=== PATIENT | male | born 1990 | race Caucasian/White ===

== ENCOUNTER 2017-01-06 12:46 | Emergency (ER) | payer OTHER ==
[~2017-01-06] VITALS: Ht 165.1 cm; Wt 58.0 kg
[~2017-01-06 12:46] MED LIST: ASPI81TA28 PO; CLC/300 PO; CMD5 PO; PAIN MED PO; WARF10TA4 PO
[2017-01-06 12:54] VITALS: TEMP 37.1; Ht 165.1 cm; Wt 58.0 kg
--- NOTE | 2017-01-06 14:17 | EMERGENCY ROOM VISIT NOTE ---
History Report prepared by Juventinoibchrist: Dominique Bejarano Under the Supervision of: Dr. Chivo Hawk M.D. First contact with patient: 14:01 Chief Complaint: PAIN (GENERALIZED) Stated Complaint: PAIN AROUND CHEST SCAR FROM HEART SURGERY History of Present Illness The patient is a 26 year old male who presents to the Emergency Room with complaints of persistent chest pain that started yesterday. He rates his discomfort as an 8/10 in severity. Lifting his arms worsens his pain. He has not taken any medication for the pain yet. The patient has a history of aortic valve replacement in September 2014 at [facility] and states "the pain feels like its located in the bones of my chest where my heart surgery was ". He denies any changes in the sounds his valve makes. He denies any breathing difficulty or recent episodes of syncope. The patient takes daily Coumadin but reports he "ran out" a few days ago and has not taken it in 2 days. He admits he smokes cigarettes "once in a [place]". Source of History: patient Onset: yesterday Position: chest Symptom Intensity: 8/10 Timing: other (persistent) Modifying Factors (Worsening): movement (lifting arms) Associated Symptoms: No LOC, No SOB Review of Systems See HPI for pertinent positives & negatives. A total of 10 systems reviewed and were otherwise negative. Past Medical & Surgical Medical Problems: (1) AORTIC VALVE DISORDER (2) ASTHMA, UNSPECIFIED (3) Heart Valve Replac Nec (4) MIGRAINE UNSPECIFIED W/O INTRACT MGRN W/O STATUS MIGRAINOSUS Surgical Problems: (1) H/O heart surgery (2) Heart Valve Replac Nec (3) Heart Valve Replac Nec (4) History of aortic valve replacement (5) [place] Teeth Removal Family History Diabetes mellitus Heart disease Kidney disease Social History Smoking Status: Current Some Day Smoker Alcohol Use: none Drug Use: none Marital Status: in relationship Housing Status: lives with family Occupation Status: employed Current/Historical Medications Scheduled Aspirin (Aspirin Ec), 81 MG PO DAILY Enoxaparin (Lovenox), 60 MG SQ Q12H Warfarin Sod (Coumadin), 5 MG PO 3XWK Warfarin Sod (Jantoven), 10 MG PO 4XWK Warfarin Sodium (Coumadin), 1 TAB PO DAILY Allergies Coded Allergies: Cephalexin (Verified Allergy, Intermediate, RASH-ITCHY, 09/01/16) Fish-derived Products (Verified Allergy, Intermediate, RASH-ITCHY, ) Indomethacin (Verified Adverse Reaction, Intermediate, GI SYMPTOMS, ) Tramadol (Verified Adverse Reaction, Unknown, UPSET STOMACH, 09/01/16) Physical Exam Vital Signs Date Time Temp Pulse Resp B/P Pulse Ox O2 Delivery O2 Flow Rate FiO2 01/06/17 16:45 76 18 128/83 100 Room Air NIBP 01/06/17 15:12 69 01/06/17 14:55 78 20 120/88 100 Room Air 01/06/17 12:54 37.1 78 18 131/87 98 Room Air Physical Exam GENERAL: Patient is well appearing and in minimal distress. HEENT: No acute trauma, normocephalic atraumatic, mucous membranes moist, no nasal congestion, no scleral icterus. NECK: No stridor, no adenopathy, no meningismus, trachea is midline. LUNGS: No dyspnea. Clear to auscultation and equal bilaterally. No wheeze, no rhonchi. HEART: Systolic click, palpable sternal wires with mild tenderness over lower sternum. ABDOMEN: Soft, nontender, bowel sounds positive, no masses appreciated, no peritonitis. BACK: No midline tenderness, no CVA tenderness EXTREMITIES: Normal motion all extremities, no cyanosis, no edema. NEUROLOGIC: Alert and oriented, no acute motor or sensory deficits, no focal weakness, cranial nerves grossly intact. SKIN: No rash, no jaundice, no diaphoresis. Medical Decision & Procedures ER Provider Diagnostic Interpretation: This X-Ray was reviewed and interpreted by myself and the radiologist. CHEST ONE VIEW PORTABLE IMPRESSION: No acute cardiopulmonary findings. Electronically signed by: Valdemar Hartman M.D. 01/06/2017 2:49 PM Laboratory Results 01/06/17 14:55 Red Blood Count 4.87, Mean Corpuscular Volume 79.9, Mean Corpuscular Hemoglobin 28.5, Mean Corpuscular Hemoglobin Concent 35.7, Mean Platelet Volume 9.3, Neutrophils (%) (Auto) 67.6, Lymphocytes (%) (Auto) 26.7, Monocytes (%) (Auto) 4.0, Eosinophils (%) (Auto) 1.3, Basophils (%) (Auto) 0.3, Neutrophils # (Auto) 4.54, Lymphocytes # (Auto) 1.80, Monocytes # (Auto) 0.27, Eosinophils # (Auto) 0.09, Basophils # (Auto) 0.02 01/06/17 14:55 Test 01/06/17 14:55 White Blood Count 6.73 K/uL (4.8-10.8) Red Blood Count 4.87 M/uL (4.7-6.1) Hemoglobin 13.9 g/dL (14.0-18.0) Hematocrit 38.9 % (42-52) Mean Corpuscular Volume 79.9 fL (80-100) Mean Corpuscular Hemoglobin 28.5 pg (25-34) Mean Corpuscular Hemoglobin Concent 35.7 g/dl (32-36) Platelet Count 222 K/uL (130-400) Mean Platelet Volume 9.3 fL (7.4-10.4) Neutrophils (%) (Auto) 67.6 % Lymphocytes (%) (Auto) 26.7 % Monocytes (%) (Auto) 4.0 % Eosinophils (%) (Auto) 1.3 % Basophils (%) (Auto) 0.3 % Neutrophils # (Auto) 4.54 K/uL (1.4-6.5) Lymphocytes # (Auto) 1.80 K/uL (1.2-3.4) Monocytes # (Auto) 0.27 K/uL (0.11-0.59) Eosinophils # (Auto) 0.09 K/uL (0-0.5) Basophils # (Auto) 0.02 K/uL (0-0.2) RDW Standard Deviation 39.1 fL (36.4-46.3) RDW Coefficient of Variation 13.4 % (11.5-14.5) Immature Granulocyte % (Auto) 0.1 % Immature Granulocyte # (Auto) 0.01 K/uL (0.00-0.02) Prothrombin Time 12.0 SECONDS (9.0-12.0) Prothromb Time International Ratio 1.1 (0.9-1.1) Activated Partial Thromboplast Time 27.6 SECONDS (21.0-31.0) Partial Thromboplastin Ratio 1.1 Anion Gap 7.0 mmol/L (3-11) Est Creatinine Clear Calc Drug Dose 109.3 ml/min Estimated GFR () 140.1 Estimated GFR (Non- 120.8 BUN/Creatinine Ratio 11.3 (10-20) Calcium Level 8.6 mg/dl (8.5-10.1) Total Creatine Kinase 73 U/L (39-308) Creatine Kinase MB 0.6 ng/ml (0.5-3.6) Creatine Kinase MB Ratio 0.8 (0-3.0) Troponin I < 0.015 ng/ml (0-0.045) Laboratory results as reviewed by me. Medications Administered Medications (Trade) Dose Ordered Sig/Ruthy Route Start Time Stop Time Status Last Admin Dose Admin Oxycodone HCl (Roxicodone Immediate Rel Tab) 10 mg NOW STAT PO 01/06/17 14:36 01/06/17 14:37 DC 01/06/17 14:54 10 MG Warfarin Sodium (Coumadin Tab) 10 mg NOW ONCE PO 01/06/17 16:15 01/06/17 16:16 DC 01/06/17 17:38 10 MG Enoxaparin Sodium (Lovenox Inj) 60 mg NOW ONCE SQ 01/06/17 16:15 01/06/17 16:16 DC 01/06/17 17:39 60 MG ECG Indication: chest pain Rate (beats per minute): 66 Rhythm: normal sinus (normal sinus rhythm) Findings: no acute ischemic change, no ectopy Change: no significant change (Similar appearance to previous EKG) ED Course 1408: The patient was evaluated in room C7. A complete history and physical exam was performed. 1436: Oxycodone HCl 10 mg PO. 1600: I reevaluated the patient. I discussed the importance of taking his Coumadin as prescribed and he verbalized complete understanding and agreement. 1615: I reevaluated the patient. He is feeling well. I discussed his results and discharge instructions and he verbalized complete understanding and agreement. 1615: Lovenox 60 mg SQ, Coumadin 10 mg PO. Medical Decision Differential: Cardiac Ischemia (STEMI, NSTEMI, Unstable Angina, etc), Aortic Dissection, Arrhythmia, Pulmonary Embolism, Pneumonia, Pneumothorax, MSK, Infectious, Pericarditis/Myocarditis, Esophageal Rupture, Gastrointestinal, amongst other pathologies entertained. 26 yr old male arrives with sternal chest pain, clearly reproducible and worse with movement thus I feel very likely MSK/costochondritis. EKG and Trop are both normal. Initially claiming taking his coumadin as prescribed then stating he ran out a few days ago. INR is not therapeutic. I stressed how dangerous it is for him to allow his INR to normalize on multiple times. Will do BID lovenox for next 5 days, restart coumadin with increased dose to 10mg tomorrow as well. Stable and without acute findings. Given pain med here but made it clear to him he must discuss further pain meds with pcp. Discussed symptoms requiring emergent return. Impression Primary Impression: Costochondral pain Additional Impression: Subtherapeutic international normalized ratio (INR) Scribe Attestation The scribe's documentation has been prepared under my direction and personally reviewed by me in its entirety. I confirm that the note above accurately reflects all work, treatment, procedures, and medical decision making performed by me. Departure Information Dispostion Home / Self-Care Prescriptions Warfarin Sodium (COUMADIN) 5 Mg Tab 1 TAB PO DAILY, #45 TAB 1 Refill Take as directed by your High Raw Sugar Boiler. Prov: Chivo Hawk M.D. 01/06/17 Enoxaparin (Lovenox) 60 Mg/0.6 Ml Inj 60 MG SQ Q12H for 5 Days, #10 SYR Prov: Chivo Hawk M.D. 01/06/17 Referrals Marla Dillard MD (PCP) Patient Instructions ED Chest Pain Costochondritis, My [facility] Additional Instructions You must follow up with your primary provider and intelligence engineer in the next 1-2 days. Your INR was too low. Allowing this to continue will lead to valve failure, strokes, heart failure, and possibly . This is important. Problem Qualifiers
[2017-01-06] MEDS ORDERED: OXYCODONE HCL IR 5 MG TAB (IMMEDIATE RELEASE) PO STA (14:36)
--- NOTE | 2017-01-06 14:50 | DIAGNOSTIC IMAGING REPORT ---
CHEST ONE VIEW PORTABLE CLINICAL HISTORY: Chest pain. COMPARISON STUDY: Chest radiograph July 06, 2016. FINDINGS: Lung volumes are normal. Lungs are clear. There are median sternotomy wires and a prosthetic aortic valve. Cardiac size is normal. Mediastinal contours are normal. There is no evidence of pulmonary edema. IMPRESSION: No acute cardiopulmonary findings. Electronically signed by: Valdemar Hartman M.D. 01/06/2017 2:49 PM Dictated Date/Time: 01/06/2017 2:48 PM
[2017-01-06 15:07] LABS: BASO % 0.3 %; BASO ABS # 0.02 K/uL (0-0.2); COMPLETE YES; EOS % 1.3 %; HEMATOCRIT 38.9 % (42-52); IG% 0.1 %; LYMPH % 26.7 %; MEAN CELL VOLUME 79.9 fL (80-100); MEAN CORPUSCULAR HEMOGLOBIN 28.5 pg (25-34); MEAN CORPUSCULAR HGB CONC 35.7 g/dl (32-36); MEAN PLATELET VOLUME 9.3 fL (7.4-10.4); NEUT % 67.6 %; PLATELET COUNT 222 K/uL (130-400); RED BLOOD COUNT 4.87 M/uL (4.7-6.1); WHITE BLOOD COUNT 6.73 K/uL (4.8-10.8)
[2017-01-06 15:17] LABS: INR 1.1 (0.9-1.1); PARTIAL THROMBOPLASTIN RATIO 1.1
[2017-01-06 15:24] LABS: BLOOD UREA NITROGEN 9 mg/dl (7-18); BUN/CREATININE RATIO 11.3 (10-20); CALCIUM 8.6 mg/dl (8.5-10.1); CARBON DIOXIDE 29 mmol/L (21-32); CHLORIDE 105 mmol/L (98-107); CREATININE 0.84 mg/dl (0.60-1.40); GLUCOSE 88 mg/dl (70-99); POTASSIUM 3.8 mmol/L (3.5-5.1); SODIUM 141 mmol/L (136-145)
[2017-01-06 15:29] LABS: CKMB/CK RATIO 0.8 (0-3.0)
[2017-01-06] MEDS ORDERED: WARF5TAB90 PO (16:08)
[2017-01-06] MEDS ORDERED: ENOX60IN SQ (16:08)
[2017-01-06] MEDS ORDERED: WARFARIN SOD 5 MG TAB PO ONE (16:15)
[2017-01-06] MEDS ORDERED: ENOXAPARIN 60 MG/0.6 ML SYR SQ ONE (16:15)
[2017-01-06 16:45] VITALS: BP 128/83; PULSE 76; O2SAT 100
== END 2017-01-06 17:38 | disposition home or self-care (01) ==
LOC: C.EDB 12:48 → C.EDC 17:38
DX: M94.0 Chondrocostal junction syndrome [Tietze] (principal); I35.8 Other nonrheumatic aortic valve disorders; J45.909 Unspecified asthma, uncomplicated; F17.200 Nicotine dependence, unspecified, uncomplicated; Z95.2 Presence of prosthetic heart valve; Z79.01 Long term (current) use of anticoagulants; Z79.82 Long term (current) use of aspirin; Z79.899 Other long term (current) drug therapy; Z88.8 Allergy status to other drugs, medicaments and biological substances; Z91.018 Allergy to other foods; Z83.3 Family history of diabetes mellitus; Z82.49 Family history of ischemic heart disease and other diseases of the circulatory system; Z84.1 Family history of disorders of kidney and ureter

== ENCOUNTER 2017-01-13 10:21 | Emergency (ER) | payer OTHER ==
[~2017-01-13] VITALS: Ht 165.1 cm; Wt 58.4 kg
[~2017-01-13 10:21] MED LIST changes: -CLC/300 PO; -PAIN MED PO; +WARF5TAB90 PO
[2017-01-13 10:29] VITALS: TEMP 36.6; Ht 165.1 cm; Wt 58.4 kg
[2017-01-13] MEDS ORDERED: MoRPHine SULFATE 4 MG/ML 1 ML CARP\\VIAL IV STA (11:06)
--- NOTE | 2017-01-13 11:10 | EMERGENCY ROOM VISIT NOTE ---
ED Visit Note First contact with patient: 10:35 Resident Physician Supervision Note: I interviewed and examined the patient. Discussed with Dr. Mclaughlin and agree with findings and plan as documented in the note. Any exceptions or clarifications are listed here: [None] The patient was reexamined at 1410. Headache is slightly better. INR is 1. The patient will have his Coumadin increased to 10 mg daily. He is to follow- up with the Coumadin clinic this week. The patient will be given a prescription for Fioricet. Documented By: Walt Seymour
[2017-01-13 11:20] LABS: BASO % 0.4 %; BASO ABS # 0.02 K/uL (0-0.2); COMPLETE YES; EOS % 1.9 %; IG% 0.2 %; LYMPH % 39.2 %; LYMPH ABS # 2.11 K/uL (1.2-3.4); MEAN CELL VOLUME 82.3 fL (80-100); MEAN CORPUSCULAR HEMOGLOBIN 28.9 pg (25-34); MEAN CORPUSCULAR HGB CONC 35.1 g/dl (32-36); MEAN PLATELET VOLUME 9.4 fL (7.4-10.4); MONO % 6.9 %; NEUT % 51.4 %; PLATELET COUNT 209 K/uL (130-400); RED BLOOD COUNT 4.98 M/uL (4.7-6.1); WHITE BLOOD COUNT 5.38 K/uL (4.8-10.8)
--- NOTE | 2017-01-13 11:25 | DIAGNOSTIC IMAGING REPORT ---
HEAD CT NONCONTRAST CT DOSE: 537.48 mGy.cm HISTORY: Headache FRONTAL HEADACHE, STARTED COUMADIN NOW TECHNIQUE: Multiaxial CT images of the head were performed without the use of intravenous contrast. Comparison: None. Findings: The paranasal sinuses and mastoid air cells are clear. The calvarium and skull base are intact. The ventricles and sulci are within normal limits. There is no mass, hematoma, midline shift, or acute infarct. Impression: No acute intracranial abnormality. Electronically signed by: Shar Brasher M.D. 01/13/2017 11:24 AM Dictated Date/Time: 01/13/2017 11:23 AM
[2017-01-13 11:37] LABS: BUN/CREATININE RATIO 11.7 (10-20); CALCIUM 8.8 mg/dl (8.5-10.1); CREATININE 0.9 mg/dl (0.60-1.40)
--- NOTE | 2017-01-13 11:50 | EMERGENCY ROOM VISIT NOTE ---
History First contact with patient: 10:35 Chief Complaint: HEADACHE Stated Complaint: WINSTON X 13 DAYS, V, DIZZY, SHAKING, CP-RESIDUAL History of Present Illness The patient is a 26 year old male with mechanical aortic valve, on lifelong coumadin, who presents to the Emergency Room with complaints of headache for the last 4 days. He also reports associated dizziness. He was recently in the ED on 01/07/17 and was diagnosed with costochondritis. At that visit he was found to have an INR of 1.0. He reports this was due to not having his Coumadin and not being on it for the prior 3 days due to running out of it. 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 Horner and he sees him every 6 months. He was discharged with a prescription for Lovenox BID for 5 days and was meant to be on his by mouth Coumadin at 10 mg and 5 mg on alternating days. He reports he has been compliant with this. He reports his headache started 4 days ago, is similar to his previous migraines , but as he has not had migraines over the last 2 years. The headache is frontal, throbbing, associated with nausea and dizziness, 7 out of 10 in severity. He reports nothing makes it better or worse. Initially he reported that he had taken some oxycodone, but then later denied taking this as well. He then said he took 4 tablets of Tylenol yesterday, but this did not help. He reports he cannot take NSAIDs due to due to being on Coumadin so has not tried any. He reports in the past and has had migraines he had taken hydrocodone, which was helpful. About 3 years ago when he had more frequent migraines she was also taking 20 tablets of Tylenol every day, then 1 day decided he wanted to stop this. He is not on any preventative medications for migraine. He has never actually seen a neurologist. His PCP is Dr. Dillard. Review of Systems See HPI for pertinent positives & negatives. A total of 10 systems reviewed and were otherwise negative. Past Medical/Surgical History Medical Problems: (1) AORTIC VALVE DISORDER (2) ASTHMA, UNSPECIFIED (3) Heart Valve Replac Nec (4) MIGRAINE UNSPECIFIED W/O INTRACT MGRN W/O STATUS MIGRAINOSUS Surgical Problems: (1) H/O heart surgery (2) Heart Valve Replac Nec (3) Heart Valve Replac Nec (4) History of aortic valve replacement (5) [place] Teeth Removal Family History Diabetes mellitus Heart disease Kidney disease Social History Smoking Status: Current Some Day Smoker Alcohol Use: none Drug Use: none Marital Status: in relationship Housing Status: lives with family Occupation Status: employed ([employer]) Current/Historical Medications Scheduled Aspirin (Aspirin Ec), 81 MG PO DAILY Warfarin Sod (Coumadin), 5 MG PO 3XWK Warfarin Sod (Jantoven), 10 MG PO 4XWK Scheduled PRN Acetamin/Butalbital/Caffeine (Fioricet), 1-2 TAB PO Q6 PRN for headache Allergies Coded Allergies: Cephalexin (Verified Allergy, Intermediate, RASH-ITCHY, 01/13/17) Fish-derived Products (Verified Allergy, Intermediate, RASH-ITCHY, 01/13/17) Indomethacin (Verified Adverse Reaction, Intermediate, GI SYMPTOMS, 01/13/17 ) Tramadol (Verified Adverse Reaction, Unknown, UPSET STOMACH, 01/13/17) Physical Exam Vital Signs Date Time Temp Pulse Resp B/P Pulse Ox O2 Delivery O2 Flow Rate FiO2 01/13/17 15:48 73 20 123/72 100 01/13/17 15:00 88 20 132/78 99 Room Air 01/13/17 14:00 70 18 112/76 99 Room Air 01/13/17 13:00 88 20 118/72 99 Room Air 01/13/17 11:50 84 20 124/75 97 Room Air 01/13/17 10:29 36.6 91 20 130/71 100 Room Air Physical Exam GENERAL: Awake, alert, well appearing, no distress HENT: Normocephalic, atraumatic. TM's normal. Oropharynx unremarkable. EYES: PERRL. Normal conjunctiva. Sclera non-icteric. Fundi normal. EOMI NECK: Supple. No nuchal rigidity. FROM. RESPIRATORY: CTA CARDIAC: RRR. Extremities warm and well perfused. ABDOMEN: Soft, non distended. No tenderness to palpation. No rebound or guarding. No masses. MUSCULOSKELETAL: Unremarkable. EXTREMITIES: No edema. No discoloration. Gross motor strength 5/5 bilaterally. NEURO: Normal sensorium. No sensory or motor deficits noted. Gait normal. Speech normal. Cranial nerves two through 12 intact. No pronator drift. Negative Romberg. Normal rapid alternating movements. SKIN: No rash or jaundice noted. LYMPH: No adenopathy. Medical Decision & Procedures Laboratory Results 01/13/17 11:10 Red Blood Count 4.98, Mean Corpuscular Volume 82.3, Mean Corpuscular Hemoglobin 28.9, Mean Corpuscular Hemoglobin Concent 35.1, Mean Platelet Volume 9.4, Neutrophils (%) (Auto) 51.4, Lymphocytes (%) (Auto) 39.2, Monocytes (%) (Auto) 6.9, Eosinophils (%) (Auto) 1.9, Basophils (%) (Auto) 0.4, Neutrophils # (Auto) 2.77, Lymphocytes # (Auto) 2.11, Monocytes # (Auto) 0.37, Eosinophils # (Auto) 0.10, Basophils # (Auto) 0.02 01/13/17 11:10 Test 01/13/17 11:07 01/13/17 11:10 01/13/17 12:59 Bedside Prothrombin Time INR 1.0 (0.9-1.1) White Blood Count 5.38 K/uL (4.8-10.8) Red Blood Count 4.98 M/uL (4.7-6.1) Hemoglobin 14.4 g/dL (14.0-18.0) Hematocrit 41.0 % (42-52) Mean Corpuscular Volume 82.3 fL (80-100) Mean Corpuscular Hemoglobin 28.9 pg (25-34) Mean Corpuscular Hemoglobin Concent 35.1 g/dl (32-36) Platelet Count 209 K/uL (130-400) Mean Platelet Volume 9.4 fL (7.4-10.4) Neutrophils (%) (Auto) 51.4 % Lymphocytes (%) (Auto) 39.2 % Monocytes (%) (Auto) 6.9 % Eosinophils (%) (Auto) 1.9 % Basophils (%) (Auto) 0.4 % Neutrophils # (Auto) 2.77 K/uL (1.4-6.5) Lymphocytes # (Auto) 2.11 K/uL (1.2-3.4) Monocytes # (Auto) 0.37 K/uL (0.11-0.59) Eosinophils # (Auto) 0.10 K/uL (0-0.5) Basophils # (Auto) 0.02 K/uL (0-0.2) RDW Standard Deviation 40.8 fL (36.4-46.3) RDW Coefficient of Variation 13.5 % (11.5-14.5) Immature Granulocyte % (Auto) 0.2 % Immature Granulocyte # (Auto) 0.01 K/uL (0.00-0.02) Anion Gap 7.0 mmol/L (3-11) Est Creatinine Clear Calc Drug Dose 102.7 ml/min Estimated GFR () 136.1 Estimated GFR (Non- 117.5 BUN/Creatinine Ratio 11.7 (10-20) Calcium Level 8.8 mg/dl (8.5-10.1) Prothrombin Time 12.7 SECONDS (9.0-12.0) Prothromb Time International Ratio 1.2 (0.9-1.1) Medications Administered Medications (Trade) Dose Ordered Sig/Ruthy Route Start Time Stop Time Status Last Admin Dose Admin Morphine Sulfate 4 mg 4 mg NOW STAT IV 01/13/17 11:06 01/13/17 11:07 DC 01/13/17 11:48 4 MG Sodium Chloride (Nss 1000ml) 1,000 ml @ 999 mls/hr Q1H1M ONCE IV 01/13/17 12:15 01/13/17 13:15 DC 01/13/17 12:13 999 MLS/HR ED Course 10:51: The patient was evaluated in room B9. A complete history and physical was performed. 11:06: I prescribed 4 mg of IV morphine sulfate. I also ordered a CT scan, CBC , CMP, and POC 12:05: The patient's [id number] INR was 1.0. His CT head was negative for bleed. I informed the patient about these results. I told him my concern that his INR 1.0 would indicate that he is not taking his Coumadin. He strongly says that he is taking and that he is compliant with his prescribed regime. He showed me his gomes from injecting Lovenox on his abdomen. I ordered a lab PT/ INR which had been drawn with his previous labs. He also reported feeling dizzy , so I prescribed a 1 L fluid bolus. 14:00: The patient was reviewed again. His PT/INR was 1.2. His headache had improved. He had an appt set up for January 14 in the [facility] and was discharged home in good condition. Medical Decision This is a 26 yo male with mechanical aortic valve replacement for bicuspid aortic valve, with recent restarting of coumadin 4 days ago, who presents with headache. Differential includes: intracranial hemorrhage, ischemia, migraine, tension headache, and cluster headache. He had an IV placed and labs drawn. He had an IV placed and labs drawn. His CT head was negative for bleed. Concerningly, his POC INR was 1.0, and his lab PT/INR was 1.2. I discussed my concerns of non-compliance with him and re-emphasized the risk of stroke and with subtherapeutic coumadin. He reports he understood and strongly said he had been taking his Lovenox injections BID and coumadin as prescribed, 10mg / 5mg on alternate days. He was given 4mg IV morphine which helped his headache. He was set up with an appointment at the [facility] Coumadin [facility] and this was arranged for tomorrow. He was discharged home in good condition and advised to follow up with his PCP in the week as well. Impression Primary Impression: Headache Departure Information Dispostion Home / Self-Care Condition GOOD Prescriptions Acetamin/Butalbital/Caffeine (FIORICET) 1 Ea Tab 1-2 TAB PO Q6 Y for headache, #20 TAB Prov: Walt Seymour M.D. 01/13/17 Referrals Marla Dillard MD (PCP) Patient Instructions My [facility] Resident Tracking Resident Involvement: Resident Care Provided Care Provided: Adult ED
[2017-01-13] MEDS ORDERED: SODIUM CHLORIDE 0.9% 1000ML 1,000 ML IV ONE (12:15)
[2017-01-13 13:16] LABS: INR 1.2 (0.9-1.1); PROTHROMBIN TIME (PATIENT) 12.7 SECONDS (9.0-12.0)
[2017-01-13] MEDS ORDERED: FRCT/ PO (15:27)
[2017-01-13 15:48] VITALS: BP 123/72; PULSE 73; O2SAT 100
== END 2017-01-13 15:51 | disposition home or self-care (01) ==
LOC: C.EDB 10:24
DX: R51 Headache (principal); R42 Dizziness and giddiness; J45.909 Unspecified asthma, uncomplicated; F17.200 Nicotine dependence, unspecified, uncomplicated; Z95.2 Presence of prosthetic heart valve; Z98.818 Other dental procedure status; Z98.890 Other specified postprocedural states; Z83.3 Family history of diabetes mellitus; Z79.01 Long term (current) use of anticoagulants; Z79.82 Long term (current) use of aspirin

== ENCOUNTER → 2017-01-15 | Outpatient (CLI) | payer OTHER ==
[~2017-01-15] MED LIST changes: +CMD10 PO; +ENOX100I SC; +FRCT/ PO; +WARF5TAB7 PO; -WARF5TAB90 PO
[2017-01-15 18:37] LABS: INR 1.7 (0.9-1.1); PROTHROMBIN TIME (PATIENT) 18.5 SECONDS (9.0-12.0)
== END | disposition home or self-care (01) ==
LOC: C.LABPBG 13:01
PROVIDERS: ATTEND Family Medicine
DX: Z51.81 Encounter for therapeutic drug level monitoring (principal); Z79.01 Long term (current) use of anticoagulants

== ENCOUNTER 2017-06-24 18:46 | Inpatient (IN) | payer OTHER ==
[~2017-06-24] VITALS: Ht 162.6 cm; Wt 59.0 kg
[~2017-06-24 18:46] MED LIST changes: -CMD10 PO; -ENOX100I SC; -WARF5TAB7 PO
[2017-06-24] MEDS ORDERED: SODIUM CHLORIDE 0.9% 1000ML 1,000 ML IV STA (19:03)
[2017-06-24] MEDS ORDERED: DiphenhydrAMINE HCL 50 MG/ML VIAL IV STA (19:03)
[2017-06-24] MEDS ORDERED: PROCHLORPERAZINE 5 MG/ML 2 ML VIAL IV STA (19:03)
[2017-06-24] MEDS ORDERED: KETOROLAC TROMETHAMINE 30 MG/ML VIAL IV STA (19:03)
--- NOTE | 2017-06-24 19:24 | DIAGNOSTIC IMAGING REPORT ---
CHEST ONE VIEW PORTABLE CLINICAL HISTORY: Altered mental status. Weakness. COMPARISON STUDY: 01/06/2017 FINDINGS: There are postsurgical changes of a midline sternotomy and aortic valve replacement. The heart is normal in size. There is no failure. There is no focal pulmonary consolidation. There are no pleural effusions.[ IMPRESSION: No active disease in the chest. Electronically signed by: Tomi Tyler M.D. 06/24/2017 7:23 PM Dictated Date/Time: 06/24/2017 7:23 PM
[2017-06-24 19:34] LABS: BASO % 0.2 %; BASO ABS # 0.02 K/uL (0-0.2); COMPLETE YES; EOS % 1.6 %; HEMATOCRIT 41.3 % (42-52); IG% 0.2 %; LYMPH ABS # 2.32 K/uL (1.2-3.4); MEAN CELL VOLUME 82.4 fL (80-100); MEAN CORPUSCULAR HEMOGLOBIN 28.9 pg (25-34); MEAN CORPUSCULAR HGB CONC 35.1 g/dl (32-36); MEAN PLATELET VOLUME 9.3 fL (7.4-10.4); MONO % 6.4 %; NEUT % 67.6 %; PLATELET COUNT 232 K/uL (130-400); RED BLOOD COUNT 5.01 M/uL (4.7-6.1); WHITE BLOOD COUNT 9.65 K/uL (4.8-10.8)
[2017-06-24 19:46] LABS: INR 1.1 (0.9-1.1); PROTHROMBIN TIME (PATIENT) 11.3 SECONDS (9.0-12.0)
[2017-06-24 19:53] LABS: BLOOD UREA NITROGEN 12 mg/dl (7-18); BUN/CREATININE RATIO 11.9 (10-20); CALCIUM 8.9 mg/dl (8.5-10.1); CARBON DIOXIDE 27 mmol/L (21-32); CHLORIDE 107 mmol/L (98-107); GLUCOSE 101 mg/dl (70-99); POTASSIUM 3.7 mmol/L (3.5-5.1); SODIUM 142 mmol/L (136-145)
--- NOTE | 2017-06-24 20:07 | DIAGNOSTIC IMAGING REPORT ---
CT HEAD WITHOUT CONTRAST (CT) CLINICAL HISTORY: Altered mental status. WEAKNESS COMPARISON STUDY: 01/13/2017 TECHNIQUE: Axial CT of the brain is performed from the vertex to the skull base. IV contrast was not administered for this examination. A dose lowering technique was utilized adhering to the principles of ALARA. CT DOSE: 614.27 mGy.cm FINDINGS: No intra or extra-axial mass lesions are visualized. There is no CT evidence of acute cortical infarction. There is no evidence of midline shift. There is no acute hemorrhage. No calvarial fractures are visualized. There is a 4 mm hypodensity within the right basal ganglia. This was not visualized on the prior study. There is also a 6 mm hypodensity within the right frontal white matter. This also was not visualized the prior study. There is no evidence of pathologic ventricular dilatation. There is no evidence of acute sinusitis IMPRESSION: 1. New 6 mm hypodensity within the right frontal white matter. 2. New 4 mm hypodensity within the right basal ganglia. 3. These lesions are nonspecific. Diagnostic considerations include demyelinating disease, or the sequela of ischemic disease which in a patient of this age would suggest a vasculitis. An MRI might be considered in follow-up for further evaluation 4. No acute hemorrhage Electronically signed by: Tomi Tyler M.D. 06/24/2017 8:06 PM Dictated Date/Time: 06/24/2017 8:00 PM
--- NOTE | 2017-06-24 21:26 | EMERGENCY ROOM VISIT NOTE ---
History Report prepared by Joe: Jessica Kincaid Under the Supervision of: Dr. Prasanth Sandra D.O. First contact with patient: 18:52 Chief Complaint: CARDIAC ASSESSMENT Stated Complaint: MIGRAINE,RT SIDE CHEST PAIN Nursing Triage Summary: pt c/o migraine since 1000 today. pt c/o on and off sharp right sided chest pain hx aortic valve replacement 3 yeras ago. c/o SOB when walking more than 20 minutes History of Present Illness The patient is a 26 year old male who presents to the Emergency Room with complaints of persistent right sided chest pain that began several days ago. He currently rates his discomfort as an 8/10 in severity. The patient states that he has a history of an aortic valve replacement in September 2014. He states that he has a mechanical valve. The patient states that a few days ago, he and his girlfriend got into an argument and he has recently been sleeping in his car. He states that his pain starts where his scar is to his right side. The patient additionally reports that he developed a migraine around 1000 this morning. He states that he took 2 500 mg Tylenol around 1030 and laid back down to rest. The patient states that one hour later he woke with a worsened migraine-headache. He states that he typically gets migraines approximately twice a week. The patient states that he is on Coumadin. He additionally reports nausea and vomiting. The patient states that he has only eaten a few crackers. Source of History: patient Onset: several days ago Position: chest (right) Symptom Intensity: 8/10 Timing: other (persistent) Associated Symptoms: + headache (migraine), + nausea, + vomiting Review of Systems See HPI for pertinent positives & negatives. A total of 10 systems reviewed and were otherwise negative. Past Medical & Surgical Medical Problems: (1) AORTIC VALVE DISORDER (2) ASTHMA, UNSPECIFIED (3) Heart Valve Replac Nec (4) MIGRAINE UNSPECIFIED W/O INTRACT MGRN W/O STATUS MIGRAINOSUS Surgical Problems: (1) H/O heart surgery (2) Heart Valve Replac Nec (3) Heart Valve Replac Nec (4) History of aortic valve replacement (5) [place] Teeth Removal Family History Diabetes mellitus Heart disease Kidney disease Social History Smoking Status: Never Smoker Alcohol Use: none Drug Use: none Marital Status: in relationship Housing Status: lives with family Occupation Status: employed Current/Historical Medications Scheduled Aspirin (Aspirin Ec), 81 MG PO DAILY Warfarin Sod (Coumadin), 5 MG PO 3XWK Warfarin Sod (Jantoven), 10 MG PO 4XWK Allergies Coded Allergies: Cephalexin (Verified Allergy, Intermediate, RASH-ITCHY, 01/13/17) Fish-derived Products (Verified Allergy, Intermediate, RASH-ITCHY, 01/13/17) Indomethacin (Verified Adverse Reaction, Intermediate, GI SYMPTOMS, 01/13/17 ) Tramadol (Verified Adverse Reaction, Unknown, UPSET STOMACH, 01/13/17) Physical Exam Vital Signs Date Time Temp Pulse Resp B/P (MAP) Pulse Ox O2 Delivery O2 Flow Rate FiO2 06/24/17 19:52 90 06/24/17 19:47 73 18 131/93 96 Room Air 06/24/17 18:52 98 Room Air 06/24/17 18:48 36.8 86 18 110/74 98 Room Air Physical Exam CONSTITUTIONAL/VITAL SIGNS: Reviewed / noted above. GENERAL: Non-toxic in appearance. INTEGUMENTARY: Warm, dry, and [place]. HEAD: Normocephalic. EYES: without scleral icterus or trauma. ENT/OROPHARYNX: clear and moist. LYMPHADENOPATHY/NECK: Is supple without lymphadenopathy or meningismus. RESPIRATORY: Lungs clear and equal. CARDIOVASCULAR: Regular rate and rhythm. GI/ABDOMEN: Soft and nontender. No organomegaly or pulsatile mass. No rebound or guarding. Normal bowel sounds. EXTREMITIES: Warm and well perfused. BACK: No CVA tenderness. NEUROLOGICAL: Intact without focal deficits. PSYCHIATRIC: normal affect. MUSCULOSKELETAL: Normally developed with good muscle tone. Medical Decision & Procedures ER Provider Diagnostic Interpretation: Radiology results as stated below per my review and radiologist interpretation: CT HEAD WITHOUT CONTRAST (CT) CLINICAL HISTORY: Altered mental status. WEAKNESS COMPARISON STUDY: 01/13/2017 TECHNIQUE: Axial CT of the brain is performed from the vertex to the skull base. IV contrast was not administered for this examination. A dose lowering technique was utilized adhering to the principles of ALARA. CT DOSE: 614.27 mGy.cm FINDINGS: No intra or extra-axial mass lesions are visualized. There is no CT evidence of acute cortical infarction. There is no evidence of midline shift. There is no acute hemorrhage. No calvarial fractures are visualized. There is a 4 mm hypodensity within the right basal ganglia. This was not visualized on the prior study. There is also a 6 mm hypodensity within the right frontal white matter. This also was not visualized the prior study. There is no evidence of pathologic ventricular dilatation. There is no evidence of acute sinusitis IMPRESSION: 1. New 6 mm hypodensity within the right frontal white matter. 2. New 4 mm hypodensity within the right basal ganglia. 3. These lesions are nonspecific. Diagnostic considerations include demyelinating disease, or the sequela of ischemic disease which in a patient of this age would suggest a vasculitis. An MRI might be considered in follow-up for further evaluation 4. No acute hemorrhage Electronically signed by: Tomi Tyler M.D. 06/24/2017 8:06 PM Dictated Date/Time: 06/24/2017 8:00 PM CHEST ONE VIEW PORTABLE CLINICAL HISTORY: Altered mental status. Weakness. COMPARISON STUDY: 01/06/2017 FINDINGS: There are postsurgical changes of a midline sternotomy and aortic valve replacement. The heart is normal in size. There is no failure. There is no focal pulmonary consolidation. There are no pleural effusions.[ IMPRESSION: No active disease in the chest. Electronically signed by: Tomi Tyler M.D. 06/24/2017 7:23 PM Dictated Date/Time: 06/24/2017 7:23 PM Laboratory Results 06/24/17 19:25 Red Blood Count 5.01, Mean Corpuscular Volume 82.4, Mean Corpuscular Hemoglobin 28.9, Mean Corpuscular Hemoglobin Concent 35.1, Mean Platelet Volume 9.3, Neutrophils (%) (Auto) 67.6, Lymphocytes (%) (Auto) 24.0, Monocytes (%) (Auto) 6.4, Eosinophils (%) (Auto) 1.6, Basophils (%) (Auto) 0.2, Neutrophils # (Auto) 6.52, Lymphocytes # (Auto) 2.32, Monocytes # (Auto) 0.62, Eosinophils # (Auto) 0.15, Basophils # (Auto) 0.02 06/24/17 19:25 Test 06/24/17 19:25 06/24/17 21:20 White Blood Count 9.65 K/uL (4.8-10.8) Red Blood Count 5.01 M/uL (4.7-6.1) Hemoglobin 14.5 g/dL (14.0-18.0) Hematocrit 41.3 % (42-52) Mean Corpuscular Volume 82.4 fL (80-100) Mean Corpuscular Hemoglobin 28.9 pg (25-34) Mean Corpuscular Hemoglobin Concent 35.1 g/dl (32-36) Platelet Count 232 K/uL (130-400) Mean Platelet Volume 9.3 fL (7.4-10.4) Neutrophils (%) (Auto) 67.6 % Lymphocytes (%) (Auto) 24.0 % Monocytes (%) (Auto) 6.4 % Eosinophils (%) (Auto) 1.6 % Basophils (%) (Auto) 0.2 % Neutrophils # (Auto) 6.52 K/uL (1.4-6.5) Lymphocytes # (Auto) 2.32 K/uL (1.2-3.4) Monocytes # (Auto) 0.62 K/uL (0.11-0.59) Eosinophils # (Auto) 0.15 K/uL (0-0.5) Basophils # (Auto) 0.02 K/uL (0-0.2) RDW Standard Deviation 40.3 fL (36.4-46.3) RDW Coefficient of Variation 13.5 % (11.5-14.5) Immature Granulocyte % (Auto) 0.2 % Immature Granulocyte # (Auto) 0.02 K/uL (0.00-0.02) Prothrombin Time 11.3 SECONDS (9.0-12.0) Prothromb Time International Ratio 1.1 (0.9-1.1) Anion Gap 8.0 mmol/L (3-11) Est Creatinine Clear Calc Drug Dose 91.2 ml/min Estimated GFR () 119.9 Estimated GFR (Non- 103.4 BUN/Creatinine Ratio 11.9 (10-20) Calcium Level 8.9 mg/dl (8.5-10.1) Troponin I < 0.015 ng/ml (0-0.045) Laboratory results as stated above per my review. Medications Administered Medications (Trade) Dose Ordered Sig/Ruthy Route Start Time Stop Time Status Last Admin Dose Admin Sodium Chloride 1,000 ml @ 999 mls/hr Q1H1M STAT IV 06/24/17 19:03 06/24/17 20:03 DC 06/24/17 19:43 999 MLS/HR Ketorolac Tromethamine (Toradol Inj) 30 mg NOW STAT IV 06/24/17 19:03 06/24/17 19:05 DC 06/24/17 19:43 30 MG Diphenhydramine HCl (Benadryl Inj) 25 mg NOW STAT IV 06/24/17 19:03 06/24/17 19:05 DC 06/24/17 19:43 25 MG Prochlorperazine Edisylate (Compazine Inj) 10 mg NOW STAT IV 06/24/17 19:03 06/24/17 19:05 DC 06/24/17 19:43 10 MG ECG Indication: chest pain Rate (beats per minute): 76 Rhythm: normal sinus Findings: no acute ischemic change, no ectopy ED Course 1899: Previous medical records were reviewed. The patient was evaluated in room A2. A complete history and physical examination was performed. 1902: Ordered Compazine Inj 10 mg IV, Benadryl Inj 25 mg IV, Toradol Inj 30 mg IV, Sodium Chloride 1000 ml @ 999 mls/hr IV. 2034: I reevaluated the patient and he is resting. I discussed the exam findings with him and I discussed the treatment plan. He verbalized complete understanding and agreement. He is going to be evaluated for further treatment. 2038: I discussed the patients case with Dr. Rodríguez, [facility] He is going to evaluate the patient for further treatment as long as Cardiology is comfortable with keeping the patient here. 2112: I discussed the patients case with Dr. Hernandez, Cardiology. He states that the patient is okay to stay here for further evaluation and treatment. 2116: Ordered Heparin Sodium/Dextrose 1 ea NA. Medical Decision Differentials include: Acute coronary syndrome, myocardial infarction, CVA, TIA , anemia, infection, pneumonia, UTI, pyelonephritis, poor nutrition, dehydration , electrolyte disturbance, and hypoglycemia. This is a 26-year-old male who presents to the ED with a chief complaint of right-sided chest pain as well as a headache. The patient reports history of aortic valve replacement 3 years ago. He states that he is taking warfarin. He denies any trauma. Denies shortness of breath. The patient states that he started having a migraine around 10 AM today. He took 2 Tylenol which did not help. He's been here previously for headaches. His physical exam was unremarkable. He is in no distress. EKG shows a normal sinus rhythm. CBC is normal, chest x-ray did not show acute disease, PE or PE was normal, INR is 1.1. This was similar to his previous ED visit. The patient appears to be noncompliant with taking his Coumadin. He was advised of the importance of taking this with his mechanical valve replacement. CT scan of the brain reveals 2 small hypodensities in the right frontal and right basal ganglia. These could possibly be ischemic related as the patient is not therapeutic on anticoagulation and has a mechanical heart valve. The patient was started on IV heparin. I spoke with the hospitalist, who will see the patient for further inpatient evaluation. I spoke with Dr. Walter from cardiology who agrees the patient can be evaluated by cardiology tomorrow here as well. The patient was treated with IV fluids, IV Toradol, IV Benadryl IV Compazine. He reports that he is getting a ride home with his friend. He is felt to be stable for discharge. Medication Reconcilliation Current Medication List: was personally reviewed by me Blood Pressure Screening Patient's blood pressure: Normal blood pressure Blood pressure disposition: Did not require urgent referral Consults Time Called: 2037 Consulting Physician: JOCY Kelly Returned Call: 2038 I discussed the patients case with JOCY Kelly. He is going to evaluate the patient for further treatment as long as Cardiology is comfortable with keeping the patient here. Additional Consults: Time Called: 2039 Consulted Physician: Dr. Hernandez, Cardiology Returned Call: [phone] Additional Comments: I discussed the patients case with Dr. Hernandez, Cardiology. He states that the patient is okay to stay here for further evaluation and treatment. Impression Primary Impression: Right-sided chest pain Additional Impressions: Headache CVA (cerebral vascular accident) Subtherapeutic anticoagulation Mechanical heart valve present Medical non-compliance Scribe Attestation The scribe's documentation has been prepared under my direction and personally reviewed by me in its entirety. I confirm that the note above accurately reflects all work, treatment, procedures, and medical decision making performed by me. Departure Information Dispostion Being Evaluated By Hospitalist Referrals No Doctor, Assigned (PCP) Problem Qualifiers
[2017-06-24] MEDS ORDERED: MoRPHine SULFATE 2 MG/ML CARP IV PRN (21:30)
[2017-06-24] MEDS ORDERED: ACETAMINOPHEN 325 MG TAB PO PRN (21:30)
[2017-06-24] MEDS ORDERED: POLYETHYLENE (MIRALAX) 17 GM PACK PO PRN (21:30)
[2017-06-24] MEDS ORDERED: ZOLPIDEM TARTRATE 5 MG TAB PO PRN (21:30)
[2017-06-24] MEDS ORDERED: ALUMINUM/MAGNESIUM/SIMETH (MAALOX MAX) 30 ML UDC PO PRN (21:30)
[2017-06-24] MEDS ORDERED: ONDANSETRON INJ 2 MG/ML 2 ML VIAL IV PRN (21:30)
[2017-06-24] MEDS ORDERED: MAGNESIUM HYDROXIDE SUSP 30 ML UDC PO PRN (21:30)
--- NOTE | 2017-06-24 21:55 | History and Physical ---
History & Physical Date & Time of Service: Jun 24, 2017 at 21:36 Chief Complaint: Migraine,Rt Side Chest Pain Primary Care Physician: No Doctor, Assigned History of Present Illness Source: patient 26 y/o M Hx bicuspid aortic valve and resultant replacement with a mechanical valve in 2013. Pt is frequently noncompliant with Coumadin. He presented to the ER with complaints of both headache and chest pain. He has had persistent R sided moderate to severe CP for 2-3 days. He additionally states that he developed a migraine earlier today. He took tylenol but reports that his headache had worsened regardless. A CT head was obtained in the ER revealing a 6 mm hypodensity in the right frontal white matter and a 4 mm hypodensity within the right basal ganglia. Considering his history of a mechanical valve and Coumadin noncompliance, it is felt that these lesions may represent emboli, and he will be admitted for further workup. Past Medical/Surgical History Medical Problems: (1) AORTIC VALVE DISORDER Status: Chronic (2) ASTHMA, UNSPECIFIED Status: Chronic (3) MIGRAINE UNSPECIFIED W/O INTRACT MGRN W/O STATUS MIGRAINOSUS Status: Chronic Surgical Problems: (1) H/O heart surgery Status: Resolved (2) Heart Valve Replac Nec Status: Chronic (3) History of aortic valve replacement Status: Resolved (4) [place] Teeth Removal Status: Resolved Family History Diabetes mellitus Heart disease Kidney disease Social History Smoking Status: Never Smoker Drug Use: none Marital Status: in relationship Occupational Status: employed Multi-Drug Resistant Organisms History of MDRO: No Allergies Coded Allergies: Cephalexin (Verified Allergy, Intermediate, RASH-ITCHY, 01/13/17) Fish-derived Products (Verified Allergy, Intermediate, RASH-ITCHY, 01/13/17) Indomethacin (Verified Adverse Reaction, Intermediate, GI SYMPTOMS, 01/13/17 ) Tramadol (Verified Adverse Reaction, Unknown, UPSET STOMACH, 01/13/17) Home Medications Scheduled Aspirin (Aspirin Ec), 81 MG PO DAILY Warfarin Sod (Coumadin), 5 MG PO 3XWK Warfarin Sod (Jantoven), 10 MG PO 4XWK Review of Systems Constitutional: No fever, No chills, No sweats Eyes: No worsening of vision ENT: No hearing loss, No unusual epistaxis, No nasal symptoms Respiratory: No cough, No sputum, No wheezing Cardiovascular: + chest pain (R sided - eminating from area of scar) Abdomen: No pain, No nausea, No vomiting Musculoskeletal: No joint pain Genitourinary - Male: No hematuria, No dysuria, No urinary frequency, No urinary urgency Neurologic: + problem reported (headache as above), No memory loss, No paralysis, No weakness Psychiatric: No depression symptoms Endocrine: No fatigue Hematologic / Lymphatic: No abnormal bleeding/bruising Integumentary: No rash Allergic / Immunologic: No environmental allergies Physical Exam Vital Signs Date Time Temp Pulse Resp B/P (MAP) Pulse Ox O2 Delivery O2 Flow Rate FiO2 06/24/17 19:52 90 06/24/17 19:47 73 18 131/93 96 Room Air 06/24/17 18:52 98 Room Air 06/24/17 18:48 36.8 86 18 110/74 98 Room Air General Appearance: WD/WN, no apparent distress Head: normocephalic Eyes: normal inspection ENT: normal ENT inspection, pharynx normal Neck: supple, no JVD Respiratory/Chest: chest non-tender, lungs clear, normal breath sounds Cardiovascular: regular rate, rhythm, no edema, no gallop, no JVD, + pertinent finding (Audible click ) Abdomen/GI: normal bowel sounds, non tender, soft Genitourinary - Male: normal male genitalia Back: normal inspection Extremities/Musculoskelatal: normal inspection Neurologic/Psych: ap processor II-XII nml as tested, no motor/sensory deficits, alert, normal mood/affect, normal reflexes, oriented x 3 Skin: normal color, warm/dry, no rash Diagnostics Laboratory Results Results Past 24 Hours Test 06/24/17 19:25 Range/Units White Blood Count 9.65 4.8-10.8 K/uL Red Blood Count 5.01 4.7-6.1 M/uL Hemoglobin 14.5 14.0-18.0 g/dL Hematocrit 41.3 42-52 % Mean Corpuscular Volume 82.4 80-100 fL Mean Corpuscular Hemoglobin 28.9 25-34 pg Mean Corpuscular Hemoglobin Concent 35.1 32-36 g/dl Platelet Count 232 130-400 K/uL Mean Platelet Volume 9.3 7.4-10.4 fL Neutrophils (%) (Auto) 67.6 % Lymphocytes (%) (Auto) 24.0 % Monocytes (%) (Auto) 6.4 % Eosinophils (%) (Auto) 1.6 % Basophils (%) (Auto) 0.2 % Neutrophils # (Auto) 6.52 1.4-6.5 K/uL Lymphocytes # (Auto) 2.32 1.2-3.4 K/uL Monocytes # (Auto) 0.62 0.11-0.59 K/uL Eosinophils # (Auto) 0.15 0-0.5 K/uL Basophils # (Auto) 0.02 0-0.2 K/uL RDW Standard Deviation 40.3 36.4-46.3 fL RDW Coefficient of Variation 13.5 11.5-14.5 % Immature Granulocyte % (Auto) 0.2 % Immature Granulocyte # (Auto) 0.02 0.00-0.02 K/uL Prothrombin Time 11.3 9.0-12.0 SECONDS Prothromb Time International Ratio 1.1 0.9-1.1 Sodium Level 142 136-145 mmol/L Potassium Level 3.7 3.5-5.1 mmol/L Chloride Level 107 98-107 mmol/L Carbon Dioxide Level 27 21-32 mmol/L Anion Gap 8.0 3-11 mmol/L Blood Urea Nitrogen 12 7-18 mg/dl Creatinine 1.00 0.60-1.40 mg/dl Est Creatinine Clear Calc Drug Dose 91.2 ml/min Estimated GFR () 119.9 Estimated GFR (Non- 103.4 BUN/Creatinine Ratio 11.9 10-20 Random Glucose 101 70-99 mg/dl Calcium Level 8.9 8.5-10.1 mg/dl Troponin I < 0.015 0-0.045 ng/ml Diagnostic Radiology CT head 1. New 6 mm hypodensity within the right frontal white matter. 2. New 4 mm hypodensity within the right basal ganglia. 3. These lesions are nonspecific. Diagnostic considerations include demyelinating disease, or the sequela of ischemic disease which in a patient of this age would suggest a vasculitis. An MRI might be considered in follow-up for further evaluation 4. No acute hemorrhage Normal EKG Impression Assessment and Plan 26 y/o M Hx bicuspid aortic valve and resultant replacement with a mechanical valve in 2013. Pt is frequently noncompliant with Coumadin. He presented to the ER with complaints of both headache and chest pain. He has had persistent R sided moderate to severe CP for 2-3 days. He additionally states that he developed a migraine earlier today. He took Tylenol but reports that his headache had worsened regardless. A CT head was obtained in the ER revealing a 6 mm hypodensity in the right frontal white matter and a 4 mm hypodensity within the right basal ganglia. Considering his history of a mechanical valve and Coumadin noncompliance, it is felt that these lesions may represent emboli, and he will be admitted for further workup. 1) CP - unclear if this is related to noncompliance - unlikely to represent ACS - we will monitor on telemetry and repeat a troponin AM. We will obtain an echo and consult radiology. 2) Lesions on CT - MRI and echo ordered as we would pursue emboli as a diagnosis. 3) Mechanical valve - concern for valve thrombus due to Coumadin noncompliance - as above an echo is ordered - he will be placed on Heparin pending cardio evaluation - he may require a PUNEET. INR is 1.1 on admission. 4) Pt is cautioned regarding medical noncompliance Full code - Full dose Heparin Total time for this admit including review of labs, EKG, CT, records - discussion with pt and ER attending - 38 min Level of Care Telemetry Resuscitation Status FULL RESUSCITATION VTE Prophylaxis VTE Risk Assessment Done? Y/N: Yes Risk Level: High Given or contraindicated: Other Anticoagulation
[2017-06-24] MEDS ORDERED: HEPARIN 25000 UNIT/500 ML D5W ONE (22:13)
[2017-06-24 22:48] VITALS: BP 135/83; PULSE 61; TEMP 36.4; O2SAT 99; BMI 21.3
[2017-06-25] VITALS (7 sets, daily range): BP systolic 119–158; BP diastolic 79–97; PULSE 64–78; TEMP 36.6–36.8; O2SAT 94–100
[2017-06-25 04:13] LABS: PARTIAL THROMBOPLASTIN RATIO 1.8
[2017-06-25] MEDS ORDERED: HEPARIN IV BOLUS 2,000 UNIT in SYRINGE 0 ML IV ONE (05:15)
[2017-06-25] MEDS: HEPARIN 25,000 UNIT/500ML D5W 500 ML IV PRN ×2 (05:48→20:37)
[2017-06-25] MEDS: ASPIRIN 81 MG ECTAB PO SCH (08:11)
--- NOTE | 2017-06-25 09:41 | DIAGNOSTIC IMAGING REPORT ---
MRI OF THE BRAIN WITHOUT IV CONTRAST CLINICAL HISTORY: Weakness. Change in mental status. COMPARISON STUDY: CT of the brain dated 06/24/2017 and 12/31/2015. TECHNIQUE: MRI of the brain was performed utilizing various T1 and T2-weighted sequences in the axial, sagittal, and coronal planes. IV contrast was not administered for this examination. FINDINGS: Brain parenchyma: There are subcentimeter foci of encephalomalacia in the right posterior frontal white matter and in the right basal ganglia measuring up to 7 mm. These were also seen on the 06/24/2017 CT scan but are new from earlier prior studies. The appearance is consistent with tiny chronic lacunar infarcts. Similar-appearing cortical findings are seen within the right temporal lobe. Subtle FLAIR signal is seen on coronal image #15. There is no hemorrhage or mass effect. T2 shine through is noted within the right frontal white matter lesion. There is no restricted diffusion to indication acute ischemia. Cid-white matter differentiation is preserved. No extra-axial fluid collection is seen. The cerebellar tonsils are normal in configuration. Ventricles, sulci, and cisterns: Normal in configuration. Pituitary and sella: Unremarkable. Intracranial vasculature: Normal flow voids are maintained at the skull base. Orbits: The bony orbits are grossly intact. Orbital contents are normal in appearance. Sinuses and mastoids: A retention cyst is noted in the right maxillary antrum. The paranasal sinuses are otherwise clear. The mastoid air cells are well pneumatized. Calvarium: Unremarkable. Cervical cord: Partially visualized cervical spinal cord is normal in morphology and signal intensity. IMPRESSION: 1. There are 2 subcentimeter lacunar infarcts identified within the right frontal white matter and in the right basal ganglia. Additionally, there is a small chronic infarct in the right temporal lobe. These corresponds to the lesions seen on the 06/24/2017 CT scan and correspond to chronic infarcts which are new from 01/13/2017. 2. No acute ischemia is identified. No hemorrhage or mass effect is seen. Electronically signed by: Lan Harding M.D. 06/25/2017 9:40 AM Dictated Date/Time: 06/25/2017 9:27 AM
--- NOTE | 2017-06-25 10:27 | Medical Student: [facility] ---
Med Student Progress Note Date of Service Jun 25, 2017. Subjective Pain: 2/10 headache, >1/10 chest pain PO Intake: tolerating PO diet Isaias Sylvester is a 26 yo, with PMHx of bicuspid aortic valve replaced with mechanical valve x3 years and migraines, who presented complaining of worsening , 8/10, dully, achy, substernal chest pain (around incision site) that radiated to right shoulder since yesterday morning. He also reports associated headache , localized to right islam that wrapped around bilateral sides of forehead. He states he took 1000mg Tylenol yesterday at 10:30am, went back to bed, woke up at 12:30pm with worsening symptoms. He notes he ran out of his Coumadin prescription (alternating 5mg MWF and 10mg other days of the week) 4 days ago. He also reports taking Fioricet 1-2x a week, with significant relief of headache symptoms, but notes he ran out of his prescription 1.5 weeks ago. He states he is usually good about refilling his prescriptions (only refilling late a "few" times in the past 3 years), but remarks he has been homeless/ living in his car recently, secondary to troubles with his family/girlfriend. Patient has history of depression/anxiety, but denies any symptoms of baseline. Review of Systems Constitutional: + problem reported (temporal headache that wraps around forehead), No fever, No chills, No sweats, No weakness, No fatigue (at baseline) Eyes: No worsening of vision, No eye pain, No redness ENT: No hearing loss, No nasal symptoms (nasal congestion at baseline), No sore throat Respiratory: No cough, No wheezing, No shortness of breath Cardiac: + chest pain (right sided near sternum (around scar) radiating to right shoulder), No orthopnea, No edema, No claudication Abdomen: No pain, No nausea, No vomiting, No diarrhea, No constipation Musculoskeletal: No joint pain, No muscle pain, No swelling Male : No dysuria, No urinary frequency, No incontinence Neurologic: No memory loss, No weakness, No numbness/tingling, No vertigo Psychiatric: No depression symptoms (at baseline), No anxiety (at baseline) Endo: No fatigue (at baseline), No excessive urination Skin: No rash, No itch Objective Vital Signs Date Time Temp Pulse Resp B/P (MAP) Pulse Ox O2 Delivery O2 Flow Rate FiO2 06/25/17 08:00 Room Air 06/25/17 06:51 36.8 64 17 119/79 (92) 98 Room Air 06/25/17 04:14 99 Room Air 06/25/17 04:00 36.6 64 18 121/81 (94) 97 Room Air 06/25/17 00:00 99 Room Air 06/24/17 22:48 36.4 61 16 135/83 99 Room Air 06/24/17 22:37 60 18 141/69 98 06/24/17 21:30 80 18 141/69 100 Room Air 06/24/17 19:52 90 06/24/17 19:47 73 18 131/93 96 Room Air 06/24/17 18:52 98 Room Air 06/24/17 18:48 36.8 86 18 110/74 98 Room Air Physical Exam General Appearance: WD/WN, no apparent distress Eyes: bilateral eyes normal inspection, bilateral eyes PERRL, bilateral eyes EOMI ENT: normal ENT inspection, hearing grossly normal, pharynx normal Neck: supple, no adenopathy Respiratory/Chest: chest non-tender, lungs clear, normal breath sounds, no respiratory distress, no accessory muscle use Cardiovascular: regular rate, rhythm, no edema, + pertinent finding (audible click from mechanical aortic valve) Abdomen: normal bowel sounds, non tender, soft Extremities: normal range of motion, non-tender, normal inspection, no pedal edema, no calf tenderness Neurologic/Psychiatric: talkback host II-XII nml as tested, no motor/sensory deficits, alert, normal mood/affect, oriented x 3 Skin: normal color, warm/dry, no rash Lymphatic: no adenopathy Laboratory Results Last 24 Hours Test 06/24/17 19:25 06/25/17 03:50 06/25/17 07:17 White Blood Count 9.65 K/uL Red Blood Count 5.01 M/uL Hemoglobin 14.5 g/dL Hematocrit 41.3 % Mean Corpuscular Volume 82.4 fL Mean Corpuscular Hemoglobin 28.9 pg Mean Corpuscular Hemoglobin Concent 35.1 g/dl Platelet Count 232 K/uL Mean Platelet Volume 9.3 fL Neutrophils (%) (Auto) 67.6 % Lymphocytes (%) (Auto) 24.0 % Monocytes (%) (Auto) 6.4 % Eosinophils (%) (Auto) 1.6 % Basophils (%) (Auto) 0.2 % Neutrophils # (Auto) 6.52 K/uL Lymphocytes # (Auto) 2.32 K/uL Monocytes # (Auto) 0.62 K/uL Eosinophils # (Auto) 0.15 K/uL Basophils # (Auto) 0.02 K/uL RDW Standard Deviation 40.3 fL RDW Coefficient of Variation 13.5 % Immature Granulocyte % (Auto) 0.2 % Immature Granulocyte # (Auto) 0.02 K/uL Prothrombin Time 11.3 SECONDS Prothromb Time International Ratio 1.1 Activated Partial Thromboplast Time 26.5 SECONDS 46.3 SECONDS 103.4 SECONDS Partial Thromboplastin Ratio 1.0 1.8 4.0 Sodium Level 142 mmol/L Potassium Level 3.7 mmol/L Chloride Level 107 mmol/L Carbon Dioxide Level 27 mmol/L Anion Gap 8.0 mmol/L Blood Urea Nitrogen 12 mg/dl Creatinine 1.00 mg/dl Est Creatinine Clear Calc Drug Dose 91.2 ml/min Estimated GFR () 119.9 Estimated GFR (Non- 103.4 BUN/Creatinine Ratio 11.9 Random Glucose 101 mg/dl Calcium Level 8.9 mg/dl Troponin I < 0.015 ng/ml < 0.015 ng/ml Medications Medications Administered Medications (Trade) Dose Ordered Sig/Ruthy Route Start Time Stop Time Status Last Admin Dose Admin Sodium Chloride 1,000 ml @ 999 mls/hr Q1H1M STAT IV 06/24/17 19:03 06/24/17 20:03 DC 06/24/17 19:43 999 MLS/HR Ketorolac Tromethamine (Toradol Inj) 30 mg NOW STAT IV 06/24/17 19:03 06/24/17 19:05 DC 06/24/17 19:43 30 MG Diphenhydramine HCl (Benadryl Inj) 25 mg NOW STAT IV 06/24/17 19:03 06/24/17 19:05 DC 06/24/17 19:43 25 MG Prochlorperazine Edisylate (Compazine Inj) 10 mg NOW STAT IV 06/24/17 19:03 06/24/17 19:05 DC 06/24/17 19:43 10 MG Aspirin (Ecotrin Tab) 81 mg DAILY PO 06/25/17 09:00 07/25/17 08:59 06/25/17 08:11 81 MG Heparin Sodium/ Dextrose (Heparin 25,000 Unit/500ml D5W) 25,000 unit STK-MED ONCE .ROUTE 06/24/17 22:13 06/24/17 22:14 DC 06/24/17 22:16 25,000 UNIT Heparin Sodium/ Dextrose 500 ml @ 21 mls/hr [id number] PRN IV 06/24/17 23:45 07/24/17 23:44 06/25/17 05:48 23 MLS/HR Heparin Sodium (Porcine) 2000 unit/Syringe 2 ml @ 10 mls/min NOW ONCE IV 06/25/17 05:15 06/25/17 05:16 DC 06/25/17 05:46 10 MLS/MIN Assessment and Plan Assessment and Plan: Isaias Sylvester is a 26 yo male, with PMHx of bicuspid aortic valve that was replaced with mechanical valve x3 years, who presented with chest pain around his surgical scar radiating to right shoulder and a temporal/bilateral frontal headache since yesterday. Toradol (30mg injection) given in ED helped to control both headache pain and chest pain. Non-contrast CT of brain in the ED revealed 2 small hypodensities (6mm in right frontal lobe and 4mm in right basal ganglia); follow-up MRI showed ischemic changes in these areas as well. Labs showed an INR of 1.1. Patient was started on heparin while in-patient, but will be bridged to warfarin for discharge. Chest pain - Admit to telemetry - Repeat troponin (<0.015 x2) - Echocardiogram findings: "Normal left ventricular size with low-normal systolic function. EF 55%. No regional wall motion abnormalities. Mild concentric left ventricular hypertrophy. Mechanical aortic valve with acceptable transvalvular gradients and velocities. Echogenic mobile findings within the LVOT near the mechanical aortic valve, noted mostly during diastole. This could represent artifact versus actual finding. Normal estimated right ventricular systolic pressure; 19 mmHg. Compared to prior transesophageal study on 09/15/2014, mechanical aortic valve has replaced bicuspid aortic valve. " - Consult cardiology Embolic infarct - Non-contrast CT of head findings: "New 6 mm hypodensity within the right frontal white matter. New 4 mm hypodensity within the right basal ganglia. These lesions are nonspecific. Diagnostic considerations include demyelinating disease, or the sequela of ischemic disease which in a patient of this age would suggest a vasculitis. An MRI might be considered in follow-up for further evaluation. No acute hemorrhage" - MRI of head findings: "There are 2 subcentimeter lacunar infarcts identified within the right frontal white matter and in the right basal ganglia. Additionally, there is a small chronic infarct in the right temporal lobe. These corresponds to the lesions seen on the 06/24/2017 CT scan and correspond to chronic infarcts which are new from 01/13/2017. No acute ischemia is identified. No hemorrhage or mass effect is seen." - Neurology consult. Recommended continued anticoagulation with heparin bridge to warfarin, no neurological deficits noted. Anticoagulation for mechanical valve - Continue heparin IV (500 ml @ 21 mls/hr) - Bridge to Coumadin (10mg each day for 3 days), recheck INR each day - [facility] - Call Dr. Ladd at the anti-coagulation clinic Migraine headaches, chronic - Pain controlled on Toradol (30mg injection) given in ED
--- NOTE | 2017-06-25 10:53 | Neurology Consultation ---
Neurology Consultation Date of Consultation: Jun 25, 2017. Attending Physician: John Rodríguez M.D. Primary Care Physician: No Doctor, Assigned Reason for Consultation: Stroke History of Present Illness The patient is a 26-year-old male with a history of congenital aortic stenosis who underwent placement of a mechanical aortic valve 3 years ago. He presented to the emergency department yesterday complaining of headache and chest pain and was found to have a subtherapeutic INR. A CT of the head revealed 2 small hypodensities within the right frontal lobe and right basal ganglia respectively that were new compared with the previous CT of the head done in January and potentially suggestive of small infarcts. A follow-up MRI of the brain has been completed. I reviewed the images as well as the radiologist's interpretation of this test. The abnormalities observed on CT of the head likely represent chronic infarcts. There is an area of chronic infarct within the right temporal lobe as well. Diffusion-weighted imaging is negative for acute infarct although there is a small area of restricted diffusion within the right frontal lobe consistent with T2 shine through. The patient admits to noncompliance with his warfarin. He reports that his headache is improved. He denies experiencing any fevers or chills. He denies any focal neurological symptoms such as change in speech, weakness, or sensory loss. Past Medical/Surgical History Medical Problems: (1) AORTIC VALVE DISORDER Status: Chronic (2) ASTHMA, UNSPECIFIED Status: Chronic (3) Chronic knee pain Status: Acute (4) Chronic lower back pain Status: Acute (5) Closed head injury Status: Acute (6) CVA (cerebral vascular accident) Status: Acute (7) Encounter for removal of ema Status: Acute (8) Facial cellulitis Status: Acute (9) Headache Status: Acute (10) Headache Status: Acute (11) Injury of knee, ligament Status: Acute (12) Knee pain Status: Acute (13) Knee pain Status: Acute (14) Left knee pain Status: Acute (15) Left knee sprain Status: Acute (16) Medical non-compliance Status: Acute (17) Mid sternal chest pain Status: Acute (18) MIGRAINE UNSPECIFIED W/O INTRACT MGRN W/O STATUS MIGRAINOSUS Status: Chronic (19) Odontalgia Status: Acute (20) Pain, dental Status: Acute (21) Periapical abscess Status: Acute (22) Right-sided chest pain Status: Acute (23) Right-sided chest pain Status: Acute (24) Scalp laceration Status: Acute (25) Sprain of knee Status: Acute (26) Subtherapeutic anticoagulation Status: Acute (27) Subtherapeutic international normalized ratio (INR) Status: Acute Surgical Problems: (1) Heart Valve Replac Nec Status: Chronic Social History Problems: (1) Mechanical heart valve present Status: Acute Family History Family history notable for diabetes and heart disease Social History Smoking Status: Former smoker Drug Use: none Marital Status: in relationship Housing Status: lives with family Occupation Status: employed Allergies Coded Allergies: Cephalexin (Verified Allergy, Intermediate, RASH-ITCHY, 01/13/17) Fish-derived Products (Verified Allergy, Intermediate, RASH-ITCHY, 01/13/17) Indomethacin (Verified Adverse Reaction, Intermediate, GI SYMPTOMS, 01/13/17 ) Tramadol (Verified Adverse Reaction, Unknown, UPSET STOMACH, 01/13/17) Current Inpatient Medications Current Inpatient Medications Medications (Trade) Dose Ordered Sig/Ruthy Route Start Time Stop Time Status Last Admin Dose Admin Aspirin (Ecotrin Tab) 81 mg DAILY PO 06/25/17 09:00 07/25/17 08:59 06/25/17 08:11 81 MG Acetaminophen (Tylenol Tab) 650 mg Q4H PRN PO 06/24/17 21:30 07/24/17 21:29 Al Hydrox/Mg Hydrox/Simethicone (Maalox Max Susp) 15 ml Q4H PRN PO 06/24/17 21:30 07/24/17 21:29 Magnesium Hydroxide (Milk Of Magnesia Susp) 30 ml Q12H PRN PO 06/24/17 21:30 07/24/17 21:29 Zolpidem Tartrate (Ambien Tab) 5 mg HSZ PRN PO 06/24/17 21:30 07/24/17 21:29 Ondansetron HCl (Zofran Inj) 4 mg Q6H PRN IV 06/24/17 21:30 07/24/17 21:29 Morphine Sulfate (MoRPHine SULFATE INJ) 2 mg Q30M PRN IV 06/24/17 21:30 07/08/17 21:29 Polyethylene (Miralax Powder Packet) 17 gm DAILY PRN PO 06/24/17 21:30 07/24/17 21:29 Heparin Sodium/ Dextrose 500 ml @ 23 mls/hr [id number] PRN IV 06/24/17 23:45 07/24/17 23:44 06/25/17 05:48 23 MLS/HR Review of Systems Constitutional: No fever or chills Eyes: No vision loss or diplopia ENT: No vertigo or hearing loss Cardiovascular: No chest pain or palpitations Respiratory: No shortness of breath or cough Skin: No rash or skin lesion Neurological: As per history of present illness A full 10 point review of systems was obtained from this patient with pertinent positives and negatives described in the history of present illness and otherwise listed above. All remaining systems reviewed and are negative Physical Exam Vital Signs (Past 24 Hrs): Date Time Temp Pulse Resp B/P (MAP) Pulse Ox O2 Delivery O2 Flow Rate FiO2 06/25/17 08:00 Room Air 06/25/17 06:51 36.8 64 17 119/79 (92) 98 Room Air 06/25/17 04:14 99 Room Air 06/25/17 04:00 36.6 64 18 121/81 (94) 97 Room Air 06/25/17 00:00 99 Room Air 06/24/17 22:48 36.4 61 16 135/83 99 Room Air 06/24/17 22:37 60 18 141/69 98 06/24/17 21:30 80 18 141/69 100 Room Air 06/24/17 19:52 90 06/24/17 19:47 73 18 131/93 96 Room Air 06/24/17 18:52 98 Room Air 06/24/17 18:48 36.8 86 18 110/74 98 Room Air The patient is a well-developed well-nourished young male. He is lying comfortably in bed. The patient is alert and oriented to person place and time. Recent and remote memory intact. Attention and concentration normal. He is able to name objects, repeat phrases, and repeat text. He exhibits an age- appropriate fund of knowledge and normal vocabulary. Visual ablerto full to confrontation. Visual acuity normal. Pupils equal round reactive to light and accommodation. Eye movements normal. Facial sensation intact. There is no facial droop or facial weakness. Hearing intact. Palate elevates to midline. Shoulder shrug intact. Temperatures to midline. Sensation intact to light touch , temperature, vibration, and proprioception for the arms and legs. Deep tendon reflexes are normoactive and symmetrical. There is no dysmetria with finger to nose or heel to cadena bilaterally. Ophthalmoscopic examination reveals normal- appearing optic disks and posterior segments. No papilledema or hemorrhages. Carotid pulses normal bilaterally, no bruits to auscultation. Gait and station normal. There is normal strength and tone for the arms and legs bilaterally. No atrophy. No abnormal movements observed. Laboratory Results Past 24 Hours: 06/24/17 19:25 Red Blood Count 5.01, Mean Corpuscular Volume 82.4, Mean Corpuscular Hemoglobin 28.9, Mean Corpuscular Hemoglobin Concent 35.1, Mean Platelet Volume 9.3, Neutrophils (%) (Auto) 67.6, Lymphocytes (%) (Auto) 24.0, Monocytes (%) (Auto) 6.4, Eosinophils (%) (Auto) 1.6, Basophils (%) (Auto) 0.2, Neutrophils # (Auto) 6.52, Lymphocytes # (Auto) 2.32, Monocytes # (Auto) 0.62, Eosinophils # (Auto) 0.15, Basophils # (Auto) 0.02 06/24/17 19:25 Test 06/24/17 19:25 06/25/17 03:50 06/25/17 07:17 White Blood Count 9.65 K/uL (4.8-10.8) Red Blood Count 5.01 M/uL (4.7-6.1) Hemoglobin 14.5 g/dL (14.0-18.0) Hematocrit 41.3 % (42-52) Mean Corpuscular Volume 82.4 fL (80-100) Mean Corpuscular Hemoglobin 28.9 pg (25-34) Mean Corpuscular Hemoglobin Concent 35.1 g/dl (32-36) Platelet Count 232 K/uL (130-400) Mean Platelet Volume 9.3 fL (7.4-10.4) Neutrophils (%) (Auto) 67.6 % Lymphocytes (%) (Auto) 24.0 % Monocytes (%) (Auto) 6.4 % Eosinophils (%) (Auto) 1.6 % Basophils (%) (Auto) 0.2 % Neutrophils # (Auto) 6.52 K/uL (1.4-6.5) Lymphocytes # (Auto) 2.32 K/uL (1.2-3.4) Monocytes # (Auto) 0.62 K/uL (0.11-0.59) Eosinophils # (Auto) 0.15 K/uL (0-0.5) Basophils # (Auto) 0.02 K/uL (0-0.2) RDW Standard Deviation 40.3 fL (36.4-46.3) RDW Coefficient of Variation 13.5 % (11.5-14.5) Immature Granulocyte % (Auto) 0.2 % Immature Granulocyte # (Auto) 0.02 K/uL (0.00-0.02) Prothrombin Time 11.3 SECONDS (9.0-12.0) Prothromb Time International Ratio 1.1 (0.9-1.1) Anion Gap 8.0 mmol/L (3-11) Est Creatinine Clear Calc Drug Dose 91.2 ml/min Estimated GFR () 119.9 Estimated GFR (Non- 103.4 BUN/Creatinine Ratio 11.9 (10-20) Calcium Level 8.9 mg/dl (8.5-10.1) Troponin I < 0.015 ng/ml (0-0.045) Activated Partial Thromboplast Time 103.4 SECONDS (21.0-31.0) Partial Thromboplastin Ratio 4.0 Impression 26-year-old male who underwent placement of the mechanical aortic valve 3 years ago to address congenital aortic stenosis. Although he has been prescribed warfarin he admits to noncompliance with this medication recently. Furthermore, recent imaging including CT of the head and brain MRI reveal interval development of several, small, chronic-appearing infarcts that were not seen on a previous CT of the head done this past January. The imaging characteristics are not suggestive of acute infarct, however. I do not find any deficits on this patient's neurological examination. This patient does not have a fever or an elevated white blood cell count that would otherwise suggest endocarditis. Plan This patient should continue with anticoagulation. Continue with heparin and bridge to warfarin unless an alternative anticoagulant is deemed appropriate by the medical team and patient. No further recommendations. Please contact me if I may be of further assistance.
--- NOTE | 2017-06-25 14:27 | ECHOCARDIOGRAM REPORT ---
*NOTICE TO RECEIVING REPUBLICAN AGENCY This information is strictly Confidential and protected under [place] law. [place] law prohibits you from making any further disclosure of this information unless further disclosure is expressly permitted by the written consent of the person to whom it pertains or is authorized by law. A general authorization for the release of medical or other information is not sufficient for this purpose. Hospital accepts no responsibility if the information is made available to any other person, INCLUDING THE PATIENT. Interpretation Summary * Name: SELIN MENDOZA Study Date: 06/25/2017 06:25 AM BP: 121/81 mmHg * Patient Location: C.2T\S\S233\S\1 HR: 68 * : 1990 (M/d/yyyy) Gender: Male Height: 65 in * Age: 26 yrs Ethnicity: CA Weight: 126 lb * Ordering Physician: John Rodríguez * Referring Physician: Self, Referred * Performed By: Kylah Barnes RCS * * Reason For Study: THROMBUS - MECHANICAL VALVE * BSA: 1.6 m2 * -- Conclusions -- * 1. Normal left ventricular size with low-normal systolic function. EF 55%. No regional wall motion abnormalities. Mild concentric left ventricular hypertrophy. * 2. Mechanical aortic valve with acceptable transvalvular gradients and velocities. * 3. Echogenic mobile findings within the LVOT near the mechanical aortic valve, noted mostly during diastole. This could represent artifact versus actual finding. * 4. Normal estimated right ventricular systolic pressure; 19 mmHg. * 5. Compared to prior transesophageal study on 09/15/2014, mechanical aortic valve has replaced bicuspid aortic valve. Procedure Details * A complete two-dimensional transthoracic echocardiogram was performed (2D, M-mode, Doppler and color flow Doppler). Left Ventricle * Normal left ventricular size with low-normal systolic function. EF 55%. No regional wall motion abnormalities. Mild concentric left ventricular hypertrophy. Right Ventricle * The right ventricle is normal in size and function. * The right ventricular systolic function is normal as assessed by tricuspid annular plane systolic excursion (TAPSE) (normal >1.5 cm). Atria * The left atrial size is normal. * Right atrial size is normal. * There is no evidence of atrial septal defect, but resolution does not allow assessment for a patent foramen ovale. Mitral Valve * The mitral valve leaflets appear normal. There is no evidence of stenosis, fluttering, or prolapse. * There is trace mitral regurgitation. Tricuspid Valve * The tricuspid valve is not well visualized, but is grossly normal. * There is no tricuspid stenosis. * There is trace tricuspid regurgitation. Aortic Valve * Mechanical aortic valve with acceptable transvalvular gradients and velocities. * Echogenic mobile findings within the LVOT near the mechanical aortic valve, noted mostly during diastole. This could represent artifact versus actual finding. * Trace aortic regurgitation. Pulmonic Valve * The pulmonic valve is not well seen, but is grossly normal. * There is no pulmonic valvular stenosis. * Trace pulmonic valvular regurgitation. Great Vessels * The aortic root is normal size. Pericardium/Pleural * There is no pericardial effusion. Great Vessels * Normal inferior vena cava size and collapsability with sniff indicates a normal right atrial pressure of 3 mmHg Left Ventricular Diastolic Function * No significant diastolic dysfunction. MMode 2D Measurements and Calculations IVSd 1.2 cm IVSs 1.6 cm LVIDd 4.1 cm LVIDs 2.7 cm LVPWd 1.2 cm LVPWs 1.7 cm IVS/LVPW 1.0 FS 34.0 % EDV(Teich) 76.4 ml ESV(Teich) 28.0 ml EF(Teich) 63.3 % EDV(cubed) 71.4 ml ESV(cubed) 20.6 ml EF(cubed) 71.2 % % IVS thick 32.1 % % LVPW thick 37.9 % LV mass(C)d 178.5 grams LV mass(C)dI 109.8 grams/m\S\2 LV mass(C)s 165.3 grams LV mass(C)sI 101.7 grams/m\S\2 SV(Teich) 48.4 ml SI(Teich) 29.8 ml/m\S\2 SV(cubed) 50.9 ml SI(cubed) 31.3 ml/m\S\2 Ao root diam 3.2 cm Ao root area 8.1 cm\S\2 asc Aorta Diam 3.3 cm LVOT diam 2.0 cm LVOT area 3.0 cm\S\2 LVAd ap2 29.4 cm\S\2 LVLd ap2 7.6 cm EDV(MOD-sp2) 95.0 ml EDV(sp2-el) 96.0 ml LVAs ap2 18.8 cm\S\2 LVLs ap2 6.8 cm ESV(MOD-sp2) 44.4 ml ESV(sp2-el) 43.9 ml EF(MOD-sp2) 53.3 % EF(sp2-el) 54.3 % SV(MOD-sp2) 50.6 ml SI(MOD-sp2) 31.1 ml/m\S\2 SV(sp2-el) 52.1 ml SI(sp2-el) 32.1 ml/m\S\2 Doppler Measurements and Calculations MV E max aaliyah 71.2 cm/sec MV A max aaliyah 40.4 cm/sec MV E/A 1.8 MV dec time 0.19 sec Ao V2 max 197.2 cm/sec Ao max PG 15.5 mmHg Ao max PG (full) 13.6 mmHg Ao V2 mean 134.2 cm/sec Ao mean PG 8.4 mmHg Ao mean PG (full) 7.5 mmHg Ao V2 VTI 39.8 cm ALLEN(I,A) 1.1 cm\S\2 ALLEN(I,D) 1.1 cm\S\2 ALLEN(V,A) 1.1 cm\S\2 ALLEN(V,D) 1.1 cm\S\2 AI max aaliyah 492.0 cm/sec AI max PG 96.8 mmHg AI dec slope 161.8 cm/sec\S\2 AI P1/2t 890.7 msec LV V1 max PG 2.0 mmHg LV V1 mean PG 0.99 mmHg LV V1 max 70.6 cm/sec LV V1 mean 47.1 cm/sec LV V1 VTI 14.2 cm SV(Ao) 323.1 ml SI(Ao) 198.8 ml/m\S\2 SV(LVOT) 42.5 ml SI(LVOT) 26.2 ml/m\S\2 TV E max aaliyah 46.9 cm/sec PA V2 max 75.3 cm/sec PA max PG 2.3 mmHg PI max aaliyah 155.4 cm/sec PI max PG 9.7 mmHg PI dec slope 138.7 cm/sec\S\2 PI P1/2t 328.1 msec TR max aaliyah 198.9 cm/sec RVSP(TR) 18.8 mmHg RAP systole 3.0 mmHg
[2017-06-25] MEDS ORDERED: WARFARIN SOD 10 MG TAB PO SCH (16:00)
--- NOTE | 2017-06-25 18:28 | Family Medicine Progress Note ---
Progress Note Date of Service Jun 25, 2017. 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 Overnight, the patient states that his headache has completely resolved. He does note there is a history of migraine headaches and well this headache seemed to be in the same location as his usual migraines, it was more intense than usual. The patient has not taken his Coumadin for several days - he thinks his last dose was probably of last week. Denies any fever or chills - by history - or since admission. He has been seen by neurology; echocardiogram has been completed and cardiology consult is pending. Constitutional: No fever, No chills Respiratory: No cough, No wheezing, No shortness of breath Cardiovascular: + chest pain (resolved) Neurologic: + see HPI, No weakness, No numbness/tingling, No vertigo, No balance problems Medications Acetaminophen (Tylenol Tab) 650 mg Q4H PRN PO; Start 06/24/17 at 21:30; Stop at 21:29 Al Hydrox/Mg Hydrox/Simethicone (Maalox Max Susp) 15 ml Q4H PRN PO; Start 06/24 at 21:30; Stop 07/24/17 at 21:29 Aspirin (Ecotrin Tab) 81 mg DAILY PO Last administered on 06/25/17 08:11; Admin Dose 81 MG; Start 06/25/17 at 09:00; Stop 07/25/17 at 08:59 Heparin Sodium/ Dextrose 500 ml @ 21 mls/hr [id number] PRN IV Last administered on 06/25/17 05:48; Admin Dose 23 MLS/HR; Start 06/24/17 at 23:45; Stop at 23:44 Magnesium Hydroxide (Milk Of Magnesia Susp) 30 ml Q12H PRN PO; Start 06/24/17 at 21:30; Stop 07/24/17 at 21:29 Morphine Sulfate (MoRPHine SULFATE INJ) 2 mg Q30M PRN IV; Start 06/24/17 at 21: 30; Stop 07/08/17 at 21:29 Ondansetron HCl (Zofran Inj) 4 mg Q6H PRN IV; Start 06/24/17 at 21:30; Stop at 21:29 Polyethylene (Miralax Powder Packet) 17 gm DAILY PRN PO; Start 06/24/17 at 21: 30; Stop 07/24/17 at 21:29 Warfarin Sodium (Coumadin Tab) 10 mg DAILY@16 PO Last administered on 06/25/17t 15:46; Admin Dose 10 MG; Start 06/25/17 at 16:00; Stop 06/28/17 at 15:59 Zolpidem Tartrate (Ambien Tab) 5 mg HSZ PRN PO; Start 06/24/17 at 21:30; Stop 07/24/17 at 21:29 Objective Vital Signs Vital Signs Past 12 Hours Date Time Temp Pulse Resp B/P (MAP) Pulse Ox O2 Delivery O2 Flow Rate FiO2 06/25/17 12:00 Room Air 06/25/17 11:32 36.8 70 16 158/97 (117) 100 Room Air 06/25/17 08:00 Room Air 06/25/17 06:51 36.8 64 17 119/79 (92) 98 Room Air 06/25/17 04:14 99 Room Air Physical Exam General Appearance: WD/WN, no apparent distress Eyes: normal inspection ENT: hearing grossly normal Neck: supple, no adenopathy, no JVD Respiratory/Chest: chest non-tender, lungs clear Cardiovascular: regular rate, rhythm (mechanical valve), no edema, no gallop Abdomen: normal bowel sounds, non tender Extremities: normal range of motion, non-tender, no pedal edema Neurologic/Psychiatric: 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 II-XII nml as tested, no motor/sensory deficits, alert, normal mood/affect, oriented x 3 Laboratory Results Results Past 24 Hours Test 06/24/17 19:25 06/25/17 03:50 06/25/17 07:17 Range/Units White Blood Count 9.65 4.8-10.8 K/uL Red Blood Count 5.01 4.7-6.1 M/uL Hemoglobin 14.5 14.0-18.0 g/dL Hematocrit 41.3 42-52 % Mean Corpuscular Volume 82.4 80-100 fL Mean Corpuscular Hemoglobin 28.9 25-34 pg Mean Corpuscular Hemoglobin Concent 35.1 32-36 g/dl Platelet Count 232 130-400 K/uL Mean Platelet Volume 9.3 7.4-10.4 fL Neutrophils (%) (Auto) 67.6 % Lymphocytes (%) (Auto) 24.0 % Monocytes (%) (Auto) 6.4 % Eosinophils (%) (Auto) 1.6 % Basophils (%) (Auto) 0.2 % Neutrophils # (Auto) 6.52 1.4-6.5 K/uL Lymphocytes # (Auto) 2.32 1.2-3.4 K/uL Monocytes # (Auto) 0.62 0.11-0.59 K/uL Eosinophils # (Auto) 0.15 0-0.5 K/uL Basophils # (Auto) 0.02 0-0.2 K/uL RDW Standard Deviation 40.3 36.4-46.3 fL RDW Coefficient of Variation 13.5 11.5-14.5 % Immature Granulocyte % (Auto) 0.2 % Immature Granulocyte # (Auto) 0.02 0.00-0.02 K/uL Prothrombin Time 11.3 9.0-12.0 SECONDS Prothromb Time International Ratio 1.1 0.9-1.1 Activated Partial Thromboplast Time 26.5 46.3 103.4 21.0-31.0 SECONDS Partial Thromboplastin Ratio 1.0 1.8 4.0 Sodium Level 142 136-145 mmol/L Potassium Level 3.7 3.5-5.1 mmol/L Chloride Level 107 98-107 mmol/L Carbon Dioxide Level 27 21-32 mmol/L Anion Gap 8.0 3-11 mmol/L Blood Urea Nitrogen 12 7-18 mg/dl Creatinine 1.00 0.60-1.40 mg/dl Est Creatinine Clear Calc Drug Dose 91.2 ml/min Estimated GFR () 119.9 Estimated GFR (Non- 103.4 BUN/Creatinine Ratio 11.9 10-20 Random Glucose 101 70-99 mg/dl Calcium Level 8.9 8.5-10.1 mg/dl Troponin I < 0.015 < 0.015 0-0.045 ng/ml Assessment and Plan Resident Physician Supervision Note: I was present with Dr. Carrero during the history and exam. I discussed the case with the resident and agree with the findings and plan as documented in the resident physician note. 26-year-old male with mechanical aortic valve presenting with subtherapeutic INR and to lacunar infarcts within the right frontal white matter and in the right basal ganglia and a small chronic infarct in the right temporal lobe, new since last imaging in January 2017, with normal neurologic examination. Echocardiogram notes echogenic mobile findings within the left ventricular tract near the mechanical valve, vegetation versus artifact. Recommend PUNEET We'll make patient nothing by mouth after midnight Recommend 2 sets of blood cultures.
--- NOTE | 2017-06-25 18:28 | Cardiology Consultation ---
Cardiology Consultation Date of Consultation: Jun 25, 2017. Attending Physician: Dr. Edwards Reason for Consultation: Chest pain, hx aortic valve replacement Pt evaluation today including: conversation w/ patient History of Present Illness THIS IS A PGY1 RESIDENT CONSULT NOTE - PLEASE SEE CONSULT BY ATTENDING FOR FURTHER DISCUSSION/RECOMMENDATIONS 26yo male presented to ED on 14Aug c/o migraine WINSTON, right-sided chest pain, as well as some transient SOB & N/V. Pt has a notable hx of bicuspid aortic valve and severe aortic regurgitation, now s/p 23 mm Ravi mechanical aortic valve replacement in Sep 2014. Pt states he developed a dull, achy right pectoral regional chest pain on Fri 11Aug evening, constant until night of ED presentation (worst at that time), never resolved, which he attributes to sleeping in his car during that same period of time s/p argument with girlfriend (his normal housing). Pt says he normally has a constant, sharp chest pain at the site of his surgical scar but this presenting pain was different, prompting requested eval (along with the WINSTON). He denies any known fevers or recent illness, SOB (except only "when going from my car to standing up that one time"), cough, dizziness, syncope, extremity edema, difficulties with speech or movement or sensation, acute trauma, bleeding difficulties or dark stools, or other acute c/o beyond the WINSTON. While in the ED he received toradol, compazine, and benadryl which, at time of my evaluation, pt states completely resolved his WINSTON and CP (including his baseline pain), thus he says he 's sx-free and ready to go home. Pt has a known rx of ASA 81 mg daily which he says he remembers to take but he frequently forgets to take his warfarin 5 mg 3x /wk and 10 mg 4x/wk, stating his last dose was on 11Aug. Past Medical/Surgical History PMH: Bicuspid aortic valve and aortic regurgitation (now s/p valve replacement) , asthma as child, migraine, PNA (age 18), self-reported 'anxiety and depression '. PSH: Mechanical aortic valve replacement (Sep 2014), removal of all his teeth ( pt says due to frequent dental fx). Family History Diabetes mellitus Heart disease Kidney disease Father: [place], CVA. Mother: MO. MGF: HTN, aortic aneurysms. Pt's children have "heart problems" but pt is unsure of details. Social History Smoking Status: Former Smoker History of Alcohol Use: Yes (SOCIALLY) Denies smoking, uses chewing tobacco x 13 years. EtOH 1-2 times a month, 3-4 beers at a sitting. Prior tried THC, cocaine, meth by age 17 but denies IVDU ever. 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 Review of Systems Constitutional: No fever, No chills, No sweats Respiratory: No cough, No wheezing, No shortness of breath Cardiac: + chest pain, No orthopnea, No edema, No claudication Endo: No fatigue Skin: No rash, No itch Allergies Coded Allergies: Cephalexin (Verified Allergy, Intermediate, RASH-ITCHY, 01/13/17) Fish-derived Products (Verified Allergy, Intermediate, RASH-ITCHY, 01/13/17) Indomethacin (Verified Adverse Reaction, Intermediate, GI SYMPTOMS, 01/13/17 ) Tramadol (Verified Adverse Reaction, Unknown, UPSET STOMACH, 01/13/17) Medications Current Inpatient Medications Medications (Trade) Dose Ordered Sig/Ruthy Route Start Time Stop Time Status Last Admin Dose Admin Aspirin (Ecotrin Tab) 81 mg DAILY PO 06/25/17 09:00 07/25/17 08:59 06/25/17 08:11 81 MG Acetaminophen (Tylenol Tab) 650 mg Q4H PRN PO 06/24/17 21:30 07/24/17 21:29 Al Hydrox/Mg Hydrox/Simethicone (Maalox Max Susp) 15 ml Q4H PRN PO 06/24/17 21:30 07/24/17 21:29 Magnesium Hydroxide (Milk Of Magnesia Susp) 30 ml Q12H PRN PO 06/24/17 21:30 07/24/17 21:29 Zolpidem Tartrate (Ambien Tab) 5 mg HSZ PRN PO 06/24/17 21:30 07/24/17 21:29 Ondansetron HCl (Zofran Inj) 4 mg Q6H PRN IV 06/24/17 21:30 07/24/17 21:29 Morphine Sulfate (MoRPHine SULFATE INJ) 2 mg Q30M PRN IV 06/24/17 21:30 07/08/17 21:29 Polyethylene (Miralax Powder Packet) 17 gm DAILY PRN PO 06/24/17 21:30 07/24/17 21:29 Heparin Sodium/ Dextrose 500 ml @ 21 mls/hr [id number] PRN IV 06/24/17 23:45 07/24/17 23:44 06/25/17 05:48 23 MLS/HR Warfarin Sodium (Coumadin Tab) 10 mg DAILY@16 PO 06/25/17 16:00 06/28/17 15:59 06/25/17 15:46 10 MG Physical Exam Vital Signs Past 12 Hours Date Time Temp Pulse Resp B/P (MAP) Pulse Ox O2 Delivery O2 Flow Rate FiO2 06/25/17 12:00 Room Air 06/25/17 11:32 36.8 70 16 158/97 (117) 100 Room Air 06/25/17 08:00 Room Air 06/25/17 06:51 36.8 64 17 119/79 (92) 98 Room Air 06/25/17 04:14 99 Room Air 06/25/17 04:00 36.6 64 18 121/81 (94) 97 Room Air Head: normocephalic, atraumatic Lungs: Respiratory effort: no dyspnea, good air movement Auscultation: breath sounds normal, no wheezing, no rales/crackles Cardiovascular: Heart Auscultation: RRR, normal S1 (and crisp mechanical S2), no murmurs Peripheral Pulses: Bruits: none appreciated Carotid Pulse: normal on the left, normal on the right Radial Pulse: normal on the left, normal on the right Musculoskeletal: normal (grossly) Extremities: no cyanosis, no edema Neurologic: Gait & Station: normal gait (walking about yang easily/comfortably without sx) Data Laboratory Results: Last 24 Hours Test 06/24/17 19:25 06/25/17 03:50 06/25/17 07:17 White Blood Count 9.65 K/uL Red Blood Count 5.01 M/uL Hemoglobin 14.5 g/dL Hematocrit 41.3 % Mean Corpuscular Volume 82.4 fL Mean Corpuscular Hemoglobin 28.9 pg Mean Corpuscular Hemoglobin Concent 35.1 g/dl Platelet Count 232 K/uL Mean Platelet Volume 9.3 fL Neutrophils (%) (Auto) 67.6 % Lymphocytes (%) (Auto) 24.0 % Monocytes (%) (Auto) 6.4 % Eosinophils (%) (Auto) 1.6 % Basophils (%) (Auto) 0.2 % Neutrophils # (Auto) 6.52 K/uL Lymphocytes # (Auto) 2.32 K/uL Monocytes # (Auto) 0.62 K/uL Eosinophils # (Auto) 0.15 K/uL Basophils # (Auto) 0.02 K/uL RDW Standard Deviation 40.3 fL RDW Coefficient of Variation 13.5 % Immature Granulocyte % (Auto) 0.2 % Immature Granulocyte # (Auto) 0.02 K/uL Prothrombin Time 11.3 SECONDS Prothromb Time International Ratio 1.1 Activated Partial Thromboplast Time 26.5 SECONDS 46.3 SECONDS 103.4 SECONDS Partial Thromboplastin Ratio 1.0 1.8 4.0 Sodium Level 142 mmol/L Potassium Level 3.7 mmol/L Chloride Level 107 mmol/L Carbon Dioxide Level 27 mmol/L Anion Gap 8.0 mmol/L Blood Urea Nitrogen 12 mg/dl Creatinine 1.00 mg/dl Est Creatinine Clear Calc Drug Dose 91.2 ml/min Estimated GFR () 119.9 Estimated GFR (Non- 103.4 BUN/Creatinine Ratio 11.9 Random Glucose 101 mg/dl Calcium Level 8.9 mg/dl Troponin I < 0.015 ng/ml < 0.015 ng/ml CT HEAD WITHOUT CONTRAST (CT) Service Date: 06/24/17 IMPRESSION: 1. New 6 mm hypodensity within the right frontal white matter. 2. New 4 mm hypodensity within the right basal ganglia. 3. These lesions are nonspecific. Diagnostic considerations include demyelinating disease, or the sequela of ischemic disease which in a patient of this age would suggest a vasculitis. An MRI might be considered in follow-up for further evaluation 4. No acute hemorrhage CHEST ONE VIEW PORTABLE Service Date: 06/24/17 IMPRESSION: No active disease in the chest. MRI OF THE BRAIN WITHOUT IV CONTRAST Service Date: 06/25/17 IMPRESSION: 1. There are 2 subcentimeter lacunar infarcts identified within the right frontal white matter and in the right basal ganglia. Additionally, there is a small chronic infarct in the right temporal lobe. These corresponds to the lesions seen on the 06/24/2017 CT scan and correspond to chronic infarcts which are new from 01/13/2017. 2. No acute ischemia is identified. No hemorrhage or mass effect is seen. EKG 24-JUN-2017 18:58:38 Normal sinus rhythm with sinus arrhythmia Septal infarct (cited on or before 28-NOV-2015) Abnormal ECG When compared with ECG of 06-JAN-2017 12:55, No significant change was found Confirmed by WINNIE EDWARDS ([id number]) on 06/25/2017 6:05:47 AM Two-dimensional transthoracic echocardiogram 06/25/2017 06:25 AM -- Conclusions -- * 1. Normal left ventricular size with low-normal systolic function. EF 55% . No regional wall motion abnormalities. Mild concentric left ventricular hypertrophy. * 2. Mechanical aortic valve with acceptable transvalvular gradients and velocities. * 3. Echogenic mobile findings within the LVOT near the mechanical aortic valve, noted mostly during diastole. This could represent artifact versus actual finding. * 4. Normal estimated right ventricular systolic pressure; 19 mmHg. * 5. Compared to prior transesophageal study on 09/15/2014, mechanical aortic valve has replaced bicuspid aortic valve. Assessment & Plan 1) Chest pain: Pt attributes to sleeping in a different position in his car throughout this same period of time, suggesting MSK source, which is likely true. DDx includes acute ischemia (though chronicity, EKG, and normal TnI are reassuring against), aortic mechanical valve issue/failure (would more likely be acute/risk catastrophe and echo today is reassuring against), PE (no report of ongoing SOB, tachycardia, or suggestive findings on EKG), aortic root disease (not seen on prior or current imaging), pulmonary source (no fevers, cough, ongoing SOB, and clear lungs here), abdominal source (no ongoing N/V/D, reports of abd pain). Rec'd pt try to sleep somewhere other than in his car and offered health and social care teacher resources for housing. Pt declined this acutely, stating he had a plan in mind upon hospital d/c. 2) Hx aortic valve replacement: From discussion with pt and review of records, pt is chronically non-compliant with his coumadin. Discussion with pt seemed to revolve around perception concerns of carrying around a pill bottle of coumadin and "people seeing it". Had 10+ minute discussion on options to mitigate this concern, which pt seemed partially amenable to. For now, INR here 1.1. Already started on heparin bridge and coumadin 10 mg (recommend same ) for now. Transthoracic echo notable for echogenic findings near his valve, so PUNEET was rec'd and pt is willing to remain in the hospital through tomorrow to obtain the same for further differentiation. NPO after midnight for same. 3) Neuro findings: Reiterated CT and MRI findings with pt, his ongoing risk for further (or more severe) CVA issues, and to stay on his ASA and coumadin daily. Goal INR 2.5-3.5 (higher range due to mechanical valve + hx CVA). Pt states he has been taking the ASA daily apparently because there is less public stigma with doing so. Neurology consult note reviewed. The above was discussed at the patient's bedside with Dr. Edwards. Pt asked multiple questions, all of which were addressed at this time. He agreed with above plan for further testing tomorrow. Wally Mandel MD, PGY1 Family Medicine PLEASE SEE ATTENDING CONSULT NOTE FOR OFFICIAL CONSULT REPORT ADDENDUM BY CARDIOLOGY ATTENDING: See my note for details. Resident Tracking Resident Involvement: Resident Care Provided Care Provided: Adult Hospital Medicine (cardiology consult)
--- NOTE | 2017-06-25 18:52 | CARDIOLOGY CONSULTATION ---
DATE OF CONSULTATION: 06/25/2017 TIME: 1726. CONSULTING PHYSICIAN: Dr. Rodríguez. REASON FOR CONSULTATION: Mechanical aortic valve with noncompliance and stroke on brain imaging. HISTORY OF PRESENT ILLNESS: Mr. Sylvester is a pleasant 26-year-old gentleman with a history significant for bicuspid aortic valve with significant aortic regurgitation, who underwent mechanical aortic valve replacement at [facility] in 2013. He also has medication noncompliance as well as noncompliance with medical followup. He presented to [facility] Emergency Department yesterday with right-sided chest pain and migraine headache. In the Emergency Department, he was given medications for his headache and with this, his chest pain and headache both resolved. The chest pain he described as a dull achy pain that was right sided and radiated to his right shoulder. It was constant pain since Saturday, 3-4 days with no specific trigger or alleviating factor. He states that he has a baseline sharp pain, but this was different and more constant. It did coincide with sleeping in a car for the past several days as he had an argument with his girlfriend with whom he typically lives with and therefore has been staying in his car. He also noted some brief shortness of breath if he got out of his car quickly and stood up, but it was very brief and otherwise denies other shortness of breath with ambulation or orthopnea. He has been walking in the hallways while admitted and is doing so without exertional symptoms. He denies any recent fevers, chills, syncope, palpitations, near syncope, cough or bleeding such as melena, hematochezia or hematuria. He apparently did experience some recent nausea or vomiting, but is currently asymptomatic. He states that he is compliant with aspirin 81 mg daily, but does not take Coumadin due to the fact that he is worried that people will look at him "funny" if he carries more pills with him. He apparently had been taking 10 mg of Coumadin 4 days per week and 5 mg 3 days per week. He states his last dose was approximately 5 days ago. When reviewing the outpatient chart, his last INR was in January of 2017 when it was 1.7. Prior to that, his last INR charted in the office was April 2016 when his INR was 1.1. Because of his headache while admitted, he underwent imaging of his brain with a brain MRI, which demonstrated 2 subcentimeter lacunar infarcts within the right frontal white matter and the right basal ganglia. There is also a small chronic infarct involving the right temporal lobe, some of which are new from 01/13/2017. There was no acute ischemic issue identified by radiology and no hemorrhage or mass effect. He has been seen by neurology as well during this hospitalization. Dr. Beasley has recommended appropriate anticoagulation. The patient himself would like to go home. He states that he is contemplating going back home with his family in the [facility] and that if he does not do that, he does have a usp that he can stay at. We did offer delinquency prevention social worker during our meeting today; however, he declined. He also stated that he has issues with depression and has a counselor and he would like to do with all these issues with his counselor. REVIEW OF SYSTEMS: As above and review of systems is otherwise negative/unremarkable. PAST MEDICAL HISTORY: 1. Mechanical aortic valve placed on 10/01/2014 at [facility]. It was described in the note as a 23-mm St. Ravi mechanical aortic valve. 2. Bicuspid aortic valve with significant regurgitation prior to replacement. 3. History of atypical chest pain. 4. Asthma, which is described as inactive. 5. Migraine headaches. 6. Teeth removal. MEDICATIONS: Home medications that he takes Include aspirin 81 mg daily. He is noncompliant with Coumadin as described. CURRENT INPATIENT MEDICATIONS: Include Coumadin 10 mg daily, heparin drip per protocol, and aspirin 81 mg daily. ALLERGIES: CEPHALEXIN, INDOMETHACIN, AND TRAMADOL. SOCIAL HISTORY: Denies smoking. Rare alcohol. No IV drugs, although in the past, he has used cocaine and meth. He has been living with his girlfriend, but recently sleeping in a car. He has last used illicit drugs as a teenager according to his report. 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 He is currently alone in his hospital room. FAMILY HISTORY: His father and mother had myocardial infarctions. His father also had strokes. His father is in his 40s. He states he has a daughter with some type of cardiac issue and she is almost 4 years old. He has never met his daughter, so he has no further details. He also states that his girlfriend is approximately 21 weeks and this baby also has some type of cardiac disorder, but he has no specific details. PHYSICAL EXAMINATION: VITAL SIGNS: Temperature 36.6 degrees, heart rate 78 beats per minute, respiratory rate 20, blood pressure 138/90 mmHg, and oxygen saturation 94% on room air. Weight 58.1 kg. GENERAL: No acute distress. He is alert and oriented. HEENT: Anicteric sclerae. NECK: No appreciable JVD. No bruits. Normal carotid upstrokes bilaterally. CARDIAC EXAMINATION: PMI was nondisplaced. There was no ventricular heave. Regular S1, crisp S2. There were no audible murmurs. No rubs or gallops. LUNGS: Clear to auscultation bilaterally without wheezes, rales or rhonchi. ABDOMEN: Soft, nontender, and nondistended. Normoactive bowel sounds. No bruits noted. EXTREMITIES: No cyanosis or edema. No splinter hemorrhages, Janeway lesions or Osler's nodes noted. No palpable cords. PSYCHIATRIC: Affect appears appropriate. CHEST: Nontender to palpation. Sternotomy site is noted. LABORATORY DATA: Reviewed. White blood cell count 9.65, hemoglobin 14.5, and platelets 232. Sodium 142, potassium 3.7, BUN 12, and creatinine 1. Troponin negative x2. PTT 103. INR 1.1. Echo from 06/25/2017 personally reviewed. Normal LV size with low normal systolic function. EF 55%. Normal wall motion. Mild LVH. Mechanical aortic valve with acceptable transvalvular gradient and colostomies. Echogenic mobile findings noted within the LVOT near the mechanical aortic valve noted mostly during diastole. This could represent artifact versus an actual finding or abnormality. RVSP 19 mmHg. ECG personally reviewed. ECG on 06/24/2017 at 1858, normal sinus rhythm at 76 beats per minute, possible septal infarct. Telemetry personally reviewed. No arrhythmia. ASSESSMENT AND PLAN: 1. Mechanical aortic valve: He is noncompliant with anticoagulation. We discussed in detail the importance of anticoagulation for stroke risk reduction. Given the fact that he has had a concern for embolic events on brain MRI, although no acute findings, his INR goal is 2.5-3.5. Would also continue aspirin 81 mg daily. He states he is agreeable to resume anticoagulation therapy. This should be followed closely with routine INR evaluations as well. He states that he is willing to follow up in the outpatient clinic. The valve appears to be appropriately functioning on echo; however, there is some echogenic findings in the LVOT near the valve. For this reason, transesophageal echo is recommended to further evaluate this area. He is agreeable to have this procedure done. Recommend n.p.o. after midnight. 2. Bicuspid aortic valve: He had a ruby bicuspid aortic valve, which has since been replaced. He has had imaging of the chest he states in the past without significant aortopathy noted. This can be followed as an outpatient over time to be evaluated for aortopathy, which can occur with bicuspid aortic valve. First degree relatives should be screened if not already done as this can be hereditary. 3. Abnormal echo: As above, transesophageal echo tomorrow to further evaluate mechanical aortic valve. 4. Stroke: He has chronic strokes noted on MRI. He has been evaluated by neurology. Anticoagulation indicated as above. 5. Disposition: He is not only noncompliant with the medications, but also with followup. His last cardiology appointment that he has attended was in March of 2016. Since that time, he has cancelled or no showed at least 4 times for cardiology and several others for his primary care office. It is strongly recommended that he follow up closely for his current issues. Cardiology will continue to follow. Thank for allowing me to participate in the care of Mr. Sylvester. Sincerely,
[2017-06-25] MEDS ORDERED: PHARMACIST DISCHARGE MED REC CONSULT PRN (19:15)
--- NOTE | 2017-06-25 20:36 | Family Medicine Progress Note ---
Progress Note Date of Service Jun 25, 2017. Subjective Pt evaluation today including: conversation w/ patient, physical exam, chart review, lab review 26 yo male admitted for chest pain and migraine -Pt has a PMHx of Bicuspid Aortic valve, replaced 3 years ago -Reports stopping Coumadin for past 3 days after being kicked out of girlfriends house. Currently lives in car. Pt admits to homelessness in the past. -Pt c/o of bandlike migraine beginning at 10 am yesterday morning. -Pt also c/o chest pain right of the sternum. Describes it as a dull, constant ache, tender to touch near his scar. -Chest pain is radiates to right shoulder, present at rest and with activity. -Pt describes a h/o migraines. He experienced no prodrome and denies trigger to current WINSTON. -Pt denies any neurologic defects: weakness, sensory abnormalities, cognitive issues -Pt does describe feeling "unbalanced" upon standing. Denies feeling like he was going to pass out. -Pt denies illicit IV drug use. Pt did provide a confusing answer to previous drug abuse, but ultimately denied use. Constitutional: No fever, No chills Eyes: No worsening of vision Respiratory: No cough, No sputum, No wheezing, No shortness of breath Cardiovascular: No chest pain Abdomen: No pain, No nausea, No vomiting, No diarrhea Neurologic: No memory loss, No paralysis, No weakness, No numbness/tingling , No vertigo, No balance problems, No problem reported Objective Vital Signs Date Time Temp Pulse Resp B/P (MAP) Pulse Ox O2 Delivery O2 Flow Rate FiO2 06/25/17 19:45 36.7 75 20 145/87 (106) 100 Room Air 06/25/17 15:52 36.6 78 20 138/90 (106) 94 Room Air 06/25/17 12:00 Room Air 06/25/17 11:32 36.8 70 16 158/97 (117) 100 Room Air 06/25/17 08:00 Room Air 06/25/17 06:51 36.8 64 17 119/79 (92) 98 Room Air 06/25/17 04:14 99 Room Air 06/25/17 04:00 36.6 64 18 121/81 (94) 97 Room Air 06/25/17 00:00 99 Room Air 06/24/17 22:48 36.4 61 16 135/83 99 Room Air 06/24/17 22:37 60 18 141/69 98 06/24/17 21:30 80 18 141/69 100 Room Air Physical Exam General Appearance: WD/WN, no apparent distress Eyes: normal inspection, PERRL, EOMI, sclerae normal Neck: supple, no adenopathy Respiratory/Chest: chest non-tender, lungs clear, normal breath sounds, no respiratory distress, no accessory muscle use Cardiovascular: regular rate, rhythm, no edema, no gallop Abdomen: normal bowel sounds, non tender, soft Neurologic/Psychiatric: student union consultant II-XII nml as tested, no motor/sensory deficits, alert, normal mood/affect, oriented x 3 Skin: normal color, warm/dry, no rash Notes: Test 06/25/17 03:50 06/25/17 17:14 Troponin I < 0.015 ng/ml (0-0.045) Activated Partial Thromboplast Time 52.4 SECONDS (21.0-31.0) Partial Thromboplastin Ratio 2.0 Assessment and Plan Ischemic Changes on CT and MRI -Pt was found to have ischemic changes on head CT and MRI. -Pt neuro exam was normal. -Pt admits to non-compliance on Coumadin -Reinforced with patient importance of Coumadin compliance with Aortic valve replacement -Pt is currently on heparin, bridging to Coumadin with Therapeutic goal INR of 2.5-3.5 -Continue 10 mg of Coumadin Chest Pain -Pt troponin were negative x2, ECG showed NSR -Chest pain is tender to palpation - F/U with patient's aortic valve with PUNEET tomorrow - Pt NPO after midnight -Follow cards recommendations Resident Physician Supervision Note: I was present with Dr. Carrero during the history and exam. I discussed the case with the resident and agree with the findings and plan as documented in the note. Any exceptions or clarifications are listed here: Please see my documentation in a separate note of the same date. Documented By: Armando Mariee
[2017-06-26] VITALS (14 sets, daily range): BP systolic 106–152; BP diastolic 66–93; PULSE 70–115; TEMP 36.5–36.9; O2SAT 98–100; Ht 162.6 cm; Wt 59.0 kg
[2017-06-26 04:49] LABS: BASO % 0.2 %; BASO ABS # 0.02 K/uL (0-0.2); COMPLETE YES; EOS % 1.8 %; HEMATOCRIT 38.8 % (42-52); IG% 0.1 %; LYMPH % 36.1 %; MEAN CELL VOLUME 82.6 fL (80-100); MEAN CORPUSCULAR HEMOGLOBIN 29.1 pg (25-34); MEAN CORPUSCULAR HGB CONC 35.3 g/dl (32-36); MEAN PLATELET VOLUME 9.4 fL (7.4-10.4); MONO % 7.7 %; NEUT % 54.1 %; PLATELET COUNT 224 K/uL (130-400); WHITE BLOOD COUNT 8.31 K/uL (4.8-10.8)
[2017-06-26 05:10] LABS: INR 1.1 (0.9-1.1); PARTIAL THROMBOPLASTIN RATIO 2.8; PROTHROMBIN TIME (PATIENT) 12.3 SECONDS (9.0-12.0)
[2017-06-26 05:34] LABS: BLOOD UREA NITROGEN 7 mg/dl (7-18); BUN/CREATININE RATIO 8.3 (10-20); C-REACTIVE PROTEIN < 0.29 mg/dl (0-0.29); CALCIUM 8.7 mg/dl (8.5-10.1); CARBON DIOXIDE 28 mmol/L (21-32); CHLORIDE 109 mmol/L (98-107); CREATININE 0.83 mg/dl (0.60-1.40); GLUCOSE 89 mg/dl (70-99); POTASSIUM 3.7 mmol/L (3.5-5.1); SODIUM 141 mmol/L (136-145)
--- NOTE | 2017-06-26 07:47 | Cardiology Follow-Up ---
Subjective Date of Service: Jun 26, 2017. Pt evaluation today including: conversation w/ patient History of Present Illness RESIDENT NOTE - SEE ATTENDING ADDENDUM/NOTE FOR FURTHER DISCUSSION Initially found pt sleeping comfortably. Woke easily, says his chest pain remains fully resolved. Says he has a mild headache he attributes to nicotine withdrawal. Denies any focal neuro concerns otherwise, SOB, swelling, or other acute concerns. Says he's ready to go home as soon as possible but understands importance of morning PUNEET. 15Aug 26yo male presented to ED on 14Aug c/o migraine WINSTON, right-sided chest pain, as well as some transient SOB & N/V. Pt has a notable hx of bicuspid aortic valve and severe aortic regurgitation, now s/p 23 mm Ravi mechanical aortic valve replacement in Sep 2014. Pt states he developed a dull, achy right pectoral regional chest pain on Sat 11Aug evening, constant until night of ED presentation (worst at that time), never resolved, which he attributes to sleeping in his car during that same period of time s/p argument with girlfriend (his normal housing). Pt says he normally has a constant, sharp chest pain at the site of his surgical scar but this presenting pain was different, prompting requested eval (along with the WINSTON). He denies any known fevers or recent illness, SOB (except only "when going from my car to standing up that one time"), cough, dizziness, syncope, extremity edema, difficulties with speech or movement or sensation, acute trauma, bleeding difficulties or dark stools, or other acute c/o beyond the WINSTON. While in the ED he received toradol, compazine, and benadryl which, at time of my evaluation, pt states completely resolved his WINSTON and CP (including his baseline pain), thus he says he 's sx-free and ready to go home. Pt has a known rx of ASA 81 mg daily which he says he remembers to take but he frequently forgets to take his warfarin 5 mg 3x /wk and 10 mg 4x/wk, stating his last dose was on 11Aug. Social History Smoking Status: Former Smoker History of Alcohol Use: Yes (SOCIALLY) Review of Systems Respiratory: No cough, No sputum, No wheezing, No shortness of breath Cardiac: + chest pain (resolved), No edema Objective Vital Signs Past 12 Hours Date Time Temp Pulse Resp B/P (MAP) Pulse Ox O2 Delivery O2 Flow Rate FiO2 06/26/17 07:27 36.8 82 18 117/73 (88) 98 Room Air 06/26/17 04:19 36.7 70 16 106/66 (79) 99 Room Air 06/26/17 04:00 100 Room Air 06/26/17 00:00 36.5 86 133/82 (99) 100 Room Air 06/26/17 00:00 100 Room Air 06/25/17 20:00 Room Air 06/25/17 19:45 36.7 75 20 145/87 (106) 100 Room Air Last Recorded Weight-Kilograms: 56.900 Physical Exam Constitutional: General Apperance: heathly-appearing Level of Distress: NAD Ambulation: ambulating normally (frequently walking about the yang without CP, SOB, or difficulty) Lungs: Respiratory effort: no dyspnea, good air movement Auscultation: breath sounds normal, no wheezing, no rales/crackles Cardiovascular: Heart Auscultation: RRR, normal S1 (and crisp mechanical S2), no murmurs Peripheral Pulses: Bruits: none appreciated Carotid Pulse: normal on the left, normal on the right Radial Pulse: normal on the left, normal on the right Extremities: no cyanosis, no edema Data Laboratory Results: Last 24 Hours Test 06/25/17 17:14 06/26/17 04:28 Activated Partial Thromboplast Time 52.4 SECONDS 71.6 SECONDS Partial Thromboplastin Ratio 2.0 2.8 White Blood Count 8.31 K/uL Red Blood Count 4.70 M/uL Hemoglobin 13.7 g/dL Hematocrit 38.8 % Mean Corpuscular Volume 82.6 fL Mean Corpuscular Hemoglobin 29.1 pg Mean Corpuscular Hemoglobin Concent 35.3 g/dl Platelet Count 224 K/uL Mean Platelet Volume 9.4 fL Neutrophils (%) (Auto) 54.1 % Lymphocytes (%) (Auto) 36.1 % Monocytes (%) (Auto) 7.7 % Eosinophils (%) (Auto) 1.8 % Basophils (%) (Auto) 0.2 % Neutrophils # (Auto) 4.49 K/uL Lymphocytes # (Auto) 3.00 K/uL Monocytes # (Auto) 0.64 K/uL Eosinophils # (Auto) 0.15 K/uL Basophils # (Auto) 0.02 K/uL RDW Standard Deviation 40.2 fL RDW Coefficient of Variation 13.4 % Immature Granulocyte % (Auto) 0.1 % Immature Granulocyte # (Auto) 0.01 K/uL Erythrocyte Sedimentation Rate 2 mm/hr Prothrombin Time 12.3 SECONDS Prothromb Time International Ratio 1.1 Sodium Level 141 mmol/L Potassium Level 3.7 mmol/L Chloride Level 109 mmol/L Carbon Dioxide Level 28 mmol/L Anion Gap 4.0 mmol/L Blood Urea Nitrogen 7 mg/dl Creatinine 0.83 mg/dl Est Creatinine Clear Calc Drug Dose 110.8 ml/min Estimated GFR () 140.7 Estimated GFR (Non- 121.4 BUN/Creatinine Ratio 8.3 Random Glucose 89 mg/dl Calcium Level 8.7 mg/dl C-Reactive Protein < 0.29 mg/dl * Name: SELIN MENDOZA Study Date: 06/25/2017 06:25 AM * -- Conclusions -- * 1. Normal left ventricular size with low-normal systolic function. EF 55% . No regional wall motion abnormalities. Mild concentric left ventricular hypertrophy. * 2. Mechanical aortic valve with acceptable transvalvular gradients and velocities. * 3. Echogenic mobile findings within the LVOT near the mechanical aortic valve, noted mostly during diastole. This could represent artifact versus actual finding. * 4. Normal estimated right ventricular systolic pressure; 19 mmHg. * 5. Compared to prior transesophageal study on 09/15/2014, mechanical aortic valve has replaced bicuspid aortic valve. Procedure Details * A complete two-dimensional transthoracic echocardiogram was performed (2D, M-mode, Doppler and color flow Doppler). EKG: Telemetry reviewed: Assessment and Plan 1) Acute chest pain: Likely MSK, remains fully resolved without further pain medications. assurance services manager health care engaged to assist with not sleeping in his car anymore. 2) Hx aortic valve replacement: Chronic non-compliance with coumadin. TTE 15Aug noted possible valve thrombus. - On track for PUNEET this morning. - Blood cx ordered by primary team. 3) Neuro: Multiple small CVA seen on imaging. No acute neuro findings this morning. - Continued emphasis on need to take his coumadin to help prevent future ( possibly more catastrophic) CVA. - Heparin here, coumadin re-started. INR this morning 1.1. Goal 2.5-3.5 ( higher range due to mechanical valve + hx CVA). Ongoing ASA. 4) Disposition: Per primary team. Ongoing rec's for cardiology f/u as outpt. Will discuss all the above with etymology teacher attending this morning during his PUNEET. Wally Mandel MD, PGY1 Family Medicine CARDIOLOGY ATTENDING ADDENDUM: SEE MY NOTE.
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
--- NOTE | 2017-06-26 09:44 | Procedure Note ---
Pre-Mod Sedation Assessment General Date of Moderate Sedation: Jun 26, 2017. Vital Signs: Vital Signs Past 12 Hours Date Time Temp Pulse Resp B/P (MAP) Pulse Ox O2 Delivery O2 Flow Rate FiO2 06/26/17 07:27 36.8 82 18 117/73 (88) 98 Room Air 06/26/17 05:30 36.8 82 18 117/73 98 Room Air 06/26/17 04:19 36.7 70 16 106/66 (79) 99 Room Air 06/26/17 04:00 100 Room Air 06/26/17 00:00 36.5 86 133/82 (99) 100 Room Air 06/26/17 00:00 100 Room Air Review Cardiovascular: regular rate, rhythm, no murmur Abdomen: soft Lungs: lungs clear Pre-Sedation Airway Assessment Oral Cavity: Dentures, Dental Abnormalities Short Thick Neck: No Hx of Sleep Apnea: No Smoking Status: Former Smoker Procedure Planning Contraindications-for Mod Sed: None Yes Notes The planned sedation has been discussed with the patient and consent obtained. I have identified the patient, determined the appropriateness of sedation and have assessed the patient immediately prior to the procedure. All medicine(s) and interventions are by my order.
[2017-06-26] MEDS ORDERED: FENTANYL CITRATE INJ 50 MCG/1 ML 2 ML VIAL ONE ×2 (10:23→10:31)
[2017-06-26] MEDS ORDERED: MIDAZOLAM HCL 1 MG/ML 2ML VIAL ONE ×2 (10:23→10:31)
--- NOTE | 2017-06-26 10:55 | Cardiology Procedure Brief Nt ---
Preliminary Cardiology Note Procedure Date Jun 26, 2017. Pre-Procedure Diagnosis Mechanical AVR and stroke Post-Procedure Diagnosis same Procedure(s) Performed [facility] [employer] Custodian Rowdy Nuclear Licensing Engineer(s) Nuris Estimated Blood Loss none Preliminary Findings Prelim review: Normal LV systolic function. Mechanical AVR without visualized thrombus/vegetation. Trace AI. Final report to follow after formal review. Recommendations anticoagulation compliance. Specimens none Complication(s) None Disposition laboratory inspector holding area
--- NOTE | 2017-06-26 10:56 | Consultant Recommendations ---
Learning Development Specialist Recommendations Date of Service Jun 26, 2017. Learning Development Specialist Recommendations ACTIVITY RECOMMENDATIONS: Resume activities as tolerated with no limitations unless specified. __ No lifting over _10_ pounds for 24 hours. __ Do not engage in vigorous exercise, sexual activity, or sports for 24 hours. __ Do not drive or operate any motorized equipment for 24 hours. __ You may return to work/school tomorrow. __ Nothing to eat or drink until gag reflex returns. __ No HOT or WARM liquids for _8_ hours. __ Avoid "scratchy" foods such as potato chips or pretzels for 24 hours following procedure. SPECIAL CARE: If you experience coughing up or vomiting of blood, contact ____[phone]
--- NOTE | 2017-06-26 10:57 | Procedure Note ---
Post-Mod Sedation Assessment General Date of Moderate Sedation Jun 26, 2017. Vital Signs: Vital Signs Past 12 Hours Date Time Temp Pulse Resp B/P (MAP) Pulse Ox O2 Delivery O2 Flow Rate FiO2 06/26/17 10:51 85 16 136/90 (105) 99 Room Air 06/26/17 10:45 104 16 139/83 (101) 99 Room Air 06/26/17 10:43 115 16 121/83 100 Nasal Cannula 4 06/26/17 10:38 100 16 115/87 100 Nasal Cannula 4 06/26/17 10:33 97 16 130/74 100 Nasal Cannula 4 06/26/17 10:30 88 16 121/86 100 Nasal Cannula 4 06/26/17 10:25 88 16 152/93 100 Nasal Cannula 4 06/26/17 09:54 36.8 84 16 152/93 100 Room Air 06/26/17 08:00 Room Air 06/26/17 07:27 36.8 82 18 117/73 (88) 98 Room Air 06/26/17 05:30 36.8 82 18 117/73 98 Room Air 06/26/17 04:19 36.7 70 16 106/66 (79) 99 Room Air 06/26/17 04:00 100 Room Air 06/26/17 00:00 36.5 86 133/82 (99) 100 Room Air 06/26/17 00:00 100 Room Air Review - Discharge Criteria Vital Signs Stable: Yes Alert/Oriented/Conversant: Yes Returned to Baseline Mental St: Yes Nausea Absent/Minimal: Yes Pain/Discomfort/Absent/Minimal: Yes Normal/Baseline Respirations: Yes Active Bleeding?: No
[2017-06-26] MEDS ORDERED: CMD10 PO (11:35)
[2017-06-26 11:40] LABS: PARTIAL THROMBOPLASTIN RATIO 2.5
[2017-06-26] MEDS: ASPIRIN 81 MG ECTAB PO SCH (12:01)
--- NOTE | 2017-06-26 12:13 | Discharge Instructions ---
Discharge Instructions Date of Service Jun 26, 2017. Admission Reason for Admission: Cerebral Embolism, Hx Of Mechanical Aortic Valve Discharge Discharge Diagnosis / Problem: Embolic stroke, sub-therapeutic INR, atypical chest pain, migraine [place] Discharge Goals Goal(s): Diagnostic testing, Therapeutic intervention Activity Recommendations Activity Limitations: resume your previous activity . Instructions / Follow-Up Instructions / Follow-Up -Your current hospitalization was in regards to a headache and chest pain you were experiencing, but during our diagnostic test we discovered some very important things. -Through a number of blood test we determined that your INR test, which tells us the state of your blood, was not at the level we need. You also told us that you were not taking your Coumadin for four days. This is why your INR test was off. It is very important you take this medication because it prevents you from getting a blood clot. You are at a high risk for blood clots because of your mechanical valve. As discussed, you had minor strokes that we could see on the imaging of your brain. While these strokes are insignificant and did not cause deficits, they are still very concerning. You must prevent further damage from occurring by taking your Coumadin. -In ordered to understand your Coumadin regimen going forward, you need to have a follow-up INR test. This will be done in the outpatient setting on Saturday. Until Saturday, you need to take Coumadin and Lovenox. You will be taking 10mg Coumadin, sat and . Take 90 mg of Lovenox once daily while not therapeutic. Sat: Coumadin 10mg : Coumadin 10 mg Saturday: See your primary care physician to determine if INR is therapeutic. Please follow-up with your primary care physician, but if you have any concerning symptoms don't hesitate to go to the ER. Current Hospital Diet Patient's current hospital diet: Regular Diet Discharge Diet Recommended Diet: Regular Diet Pending Studies Studies pending at discharge: no Medical Emergencies . Who to Call and When: Medical Emergencies: If at any time you feel your situation is an emergency, please call 911 immediately. . Non-Emergent Contact Non-Emergency issues call your: Primary Care Provider . . "Provider Documentation" section prepared by Jim Carrero. . Pet Counselor Recommendations Pet Counselor Recommendations: ACTIVITY RECOMMENDATIONS: Resume activities as tolerated with no limitations unless specified. __ No lifting over _10_ pounds for 24 hours. __ Do not engage in vigorous exercise, sexual activity, or sports for 24 hours. __ Do not drive or operate any motorized equipment for 24 hours. __ You may return to work/school tomorrow. __ Nothing to eat or drink until gag reflex returns. __ No HOT or WARM liquids for _8_ hours. __ Avoid "scratchy" foods such as potato chips or pretzels for 24 hours following procedure. SPECIAL CARE: If you experience coughing up or vomiting of blood, contact ____[phone] VTE Core Measure Inpt VTE Proph given/why not?: Enoxaparin (Lovenox)SQ, Other Anticoagulation
[2017-06-26] MEDS ORDERED: ENOX100I SC (12:18)
--- NOTE | 2017-06-26 12:21 | Discharge Instructions ---
Discharge Instructions Date of Service Jun 26, 2017. Admission Reason for Admission: Cerebral Embolism, Hx Of Mechanical Aortic Valve Discharge Discharge Diagnosis / Problem: Embolic stroke Discharge Goals Goal(s): Diagnostic testing, Therapeutic intervention Activity Recommendations Activity Limitations: resume your previous activity . Instructions / Follow-Up Instructions / Follow-Up Risk Factors for Stroke: You can reduce your chances of stroke by working with your medical provider to adopt a healthy lifestyle. Some specific ways to lower your chance of stroke are: * If you are a smoker, now is the time to stop smoking cigarettes * If you are diabetic, improve the control of your blood sugars * Avoid excessive amounts of alcohol * Control high blood pressure * Lose weight if you are overweight * Be sure to lead an active lifestyle * Eat a healthy diet low in salt, cholesterol and fat You should know about other risk factors for stroke that you are unable to control. These include: * Age 55 years or older * Male gender * Certain racial groups: , or / * Family History of Stroke, Mini stroke or Heart Attack * Sickle Cell Disease Follow Up: It is important for you to keep your follow up appointments with your medical provider. Current Hospital Diet Patient's current hospital diet: Regular Diet Discharge Diet Recommended Diet: Regular Diet Pending Studies Studies pending at discharge: no Medical Emergencies . Who to Call and When: Medical Emergencies: Call 911 immediately if you experience any of the following warning signs and symptoms of Stroke: * Sudden numbness or weakness of the face, arm or leg, especially on one side of the body * Sudden confusion, trouble speaking or understanding * Sudden trouble seeing in one or both eyes * Sudden trouble walking, dizziness, loss of balance or coordination * Sudden severe headache with no cause Do not delay calling 911 if you experience any warning signs or symptoms of a stroke. Delay in seeking medical attention may affect what treatments can be given to you. . Non-Emergent Contact Non-Emergency issues call your: Primary Care Provider . . "Provider Documentation" section prepared by Jim Carrero. . Distribution Agent Recommendations Distribution Agent Recommendations: ACTIVITY RECOMMENDATIONS: Resume activities as tolerated with no limitations unless specified. __ No lifting over _10_ pounds for 24 hours. __ Do not engage in vigorous exercise, sexual activity, or sports for 24 hours. __ Do not drive or operate any motorized equipment for 24 hours. __ You may return to work/school tomorrow. __ Nothing to eat or drink until gag reflex returns. __ No HOT or WARM liquids for _8_ hours. __ Avoid "scratchy" foods such as potato chips or pretzels for 24 hours following procedure. SPECIAL CARE: If you experience coughing up or vomiting of blood, contact ____[phone] Stroke Core Measures Reason no t-PA for Stroke: Treatment not indicated Reason no antithrom by day 2: Treatment provided - N/A Reason no antithrom at D/C: Treatment provided - N/A Reason no statin at D/C: Treatment not indicated Reason no anticoag w/a fib: Treatment provided - N/A (not for A fib but mech heart valve) VTE Core Measure Inpt VTE Proph given/why not?: Enoxaparin (Lovenox)SQ, Other Anticoagulation
[2017-06-26] MEDS ORDERED: WARF5TAB7 PO (12:23)
--- NOTE | 2017-06-26 12:55 | CARDIOLOGY PROGRESS NOTE ---
DATE: 06/26/2017 TIME: 12:31 p.m. SUBJECTIVE: He denies chest pain, shortness of breath, syncope, near syncope, palpitations or edema. He is tolerating ambulation in the hallways, which he is doing on a very regular basis. He had a transesophageal echo earlier today and tolerated the procedure well other than some retching towards the end of the procedure. There was no visualized thrombus or vegetation on his mechanical aortic valve. OBJECTIVE: VITAL SIGNS: Temperature 36.9 degrees, heart rate 76 beats per minute, respiratory rate 16, blood pressure 133/92 mmHg, and oxygen saturation 99% on room air. Weight 59 kg. GENERAL: No acute distress. He was alert. NECK: No JVD. CARDIAC EXAM: No ventricular heave, regular, normal S1, crisp S2. No audible murmur, rub or gallop. LUNGS: Clear to auscultation bilaterally without wheezes, rales or rhonchi. ABDOMEN: Soft, nontender, and nondistended. Normoactive bowel sounds. EXTREMITIES: No cyanosis or edema. PSYCHIATRIC: Affect appears appropriate. MEDICATIONS: Include heparin drip per protocol, aspirin 81 mg daily, and Coumadin 10 mg. Telemetry personally reviewed. No arrhythmia. LABORATORY DATA: White blood cell count 8.31, hemoglobin 13.7, and platelets 224. Sodium 141, potassium 3.7, BUN 7, and creatinine 0.83. ESR 2. Transesophageal echo images were personally reviewed. Normal LV systolic function. Mechanical aortic valve with trace AI. There were no visualized vegetations or thrombus noted. Full report to follow. ASSESSMENT AND PLAN: 1. Bicuspid aortic valve status post mechanical aortic valve replacement: He is noncompliant with his anticoagulation. Recommend anticoagulation, which was discussed with him once again in detail. He can remain in the hospital on heparin drip with Coumadin; however, he does choose to go home and arrangements are being made for Lovenox bridging. He is willing to follow up in the cardiology office and we will be happy to follow him and his INR, but we discussed the fact that he should followup both with appointments and with INR checks while taking his medications as prescribed. Continue aspirin 81 mg daily. 2. Stroke: He has findings of chronic stroke on MRI of his brain, but he is noncompliant with anticoagulation. Recommend anticoagulation. 3. Abnormal echo: Likely artifact noted on transthoracic echo, as transesophageal echo did not demonstrate any definite vegetation or thrombus. 4. Disposition: Follow up as an outpatient and compliance once again stressed. Plan of care and findings of transesophageal echo have been discussed with Dr. Mariee, the primary hospitalist service. THU
[2017-06-26] MEDS ORDERED: ENOXAPARIN 100 MG/1ML SYR SQ ONE (13:00)
--- NOTE | 2017-06-26 13:28 | Medical Student: [facility] ---
Med Student Progress Note Date of Service Jun 26, 2017. Subjective Pt evaluation today including: conversation w/ patient, physical exam, chart review, review of studies Pain: patient denies PO Intake: tolerating PO diet Voiding: no voiding problems, no incontinence Isaias Sylvester is a 26yo male with PMHx aortic valve replacement x 3years, who came in complaining of headache and chest pain from his sternal scar radiating to his right shoulder. He states he does not have any pain today, and his pain has been well controlled during his hospital stay. 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 Patient denies any complaints at this time. Review of Systems Constitutional: No fever, No chills, No sweats, No weight loss, No weakness Eyes: No worsening of vision, No eye pain, No redness ENT: No hearing loss, No nasal symptoms, No sore throat, No tinnitus Respiratory: No cough, No sputum, No wheezing, No shortness of breath Cardiac: No chest pain, No PND, No edema Abdomen: No pain, No nausea, No vomiting, No diarrhea, No constipation Musculoskeletal: No joint pain, No muscle pain Male : No dysuria, No urinary frequency, No incontinence Neurologic: No memory loss, No weakness, No numbness/tingling, No vertigo Psychiatric: No depression symptoms, No anxiety Heme: No abnormal bleeding/bruising, No swollen lymph nodes Endo: No fatigue (above baseline) Skin: No rash, No itch Objective Vital Signs Date Time Temp Pulse Resp B/P (MAP) Pulse Ox O2 Delivery O2 Flow Rate FiO2 06/26/17 13:17 36.9 98 16 99 Room Air 06/26/17 12:00 Room Air 06/26/17 11:15 98 16 134/79 (97) 99 Room Air 06/26/17 11:00 36.9 76 16 133/92 (106) 99 Room Air 06/26/17 10:51 85 16 136/90 (105) 99 Room Air 06/26/17 10:45 104 16 139/83 (101) 99 Room Air 06/26/17 10:43 115 16 121/83 100 Nasal Cannula 4 06/26/17 10:38 100 16 115/87 100 Nasal Cannula 4 06/26/17 10:33 97 16 130/74 100 Nasal Cannula 4 06/26/17 10:30 88 16 121/86 100 Nasal Cannula 4 06/26/17 10:25 88 16 152/93 100 Nasal Cannula 4 06/26/17 09:54 36.8 84 16 152/93 100 Room Air 06/26/17 08:00 Room Air 06/26/17 07:27 36.8 82 18 117/73 (88) 98 Room Air 06/26/17 05:30 36.8 82 18 117/73 98 Room Air 06/26/17 04:19 36.7 70 16 106/66 (79) 99 Room Air 06/26/17 04:00 100 Room Air 06/26/17 00:00 36.5 86 133/82 (99) 100 Room Air 06/26/17 00:00 100 Room Air 06/25/17 20:00 Room Air 06/25/17 19:45 36.7 75 20 145/87 (106) 100 Room Air 06/25/17 16:00 Room Air 06/25/17 15:52 36.6 78 20 138/90 (106) 94 Room Air Physical Exam General Appearance: WD/WN, no apparent distress Eyes: bilateral eyes normal inspection, bilateral eyes PERRL, bilateral eyes EOMI ENT: normal ENT inspection, hearing grossly normal, pharynx normal Neck: supple, no adenopathy Respiratory/Chest: chest non-tender, lungs clear, normal breath sounds, no respiratory distress, no accessory muscle use, + pertinent finding (well healed scars on chest from aortic valve replacement surgery) Cardiovascular: regular rate, rhythm, no edema, no murmur Abdomen: normal bowel sounds, non tender, soft Extremities: normal range of motion, non-tender, normal inspection, no pedal edema, no calf tenderness 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, no motor/sensory deficits, alert, normal mood/affect, oriented x 3 Skin: normal color, warm/dry, no rash Lymphatic: no adenopathy Laboratory Results Last 24 Hours Test 06/25/17 17:14 06/26/17 04:28 06/26/17 11:08 Activated Partial Thromboplast Time 52.4 SECONDS 71.6 SECONDS 66.1 SECONDS Partial Thromboplastin Ratio 2.0 2.8 2.5 White Blood Count 8.31 K/uL Red Blood Count 4.70 M/uL Hemoglobin 13.7 g/dL Hematocrit 38.8 % Mean Corpuscular Volume 82.6 fL Mean Corpuscular Hemoglobin 29.1 pg Mean Corpuscular Hemoglobin Concent 35.3 g/dl Platelet Count 224 K/uL Mean Platelet Volume 9.4 fL Neutrophils (%) (Auto) 54.1 % Lymphocytes (%) (Auto) 36.1 % Monocytes (%) (Auto) 7.7 % Eosinophils (%) (Auto) 1.8 % Basophils (%) (Auto) 0.2 % Neutrophils # (Auto) 4.49 K/uL Lymphocytes # (Auto) 3.00 K/uL Monocytes # (Auto) 0.64 K/uL Eosinophils # (Auto) 0.15 K/uL Basophils # (Auto) 0.02 K/uL RDW Standard Deviation 40.2 fL RDW Coefficient of Variation 13.4 % Immature Granulocyte % (Auto) 0.1 % Immature Granulocyte # (Auto) 0.01 K/uL Erythrocyte Sedimentation Rate 2 mm/hr Prothrombin Time 12.3 SECONDS Prothromb Time International Ratio 1.1 Sodium Level 141 mmol/L Potassium Level 3.7 mmol/L Chloride Level 109 mmol/L Carbon Dioxide Level 28 mmol/L Anion Gap 4.0 mmol/L Blood Urea Nitrogen 7 mg/dl Creatinine 0.83 mg/dl Est Creatinine Clear Calc Drug Dose 110.8 ml/min Estimated GFR () 140.7 Estimated GFR (Non- 121.4 BUN/Creatinine Ratio 8.3 Random Glucose 89 mg/dl Calcium Level 8.7 mg/dl C-Reactive Protein < 0.29 mg/dl Medications Medications Administered Medications (Trade) Dose Ordered Sig/Ruthy Route Start Time Stop Time Status Last Admin Dose Admin Sodium Chloride 1,000 ml @ 999 mls/hr Q1H1M STAT IV 06/24/17 19:03 06/24/17 20:03 DC 06/24/17 19:43 999 MLS/HR Ketorolac Tromethamine (Toradol Inj) 30 mg NOW STAT IV 06/24/17 19:03 06/24/17 19:05 DC 06/24/17 19:43 30 MG Diphenhydramine HCl (Benadryl Inj) 25 mg NOW STAT IV 06/24/17 19:03 06/24/17 19:05 DC 06/24/17 19:43 25 MG Prochlorperazine Edisylate (Compazine Inj) 10 mg NOW STAT IV 06/24/17 19:03 06/24/17 19:05 DC 06/24/17 19:43 10 MG Aspirin (Ecotrin Tab) 81 mg DAILY PO 06/25/17 09:00 06/26/17 14:30 DC 06/26/17 12:01 81 MG Heparin Sodium/ Dextrose (Heparin 25,000 Unit/500ml D5W) 25,000 unit STK-MED ONCE .ROUTE 06/24/17 22:13 06/24/17 22:14 DC 06/24/17 22:16 25,000 UNIT Heparin Sodium/ Dextrose 500 ml @ 20 mls/hr Q24H PRN IV 06/24/17 23:45 06/26/17 12:32 DC 06/25/17 20:37 21 MLS/HR Heparin Sodium (Porcine) 2000 unit/Syringe 2 ml @ 10 mls/min NOW ONCE IV 06/25/17 05:15 06/25/17 05:16 DC 06/25/17 05:46 10 MLS/MIN Warfarin Sodium (Coumadin Tab) 10 mg DAILY@16 PO 06/25/17 16:00 06/26/17 14:30 DC 06/25/17 15:46 10 MG Enoxaparin Sodium (Lovenox Inj) 90 mg NOW ONCE SQ 06/26/17 13:00 06/26/17 13:01 DC 06/26/17 13:30 90 MG Assessment and Plan Assessment and Plan: Isaias Sylvester is a 26 yo male, with PMHx of bicuspid aortic valve that was replaced with mechanical valve x3 years, who presented with chest pain around his surgical scar radiating to right shoulder and a temporal/bilateral frontal headache. Toradol (30mg injection) given in ED helped to control both headache pain and chest pain. Non-contrast CT of brain in the ED revealed 2 small hypodensities (6mm in right frontal lobe and 4mm in right basal ganglia); follow-up MRI showed ischemic changes in these areas as well. Labs showed an INR of 1.1. Patient was started on enoxaparin while in-patient, but will be bridged to warfarin for discharge today. PUNEET did not demonstrate any definite vegetation or thrombus. Chest pain - Admit to telemetry - Repeat troponin (<0.015 x2) - Echocardiogram findings: "Normal left ventricular size with low-normal systolic function. EF 55%. No regional wall motion abnormalities. Mild concentric left ventricular hypertrophy. Mechanical aortic valve with acceptable transvalvular gradients and velocities. Echogenic mobile findings within the LVOT near the mechanical aortic valve, noted mostly during diastole. This could represent artifact versus actual finding. Normal estimated right ventricular systolic pressure; 19 mmHg. Compared to prior transesophageal study on 09/15/2014, mechanical aortic valve has replaced bicuspid aortic valve. " - Consult cardiology. Recommended lovenox bridge to warfarin for 3 days ( /Sat/) then repeat INR on Saturday. PUNEET to investigate "artifact" on transthoracic echo; PUNEET findings did not demonstrate any definite vegetation/ thrombus. Embolic infarct - Non-contrast CT of head findings: "New 6 mm hypodensity within the right frontal white matter. New 4 mm hypodensity within the right basal ganglia. These lesions are nonspecific. Diagnostic considerations include demyelinating disease, or the sequela of ischemic disease which in a patient of this age would suggest a vasculitis. An MRI might be considered in follow-up for further evaluation. No acute hemorrhage" - MRI of head findings: "There are 2 subcentimeter lacunar infarcts identified within the right frontal white matter and in the right basal ganglia. Additionally, there is a small chronic infarct in the right temporal lobe. These corresponds to the lesions seen on the 06/24/2017 CT scan and correspond to chronic infarcts which are new from 01/13/2017. No acute ischemia is identified. No hemorrhage or mass effect is seen." - Neurology consult. Recommended continued anticoagulation with heparin bridge to warfarin, no neurological deficits noted. Anticoagulation for mechanical valve - Continue heparin IV (500 ml @ 21 mls/hr) - Bridge to Coumadin (10mg each day for 3 days), recheck INR each day - PUNEET findings: PUNEET did not demonstrate any definite vegetation or thrombus. - Call Dr. Ladd at the anti-coagulation clinic. For bridging of enoxaparin to warfarin, continue enoxaparin 90mg today and tomorrow (), warfarin at 10mg today/tomorrow (). Follow-up outpatient for repeat INR on Saturday. Migraine headaches, chronic - Pain controlled on Toradol (30mg injection) given in ED. Give Midazolam (4mg ) and fentanyl (100mcg) PRN for pain.
--- NOTE | 2017-06-26 13:48 | Pharmacy Progress Note ---
Pharmacist Stroke Counseling Date of Service Jun 26, 2017. Scope Pharmacy has been consulted to provide medication discharge counseling for this patient admitted with ischemic stroke as per the Pharmacist Discharge Counseling for Stroke Patients Protocol. Medications on Discharge New Medications: Enoxaparin (Lovenox) 100 Mg/Ml Inj 90 MG SC DAILY for 7 Days Warfarin Sod (Jantoven) 5 Mg Tab 5 MG PO UD, #20 TAB to be taken as directed but PCP after INR on 06/28/17 Warfarin Sod (Coumadin) 10 Mg Tab 10 MG PO DAILY@16 for 2 Days, #20 TAB Take 10mg on saturday and 10 mg on . Follow up INR with PCP on Saturday to determine regimen. Continued Medications: Aspirin (Aspirin Ec) 81 Mg Tab 81 MG PO DAILY Discontinued Medications: Warfarin Sod (Coumadin) 5 Mg Tab 5 MG PO 3XWK TAKE 5MG EVERY SATURDAY,SATURDAY AND SATURDAY OR OTHERWISE DIRECTED TO TAKE BY ANTICOAGULATION CLINIC/MD. Warfarin Sod (Jantoven) 10 Mg Tab 10 MG PO 4XWK, TAB TAKE 10 MG EVERY SATURDAY,SATURDAY,SATURDAY AND SATURDAY OR OTHERWISE DIRECTED TO TAKE BY ANTICOAGULATION CLINIC/MD. Patient has a mechanical aortic valve replacement and had a previous stroke with no residual effects. He has used Lovenox bridging before and demonstrated the correct injection procedure. He has a warfarin wallet card, and I recommended getting a Medic-Alert bracelet or necklace as well. He thinks the 7- day pill organizer we gave him may help him to remember his doses. He has been living in his car for a few days and plans to keep his meds there-we discussed appropriate temperatures for storage. I encouraged him to keep both his physician and anticoagulation clinic appointments. Action The above medications, specifically ones for stroke treatment/prophylaxis, have been reviewed in detail with the patient prior to discharge. This includes indication, common adverse reactions, drug interactions, and medication 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. Medication counseling has been employed using the teach-back method to ensure understanding. Outcome The patient has demonstrated understanding of the medications. Please note, he is aware that the pharmacist will call him within 72 hours post- discharge to confirm that the appropriate medications are being taken and answer any further medication related questions the patient might have at that time. Contact information Individual to be contacted: Isaias Sylvester Relationship to patient (if applicable): self Phone number: [phone] Best time to call: after 930-10 am Additional comments: Please stress compliance with both physician and coag clinic appointments. Thank you for allowing pharmacy to be involved in the care of this patient. Please call [phone] or [phone] with any additional questions
--- NOTE | 2017-06-26 17:31 | TEE ---
*NOTICE TO RECEIVING [employer] This information is strictly Confidential and protected under [place] law. [place] law prohibits you from making any further disclosure of this information unless further disclosure is expressly permitted by the written consent of the person to whom it pertains or is authorized by law. A general authorization for the release of medical or other information is not sufficient for this purpose. Hospital accepts no responsibility if the information is made available to any other person, INCLUDING THE PATIENT. Interpretation Summary * Name: SELIN MENDOZA Study Date: 06/26/2017 09:27 AM BP: 152/93 mmHg * Patient Location: C.2T\S\S233\S\1 HR: 86 * : 1990 (M/d/yyyy) Gender: Male Height: 65 in * Age: 26 yrs Ethnicity: [place] Weight: 128 lb * Ordering Physician: Wally Mandel. * Referring Physician: Self, Referred * Performed By: Marcia Che RDCS * * Reason For Study: Evaluate mechanical aortic valve for thrombus * BSA: 1.6 m2 * -- Conclusions -- * PUNEET: * 1. Normal left ventricular size and systolic function. EF 55-60%. No regional wall motion abnormalities. No significant left ventricular hypertrophy. * 2. Bileaflet mechanical aortic valve with trace regurgitation. * 3. No visualized thrombus or vegetation. * 4. Toward the end of the procedure, patient started retching and therefore, transgastric views were not obtained. Inter atrial septum was also not fully evaluated so as to avoid vomiting and aspiration. He otherwise tolerated the procedure well without known complication. Procedure Details * The transesophageal portion of this study was personally supervised by the undersigned interpreting physician. * PUNEET Probe #1 utilized for procedure. * The study was performed in Cardiac Catheterization Lab. * Time out was conducted by the physician, nurse, and field radio technician with positive identification of patient and procedure. * Informed consent for Transesophageal Echocardiogram was obtained prior to the procedure. * An intravenous line was placed. A topical anesthetic agent was used for oropharangeal anesthesia. A bite block was inserted. * The patient's vital signs, including blood pressure, heart rate, pulse oximetry and cardiac rhythm were monitored throughout the procedure . * Fentanyl 100 mcg was administered for procedural sedation. * Midazolam 4 mg administered for sedation. * The posterior oropharynx was anesthetized using a topical anesthetic spray. A bite guard was inserted. * A multifrequency, multiplane transesopheageal echocardiographic endoscope was inserted and manipulated in the standard fashion to achieve multiplane views. * The transesophageal probe was passed without difficulty. * The usual views were obtained; basal, mid-esophageal, transgastric and aortic views. * The patient tolerated the procedure well without evidence of orophangeal or esophageal trauma. * A 2D transesophageal echocardiogram with Doppler and color flow Doppler was performed. * Sedation start time 10:25 a.m.. * Sedation end time 10:44 a.m. * Left Ventricle * Normal left ventricular size and systolic function. EF 55-60%. No regional wall motion abnormalities. No significant left ventricular hypertrophy. Right Ventricle * The right ventricle is normal in size and function. Atria * The left atrial size is normal. * No thrombus is detected in the left atrial appendage. * Right atrial size is normal. * There is no evidence of atrial septal defect, but resolution does not allow assessment for a patent foramen ovale. Mitral Valve * The mitral valve is normal in structure and function. * There is no mitral valve stenosis. * There is trace mitral regurgitation. Tricuspid Valve * The tricuspid valve anatomy is normal. * There is no tricuspid stenosis. * There is trace tricuspid regurgitation. Aortic Valve * Bileaflet mechanical aortic valve with trace regurgitation. Pulmonic Valve * The pulmonic valve is not well seen, but is grossly normal. * There is no significant pulmonary regurgitation. Great Vessels * The aortic root is normal size. * Ascending aorta of normal dimension Pericardium * There is no pericardial effusion. MMode 2D Measurements and Calculations Ao root diam 3.4 cm Ao root area 8.8 cm\S\2 asc Aorta Diam 3.3 cm Doppler Measurements and Calculations MV E max aaliyah 55.0 cm/sec MV A max aaliyah 43.9 cm/sec MV E/A 1.3 MV dec time 0.16 sec
--- NOTE | 2017-06-26 22:50 | Discharge Summary ---
Discharge Summary Date of Service Jun 26, 2017. (Jim Carrero M.D.) Discharge Summary Admission Date: Jun 24, 2017 at 21:31 Discharge Date: Jun 26, 2017 Discharge Disposition: Home Principal Diagnosis: Embolic stroke, sub-therapeutic INR Problems/Secondary Diagnoses: (1) AORTIC VALVE DISORDER Status: Chronic (2) ASTHMA, UNSPECIFIED Status: Chronic (3) Heart Valve Replac Nec Status: Chronic (4) MIGRAINE UNSPECIFIED W/O INTRACT MGRN W/O STATUS MIGRAINOSUS Status: Chronic (Jim Carrero M.D.) Medication Reconciliation New Medications: Enoxaparin (Lovenox) 100 Mg/Ml Inj 90 MG SC DAILY for 7 Days Warfarin Sod (Jantoven) 5 Mg Tab 5 MG PO UD, #20 TAB to be taken as directed but PCP after INR on 06/28/17 Warfarin Sod (Coumadin) 10 Mg Tab 10 MG PO DAILY@16 for 2 Days, #20 TAB Take 10mg on saturday and 10 mg on . Follow up INR with PCP on Saturday to determine regimen. Continued Medications: Aspirin (Aspirin Ec) 81 Mg Tab 81 MG PO DAILY Discontinued Medications: Warfarin Sod (Coumadin) 5 Mg Tab 5 MG PO 3XWK TAKE 5MG EVERY SATURDAY,SATURDAY AND SATURDAY OR OTHERWISE DIRECTED TO TAKE BY ANTICOAGULATION CLINIC/MD. Warfarin Sod (Jantoven) 10 Mg Tab 10 MG PO 4XWK, TAB TAKE 10 MG EVERY SATURDAY,SATURDAY,SATURDAY AND SATURDAY OR OTHERWISE DIRECTED TO TAKE BY ANTICOAGULATION CLINIC/MD. Discharge Exam Review of Systems: Constitutional: No fever, No chills, No sweats Respiratory: No cough, No shortness of breath, No dyspnea at rest Cardiovascular: No chest pain, No edema, No palpitations Abdomen: No nausea, No vomiting, No diarrhea Physical Exam: General Appearance: WD/WN, no apparent distress Respiratory/Chest: chest non-tender, lungs clear, normal breath sounds, no respiratory distress, no accessory muscle use Cardiovascular: regular rate, rhythm, no edema, no gallop Abdomen / GI: normal bowel sounds, non tender, no organomegaly Neurologic/Psychiatric: alert, oriented x 3 Skin: normal color, warm/dry, no rash (Jim Carrero M.D.) Hospital Course Isaias Sylvester is a 26 yo male PMHx of bicuspid aortic valve replaced with a mechanical valve presented to [facility] with chest pain and headache. Head CT in the ED incidentally revealed 2 small hypodensities (6mm in right frontal lobe and 4mm in right basal ganglia); follow-up MRI showed ischemic changes in these areas as well. Pt was also found to be sub-therapeutic in regards to anticoagulation, with an INR of 1.1 . Pt reported that he stopped taking his Coumadin 4 days ago after being kicked out of his girlfriends house. Pt expressed a history of anxiety, depression, drug use and homelessness. Pt was consulted by Neurology and Cardiology. Pt was not found to have any neurologic deficits from embolic stoke. Pt described chest pain as tender, along his sternal scar and radiating to his right shoulder. The chest pain resolved and troponin x2 where found to be negative. Echo was performed and found to show: " Echogenic mobile findings within the LVOT near the mechanical aortic valve, noted mostly during diastole. This could represent artifact versus actual finding." PUNEET was performed to evaluate further the artifact found on echo. PUNEET findings did not demonstrate any definite vegetation/thrombus. During the hospitalization, the patient received IV Heparin and was started on 10 mg of Coumadin per day. Pt requested to leave the hospital before therapeutic goal was achieved. Pt was sent home with instructions to take Coumadin bridged with Lovenox 90 mg SC. Pt was discharged with arrangements from care management to follow-up with PCP on Saturday regarding INR and Coumadin regimen and compliance moving forward. Total Time Spent: Less than 30 minutes This includes examination of the patient, discharge planning, medication reconciliation, and communication with other providers. (Jim Carrero M.D.) Resident Physician Supervision Note: I was present with [Name of resident] during the history and exam. I discussed the case with the resident and agree with the findings and plan as documented in the note. Any exceptions or clarifications are listed here: Please see my additional documentation of the same date. Documented By: Armando Mariee Total Time Spent: Greater than 30 minutes 45 minutes spent in the discharge of this patient. (Armando Mariee,D.O.) Discharge Instructions Please refer to the electronic Patient Visit Report (Discharge Instructions) for additional information. (Jim Carrero M.D.)
--- NOTE | 2017-06-28 15:08 | Pharmacy Progress Note ---
Pharmacist Post D/C Phone Note Date of phone call: Jun 28, 2017. Individual with whom pharmacist spoke to: Isaias Sylvester The following questions were reviewed during the phone call with responses listed below each: Can you tell me the medications that you are currently taking as well as when and how you take each medication? - warfarin and aspirin. INR today was 2.9 so Lovenox was dc'd. Will take warfarin 5 mg on Sat & Sat, then get a PT/INR on Saturday. When have you missed any doses of your medications? - none What side effects are you having from your medications? - none- no migraines or chest pains What questions do you have about your medications? - none at this time What problems are you having obtaining your medications? - none When is your next appointment with your primary care doctor? - Dr Alfaro on 07/01/17, will get INR then and further warfarin dosing instructions. He will call for cardiology appointment. Additional comments: - He has a mechanical aortic valve replacement, has had a previous stroke ( with no residual effects), and has been taking warfarin for a long time. He tries to eat low-fat and low Vitamin K foods. He has been reading the information he was given, and hopefully will remain compliant with his warfarin. As per the Pharmacist Discharge Counseling for Stroke Patients Protocol, this phone call has been completed within 72 hours of discharge. Thank you for allowing us to be involved in the care of this patient.
--- NOTE | 2017-07-04 12:44 | EDITING REQUIRED CODING QUERY ---
CODING QUERY To promote full compliance with coding requirements relating to patient care, provider participation is requested in all cases of shipping clerk/admin uncertainty. Please assist us with the question(s) below: Coding Question(s): Embolic Stroke is documented in the record and on the Discharge Summary. Please clarify below, in your clinical opinion, regarding the Embolic Stroke. ( ) Acute Embolic Stroke ( ) Acute and Chronic Embolic Stroke ( x ) Chronic Embolic Stroke Physician's Response(s): Thank you Elyssa Jacques Principal Diagnosis: "_that condition established after study, to be chiefly responsible for occasioning the admission of the patient to the hospital for care." Co-Existing Principal Diagnosis: "_when two or more diagnoses equally meet the criteria for principal diagnosis as determined by the circumstances of admission, diagnostic work up, and/or therapy provided, and the Alphabetic Index, Tabular List, or another coding guideline does not provide sequencing direction, any one of the diagnoses may be sequenced first." "When the physician has documented what appears to be a current diagnosis in the body of the record, but has not included the diagnosis in the final diagnostic statement, the physician should be asked whether the diagnosis should be added." (Source Coding [facility] 2 QTR90. p3-4)
== END 2017-06-26 14:25 | disposition home or self-care (01) | DRG 948 ==
LOC: C.EDB 18:48 → C.2T 21:31 → ENRESERV 21:47
PROVIDERS: ADMIT Internal Medicine; ATTEND Family Medicine
DX: R79.1 Abnormal coagulation profile (principal); T45.516A Underdosing of anticoagulants, initial encounter; I67.82 Cerebral ischemia; G43.909 Migraine, unspecified, not intractable, without status migrainosus; R07.9 Chest pain, unspecified; Z86.73 Personal history of transient ischemic attack (TIA), and cerebral infarction without residual deficits; R29.700 NIHSS score 0; R29.701 NIHSS score 1; J45.909 Unspecified asthma, uncomplicated; Z79.01 Long term (current) use of anticoagulants; Z79.82 Long term (current) use of aspirin; Z91.19 Patient's noncompliance with other medical treatment and regimen; Z95.2 Presence of prosthetic heart valve; Z87.74 Personal history of (corrected) congenital malformations of heart and circulatory system; Z59.0 Homelessness; Z83.3 Family history of diabetes mellitus; Z82.49 Family history of ischemic heart disease and other diseases of the circulatory system; Z84.1 Family history of disorders of kidney and ureter

== ENCOUNTER 2017-12-25 16:07 | Inpatient (IN) | payer OTHER ==
[~2017-12-25] VITALS: Ht 165.1 cm; Wt 59.0 kg
[~2017-12-25 16:07] MED LIST changes: +CMD10 PO; -CMD5 PO; +ENOX100I SC; -FRCT/ PO; -WARF10TA4 PO; +WARF5TAB7 PO
[2017-12-25 17:02] LABS: BASO % 0.2 %; BASO ABS # 0.01 K/uL (0-0.2); EOS % 1.5 %; EOS ABS # 0.09 K/uL (0-0.5); HEMATOCRIT 38.1 % (42-52); HEMOGLOBIN 13.3 g/dL (14.0-18.0); IG# 0.01 K/uL (0.00-0.02); LYMPH ABS # 1.63 K/uL (1.2-3.4); MEAN CELL VOLUME 83.4 fL (80-100); MEAN CORPUSCULAR HEMOGLOBIN 29.1 pg (25-34); MEAN CORPUSCULAR HGB CONC 34.9 g/dl (32-36); MEAN PLATELET VOLUME 9.2 fL (7.4-10.4); MONO ABS # 0.36 K/uL (0.11-0.59); NEUT % 65.1 %; NEUT ABS # 3.94 K/uL (1.4-6.5); PLATELET COUNT 219 K/uL (130-400); RED CELL DISTRIBUTION WIDTH CV 13.8 % (11.5-14.5); RED CELL DISTRIBUTION WIDTH SD 41.9 fL (36.4-46.3); WHITE BLOOD COUNT 6.04 K/uL (4.8-10.8)
[2017-12-25 17:11] LABS: INR 3.5 (0.9-1.1); PTT PATIENT 37.2 SECONDS (21.0-31.0)
[2017-12-25] MEDS ORDERED: WARF-246 PO ×2 (17:12)
[2017-12-25] MEDS ORDERED: ACET-1256 PO (17:12)
--- NOTE | 2017-12-25 17:22 | DIAGNOSTIC IMAGING REPORT ---
CHEST ONE VIEW PORTABLE CLINICAL HISTORY: Evaluate Fever/Sepsis dyspnea COMPARISON STUDY: 06/24/2017 FINDINGS: Prior median sternotomy and valve replacement. Diaphragms smooth but lungs are clear. IMPRESSION: No acute process. The above report was generated using voice recognition software. It may contain grammatical, syntax or spelling errors. Electronically signed by: Shar Brasher M.D. 12/25/2017 5:21 PM Dictated Date/Time: 12/25/2017 5:20 PM
[2017-12-25 17:27] LABS: ALBUMIN 3.8 gm/dl (3.4-5.0); ALT/SGPT 26 U/L (12-78); AST/SGOT 22 U/L (15-37); BLOOD UREA NITROGEN 6 mg/dl (7-18); CALCIUM 8.7 mg/dl (8.5-10.1); CARBON DIOXIDE 28 mmol/L (21-32); CREATININE 0.84 mg/dl (0.60-1.40); GLUCOSE 90 mg/dl (70-99); LIPASE 70 U/L (73-393); SODIUM 138 mmol/L (136-145)
--- NOTE | 2017-12-25 17:28 | History and Physical ---
History & Physical Date & Time of Service: Dec 25, 2017 at 17:28 Chief Complaint: Blood Clots On Heart- Physician Referred Primary Care Physician: Rosie Montoya D.O. History of Present Illness Source: patient This is a 27 yo M with hx of congenital bicuspid valve with severe aortic insufficiency S/P Saint Ravi mechanical aortic valve replacement in Sep at [facility] Hx of non compliance with Coumadin , hx of embolic CVA . Pt recently sustained an syncopal episode followed by fall and Orbital fx earlier November ,was tx to [facility] , anticoagulation was briefly held resumed approx 3 weeks back pt had out pt ECHO done at [facility] -noted to have Thrombus /vegetation in Aortic valve was asked to come to ER at [facility] for emergent evaluation in ER pt was asymptomatic , no complain of SOB , chest discomfort, no report of fever or chills mentions that he has been taking his Coumadin appropriately INR 3.9 pt admitted to PCU plan for PUNEET tomorrow by Cardiology ordered for NPO past midnight Past Medical/Surgical History Medical Problems: (1) AORTIC VALVE DISORDER Status: Chronic (2) ASTHMA, UNSPECIFIED Status: Chronic (3) MIGRAINE UNSPECIFIED W/O INTRACT MGRN W/O STATUS MIGRAINOSUS Status: Chronic Surgical Problems: (1) H/O heart surgery Status: Resolved (2) Heart Valve Replac Nec Status: Chronic (3) History of aortic valve replacement Status: Resolved (4) [place] Teeth Removal Status: Resolved Family History Diabetes mellitus Heart disease Kidney disease Social History Smoking Status: Former Smoker Drug Use: none Marital Status: in relationship Occupational Status: employed Multi-Drug Resistant Organisms History of MDRO: No Allergies Coded Allergies: Cephalexin (Verified Allergy, Intermediate, RASH-ITCHY, 01/13/17) Fish-derived Products (Verified Allergy, Intermediate, RASH-ITCHY, 01/13/17) Indomethacin (Verified Adverse Reaction, Intermediate, GI SYMPTOMS, 01/13/17 ) Tramadol (Verified Adverse Reaction, Unknown, UPSET STOMACH, 01/13/17) Home Medications Scheduled Warfarin Sodium (Warfarin Sodium), 5 MG PO 2XWK Warfarin Sodium (Warfarin Sodium), 7.5 MG PO 5XWK Scheduled PRN Acetaminophen (Tylenol), 1,000 MG PO Q6H PRN for Pain Physical Exam Vital Signs Date Time Temp Pulse Resp B/P (MAP) Pulse Ox O2 Delivery O2 Flow Rate FiO2 12/25/17 16:50 86 12/25/17 16:47 100 Room Air 12/25/17 16:16 97 Room Air 12/25/17 16:13 36.9 89 16 160/95 98 Room Air General Appearance: no apparent distress Head: normocephalic, atraumatic Eyes: normal inspection, PERRL, sclerae normal ENT: normal ENT inspection Neck: thyroid normal, no carotid bruits, trachea midline Respiratory/Chest: chest non-tender, lungs clear, normal breath sounds, no respiratory distress, no accessory muscle use Cardiovascular: regular rate, rhythm, normal peripheral pulses, + systolic murmur Abdomen/GI: non tender, soft Extremities/Musculoskelatal: normal inspection, no calf tenderness, normal capillary refill, no pedal edema Neurologic/Psych: no motor/sensory deficits, alert, normal mood/affect, oriented x 3 Skin: normal color, warm/dry Diagnostics Laboratory Results Results Past 24 Hours Test 12/25/17 16:43 12/25/17 16:50 Range/Units Creatine Kinase MB Ratio 0-3.0 White Blood Count 6.04 4.8-10.8 K/uL Red Blood Count 4.57 4.7-6.1 M/uL Hemoglobin 13.3 14.0-18.0 g/dL Hematocrit 38.1 42-52 % Mean Corpuscular Volume 83.4 80-100 fL Mean Corpuscular Hemoglobin 29.1 25-34 pg Mean Corpuscular Hemoglobin Concent 34.9 32-36 g/dl Platelet Count 219 130-400 K/uL Mean Platelet Volume 9.2 7.4-10.4 fL Neutrophils (%) (Auto) 65.1 % Lymphocytes (%) (Auto) 27.0 % Monocytes (%) (Auto) 6.0 % Eosinophils (%) (Auto) 1.5 % Basophils (%) (Auto) 0.2 % Neutrophils # (Auto) 3.94 1.4-6.5 K/uL Lymphocytes # (Auto) 1.63 1.2-3.4 K/uL Monocytes # (Auto) 0.36 0.11-0.59 K/uL Eosinophils # (Auto) 0.09 0-0.5 K/uL Basophils # (Auto) 0.01 0-0.2 K/uL RDW Standard Deviation 41.9 36.4-46.3 fL RDW Coefficient of Variation 13.8 11.5-14.5 % Immature Granulocyte % (Auto) 0.2 % Immature Granulocyte # (Auto) 0.01 0.00-0.02 K/uL Prothrombin Time 35.6 9.0-12.0 SECONDS Prothromb Time International Ratio 3.5 0.9-1.1 Activated Partial Thromboplast Time 37.2 21.0-31.0 SECONDS Partial Thromboplastin Ratio 1.4 Sodium Level 138 136-145 mmol/L Potassium Level 4.0 3.5-5.1 mmol/L Chloride Level 104 98-107 mmol/L Carbon Dioxide Level 28 21-32 mmol/L Anion Gap 6.0 3-11 mmol/L Blood Urea Nitrogen 6 7-18 mg/dl Creatinine 0.84 0.60-1.40 mg/dl Est Creatinine Clear Calc Drug Dose 113.2 ml/min Estimated GFR () 139.1 Estimated GFR (Non- 120.0 BUN/Creatinine Ratio 6.7 10-20 Random Glucose 90 70-99 mg/dl Calcium Level 8.7 8.5-10.1 mg/dl Direct Bilirubin 0.1 0-0.2 mg/dl Aspartate Amino Transf (AST/SGOT) 22 15-37 U/L Alanine Aminotransferase (ALT/SGPT) 26 12-78 U/L Albumin 3.8 3.4-5.0 gm/dl Lipase 70 73-393 U/L Diagnostic Radiology CHEST ONE VIEW PORTABLE CLINICAL HISTORY: Evaluate Fever/Sepsis dyspnea COMPARISON STUDY: 06/24/2017 FINDINGS: Prior median sternotomy and valve replacement. Diaphragms smooth but lungs are clear. IMPRESSION: No acute process. Impression Assessment and Plan S/P METALLIC AORTIC VALVE Bicuspid valve with severe regurgitation s/p St Ravi mechanical valve replacement in 2013 pt should be on Coumadin anticoagulation INR 2.5-3.5 Cardiology following THROMBUS VS VEGETATION NOTED IN CARDIAC VALVE : noted in recent ECHO pt has hx of non compliance with Coumadin anticoagulation has been interrupted for few weeks due to recent orbital FX / subdural hematoma Coumadin has been resumed , INR 3.9 today concern for possible thrombus vs infected vegetation ( hx of IV drug abuse ) will gave PUNEET tomorrow Cardiology consulted HX OF DRUG AND PRESCRIPTION PAIN MED ABUSE urine tox screen negative pt is counselled multiple times -drug addition and IV drug abuse can cause permanent damage /infection to heart valve leading to Cardiac failure /infected endocarditis will benefit with Rehab social service consulted HX OF RECURRENT EMBOLIC CVA : due to non compliance , hx of sub therapeutic INR CT head does not show acute CVA cont Aspirin fasting lipid panel ordered FULL CODE DVT PROPHYLAXIS : on Coumadin DISPOSITION : expected to be discharged home when medically stable Cardiology follow up with Dr Amaya Spoke with Mother Dominga Sylvester , updated over phone Level of Care Telemetry Resuscitation Status FULL RESUSCITATION VTE Prophylaxis VTE Risk Assessment Done? Y/N: Yes Risk Level: Moderate Given or contraindicated: Warfarin (Coumadin)
[2017-12-25] MEDS ORDERED: ACETAMINOPHEN 325 MG TAB PO PRN (17:30)
[2017-12-25 17:32] LABS: ALKALINE PHOSPHATASE 57 U/L (45-117); CKMB 0.9 ng/ml (0.5-3.6); TOTAL PROTEIN 6.7 gm/dl (6.4-8.2)
[2017-12-25 18:44] VITALS: BP 148/87; PULSE 85; TEMP 36.8; O2SAT 100; Ht 165.1 cm; Wt 59.0 kg
--- NOTE | 2017-12-25 18:59 | EMERGENCY ROOM VISIT NOTE ---
History Report prepared by Joe: Radha Luna Under the Supervision of: Dr. Prasanth Sandra D.O. First contact with patient: 16:37 Chief Complaint: CARDIAC ASSESSMENT Stated Complaint: BLOOD CLOTS ON HEART- PHYSICIAN REFERRED Nursing Triage Summary: Pt mother states pt had an ECHO and called and said he had blood clots on his heart valve that was replace. Sep 2014 had heart valve replacement in [place]. Warfarin daily. 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 The patient was sent to the ED by his account services representative to be admitted after an echocardiogram showed blood clots on his heart valve. He had a mechanical valve replacement in 2013. The patient is on Coumadin. His INR was 1 last month after he was taken off his Coumadin after a brain bleed. His INR was 4.6 last week. The patient has had 2 strokes from blood clots on his valve in the past. He denies any chest pain, SOB, or headache. His mother notes that he has been getting hot and clammy. 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 A total of 10 systems reviewed and were otherwise negative. 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 Surgical Problems: (1) H/O heart surgery (2) Heart Valve Replac Nec (3) Heart Valve Replac Nec (4) History of aortic valve replacement (5) History of mechanical aortic valve replacement (6) [place] Teeth Removal Family History Diabetes mellitus Heart disease Kidney disease Social History Smoking Status: Former Smoker Alcohol Use: none Drug Use: none Marital Status: in relationship Housing Status: lives with family Occupation Status: employed Current/Historical Medications Scheduled Warfarin Sodium (Warfarin Sodium), 5 MG PO 2XWK Warfarin Sodium (Warfarin Sodium), 7.5 MG PO 5XWK Scheduled PRN Acetaminophen (Tylenol), 1,000 MG PO Q6H PRN for Pain Allergies Coded Allergies: Cephalexin (Verified Allergy, Intermediate, RASH-ITCHY, 01/13/17) Fish-derived Products (Verified Allergy, Intermediate, RASH-ITCHY, 01/13/17) Indomethacin (Verified Adverse Reaction, Intermediate, GI SYMPTOMS, 01/13/17 ) Tramadol (Verified Adverse Reaction, Unknown, UPSET STOMACH, 01/13/17) Physical Exam Vital Signs Date Time Temp Pulse Resp B/P (MAP) Pulse Ox O2 Delivery O2 Flow Rate FiO2 12/25/17 16:50 86 12/25/17 16:47 100 Room Air 12/25/17 16:16 97 Room Air 12/25/17 16:13 36.9 89 16 160/95 98 Room Air Physical Exam CONSTITUTIONAL/VITAL SIGNS: Reviewed / noted above. GENERAL: Non-toxic in appearance. INTEGUMENTARY: Warm, dry, and [employer]. HEAD: Normocephalic. EYES: without scleral icterus or trauma. ENT/OROPHARYNX: clear and moist. LYMPHADENOPATHY/NECK: Is supple without lymphadenopathy or meningismus. RESPIRATORY: Lungs clear and equal. CARDIOVASCULAR: Regular rate and rhythm. GI/ABDOMEN: Soft and nontender. No organomegaly or pulsatile mass. No rebound or guarding. Normal bowel sounds. EXTREMITIES: Warm and well perfused. BACK: No CVA tenderness. NEUROLOGICAL: Intact without focal deficits. PSYCHIATRIC: normal affect. MUSCULOSKELETAL: Normally developed with good muscle tone. Medical Decision & Procedures ER Provider Diagnostic Interpretation: X ray results and stated below per my interpretation and radiology interpretation. CHEST ONE VIEW PORTABLE CLINICAL HISTORY: Evaluate Fever/Sepsis dyspnea COMPARISON STUDY: 06/24/2017 FINDINGS: Prior median sternotomy and valve replacement. Diaphragms smooth but lungs are clear. IMPRESSION: No acute process. The above report was generated using voice recognition software. It may contain grammatical, syntax or spelling errors. Electronically signed by: Shar Brasher M.D. 12/25/2017 5:21 PM Dictated Date/Time: 12/25/2017 5:20 PM Laboratory Results 12/25/17 16:50 Red Blood Count 4.57, Mean Corpuscular Volume 83.4, Mean Corpuscular Hemoglobin 29.1, Mean Corpuscular Hemoglobin Concent 34.9, Mean Platelet Volume 9.2, Neutrophils (%) (Auto) 65.1, Lymphocytes (%) (Auto) 27.0, Monocytes (%) (Auto) 6.0, Eosinophils (%) (Auto) 1.5, Basophils (%) (Auto) 0.2, Neutrophils # (Auto) 3.94, Lymphocytes # (Auto) 1.63, Monocytes # (Auto) 0.36, Eosinophils # (Auto) 0.09, Basophils # (Auto) 0.01 12/25/17 16:50 Test 12/25/17 16:50 White Blood Count 6.04 K/uL (4.8-10.8) Red Blood Count 4.57 M/uL (4.7-6.1) Hemoglobin 13.3 g/dL (14.0-18.0) Hematocrit 38.1 % (42-52) Mean Corpuscular Volume 83.4 fL (80-100) Mean Corpuscular Hemoglobin 29.1 pg (25-34) Mean Corpuscular Hemoglobin Concent 34.9 g/dl (32-36) Platelet Count 219 K/uL (130-400) Mean Platelet Volume 9.2 fL (7.4-10.4) Neutrophils (%) (Auto) 65.1 % Lymphocytes (%) (Auto) 27.0 % Monocytes (%) (Auto) 6.0 % Eosinophils (%) (Auto) 1.5 % Basophils (%) (Auto) 0.2 % Neutrophils # (Auto) 3.94 K/uL (1.4-6.5) Lymphocytes # (Auto) 1.63 K/uL (1.2-3.4) Monocytes # (Auto) 0.36 K/uL (0.11-0.59) Eosinophils # (Auto) 0.09 K/uL (0-0.5) Basophils # (Auto) 0.01 K/uL (0-0.2) RDW Standard Deviation 41.9 fL (36.4-46.3) RDW Coefficient of Variation 13.8 % (11.5-14.5) Immature Granulocyte % (Auto) 0.2 % Immature Granulocyte # (Auto) 0.01 K/uL (0.00-0.02) Prothrombin Time 35.6 SECONDS (9.0-12.0) Prothromb Time International Ratio 3.5 (0.9-1.1) Activated Partial Thromboplast Time 37.2 SECONDS (21.0-31.0) Partial Thromboplastin Ratio 1.4 Anion Gap 6.0 mmol/L (3-11) Est Creatinine Clear Calc Drug Dose 113.2 ml/min Estimated GFR () 139.1 Estimated GFR (Non- 120.0 BUN/Creatinine Ratio 6.7 (10-20) Calcium Level 8.7 mg/dl (8.5-10.1) Total Bilirubin 0.4 mg/dl (0.2-1) Direct Bilirubin 0.1 mg/dl (0-0.2) Aspartate Amino Transf (AST/SGOT) 22 U/L (15-37) Alanine Aminotransferase (ALT/SGPT) 26 U/L (12-78) Alkaline Phosphatase 57 U/L (45-117) Total Creatine Kinase 77 U/L (39-308) Creatine Kinase MB 0.9 ng/ml (0.5-3.6) Creatine Kinase MB Ratio 1.2 (0-3.0) Troponin I < 0.015 ng/ml (0-0.045) Total Protein 6.7 gm/dl (6.4-8.2) Albumin 3.8 gm/dl (3.4-5.0) Lipase 70 U/L (73-393) Laboratory results as stated above per my review. ECG Per My Interpretation Indication: other Rate (beats per minute): 85 Rhythm: normal sinus Findings: no ectopy, other (no ST elevation or depression) ED Course 1638: Previous medical records were reviewed. The patient was evaluated in room A10. A complete history and physical examination was performed. 1651: I discussed the patient's case with Dr. Carlos, [facility] hospitalist. The patient will be evaluated for further treatment and disposition. Medical Decision the differential was considered includes acute myocardial infarction, acute coronary syndrome, myocarditis, pericarditis, pericardial effusions /tamponad, esophageal perforation, thoracic aortic dissection, pulmonary embolism, pneumonia, pneumothorax, pancreatitis, shingles, acute cholecystitis, perforated abdominal viscus. This is a 27-year-old male who presents to the ED with a chief complaint of having an abnormal outpatient echocardiogram. The patient has a history of a mechanical St. Ravi's aortic valve. The patient had a head trauma in November following a seizure and he was sent to a hospital in [place] where his INR was reversed for a period of time. The patient was asymptomatic and had some routine follow-up today with regards to a echocardiogram by Dr. Christine. This revealed some blood clots near the heart valve. The patient was sent here for admission. Last INR is 4.6 last week. The patient denies having any chest pains, shortness of breath, strokelike symptoms, headaches or other symptoms. His CBC today is normal, INR is 3.5, troponin is negative and complete metabolic panel was normal. The patient was told the results. I spoke with the hospitalist who will see the patient for admission. Medication Reconcilliation Current Medication List: was personally reviewed by me Blood Pressure Screening Patient's blood pressure: Elevated blood pressure Blood pressure disposition: Elevated BP felt to be situational Consults Time Called: 1644 Consulting Physician: Dr. Carlos [facility] hospitalist Returned Call: [phone] Discussed the patient's case. The patient will be evaluated for further treatment and disposition. Impression Primary Impression: thrombus in mecahnical valve Scribe Attestation The scribe's documentation has been prepared under my direction and personally reviewed by me in its entirety. I confirm that the note above accurately reflects all work, treatment, procedures, and medical decision making performed by me. Departure Information Dispostion Being Evaluated By Hospitalist Referrals Rosie Montoya D.O. (PCP) Patient Instructions My [facility]
[2017-12-25] MEDS ORDERED: PNEUMOCOCCAL ADMINISTRATION CHARGE ONE (21:45)
[2017-12-25] MEDS ORDERED: PNEUMOCOCCAL POLYSACCHARIDES 25 MCG/0.5 ML VIAL/SYR IM. ONE (21:45)
[2017-12-25] MEDS: KETOROLAC TROMETHAMINE 15 MG/ML VIAL IV PRN (23:58)
[2017-12-26] VITALS (13 sets, daily range): BP systolic 93–161; BP diastolic 50–108; PULSE 61–104; TEMP 36.3–37.2; O2SAT 93–99
[2017-12-26 05:55] LABS: HEMATOCRIT 36.5 % (42-52); HEMOGLOBIN 12.8 g/dL (14.0-18.0); MEAN CELL VOLUME 83.1 fL (80-100); MEAN CORPUSCULAR HEMOGLOBIN 29.2 pg (25-34); MEAN CORPUSCULAR HGB CONC 35.1 g/dl (32-36); MEAN PLATELET VOLUME 9.2 fL (7.4-10.4); PLATELET COUNT 224 K/uL (130-400); RED CELL DISTRIBUTION WIDTH CV 13.8 % (11.5-14.5); RED CELL DISTRIBUTION WIDTH SD 41.8 fL (36.4-46.3); WHITE BLOOD COUNT 7.85 K/uL (4.8-10.8)
[2017-12-26 05:59] LABS: INR 2.6 (0.9-1.1)
[2017-12-26 06:22] LABS: BLOOD UREA NITROGEN 8 mg/dl (7-18); CALCIUM 8.7 mg/dl (8.5-10.1); CARBON DIOXIDE 27 mmol/L (21-32); CREATININE 0.72 mg/dl (0.60-1.40); GLUCOSE 95 mg/dl (70-99); POTASSIUM 3.6 mmol/L (3.5-5.1); SODIUM 138 mmol/L (136-145)
[2017-12-26 06:27] LABS: CHOLESTEROL 137 mg/dl (0-200); LDL CHOLESTEROL CALCULATED 82 mg/dl
[2017-12-26] MEDS ORDERED: PROPOFOL IV EMULSION 10 MG/ML 20 ML VIAL IV ONE (08:31)
[2017-12-26] MEDS ORDERED: LIDOCAINE HCL 2% 2 ML VIAL (20MG/ML) ONE (08:31)
--- NOTE | 2017-12-26 08:51 | Anesthesiology Progress Note ---
Anesthesia Post Op Note Date & Time Dec 26, 2017 at 08:51 Vital Signs Pain Intensity: 0 Vital Signs Past 12 Hours Date Time Temp Pulse Resp B/P (MAP) Pulse Ox O2 Delivery O2 Flow Rate FiO2 12/26/17 08:30 76 18 95/50 (65) 99 Room Air 12/26/17 08:25 77 18 93/56 98 Nasal Cannula 6 12/26/17 08:23 36.3 61 16 108/70 (83) 96 Room Air 12/26/17 08:22 12/26/17 08:20 78 18 98/52 98 Nasal Cannula 6 12/26/17 08:15 78 18 96/62 98 Nasal Cannula 6 12/26/17 08:10 82 18 104/65 98 Nasal Cannula 6 12/26/17 08:05 82 18 138/76 98 Nasal Cannula 6 12/26/17 08:00 104 18 130/86 98 Nasal Cannula 6 12/26/17 04:44 36.6 84 18 113/74 (87) 96 Room Air 12/26/17 04:00 Room Air 12/26/17 00:31 37.2 79 16 161/108 (125) 99 Room Air 12/25/17 23:59 Room Air Notes Mental Status: alert / awake / arousable, participated in evaluation Pt Amnestic to Procedure: Yes Nausea / Vomiting: adequately controlled Pain: adequately controlled Airway Patency, RR, SpO2: stable & adequate BP & HR: stable & adequate Hydration State: stable & adequate Anesthetic Complications: no major complications apparent
[2017-12-26] MEDS: ASPIRIN 81 MG ECTAB PO SCH (09:41)
[2017-12-26] MEDS: POTASSIUM CHLORIDE 10 MEQ TABCR PO SCH (09:41)
--- NOTE | 2017-12-26 10:32 | TEE ---
*NOTICE TO RECEIVING [employer] This information is strictly Confidential and protected under [place] law. [place] law prohibits you from making any further disclosure of this information unless further disclosure is expressly permitted by the written consent of the person to whom it pertains or is authorized by law. A general authorization for the release of medical or other information is not sufficient for this purpose. Hospital accepts no responsibility if the information is made available to any other person, INCLUDING THE PATIENT. Interpretation Summary * Name: SELIN MENDOZA Study Date: 12/26/2017 07:52 AM BP: 130/86 mmHg * Patient Location: S240 HR: 80 * : 1990 (M/d/yyyy) Gender: Male Height: 65 in * Age: 27 yrs Ethnicity: CA Weight: 131 lb * Ordering Physician: Julien Quintero MD, FACC * Referring Physician: Julien Quintero MD, FACC * Performed By: Aneudy Gasca RCS * * Reason For Study: JOANA * BSA: 1.7 m2 * -- Conclusions -- * The left ventricle is normal in size. * There is normal left ventricular wall thickness. * Left ventricular systolic function is normal. * Ejection Fraction = 55-60%. * There is a bi-leaflet (St. Ravi) aortic mechanical prosthesis. * There are no vegetations on this prosthetic aortic valve. * There is no thrombus on the prosthetic aortic valve. * The prosthetic aortic valve appears to open well. * The mitral valve chordae are mildly redundant * The aortic root and proximal ascending aorta are normal sized. Procedure Details * PUNEET Probe #1 utilized for procedure. * The study was performed in Cardiac Catheterization Lab. * Time out was conducted by the physician, nurse, and technical programs manager with positive identification of patient and procedure. * Informed consent for Transesophageal Echocardiogram was obtained prior to the procedure. * An intravenous line was placed. A topical anesthetic agent was used for oropharangeal anesthesia. A bite block was inserted. * Sedation performed by the anesthesia department. * The patient's vital signs, including blood pressure, heart rate, pulse oximetry and cardiac rhythm were monitored throughout the procedure . * Propofol 240 mg was administered for procedural sedation. Procedure Start Time - 0800 Procedure Stop Time - 821 * A multifrequency, multiplane transesopheageal echocardiographic endoscope was inserted and manipulated in the standard fashion to achieve multiplane views. * The transesophageal probe was passed without difficulty. * The usual views were obtained; basal, mid-esophageal, transgastric and aortic views. * The patient tolerated the procedure well without evidence of orophangeal or esophageal trauma. * A 2D transesophageal echocardiogram was performed. * A 2D transesophageal echocardiogram with color flow Doppler was performed. * A 2D transesophageal echocardiogram with Doppler and color flow Doppler was performed. Left Ventricle * The left ventricle is normal in size. * There is normal left ventricular wall thickness. * Left ventricular systolic function is normal. * Ejection Fraction = 55-60%. * The left ventricular wall motion is normal. Right Ventricle * The right ventricle is normal in size and function. Atria * The left atrial size is normal. * No thrombus is detected in the left atrial appendage. * Right atrial size is normal. * The interatrial septum is intact with no evidence for an atrial septal defect. Mitral Valve * The mitral valve anatomy is normal. * The mitral valve chordae are mildly redundant * There is no mitral valve stenosis. * There is trace mitral regurgitation. Tricuspid Valve * The tricuspid valve anatomy is normal. * There is no tricuspid stenosis. * There is trace tricuspid regurgitation. Aortic Valve * Trace aortic regurgitation. * There is a bi-leaflet (St. Ravi) aortic mechanical prosthesis. * There are no vegetations on this prosthetic aortic valve. * There is no thrombus on the prosthetic aortic valve. * The prosthetic aortic valve appears to open well. * The gradient is normal for this prosthetic aortic valve. Pulmonic Valve * The pulmonic valve is not well seen, but is grossly normal. Great Vessels * The aortic root is normal size. * The aortic root and proximal ascending aorta are normal sized. Pericardium * There is no pericardial effusion.
--- NOTE | 2017-12-26 11:07 | CARDIOLOGY CONSULTATION ---
DATE OF CONSULTATION: 12/26/2017 REFERRING: Dr. Carlos. PRIMARY CARE PHYSICIAN: Rosie Montoya. PRIMARY MANAGER OCCUPATIONAL: Dr. Von Wheatley. HISTORY OF PRESENT ILLNESS: The patient is a 27-year-old male with complex history which includes: 1. Bicuspid aortic valve status post aortic valve replacement for severe aortic insufficiency, September 2014, receiving the [employer] Ravi's mechanical prostheses. 2. 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 3. Recent syncopal fall, subdural hematoma with transient interruption anticoagulation. The patient presents now. He presented on referral for echocardiogram as routine screening study at [facility] on 12/25/2016. Study suggested evidence of thrombus or mass on prosthetic aortic valve, given recent interruption on anticoagulation, he is referred for inpatient management and transesophageal echocardiography for further definition. He notes no recent embolic complaints, is unaware of the cause of recent syncope. Notes no chest pains. Notes no dizziness. Notes no orthopnea. Has been taking medications and anticoagulation as prescribed. Notes no recent fevers, chills or sweats. Notes no melena, hematochezia, dysuria or hematuria with negative review of systems otherwise. ALLERGIES: INDOMETHACIN, KEFLEX, AND TRAMADOL. MEDICATIONS: Warfarin 7.5 mg alternating with 5 mg, aspirin 81 mg per day. PAST SURGICAL HISTORY: Notable for as described aortic valve replacement with [employer] Ravi's mechanical prosthesis on 10/01/2014. FAMILY HISTORY: Notable for ischemic heart disease in maternal grandmother. SOCIAL HISTORY: The patient is a nonsmoker. He does chew tobacco, uses no significant alcohol, over the counter or street drugs. PHYSICAL EXAMINATION: VITAL SIGNS: Heart rate is 64, blood pressure is 96/50. HEENT: Normocephalic, atraumatic. Nares without discharge. Throat was clear. NECK: Supple without thyromegaly, lymphadenopathy, JVD. There are no carotid bruits. LUNGS: Clear to auscultation. CARDIOVASCULAR: Regular with crisp mechanical valve sounds and a grade 1/6 systolic murmur. There are no diastolic murmurs. No S3 gallop. PMI is nondisplaced. Chest incision is well healed. ABDOMEN: Soft, nontender. There is no palpable splenomegaly. There is no hepatojugular reflux. EXTREMITIES: Without cyanosis or clubbing. There is no peripheral edema. There are intact distal pulses. There is no thromboembolic phenomena skin of hands. SKIN: Notable for a stud in the tongue, gages in ears. LABORATORY AND IMAGING DATA: INR on presentation was 3.5 to 2.6 this morning. Chest x-ray revealed no infiltrate or edema. Sodium is 138, potassium is 3.6, chloride is 104, bicarbonate is 27. Cholesterol is 137, LDL 82, HDL 34, lipase is 70. Tox screen is negative. White cell count is 7.8, hemoglobin is 12.8. Transesophageal echocardiogram was performed this morning. Study demonstrates no thrombus or mass on the mechanical prosthesis with normal LV systolic function, appears that findings on transthoracic echo are recollect artifact from redundant mitral valve quarter and mechanical prosthesis. On review of prior studies, he had similar echocardiographic findings prior to transesophageal echocardiogram in June 2017, both prior studies including PUNEET and transthoracic studies of June 2017 and in office on December 26 reviewed. IMPRESSION: A 27-year-old male status post [employer] Ravi's mechanical prosthesis in September 2014 with past history of embolic phenomenon from valve structure, underwent routine screening echocardiography with a possible mass or vegetation identified. He is referred for in-house management and transesophageal echocardiogram. PLAN: Continue current dosing of anticoagulation. Follow up with Dr. Wheatley as planned. No signs or symptoms of mechanical valve prosthesis, thrombus or malfunction.
[2017-12-26] MEDS: KETOROLAC TROMETHAMINE 15 MG/ML VIAL IV PRN (15:56)
[2017-12-26] MEDS ORDERED: WARFARIN SOD 5 MG TAB PO SCH (16:00)
--- NOTE | 2017-12-26 18:26 | Progress Note ---
Internal Med Progress Note Date of Service: Dec 26, 2017. Provider Documentation: SUBJECTIVE: resting comfortably denies any chest pain but says feels dizzy when standing up and somewhat nauseous afebrile also some sob on exertion eating fine OBJECTIVE: Vital Signs-as noted below Exam: General-alert and oriented. Not in distress ENT-normal hearing Neck-no neck masses Lungs-cta b/l no wheezing or crackles Heart-s1 and s2 heard regular rate and rhythm no murmurs Abdomen-soft bowel sounds present non tender no distension Extremities-no edema no erythema Neuro-alert and awake moves extremities Lab data as noted below. ASSESSMENT & PLAN: S/P METALLIC AORTIC VALVE Bicuspid valve with severe regurgitation s/p St Ravi mechanical valve replacement in 2013 on Coumadin inr 2.6 today THROMBUS VS VEGETATION NOTED IN CARDIAC VALVE : noted in recent ECHO pt has hx of non compliance with Coumadin anticoagulation has been interrupted for few weeks due to recent orbital FX / subdural hematoma Coumadin has been resumed , PUNEET today no thrombus or vegetations HX OF DRUG AND PRESCRIPTION PAIN MED ABUSE urine tox screen negative counselling HX OF RECURRENT EMBOLIC CVA : due to non compliance , hx of sub therapeutic INR CT head no show acute CVA cont Aspirin FULL CODE DVT PROPHYLAXIS : on Coumadin DISPOSITION monitor in tele possible d/c in am Vital Signs: Date Time Temp Pulse Resp B/P (MAP) Pulse Ox O2 Delivery O2 Flow Rate FiO2 12/26/17 17:02 36.6 68 16 124/50 (74) 93 Room Air 12/26/17 16:00 98 Room Air 12/26/17 12:00 36.8 68 18 114/68 (83) 98 Room Air 12/26/17 12:00 Room Air 12/26/17 08:50 64 18 96/50 (65) 99 Room Air 12/26/17 08:45 63 18 95/50 (65) 99 Room Air 12/26/17 08:40 62 18 94/56 (69) 99 Room Air 12/26/17 08:35 63 18 93/51 (65) 99 Room Air 12/26/17 08:30 76 18 95/50 (65) 99 Room Air 12/26/17 08:25 77 18 93/56 98 Nasal Cannula 6 12/26/17 08:23 36.3 61 16 108/70 (83) 96 Room Air 12/26/17 08:22 2/15/18 08:20 78 18 98/52 98 Nasal Cannula 6 12/26/17 08:15 78 18 96/62 98 Nasal Cannula 6 12/26/17 08:10 82 18 104/65 98 Nasal Cannula 6 12/26/17 08:05 82 18 138/76 98 Nasal Cannula 6 12/26/17 08:00 104 18 130/86 98 Nasal Cannula 6 12/26/17 08:00 Room Air 12/26/17 04:44 36.6 84 18 113/74 (87) 96 Room Air 12/26/17 04:00 Room Air 12/26/17 00:31 37.2 79 16 161/108 (125) 99 Room Air 12/25/17 23:59 Room Air 12/25/17 20:00 Room Air 12/25/17 18:44 36.8 85 19 148/87 100 Room Air Lab Results: Results Past 24 Hours Test 12/25/17 19:04 12/25/17 23:03 12/26/17 05:37 12/26/17 11:11 Range/Units Urine Color YELLOW Urine Appearance CLEAR CLEAR Urine pH 8.0 4.5-7.5 Urine Specific [place] 1.006 1.000-1.030 Urine Protein NEG NEG Urine Glucose (UA) NEG NEG Urine Ketones NEG NEG Urine Occult Blood NEG NEG Urine Nitrite NEG NEG Urine Bilirubin NEG NEG Urine Urobilinogen NEG NEG Urine Leukocyte Esterase NEG NEG Urine Opiates Screen NEG NEG Urine Methadone, Qualitative NEG NEG Urine Barbiturates NEG NEG Urine Phencyclidine (PCP) Level NEG NEG Ur Amphetamine/Methamphetamine NEG NEG MDMA (Ecstasy) Screen NEG NEG Urine Benzodiazepines Screen NEG NEG Urine Cocaine Metabolite NEG NEG Urine Marijuana (THC) NEG NEG Troponin I < 0.015 < 0.015 < 0.015 0-0.045 ng/ml White Blood Count 7.85 4.8-10.8 K/uL Red Blood Count 4.39 4.7-6.1 M/uL Hemoglobin 12.8 14.0-18.0 g/dL Hematocrit 36.5 42-52 % Mean Corpuscular Volume 83.1 80-100 fL Mean Corpuscular Hemoglobin 29.2 25-34 pg Mean Corpuscular Hemoglobin Concent 35.1 32-36 g/dl RDW Standard Deviation 41.8 36.4-46.3 fL RDW Coefficient of Variation 13.8 11.5-14.5 % Platelet Count 224 130-400 K/uL Mean Platelet Volume 9.2 7.4-10.4 fL Prothrombin Time 27.1 9.0-12.0 SECONDS Prothromb Time International Ratio 2.6 0.9-1.1 Sodium Level 138 136-145 mmol/L Potassium Level 3.6 3.5-5.1 mmol/L Chloride Level 104 98-107 mmol/L Carbon Dioxide Level 27 21-32 mmol/L Anion Gap 7.0 3-11 mmol/L Blood Urea Nitrogen 8 7-18 mg/dl Creatinine 0.72 0.60-1.40 mg/dl Est Creatinine Clear Calc Drug Dose 129.7 ml/min Estimated GFR () 148.2 Estimated GFR (Non- 127.8 BUN/Creatinine Ratio 10.8 10-20 Random Glucose 95 70-99 mg/dl Calcium Level 8.7 8.5-10.1 mg/dl Triglycerides Level 103 0-150 mg/dl Cholesterol Level 137 0-200 mg/dl HDL Cholesterol 34 mg/dl LDL Cholesterol, Calculated 82 mg/dl VLDL Cholesterol, Calculated 21 mg/dl Cholesterol/HDL Ratio 4.0 Test 12/26/17 17:40 Range/Units
[2017-12-26] MEDS ORDERED: WARFARIN SOD 7.5 MG TAB PO ONE (18:30)
[2017-12-27 00:03] VITALS: BP 125/77; PULSE 66; TEMP 36.6; O2SAT 99
[2017-12-27 03:48] VITALS: BP 122/82; PULSE 79; TEMP 36.8; O2SAT 94
[2017-12-27] MEDS: POTASSIUM CHLORIDE 10 MEQ TABCR PO SCH (07:36)
[2017-12-27] MEDS: ASPIRIN 81 MG ECTAB PO SCH (07:36)
[2017-12-27 07:53] VITALS: BP 110/72; PULSE 84; TEMP 36.6; O2SAT 97
[2017-12-27 12:10] VITALS: BP 116/69; PULSE 72; TEMP 36.8; O2SAT 98
[2017-12-27] MEDS: KETOROLAC TROMETHAMINE 15 MG/ML VIAL IV PRN (12:11)
[2017-12-27] MEDS ORDERED: ENOXAPARIN 100 MG/1ML SYR SQ ONE (12:15)
[2017-12-27] MEDS ORDERED: WARFARIN SOD 5 MG TAB PO ONE (16:30)
--- NOTE | 2017-12-27 18:12 | Progress Note ---
Internal Med Progress Note Date of Service: Dec 27, 2017. Provider Documentation: SUBJECTIVE: resting comfortably says has some chest pain, nauseous and dizzy when he stands up afebrile eating fine OBJECTIVE: Vital Signs-as noted below Exam: General-alert and oriented. Not in distress ENT-normal hearing Neck-no neck masses Lungs-cta b/l no wheezing or crackles Heart-s1 and s2 heard regular rate and rhythm no murmurs Abdomen-soft bowel sounds present non tender no distension Extremities-no edema no erythema Neuro-alert and awake moves extremities Lab data as noted below. ASSESSMENT & PLAN: S/P METALLIC AORTIC VALVE Bicuspid valve with severe regurgitation s/p St Ravi mechanical valve replacement in 2013 on Coumadin inr 2.0 today will bridge with lovenox f/u inr in am THROMBUS VS VEGETATION NOTED IN CARDIAC VALVE : noted in recent ECHO pt has hx of non compliance with Coumadin anticoagulation has been interrupted for few weeks due to recent orbital FX / subdural hematoma Coumadin has been resumed , PUNEET today no thrombus or vegetations HX OF DRUG AND PRESCRIPTION PAIN MED ABUSE urine tox screen negative counselling HX OF RECURRENT EMBOLIC CVA : due to non compliance , hx of sub therapeutic INR CT head no show acute CVA cont Aspirin FULL CODE DVT PROPHYLAXIS : on Coumadin DISPOSITION transfer to medical floor possible d/c in am Vital Signs: Date Time Temp Pulse Resp B/P (MAP) Pulse Ox O2 Delivery O2 Flow Rate FiO2 12/27/17 16:05 Room Air 12/27/17 12:10 36.8 72 19 116/69 (85) 98 Room Air 12/27/17 12:03 Room Air 12/27/17 08:02 Room Air 12/27/17 07:53 36.6 84 18 110/72 (85) 97 12/27/17 04:00 Room Air 12/27/17 03:48 36.8 79 18 122/82 (95) 94 Room Air 12/27/17 00:03 36.6 66 18 125/77 (93) 99 Room Air 12/26/17 23:59 Room Air 12/26/17 20:00 98 Room Air 12/26/17 20:00 36.8 71 16 132/83 (99) 97 Room Air Lab Results: Results Past 24 Hours Test 12/27/17 06:26 Range/Units Prothrombin Time 20.8 9.0-12.0 SECONDS Prothromb Time International Ratio 2.0 0.9-1.1
[2017-12-27 23:12] VITALS: BP 126/77; PULSE 70; TEMP 36.9; O2SAT 98
[2017-12-28] MEDS: KETOROLAC TROMETHAMINE 15 MG/ML VIAL IV PRN ×2 (00:30→07:47)
[2017-12-28 07:45] LABS: INR 2.5 (0.9-1.1)
[2017-12-28] MEDS: POTASSIUM CHLORIDE 10 MEQ TABCR PO SCH (07:46)
[2017-12-28] MEDS: ASPIRIN 81 MG ECTAB PO SCH (07:46)
[2017-12-28 09:27] VITALS: BP 121/79; PULSE 73; TEMP 36.4; O2SAT 97
--- NOTE | 2017-12-28 11:58 | Discharge Instructions ---
Discharge Instructions Date of Service Dec 28, 2017. Admission Reason for Admission: Cerebral Embolism, History Of Mechanical Aortic Discharge Discharge Diagnosis / Problem: endocarditis ruled out Ventricular thrombus- ruled out Discharge Goals Goal(s): Decrease discomfort, Improve function Activity Recommendations Activity Limitations: resume your previous activity . Instructions / Follow-Up Instructions / Follow-Up FOLLOW UP WITH FAMILY DOCTOR ON Dec AT 12:45PM FOLLOWUP WITH CARDIOLOGY SCHEDULED. TO TAKE MEDICATIONS PRESCRIBED REGULARLY FOLLOWUP WITH COUMADIN CLINIC IN 2-3 DAYS FOR COUMADIN DOSING Current Hospital Diet Patient's current hospital diet: AHA Diet (Heart Healthy) Discharge Diet Recommended Diet: AHA Diet (Heart Healthy) Pending Studies Studies pending at discharge: no Laboratory Results Lipid Panel Test 12/26/17 05:37 Range/Units Triglycerides Level 103 0-150 mg/dl Cholesterol Level 137 0-200 mg/dl HDL Cholesterol 34 mg/dl Cholesterol/HDL Ratio 4.0 LDL Cholesterol, Calculated 82 mg/dl Medical Emergencies . Who to Call and When: Medical Emergencies: If at any time you feel your situation is an emergency, please call 911 immediately. . Non-Emergent Contact Non-Emergency issues call your: Primary Care Provider . . "Provider Documentation" section prepared by Chong Hartley. . VTE Core Measure Inpt VTE Proph given/why not?: Warfarin (Coumadin)
[2017-12-28 12:59] VITALS: BP 121/79; PULSE 73; TEMP 36.4; O2SAT 97
--- NOTE | 2017-12-28 18:37 | Progress Note ---
Internal Med Progress Note Date of Service: Dec 28, 2017. Provider Documentation: SUBJECTIVE: resting comfortably always has some chest pain some days less and some days more afebrile no nausea eating ok ok for discharge OBJECTIVE: Vital Signs-as noted below Exam: General-alert and oriented. Not in distress ENT-normal hearing Neck-no neck masses Lungs-cta b/l no wheezing or crackles Heart-s1 and s2 heard regular rate and rhythm no murmurs Abdomen-soft bowel sounds present non tender no distension Extremities-no edema no erythema Neuro-alert and awake moves extremities Lab data as noted below. ASSESSMENT & PLAN: S/P METALLIC AORTIC VALVE Bicuspid valve with severe regurgitation s/p St Ravi mechanical valve replacement in 2013 on Coumadin inr 2.0 yesterday and was bridged with lovenox inr 2.5 today close f/u with Coumadin clinic THROMBUS VS VEGETATION NOTED IN CARDIAC VALVE : noted in recent ECHO pt has hx of non compliance with Coumadin anticoagulation has been interrupted for few weeks due to recent orbital FX / subdural hematoma Coumadin has been resumed , PUNEET - no thrombus or vegetations f/u with cardiology HX OF DRUG AND PRESCRIPTION PAIN MED ABUSE urine tox screen negative counselling HX OF RECURRENT EMBOLIC CVA : due to non compliance , hx of sub therapeutic INR CT head no show acute CVA cont Aspirin discharged home Vital Signs: Date Time Temp Pulse Resp B/P (MAP) Pulse Ox O2 Delivery O2 Flow Rate FiO2 12/28/17 12:59 36.4 73 18 97 Room Air 12/28/17 09:27 36.4 73 18 121/79 (93) 97 Room Air 12/28/17 08:00 Room Air 12/28/17 00:00 Room Air 12/27/17 23:12 36.9 70 18 126/77 (93) 98 Room Air Lab Results: Results Past 24 Hours Test 12/28/17 07:11 Range/Units Prothrombin Time 25.8 9.0-12.0 SECONDS Prothromb Time International Ratio 2.5 0.9-1.1
--- NOTE | 2017-12-28 18:45 | Discharge Summary ---
Discharge Summary Date of Service Dec 28, 2017. Discharge Summary Admission Date: Dec 25, 2017 at 17:20 Discharge Date: Dec 28, 2017 Discharge Disposition: Home Principal Diagnosis: QUESTIONABLE VALVE VEGETATION- RULED OUT QUESTIONABLE MURAL THROMBUS- RULED OUT Secondary Diagnoses/Problems: (1) AORTIC VALVE DISORDER Status: Chronic (2) ASTHMA, UNSPECIFIED Status: Chronic (3) MIGRAINE UNSPECIFIED W/O INTRACT MGRN W/O STATUS MIGRAINOSUS Status: Chronic Procedures: CXR: No acute process. PUNEET: The left ventricle is normal in size. * There is normal left ventricular wall thickness. * Left ventricular systolic function is normal. * Ejection Fraction = 55-60%. * There is a bi-leaflet ([employer] Ravi) aortic mechanical prosthesis. * There are no vegetations on this prosthetic aortic valve. * There is no thrombus on the prosthetic aortic valve. * The prosthetic aortic valve appears to open well. * The mitral valve chordae are mildly redundant * The aortic root and proximal ascending aorta are normal sized. Consultations: CARDIOLOGY Medication Reconciliation Continued Medications: Acetaminophen (Tylenol) 500 Mg Tab 1000 MG PO Q6H PRN for Pain, TAB Warfarin Sodium (Warfarin Sodium) 5 Mg Tab 5 MG PO 2XWK, TAB TAKE 5 MG EVERY SATURDAY AND SATURDAY OR OTHERWISE DIRECTED TO TAKE BY ANTICOAGULATION CLINIC/MD Warfarin Sodium (Warfarin Sodium) 5 Mg Tab 7.5 MG PO 5XWK, TAB TAKE 7.5 MG EVERY SATURDAY,SATURDAY,SATURDAY,SATURDAY AND SATURDAY OR OTHERWISE DIRECTED TO TAKE BY ANTICOAGULATION CLINIC/MD Admission Information HPI (per Admitting provider): This is a 27 yo M with hx of congenital bicuspid valve with severe aortic insufficiency S/P [employer] mechanical aortic valve replacement in Sep at [facility] Hx of non compliance with Coumadin , hx of embolic CVA . Pt recently sustained an syncopal episode followed by fall and Orbital fx earlier November ,was tx to [facility] , anticoagulation was briefly held resumed approx 3 weeks back pt had out pt ECHO done at [facility] Cardiology clinic -noted to have Thrombus /vegetation in Aortic valve was asked to come to ER at [facility] for emergent evaluation in ER pt was asymptomatic , no complain of SOB , chest discomfort, no report of fever or chills mentions that he has been taking his Coumadin appropriately INR 3.9 pt admitted to PCU plan for PUNEET tomorrow by Cardiology ordered for NPO past midnight Physical Exam (per Admitting): General Appearance: no apparent distress Head: normocephalic, atraumatic Eyes: normal inspection, PERRL, sclerae normal ENT: normal ENT inspection Neck: thyroid normal, no carotid bruits, trachea midline Respiratory/Chest: chest non-tender, lungs clear, normal breath sounds, no respiratory distress, no accessory muscle use Cardiovascular: regular rate, rhythm, normal peripheral pulses, + systolic murmur Abdomen/GI: non tender, soft Extremities/Musculoskelatal: normal inspection, no calf tenderness, normal capillary refill, no pedal edema Neurologic/Psych: no motor/sensory deficits, alert, normal mood/affect, oriented x 3 Skin: normal color, warm/dry Hospital Course S/P METALLIC AORTIC VALVE Bicuspid valve with severe regurgitation s/p St Ravi mechanical valve replacement in 2013 on Coumadin inr 2.0 yesterday and was bridged with lovenox inr 2.5 today close f/u with Coumadin clinic THROMBUS VS VEGETATION NOTED IN CARDIAC VALVE : noted in recent ECHO pt has hx of non compliance with Coumadin anticoagulation has been interrupted for few weeks due to recent orbital FX / subdural hematoma Coumadin has been resumed , PUNEET - no thrombus or vegetations f/u with cardiology HX OF DRUG AND PRESCRIPTION PAIN MED ABUSE urine tox screen negative counselling HX OF RECURRENT EMBOLIC CVA : due to non compliance , hx of sub therapeutic INR CT head no show acute CVA cont Aspirin discharged home Total time spent on discharge = 35MINUTES This includes examination of the patient, discharge planning, medication reconciliation, and communication with other providers. Discharge Instructions Discharge Instructions Date of Service Dec 28, 2017. Admission Reason for Admission: Cerebral Embolism, History Of Mechanical Aortic Discharge Discharge Diagnosis / Problem: endocarditis ruled out Ventricular thrombus- ruled out Discharge Goals Goal(s): Decrease discomfort, Improve function Activity Recommendations Activity Limitations: resume your previous activity . Instructions / Follow-Up Instructions / Follow-Up FOLLOW UP WITH FAMILY DOCTOR ON Dec AT 12:45PM FOLLOWUP WITH CARDIOLOGY SCHEDULED. TO TAKE MEDICATIONS PRESCRIBED REGULARLY FOLLOWUP WITH COUMADIN CLINIC IN 2-3 DAYS FOR COUMADIN DOSING Current Hospital Diet Patient's current hospital diet: AHA Diet (Heart Healthy) Discharge Diet Recommended Diet: AHA Diet (Heart Healthy) Pending Studies Studies pending at discharge: no Laboratory Results Lipid Panel Test 12/26/17 05:37 Range/Units Triglycerides Level 103 0-150 mg/dl Cholesterol Level 137 0-200 mg/dl HDL Cholesterol 34 mg/dl Cholesterol/HDL Ratio 4.0 LDL Cholesterol, Calculated 82 mg/dl Medical Emergencies . Who to Call and When: Medical Emergencies: If at any time you feel your situation is an emergency, please call 911 immediately. . Non-Emergent Contact Non-Emergency issues call your: Primary Care Provider
== END 2017-12-28 13:30 | disposition home or self-care (01) | DRG 303 ==
LOC: C.EDB 16:10 → C.2T 17:20 → CANRESERV 17:27 → ENRESERV 17:27 → C.MS4W 12-27 17:50
PROVIDERS: ADMIT Hospitalist; ATTEND Internal Medicine
DX: R93.1 Abnormal findings on diagnostic imaging of heart and coronary circulation (principal); F19.11 Other psychoactive substance abuse, in remission; J45.909 Unspecified asthma, uncomplicated; Z51.81 Encounter for therapeutic drug level monitoring; Z79.01 Long term (current) use of anticoagulants; Z87.74 Personal history of (corrected) congenital malformations of heart and circulatory system; Z95.4 Presence of other heart-valve replacement; Z86.73 Personal history of transient ischemic attack (TIA), and cerebral infarction without residual deficits; Z91.14 Patient's other noncompliance with medication regimen; Z86.718 Personal history of other venous thrombosis and embolism; Z87.81 Personal history of (healed) traumatic fracture; Z87.891 Personal history of nicotine dependence; Z88.1 Allergy status to other antibiotic agents; Z88.6 Allergy status to analgesic agent; Z88.5 Allergy status to narcotic agent; Z91.013 Allergy to seafood; Z82.49 Family history of ischemic heart disease and other diseases of the circulatory system; Z83.3 Family history of diabetes mellitus

== ENCOUNTER 2025-09-02 23:11 | Inpatient (IN) ==
[2025-09-03 00:03] LABS: Hematocrit (blood only) 43.0 % (42.0-52.0); Hemoglobin 14.5 g/dl (14.0-18.0); Immature Granulocytes # (auto) 0.04 K/uL (0.01-0.20); Immature Granulocytes % (auto) 0.6 %; Mean Corpuscular Hemoglobin 28.1 pg (25.0-34.0); Mean Corpuscular Volume 83.3 fL (80.0-100.0); Platelet Count 231 K/uL (130-400); RDW Standard Deviation 47.1 fL (36.4-46.3); Red Blood Count 5.16 M/uL (4.70-6.10); White Blood Count 6.51 K/ul (4.8-10.8)
[2025-09-03] MEDS: SODIUM CHLORIDE 0.9% 1,000 ML IV STA (00:05)
[2025-09-03] MEDS: ACETAMINOPHEN 1,000 MG/100 ML VIAL IV STA (00:07)
[2025-09-03] MEDS: ONDANSETRON INJ 2 MG/ML 2 ML VIAL IV STA (00:08)
[2025-09-03 00:21] LABS: Alanine Aminotransferase 27.0 U/L (7-52); Albumin Globulin Ratio 1.2 (0.9-2); Albumin Level 3.9 gm/dl (3.4-5.0); Alkaline Phosphatase 70.0 U/L (34-104); Anion Gap 8.0 (3-11); Bilirubin,Total 0.4 mg/dl (0.2-1.0); Blood Urea Nitrogen 12.0 mg/dl (6-23); Calcium 9.3 mg/dl (8.6-10.3); Carbon Dioxide 26.0 mmol/L (21-32); Chloride 103.0 mmol/L (98-107); Creatinine Clr Calc Pharmacy 140.2 ml/min; Globulin 3.3 gm/dl (2.5-4.0); Glucose 191.0 mg/dl (70-99(Fasting)); Lipase 53.0 U/L (11-82); Potassium 4.2 mmol/L (3.5-5.1); Sodium 137.0 mmol/L (136-145); Total Protein 7.2 gm/dl (6.0-8.3)
--- NOTE | 2025-09-03 00:48 | Emergency Department Note ---
History of Present Illness General Chief complaint: Abdominal Pain Stated complaint: AB PAIN Time Seen by Provider: 09/02/25 23:30 History of Present Illness Maximum Pain Intensity: 6 This 34-year-old male who has had a history of a stroke who resides at [facility] presents to the ER complaining of abdominal pain for the past day. Patient denies chest pain, dyspnea, vomiting, diarrhea, urinary symptoms. No prior abdominal surgeries. Home Medications Medication Instructions Recorded Confirmed Type buspirone 5 mg tablet 5 mg PO Q8 01/20/19 01/20/19 History divalproex 500 mg tablet,delayed 500 mg PO BID 01/20/19 01/20/19 History release (Depakote) fluoxetine 40 mg capsule (Prozac) 40 mg PO DAILY 01/20/19 01/20/19 History hydrocodone 5 mg-acetaminophen 325 1 tab PO DIRECTED PRN Pain 01/20/19 01/20/19 History mg tablet levetiracetam 500 mg tablet 500 mg PO BID 01/20/19 01/20/19 History (Keppra) ondansetron HCl 4 mg tablet 4 mg PO Q8 PRN Nausea 01/20/19 01/20/19 History (Zofran) pantoprazole 40 mg tablet,delayed 40 mg PO DAILY 01/20/19 01/20/19 History release warfarin 5 mg tablet (Coumadin) 5 mg PO 3XWK 01/20/19 01/20/19 History warfarin 5 mg tablet (Coumadin) 10 mg PO 4XWK 01/20/19 01/20/19 History Allergies Allergy/AdvReac Type Severity Reaction Status Date / Time cephalexin Allergy Intermediate RASH-ITCHY Verified 01/20/19 00:47 fish derived Allergy Intermediate RASH-ITCHY Verified 01/20/19 00:47 indomethacin AdvReac Intermediate GI SYMPTOMS Verified 01/20/19 00:47 tramadol AdvReac Unknown UPSET Verified 01/20/19 00:47 STOMACH Past Med/Surg History Problem List (Updated 09/03/25 @ 04:26 by Abigail Tobin PA-C) Biliary colic (Acute) Abdominal pain, acute (Acute) Costochondral pain (Acute) Costochondral pain (Acute) Hx of fever (Acute) Back pain (Acute) Vomiting and diarrhea (Acute) Dehydration (Acute) Gastroenteritis (Acute) Elbow contusion (Acute) Chest wall pain (Acute) Dentalgia (Acute) Chest pain (Acute) Dental caries (Acute) Dentalgia (Acute) Low back pain (Acute) Chest wall pain (Acute) Arm pain, left (Acute) Cerebral embolism Contusion of left knee (Acute) Dizzy (Acute) Headache (Acute) History of mechanical aortic valve replacement Left hip pain (Acute) Lumbar contusion (Acute) Rib pain on right side (Acute) Status post fall (Acute) Subtherapeutic anticoagulation (Acute) Subtherapeutic international normalized ratio (INR) (Acute) Social History Smoking Status: Current every day smoker Tobacco Type: Smokeless Tobacco (Dip or Chew) Preferred Language: Egyptian Feels Safe at Home: Yes Review of Systems A total of 10 systems reviewed and were otherwise negative Physical Exam Vital Signs Vital Signs - 24 hr 09/02/25 23:17 09/02/25 23:31 09/02/25 23:47 Temperature 36.6 C Temperature Source Temporal Artery Scan Pulse Rate 68 66 63 Pulse Rate [Apical] Pulse Rhythm Regular Pulse Strength Normal Respiratory Rate 18 16 Respiratory Effort / Characteristics Non-Labored Spontaneous Respiratory Depth Normal Respiratory Pattern Regular Blood Pressure 135/86 Blood Pressure [Left Arm] Blood Pressure Mean 102 Blood Pressure Mean [Left Arm] Blood Pressure Position Sitting Pulse Oximetry 94 96 Oxygen Delivery Method Room Air Room Air Sepsis Recent Fever Within 48 Hours No Sepsis New/Unexplained Change in Mental Status N/A Sepsis Action Taken by Nursing No Action Required 09/03/25 00:13 09/03/25 00:13 Temperature 36.6 C Temperature Source Oral Pulse Rate 62 Pulse Rate [Apical] 61 Pulse Rhythm Pulse Strength Respiratory Rate 20 20 Respiratory Effort / Characteristics Non-Labored Spontaneous Respiratory Depth Normal Respiratory Pattern Regular Blood Pressure Blood Pressure [Left Arm] 133/76 Blood Pressure Mean Blood Pressure Mean [Left Arm] 95 Blood Pressure Position Pulse Oximetry 95 95 Oxygen Delivery Method Room Air Room Air Sepsis Recent Fever Within 48 Hours Sepsis New/Unexplained Change in Mental Status Sepsis Action Taken by Nursing VITALS: Vitals are noted on the nurse's note and reviewed by myself. Vital signs stable. GENERAL: Pleasant gentleman with a prior stroke, in no acute distress, nondiaphoretic, well-developed well-nourished. SKIN: Capillary reflex less than 2 seconds. HEENT: Normocephalic. PERRLA. EOMI. Nares patent. Mucous membranes moist. Neck is supple without nuchal rigidity. HEART: Regular rate and rhythm LUNGS: Clear to auscultation bilaterally without wheezes, rales or rhonchi. No retractions or accessory muscle use. ABDOMEN: Positive bowel sounds x 4. Normal tympanic percussion. Soft, diffusely tender to palpation, without masses or organomegaly. Nicholson sign negative. No guarding or rebound tenderness. no CVA tenderness MUSCULOSKELETAL: No gross musculoskeletal defects. NEURO: Patient was alert and oriented to person place and time. No new focal neurological deficits. Course Administered Medications Discontinued Medications Dicyclomine HCl (Dicyclomine Hcl 10 Mg/Ml 2 Ml Amp/Vial) 20 mg IM NOW ONE Stop: 09/02/25 23:39 Last Admin: 09/03/25 01:11 Dose: Not Given Documented By: RYLEE Sodium Chloride (Nss) 1,000 mls @ 999 mls/hr IV .Q1H1M STA Stop: 09/03/25 00:38 Last Infusion: 09/03/25 01:11 Dose: Infused Documented By: Admin: 09/03/25 00:05 Dose: 999 mls/hr Documented By: RYLEE Acetaminophen (Ofirmev) 1,000 mg in 100 mls @ 400 mls/hr IV NOW STA Stop: 09/02/25 23:52 Last Infusion: 09/03/25 01:12 Dose: Infused Documented By: Admin: 09/03/25 00:07 Dose: 400 mls/hr Documented By: RYLEE Ioversol (Optiray 320 100ml) 93 ml IV ONCE ONE Stop: 09/03/25 01:19 Last Admin: 09/03/25 01:19 Dose: 93 ml Documented By: MARCE Morphine Sulfate (Morphine Sulfate 4 Mg/Ml 1 Ml Carp\Vial) 4 mg IV NOW STA Stop: 09/03/25 01:56 Last Admin: 09/03/25 01:59 Dose: 4 mg Documented By: RYLEE Ondansetron HCl (Ondansetron Inj 2 Mg/Ml 2 Ml Vial) 4 mg IV NOW STA Stop: 09/02/25 23:39 Last Admin: 09/03/25 00:08 Dose: 4 mg Documented By: RYLEE Medical Decision Making Medical Records Attestation: I reviewed the patient's medical records. Home Medications Current Medication List: was personally reviewed by me Laboratory Data Attestation: I reviewed the patient's lab results. 09/02/25 23:21 09/02/25 23:21 Lab Results 09/02/25 09/03/25 Range/Units 23:21 01:14 WBC 6.51 (4.8-10.8) K/ul RBC 5.16 (4.70-6.10) M/uL Hgb 14.5 (14.0-18.0) g/dl Hct 43.0 (42.0-52.0) % MCV 83.3 (80.0-100.0) fL MCH 28.1 (25.0-34.0) pg MCHC 33.7 (32.0-36.0) g/dL RDW Std Deviation 47.1 H (36.4-46.3) fL RDW Coeff of Brittney 15.6 H (11.5-14.5) % Plt Count 231 (130-400) K/uL MPV 9.6 (9.4-12.4) fL Immature Gran % (Auto) 0.6 % Neut % (Auto) 53.5 % Lymph % (Auto) 25.5 % Travis % (Auto) 9.8 % Eos % (Auto) 9.8 % Baso % (Auto) 0.8 % Neut # (Auto) 3.48 (1.40-6.50) K/uL Lymph # (Auto) 1.66 (1.20-3.40) K/uL Travis # (Auto) 0.64 H (0.11-0.59) K/uL Eos # (Auto) 0.64 H (0.00-0.50) K/uL Baso # (Auto) 0.05 (0.00-0.20) K/uL Immature Gran # (Auto) 0.04 (0.01-0.20) K/uL Sodium 137 (136-145) mmol/L Potassium 4.2 (3.5-5.1) mmol/L Chloride 103 (98-107) mmol/L Carbon Dioxide 26 (21-32) mmol/L Anion Gap 8 (3-11) BUN 12 (6-23) mg/dl Creatinine 0.83 (0.6-1.4) mg/dl Est Cr Clr Drug Dosing 140.2 ml/min eGFR 117.78 BUN/Creatinine Ratio 14.5 (10-20) Glucose 191 H (70-99(Fasting)) mg/dl Calcium 9.3 (8.6-10.3) mg/dl Total Bilirubin 0.4 (0.2-1.0) mg/dl AST 25 (13-39) U/L ALT 27 (7-52) U/L Alkaline Phosphatase 70 (34-104) U/L Total Protein 7.2 (6.0-8.3) gm/dl Albumin 3.9 (3.4-5.0) gm/dl Globulin 3.3 (2.5-4.0) gm/dl Albumin/Globulin Ratio 1.2 (0.9-2) Lipase 53 (11-82) U/L Urine Color Yellow Urine Appearance Clear (Clear) Urine pH 6.5 (4.5-7.5) Ur Specific [place] 1.016 (1.000-1.030) Urine Protein Negative (Negative) Urine Glucose (UA) Negative (Negative) Urine Ketones Negative (Negative) Urine Blood Negative (Negative) Urine Nitrite Negative (Negative) Urine Bilirubin Negative (Negative) Urine Urobilinogen Negative (Negative) Ur Leukocyte Esterase Negative (Negative) Urine Comment Imaging Data Attestation: I personally reviewed and interpreted this imaging study as follows: Radiologist's Impression: Abdomen/Pelvis CT 09/02/25 23:38 EXAM: CT abd pelvis IV con only CLINICAL HISTORY: mid abd pain, hx cva TECHNIQUE: Contrast-enhanced CT of the abdomen and pelvis was performed with the following protocol: axial images with, and reconstructed coronal and sagittal images. Intravenous contrast was administered. One of the following dose reduction techniques was utilized for this exam: automated exposure control, adjustment of the mA and/or kV according to patient size, and use of iterative reconstruction. COMPARISON: No prior studies for comparison. FINDINGS: Abdomen: Liver: The liver is normal in size, shape, and density. No focal lesions, cysts, or masses are identified. The hepatic vasculature and biliary ducts are unremarkable. Gallbladder and Biliary System: The gallbladder is mildly dilated, measuring 10.5 x 3.8 cm. Ultrasound assessment is recommended. No wall thickening, pericholecystic fluid, or calcific gallstones are identified. The common bile duct is normal in caliber without dilation. Pancreas: The pancreatic head, body, and tail are visualized and appear normal in size and density. No pancreatic masses or calcifications are noted. The pancreatic duct is not dilated. Spleen: The spleen is normal in size, shape, and density. No splenic lesions or masses are identified. A small splenule is seen, measuring 15 mm. Appendix: The appendix is normal in size, without ronn-appendiceal fat stranding and without an appendicolith. There is no evidence of appendiceal abscess or perforation. Kidneys and Adrenal Glands: Both kidneys are normal in size, shape, and position. Cortical thickness is within normal limits. There are no renal calculi or hydronephrosis. The adrenal glands are unremarkable, with no evidence of masses or hyperplasia. Pelvis: Urinary Bladder: The urinary bladder appears partially contracted at the time of the study, with mild wall thickening, raising the possibility of cystitis. Clinical and laboratory correlation is recommended. No intraluminal lesions are identified. Prostate: The prostate is normal in size and contour. No focal lesions or masses are identified. Seminal Vesicles: The seminal vesicles are normal in size and appearance. No abnormalities are noted. Peritoneal and Retroperitoneal Structures: No free fluid or abnormal fluid collections are identified within the abdomen or pelvis. No lymphadenopathy is noted. Bowel: The visualized bowel loops are normal in caliber and appearance. There is no evidence of bowel obstruction or wall thickening. Bones and Soft Tissues: The pelvic bones and soft tissues are unremarkable. No fractures or abnormal masses are identified. A Schmorl's node is seen at the superior endplate of L4. Basal chest scans: Patchy ground-glass densities are noted in the basal lung regions, more prominent on the left side. These findings may represent pulmonary congestion; however, an associated infective process cannot be excluded. Clinical correlation and, if clinically indicated, a dedicated CT chest evaluation are recommended. Sternotomy sutures and an artificial aortic valve are seen. IMPRESSION: Patchy ground-glass densities are noted in the basal lung regions, more prominent on the left side. These findings may represent pulmonary congestion; however, an associated infective process cannot be excluded. Clinical correlation and, if clinically indicated, a dedicated CT chest evaluation are recommended. The gallbladder is mildly dilated, measuring 10.5 x 3.8 cm; however, there is no pericholecystic fluid or fat stranding. Ultrasound assessment is recommended. The urinary bladder appears partially contracted at the time of the study, with mild wall thickening, raising the possibility of cystitis. Clinical and laboratory correlation is recommended. No definite or obvious acute abnormality is identified within the abdomen. Electronically signed by Ezra Jha 09-03-2025 02:13 AM Gallbladder Ultrasound 09/03/25 02:46 EXAM: US gallbladder CLINICAL HISTORY: abd pain TECHNIQUE: Limited ultrasound of the liver and gallbladder was performed in grayscale and Doppler. Multiple images were obtained in the transverse and longitudinal planes. COMPARISON: No prior studies are available for comparison. FINDINGS: Liver: Liver size: The liver measures 17.6 cm in length. The liver appears enlarged in size, with echogenic texture and geographic hypoechoic areas of fat sparing observed. There is no evidence of focal lesions, cysts, or masses. The hepatic vasculature appears normal. Gallbladder: Gallbladder size: The gallbladder is visualized and appears mildly distended (measures 10 x 4 cm, longitudinal x transverse). A cluster of small echogenic foci is seen in the neck and dependent portions, which is suggestive of small calculi with sludge present. The wall measures 1.6 mm according to the provided measurements, with measurement in other images reaching 3.6 mm. No pericholecystic fluid is noted. There is no evidence of gallbladder wall edema or signs of acute cholecystitis. Negative sonographic Nicholson sign Biliary Tree: Common bile duct diameter: 3.8 mm. The common bile duct is within normal limits in caliber and is not dilated. There is no evidence of choledocholithiasis or biliary obstruction. Right kidney: No hydronephrosis is present. The sonographic features are unremarkable. IMPRESSION: The gallbladder appears mildly distended with possible wall thickening and layering sludge/calculi seen. There is no Nicholson sign, wall edema, or pericholecystic fluid. The possibility of early cholecystitis cannot be entirely ruled out. Clinical correlation and, if needed, follow-up are advised. Enlarged liver with moderate steatosis and an area of fat sparing seen adjacent to the gallbladder. Electronically signed by Ezra Jha 09-03-2025 04:13 AM MDM Narrative Prior records/ancillary studies reviewed. Triage Nursing notes reviewed. Additional history obtained from nursing. The patient's history was concerning for abdominal pain. Differential diagnosis: Etiologies such as appendicitis, diverticulitis, PUD, biliary pathology, UTI, pancreatitis, obstruction, mesenteric ischemia, aortic pathology, infections, inflammatory bowel disease, renal colic, as well as others were entertained. Physical examination findings: As above. ER treatment provided: An order was placed for continuous cardiac monitoring. The monitor shows a rate of 60-100 with a sinus rhythm per my Independent interpretation. IV fluids, Zofran, Bentyl and Tylenol were ordered Zosyn was ordered for possible cholecystitis On reassessment the patient felt better. Diagnostics interpreted by me: The labs Independently Interpreted by myself revealed no worrisome leukocytosis, mild hyperglycemia without DKA Urine was not infected. Imaging studies: Imaging was reviewed and read by radiology Consultation: A consultation was placed with the surgical team, Ashutosh. the case was discussed and diagnostics were reviewed. The patient was evaluated in the ER for further treatment. Consultation was placed with medicine and the case discussed. Patient will be admitted to the medical service. Exam and history seem consistent with abdominal pain with concerns for possible acute cholecystitis. Patient was tender on exam. CAT scan was concerning for possible acute cholecystitis ultrasound was ordered. Surgery was consulted and was evaluated by the patient. Patient will be admitted to the medical service. He is starting antibiotics for possible acute cholecystitis. Patient is agreeable treatment plan. By the evaluation outlined above emergent etiologies such as appendicitis, diverticulitis, PUD, UTI, pancreatitis, obstruction, mesenteric ischemia, aortic pathology, inflammatory bowel disease, renal colic, as well as others were deemed relatively unlikely. The pt informed about the findings as listed above. All questions were answered and pleased with the treatment. The chart was completed utilizing [employer] Speech voice recognition software. Grammatical errors, random word insertions, pronoun errors, and incomplete sentences are an occassional consequence of this system due to software limitations, ambient noise, and hardware issues. Any formal questions or concerns about the content, text, or information contained within the body of this dictation should be directly addressed to the physician clinical physician assistant for clarification. Impression & Plan Abdominal pain, acute, Biliary colic Discharge Plan Visit Data Chief Complaint: Abdominal Pain Stated Complaint: AB PAIN ED Provider: Brigid Minaya ED Midlevel Provider: Abigail Tobin Discharge Problem: Abdominal pain, acute, Biliary colic Patient Disposition: Admitted As Inpatient Condition: Good Forms Stand Alone Forms: My motify Prescriptions Prescriptions: No Action fluoxetine [Prozac] 40 mg Capsule 40 mg PO DAILY buspirone 5 mg Tablet 5 mg PO Q8 levetiracetam [Keppra] 500 mg Tablet 500 mg PO BID hydrocodone-acetaminophen 5-325 mg Tablet 1 tab PO DIRECTED PRN (Reason: Pain) ondansetron HCl [Zofran] 4 mg Tablet 4 mg PO Q8 PRN (Reason: Nausea) divalproex [Depakote] 500 mg Tablet,Delayed Release (Dr/Ec) 500 mg PO BID pantoprazole 40 mg Tablet,Delayed Release (Dr/Ec) 40 mg PO DAILY warfarin [Coumadin] 5 mg Tablet 10 mg PO 4XWK Rx Instructions: TAKES SUN, TUES, THURS, & SAT. warfarin [Coumadin] 5 mg Tablet 5 mg PO 3XWK Rx Instructions: TAKES MON, WED & FRI. Referrals Referrals: Avtar Myles M.D. [Primary Care Provider] -
[2025-09-03] MEDS: DICYCLOMINE HCL 10 MG/ML 2 ML AMP/VIAL IM ONE (01:11)
[2025-09-03] MEDS: OPTIRAY 320 100ml IV ONE (01:19)
[2025-09-03 01:21] LABS: Appearance Urine Clear (Clear); Glucose Urine UA Negative (Negative)
[2025-09-03] MEDS: MoRPHine SULFATE 4 MG/ML 1 ML CARP\\VIAL IV STA (01:59)
--- NOTE | 2025-09-03 02:13 | CT Scan Report ---
EXAM: CT abd pelvis IV con only CLINICAL HISTORY: mid abd pain, hx cva TECHNIQUE: Contrast-enhanced CT of the abdomen and pelvis was performed with the following protocol: axial images with, and reconstructed coronal and sagittal images. Intravenous contrast was administered. One of the following dose reduction techniques was utilized for this exam: automated exposure control, adjustment of the mA and/or kV according to patient size, and use of iterative reconstruction. COMPARISON: No prior studies for comparison. FINDINGS: Abdomen: Liver: The liver is normal in size, shape, and density. No focal lesions, cysts, or masses are identified. The hepatic vasculature and biliary ducts are unremarkable. Gallbladder and Biliary System: The gallbladder is mildly dilated, measuring 10.5 x 3.8 cm. Ultrasound assessment is recommended. No wall thickening, pericholecystic fluid, or calcific gallstones are identified. The common bile duct is normal in caliber without dilation. Pancreas: The pancreatic head, body, and tail are visualized and appear normal in size and density. No pancreatic masses or calcifications are noted. The pancreatic duct is not dilated. Spleen: The spleen is normal in size, shape, and density. No splenic lesions or masses are identified. A small splenule is seen, measuring 15 mm. Appendix: The appendix is normal in size, without ronn-appendiceal fat stranding and without an appendicolith. There is no evidence of appendiceal abscess or perforation. Kidneys and Adrenal Glands: Both kidneys are normal in size, shape, and position. Cortical thickness is within normal limits. There are no renal calculi or hydronephrosis. The adrenal glands are unremarkable, with no evidence of masses or hyperplasia. Pelvis: Urinary Bladder: The urinary bladder appears partially contracted at the time of the study, with mild wall thickening, raising the possibility of cystitis. Clinical and laboratory correlation is recommended. No intraluminal lesions are identified. Prostate: The prostate is normal in size and contour. No focal lesions or masses are identified. Seminal Vesicles: The seminal vesicles are normal in size and appearance. No abnormalities are noted. Peritoneal and Retroperitoneal Structures: No free fluid or abnormal fluid collections are identified within the abdomen or pelvis. No lymphadenopathy is noted. Bowel: The visualized bowel loops are normal in caliber and appearance. There is no evidence of bowel obstruction or wall thickening. Bones and Soft Tissues: The pelvic bones and soft tissues are unremarkable. No fractures or abnormal masses are identified. A Schmorl's node is seen at the superior endplate of L4. Basal chest scans: Patchy ground-glass densities are noted in the basal lung regions, more prominent on the left side. These findings may represent pulmonary congestion; however, an associated infective process cannot be excluded. Clinical correlation and, if clinically indicated, a dedicated CT chest evaluation are recommended. Sternotomy sutures and an artificial aortic valve are seen. IMPRESSION: Patchy ground-glass densities are noted in the basal lung regions, more prominent on the left side. These findings may represent pulmonary congestion; however, an associated infective process cannot be excluded. Clinical correlation and, if clinically indicated, a dedicated CT chest evaluation are recommended. The gallbladder is mildly dilated, measuring 10.5 x 3.8 cm; however, there is no pericholecystic fluid or fat stranding. Ultrasound assessment is recommended. The urinary bladder appears partially contracted at the time of the study, with mild wall thickening, raising the possibility of cystitis. Clinical and laboratory correlation is recommended. No definite or obvious acute abnormality is identified within the abdomen. Electronically signed by Ezra Jha 09-03-2025 02:13 AM
--- NOTE | 2025-09-03 04:13 | Ultrasound Report ---
EXAM: US gallbladder CLINICAL HISTORY: abd pain TECHNIQUE: Limited ultrasound of the liver and gallbladder was performed in grayscale and Doppler. Multiple images were obtained in the transverse and longitudinal planes. COMPARISON: No prior studies are available for comparison. FINDINGS: Liver: Liver size: The liver measures 17.6 cm in length. The liver appears enlarged in size, with echogenic texture and geographic hypoechoic areas of fat sparing observed. There is no evidence of focal lesions, cysts, or masses. The hepatic vasculature appears normal. Gallbladder: Gallbladder size: The gallbladder is visualized and appears mildly distended (measures 10 x 4 cm, longitudinal x transverse). A cluster of small echogenic foci is seen in the neck and dependent portions, which is suggestive of small calculi with sludge present. The wall measures 1.6 mm according to the provided measurements, with measurement in other images reaching 3.6 mm. No pericholecystic fluid is noted. There is no evidence of gallbladder wall edema or signs of acute cholecystitis. Negative sonographic Nicholson sign Biliary Tree: Common bile duct diameter: 3.8 mm. The common bile duct is within normal limits in caliber and is not dilated. There is no evidence of choledocholithiasis or biliary obstruction. Right kidney: No hydronephrosis is present. The sonographic features are unremarkable. IMPRESSION: The gallbladder appears mildly distended with possible wall thickening and layering sludge/calculi seen. There is no Nicholson sign, wall edema, or pericholecystic fluid. The possibility of early cholecystitis cannot be entirely ruled out. Clinical correlation and, if needed, follow-up are advised. Enlarged liver with moderate steatosis and an area of fat sparing seen adjacent to the gallbladder. Electronically signed by Ezra Jha 09-03-2025 04:13 AM
[2025-09-03] MEDS: PIPERACILLIN/TAZOBACTAM 4.5 GM/100 ML BAG IV ONE (04:51)
--- NOTE | 2025-09-03 04:54 | Surgery Consultation ---
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 States the pain is diffuse in nature and denies any associated nausea or vomiting. Workup in the emergency department with imaging with mild gallbladder distention with sludge and stones, no wall edema or pericholecystic fluid appreciated. Labs reviewed and unremarkable. Patient does take Coumadin, last dose was yesterday, INR currently pending. The patient was seen and evaluated this morning at bedside in the emergency department on exam he has tenderness throughout his abdomen without any signs of peritonitis and VSS. Due to the patient's amount of abdominal pain he will be admitted to the medical service. From a surgical perspective, keep NPO for now, IV hydration, pain control and antiemetics as needed. Trend WBC and LFTs. Can also consider HIDA scan to further evaluate for acute cholecystitis...Will discuss with attending surgeon about possible surgical intervention, however given the patient's last dose of Coumadin was yesterday will likely need to wait a few days. Medical management per primary team, surgery will follow and additional surgical recommendations/plans to follow. 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 The patient states he has never had pain like this in the past and is unsure what caused the pain to start. Pain is diffuse throughout abdomen. He denies any associated nausea, vomiting, fevers or chills. He states he did have a PEG tube previously that has now been removed, but otherwise states no other additional abdominal surgeries. Workup in the emergency department with labs unremarkable and imaging concerning for mild gallbladder wall thickening with sludge and stones, no edema or pericholecystic fluid noted. Allergies Allergy/AdvReac Type Severity Reaction Status Date / Time cephalexin Allergy Intermediate RASH-ITCHY Verified 01/20/19 00:47 fish derived Allergy Intermediate RASH-ITCHY Verified 01/20/19 00:47 indomethacin AdvReac Intermediate GI SYMPTOMS Verified 01/20/19 00:47 tramadol AdvReac Unknown UPSET Verified 01/20/19 00:47 STOMACH Home Medications Medication Instructions Recorded Confirmed Type amantadine HCl 100 mg capsule 100 mg PO DAILY 09/03/25 09/03/25 History baclofen 5 mg tablet 5 mg PO TID 09/03/25 09/03/25 History bisacodyl 10 mg rectal suppository 10 mg PA DAILY PRN Constipation 09/03/25 09/03/25 History (Dulcolax (bisacodyl)) buspirone 5 mg tablet 5 mg PO TID 09/03/25 09/03/25 History divalproex 250 mg tablet,delayed 250 mg PO TID 09/03/25 09/03/25 History release divalproex 500 mg tablet,delayed 500 mg PO DAILY 09/03/25 09/03/25 History release fluoxetine 40 mg capsule 80 mg PO DAILY 09/03/25 09/03/25 History furosemide 20 mg tablet 20 mg PO DAILY 09/03/25 09/03/25 History gabapentin 300 mg capsule 600 mg PO TID 09/03/25 09/03/25 History levetiracetam 750 mg tablet 750 mg PO BID 09/03/25 09/03/25 History mirtazapine 30 mg tablet 30 mg PO DAILY 09/03/25 09/03/25 History olanzapine 2.5 mg tablet 2.5 mg PO HS 09/03/25 09/03/25 History oxycodone 5 mg tablet 5 mg PO BID PRN Pain 09/03/25 09/03/25 History propranolol 40 mg tablet 40 mg PO BID 09/03/25 09/03/25 History sennosides 8.6 mg tablet (senna) 17.2 mg PO DAILY 09/03/25 09/03/25 History warfarin 5 mg tablet 5 mg PO DAILY 09/03/25 09/03/25 History Patient History Social History Smoking Status: Current every day smoker Tobacco Type: Smokeless Tobacco (Dip or Chew) Preferred Language: [place] Feels Safe at Home: Yes Review of Systems Constitutional: no fever and no chills Respiratory: no cough and no chest congestion Cardiovascular: no chest pain, no palpitations and no syncope Gastrointestinal: as per Subjective / HPI and + abdominal pain; no nausea and no vomiting Genitourinary: no difficulty urinating or no hematuria Physical Exam Constitutional: WD/WN, vitals as above Respiratory: normal respiratory effort, lungs clear to auscultation Cardiovascular: Rate/Rhythm: regular rate Gastrointestinal (Abdomen): Abdomen soft, nondistended, diffuse TTP over entire abdomen without rebound, gua rding or peritonitis Results & Data Vital Signs (Past 12 Hours) Vital Signs Temp Pulse Pulse Resp BP BP Pulse Ox 09/03/25 00:13 62 20 95 09/03/25 00:13 36.6 C 61 20 133/76 95 09/02/25 23:47 63 09/02/25 23:31 66 16 96 09/02/25 23:17 36.6 C 68 18 135/86 94 O2 Del Method 09/03/25 00:13 Room Air 09/03/25 00:13 Room Air 09/02/25 23:47 09/02/25 23:31 Room Air 09/02/25 23:17 Room Air Diagnostic Findings EXAM: CT abd pelvis IV con only CLINICAL HISTORY: mid abd pain, hx cva TECHNIQUE: Contrast-enhanced CT of the abdomen and pelvis was performed with the following protocol: axial images with, and reconstructed coronal and sagittal images. Intravenous contrast was administered. One of the following dose reduction techniques was utilized for this exam: automated exposure control, adjustment of the mA and/or kV according to patient size, and use of iterative reconstruction. COMPARISON: No prior studies for comparison. FINDINGS: Abdomen: Liver: The liver is normal in size, shape, and density. No focal lesions, cysts, or masses are identified. The hepatic vasculature and biliary ducts are unremarkable. Gallbladder and Biliary System: The gallbladder is mildly dilated, measuring 10.5 x 3.8 cm. Ultrasound assessment is recommended. No wall thickening, pericholecystic fluid, or calcific gallstones are identified. The common bile duct is normal in caliber without dilation. Pancreas: The pancreatic head, body, and tail are visualized and appear normal in size and density. No pancreatic masses or calcifications are noted. The pancreatic duct is not dilated. Spleen: The spleen is normal in size, shape, and density. No splenic lesions or masses are identified. A small splenule is seen, measuring 15 mm. Appendix: The appendix is normal in size, without ronn-appendiceal fat stranding and without an appendicolith. There is no evidence of appendiceal abscess or perforation. Kidneys and Adrenal Glands: Both kidneys are normal in size, shape, and position. Cortical thickness is within normal limits. There are no renal calculi or hydronephrosis. The adrenal glands are unremarkable, with no evidence of masses or hyperplasia. Pelvis: Urinary Bladder: The urinary bladder appears partially contracted at the time of the study, with mild wall thickening, raising the possibility of cystitis. Clinical and laboratory correlation is recommended. No intraluminal lesions are identified. Prostate: The prostate is normal in size and contour. No focal lesions or masses are identified. Seminal Vesicles: The seminal vesicles are normal in size and appearance. No abnormalities are noted. Peritoneal and Retroperitoneal Structures: No free fluid or abnormal fluid collections are identified within the abdomen or pelvis. No lymphadenopathy is noted. Bowel: The visualized bowel loops are normal in caliber and appearance. There is no evidence of bowel obstruction or wall thickening. Bones and Soft Tissues: The pelvic bones and soft tissues are unremarkable. No fractures or abnormal masses are identified. A Schmorl's node is seen at the superior endplate of L4. Basal chest scans: Patchy ground-glass densities are noted in the basal lung regions, more prominent on the left side. These findings may represent pulmonary congestion; however, an associated infective process cannot be excluded. Clinical correlation and, if clinically indicated, a dedicated CT chest evaluation are recommended. Sternotomy sutures and an artificial aortic valve are seen. IMPRESSION: Patchy ground-glass densities are noted in the basal lung regions, more prominent on the left side. These findings may represent pulmonary congestion; however, an associated infective process cannot be excluded. Clinical correlation and, if clinically indicated, a dedicated CT chest evaluation are recommended. The gallbladder is mildly dilated, measuring 10.5 x 3.8 cm; however, there is no pericholecystic fluid or fat stranding. Ultrasound assessment is recommended. The urinary bladder appears partially contracted at the time of the study, with mild wall thickening, raising the possibility of cystitis. Clinical and laboratory correlation is recommended. No definite or obvious acute abnormality is identified within the abdomen. EXAM: US gallbladder CLINICAL HISTORY: abd pain TECHNIQUE: Limited ultrasound of the liver and gallbladder was performed in grayscale and Doppler. Multiple images were obtained in the transverse and longitudinal planes. COMPARISON: No prior studies are available for comparison. FINDINGS: Liver: Liver size: The liver measures 17.6 cm in length. The liver appears enlarged in size, with echogenic texture and geographic hypoechoic areas of fat sparing observed. There is no evidence of focal lesions, cysts, or masses. The hepatic vasculature appears normal. Gallbladder: Gallbladder size: The gallbladder is visualized and appears mildly distended (measures 10 x 4 cm, longitudinal x transverse). A cluster of small echogenic foci is seen in the neck and dependent portions, which is suggestive of small calculi with sludge present. The wall measures 1.6 mm according to the provided measurements, with measurement in other images reaching 3.6 mm. No pericholecystic fluid is noted. There is no evidence of gallbladder wall edema or signs of acute cholecystitis. Negative sonographic Nicholson sign Biliary Tree: Common bile duct diameter: 3.8 mm. The common bile duct is within normal limits in caliber and is not dilated. There is no evidence of choledocholithiasis or biliary obstruction. Right kidney: No hydronephrosis is present. The sonographic features are unremarkable. IMPRESSION: The gallbladder appears mildly distended with possible wall thickening and layering sludge/calculi seen. There is no Nicholson sign, wall edema, or pericholecystic fluid. The possibility of early cholecystitis cannot be entirely ruled out. Clinical correlation and, if needed, follow-up are advised. Enlarged liver with moderate steatosis and an area of fat sparing seen adjacent to the gallbladder. PG Care Time/CCT Total # of Minutes Spent Total Time Spent with Patient: Total time spent is greater than 50% in coordination of care (as documented) at patient's floor/unit and/or counseling patient: [place] [address] Office/OBS Consult Lvl 1 Patient Type New History Problem Focused Exam Problem Focused Medical Decision Making Straight Forward Diagnoses Biliary colic K80.50 Abdominal pain, acute R10.9
[2025-09-03] MEDS: HYDROmorphone INJ 0.5 MG/0.5 ML SYR IV STA (05:18)
--- NOTE | 2025-09-03 05:22 | XRay Report ---
EXAM: XR chest 1V portable CLINICAL HISTORY: cough TECHNIQUE: Radiograph of the chest was acquired. COMPARISON: 12/25/2017 16:04:52 [employer] FINDINGS: Sternal suture is noted. Cardiomegaly is present. Ill-defined ground-glass haze is noted in the left lower zone, which appears to be due to projectional changes. The remainder of both lungs is clear, with no pulmonary infiltrate or pleural effusion. No acute osseous abnormality is identified. Cardiac valve-stable. IMPRESSION: Sternal suture is noted. Cardiomegaly, increased in size as compared to prior. Ill-defined ground-glass haze is noted in the left lower zone, which appears to be due to projectional changes. Advised follow up. Electronically signed by Jeronimo Roy 09-03-2025 05:22 AM
[2025-09-03 05:29] LABS: INR 3.4 (0.9-1.1); Partial Thromboplastin Time 43 Seconds (21-31); Prothrombin Time 33.3 Seconds (9.0-12.0)
--- NOTE | 2025-09-03 05:44 | History & Physical Report ---
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 Patient states abdominal pain started tonight. Pain is 7/10 in severity associated with nausea. Has some headache. Vision is okay. No runny nose or sore throat. No cough. No fevers. Denies any chest pain. Has chronic shortness of breath. Normal bowel and bladder movements. Patient states he cannot walk but can transfer to the wheelchairs. Hemodynamics okay. Abdominal pain acute No leukocytosis LFTs okay UA negative CT abdomen pelvis gallbladder mildly dilated but no pericholecystic fluid seen Gallbladder ultrasound shows mildly distended with possible wall thickening and layering sludge/calculi seen. Possibility of early cholecystitis cannot be ruled out Possible biliary colic Appreciate surgical input Will keep him n.p.o., IV fluids, IV Zosyn, pain control Pneumonia? ground glass opacities in lung bases on ct abd will follow ct chest History of aortic stenosis and status post mechanical aortic wall replacement On Coumadin and INR is 3.4 Will hold Coumadin and place him on IV heparin when inr less than 3.0 in anticipation of procedures History of CVA Embolic On warfarin which will be held and start on iv heparin when inr less than 3 Patient says usually bedbound but can transfer to the wheelchair History of seizures on Divalproex and Keppra Depression On fluoxetine, Remeron and olanzapine Migraines Propranolol Anxiety On buspirone Chronic pain On oxycodone as needed Polyneuropathy On gabapentin History of trigeminal neuralgia On baclofen Lower extremity edema On Lasix DVT prophylaxis INR 3.4 will follow inr scds Disposition Medical floor CODE STATUS DNR/DNI as per my discussion with the patient History of Present Illness Chief Complaint: Abdominal pain Primary Care Provider: Avtar Myles 34-year-old male with history of aortic valve stenosis, mechanical aortic valve replacement on warfarin, history of embolic stroke about 8-9 years ago and wheelchair-bound and history of cranioplasty status post craniectomy, history of seizures, history of migraine, anxiety, depression, neuropathy coming from half-way for abdominal pain. Patient states abdominal pain started tonight. Pain is 7/10 in severity associated with nausea. Has some headache. Vision is okay. No runny nose or sore throat. No cough. No fevers. Denies any chest pain. Has chronic shortness of breath. Normal bowel and bladder movements. Patient states he cannot walk but can transfer to the wheelchairs. Hemodynamics okay. Past medical history. As mentioned above Past surgical history. Repair of skull and brain status post CVA status post mechanical thrombectomy [facility] 2018. Replacement of aortic valve bypass with [facility] hanical valve in 2013. Social history. Currently residing in half-way. Quit smoking 2013. Smoked 0.1 pack in about 10 years. Chews tobacco. Alcohol beer occasionally as well as epic. No drug use currently. Family history father has asthma. Mother has heart disease. Daughter has heart murmur. Maternal grandfather had CABG. Allergies Allergy/AdvReac Type Severity Reaction Status Date / Time cephalexin Allergy Intermediate RASH-ITCHY Verified 01/20/19 00:47 fish derived Allergy Intermediate RASH-ITCHY Verified 01/20/19 00:47 indomethacin AdvReac Intermediate GI SYMPTOMS Verified 01/20/19 00:47 tramadol AdvReac Unknown UPSET Verified 01/20/19 00:47 STOMACH Home Medications Medication Instructions Recorded Confirmed Type amantadine HCl 100 mg capsule 100 mg PO DAILY 09/03/25 09/03/25 History baclofen 5 mg tablet 5 mg PO TID 09/03/25 09/03/25 History bisacodyl 10 mg rectal suppository 10 mg [place] DAILY PRN Constipation 09/03/25 09/03/25 History (Dulcolax (bisacodyl)) buspirone 5 mg tablet 5 mg PO TID 09/03/25 09/03/25 History divalproex 250 mg tablet,delayed 250 mg PO TID 09/03/25 09/03/25 History release divalproex 500 mg tablet,delayed 500 mg PO DAILY 09/03/25 09/03/25 History release fluoxetine 40 mg capsule 80 mg PO DAILY 09/03/25 09/03/25 History furosemide 20 mg tablet 20 mg PO DAILY 09/03/25 09/03/25 History gabapentin 300 mg capsule 600 mg PO TID 09/03/25 09/03/25 History levetiracetam 750 mg tablet 750 mg PO BID 09/03/25 09/03/25 History mirtazapine 30 mg tablet 30 mg PO DAILY 09/03/25 09/03/25 History olanzapine 2.5 mg tablet 2.5 mg PO HS 09/03/25 09/03/25 History oxycodone 5 mg tablet 5 mg PO BID PRN Pain 09/03/25 09/03/25 History propranolol 40 mg tablet 40 mg PO BID 09/03/25 09/03/25 History sennosides 8.6 mg tablet (senna) 17.2 mg PO DAILY 09/03/25 09/03/25 History warfarin 5 mg tablet 5 mg PO DAILY 09/03/25 09/03/25 History Past Med/Surg History Problem List (Updated 09/03/25 @ 04:26 by Abigail Tobin PA-C) Biliary colic (Acute) Abdominal pain, acute (Acute) Costochondral pain (Acute) Costochondral pain (Acute) Hx of fever (Acute) Back pain (Acute) Vomiting and diarrhea (Acute) Dehydration (Acute) Gastroenteritis (Acute) Elbow contusion (Acute) Chest wall pain (Acute) Dentalgia (Acute) Chest pain (Acute) Dental caries (Acute) Dentalgia (Acute) Low back pain (Acute) Chest wall pain (Acute) Arm pain, left (Acute) Cerebral embolism Contusion of left knee (Acute) Dizzy (Acute) Headache (Acute) History of mechanical aortic valve replacement Left hip pain (Acute) Lumbar contusion (Acute) Rib pain on right side (Acute) Status post fall (Acute) Subtherapeutic anticoagulation (Acute) Subtherapeutic international normalized ratio (INR) (Acute) Social History Smoking Status: Current every day smoker Tobacco Type: Smokeless Tobacco (Dip or Chew) Preferred Language: Faroese Feels Safe at Home: Yes Review of Systems Review of Systems: All systems reviewed & are unremarkable except as noted in HPI & below Physical Exam Physical Exam: General- Not in distress Head- atraumatic Eyes- PERRL. ENT- oropharynx clear Neck- supple, no JVD. Lungs- clear to auscultation no wheezing or crackles Heart- regular rhythm; no murmur, no gallop. Abdomen- normal bowel sounds, soft, tenderness in epigastric and RUQ region, No distension Extremities- mild pretibial edema, no calf tenderness Neuro- alert, oriented PERRL, no facial palsy; speech somewhat pressured, obeys simple commands Results & Data Results & Data Vital Signs (Past 12 Hours) Vital Signs Temp Pulse Pulse Resp BP BP Pulse Ox 09/03/25 04:00 36.6 C 63 20 130/76 95 09/03/25 02:00 36.6 C 61 19 138/92 95 09/03/25 00:13 62 20 95 09/03/25 00:00 36.6 C 61 20 133/76 97 09/02/25 23:47 63 09/02/25 23:31 66 16 96 09/02/25 23:17 36.6 C 68 18 135/86 94 O2 Del Method 09/03/25 04:00 Room Air 09/03/25 02:00 Room Air 09/03/25 00:13 Room Air 09/03/25 00:00 Room Air 09/02/25 23:47 09/02/25 23:31 Room Air 09/02/25 23:17 Room Air Diagnostic Findings Laboratory Results WBC 6.51 K/ul (4.8-10.8) 09/02/25 23:21 RBC 5.16 M/uL (4.70-6.10) 09/02/25 23:21 Hgb 14.5 g/dl (14.0-18.0) 09/02/25 23:21 Hct 43.0 % (42.0-52.0) 09/02/25 23:21 MCV 83.3 fL (80.0-100.0) 09/02/25 23:21 MCH 28.1 pg (25.0-34.0) 09/02/25 23:21 MCHC 33.7 g/dL (32.0-36.0) 09/02/25 23:21 RDW Std Deviation 47.1 fL (36.4-46.3) H 09/02/25 23:21 RDW Coeff of Brittney 15.6 % (11.5-14.5) H 09/02/25 23:21 Plt Count 231 K/uL (130-400) 09/02/25 23:21 MPV 9.6 fL (9.4-12.4) 09/02/25 23:21 Immature Gran % (Auto) 0.6 % 09/02/25 23:21 Neut % (Auto) 53.5 % 09/02/25 23:21 Lymph % (Auto) 25.5 % 09/02/25 23:21 [place] % (Auto) 9.8 % 09/02/25 23:21 Eos % (Auto) 9.8 % 09/02/25 23:21 Baso % (Auto) 0.8 % 09/02/25 23:21 Neut # (Auto) 3.48 K/uL (1.40-6.50) 09/02/25 23:21 Lymph # (Auto) 1.66 K/uL (1.20-3.40) 09/02/25 23:21 [place] # (Auto) 0.64 K/uL (0.11-0.59) H 09/02/25 23:21 Eos # (Auto) 0.64 K/uL (0.00-0.50) H 09/02/25 23:21 Baso # (Auto) 0.05 K/uL (0.00-0.20) 09/02/25 23:21 Immature Gran # (Auto) 0.04 K/uL (0.01-0.20) 09/02/25 23:21 PT 33.3 Seconds (9.0-12.0) H 09/03/25 04:46 INR 3.4 (0.9-1.1) H 09/03/25 04:46 APTT 43 Seconds (21-31) H 09/03/25 04:46 PTT Ratio 1.6 09/03/25 04:46 Sodium 137 mmol/L (136-145) 09/02/25 23:21 Potassium 4.2 mmol/L (3.5-5.1) 09/02/25 23:21 Chloride 103 mmol/L (98-107) 09/02/25 23:21 Carbon Dioxide 26 mmol/L (21-32) 09/02/25 23:21 Anion Gap 8 (3-11) 09/02/25 23:21 BUN 12 mg/dl (6-23) 09/02/25 23:21 Creatinine 0.83 mg/dl (0.6-1.4) 09/02/25 23:21 Est Cr Clr Drug Dosing 140.2 ml/min 09/02/25 23:21 eGFR 117.78 09/02/25 23:21 BUN/Creatinine Ratio 14.5 (10-20) 09/02/25 23:21 Glucose 191 mg/dl (70-99(Fasting)) H 09/02/25 23:21 Calcium 9.3 mg/dl (8.6-10.3) 09/02/25 23:21 Total Bilirubin 0.4 mg/dl (0.2-1.0) 09/02/25 23:21 AST 25 U/L (13-39) 09/02/25 23:21 ALT 27 U/L (7-52) 09/02/25 23:21 Alkaline Phosphatase 70 U/L (34-104) 09/02/25 23:21 Total Protein 7.2 gm/dl (6.0-8.3) 09/02/25 23:21 Albumin 3.9 gm/dl (3.4-5.0) 09/02/25 23:21 Globulin 3.3 gm/dl (2.5-4.0) 09/02/25 23:21 Albumin/Globulin Ratio 1.2 (0.9-2) 09/02/25 23:21 Lipase 53 U/L (11-82) 09/02/25 23:21 Urine Color Yellow 09/03/25 01:14 Urine Appearance Clear (Clear) 09/03/25 01:14 Urine pH 6.5 (4.5-7.5) 09/03/25 01:14 Ur Specific [place] 1.016 (1.000-1.030) 09/03/25 01:14 Urine Protein Negative (Negative) 09/03/25 01:14 Urine Glucose (UA) Negative (Negative) 09/03/25 01:14 Urine Ketones Negative (Negative) 09/03/25 01:14 Urine Blood Negative (Negative) 09/03/25 01:14 Urine Nitrite Negative (Negative) 09/03/25 01:14 Urine Bilirubin Negative (Negative) 09/03/25 01:14 Urine Urobilinogen Negative (Negative) 09/03/25 01:14 Ur Leukocyte Esterase Negative (Negative) 09/03/25 01:14 Urine Comment 09/03/25 01:14 Impressions Abdomen/Pelvis CT 09/02/25 23:38 EXAM: CT abd pelvis IV con only CLINICAL HISTORY: mid abd pain, hx cva TECHNIQUE: Contrast-enhanced CT of the abdomen and pelvis was performed with the following protocol: axial images with, and reconstructed coronal and sagittal images. Intravenous contrast was administered. One of the following dose reduction techniques was utilized for this exam: automated exposure control, adjustment of the mA and/or kV according to patient size, and use of iterative reconstruction. COMPARISON: No prior studies for comparison. FINDINGS: Abdomen: Liver: The liver is normal in size, shape, and density. No focal lesions, cysts, or masses are identified. The hepatic vasculature and biliary ducts are unremarkable. Gallbladder and Biliary System: The gallbladder is mildly dilated, measuring 10.5 x 3.8 cm. Ultrasound assessment is recommended. No wall thickening, pericholecystic fluid, or calcific gallstones are identified. The common bile duct is normal in caliber without dilation. Pancreas: The pancreatic head, body, and tail are visualized and appear normal in size and density. No pancreatic masses or calcifications are noted. The pancreatic duct is not dilated. Spleen: The spleen is normal in size, shape, and density. No splenic lesions or masses are identified. A small splenule is seen, measuring 15 mm. Appendix: The appendix is normal in size, without ronn-appendiceal fat stranding and without an appendicolith. There is no evidence of appendiceal abscess or perforation. Kidneys and Adrenal Glands: Both kidneys are normal in size, shape, and position. Cortical thickness is within normal limits. There are no renal calculi or hydronephrosis. The adrenal glands are unremarkable, with no evidence of masses or hyperplasia. Pelvis: Urinary Bladder: The urinary bladder appears partially contracted at the time of the study, with mild wall thickening, raising the possibility of cystitis. Clinical and laboratory correlation is recommended. No intraluminal lesions are identified. Prostate: The prostate is normal in size and contour. No focal lesions or masses are identified. Seminal Vesicles: The seminal vesicles are normal in size and appearance. No abnormalities are noted. Peritoneal and Retroperitoneal Structures: No free fluid or abnormal fluid collections are identified within the abdomen or pelvis. No lymphadenopathy is noted. Bowel: The visualized bowel loops are normal in caliber and appearance. There is no evidence of bowel obstruction or wall thickening. Bones and Soft Tissues: The pelvic bones and soft tissues are unremarkable. No fractures or abnormal masses are identified. A Schmorl's node is seen at the superior endplate of L4. Basal chest scans: Patchy ground-glass densities are noted in the basal lung regions, more prominent on the left side. These findings may represent pulmonary congestion; however, an associated infective process cannot be excluded. Clinical correlation and, if clinically indicated, a dedicated CT chest evaluation are recommended. Sternotomy sutures and an artificial aortic valve are seen. IMPRESSION: Patchy ground-glass densities are noted in the basal lung regions, more prominent on the left side. These findings may represent pulmonary congestion; however, an associated infective process cannot be excluded. Clinical correlation and, if clinically indicated, a dedicated CT chest evaluation are recommended. The gallbladder is mildly dilated, measuring 10.5 x 3.8 cm; however, there is no pericholecystic fluid or fat stranding. Ultrasound assessment is recommended. The urinary bladder appears partially contracted at the time of the study, with mild wall thickening, raising the possibility of cystitis. Clinical and laboratory correlation is recommended. No definite or obvious acute abnormality is identified within the abdomen. Electronically signed by Ezra Jha 09-03-2025 02:13 AM Chest X-Ray 09/03/25 02:46 EXAM: XR chest 1V portable CLINICAL HISTORY: cough TECHNIQUE: Radiograph of the chest was acquired. 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 Cardiomegaly is present. Ill-defined ground-glass haze is noted in the left lower zone, which appears to be due to projectional changes. The remainder of both lungs is clear, with no pulmonary infiltrate or pleural effusion. No acute osseous abnormality is identified. Cardiac valve-stable. IMPRESSION: Sternal suture is noted. Cardiomegaly, increased in size as compared to prior. Ill-defined ground-glass haze is noted in the left lower zone, which appears to be due to projectional changes. Advised follow up. Electronically signed by Jeronimo Roy 09-03-2025 05:22 AM Gallbladder Ultrasound 09/03/25 02:46 EXAM: US gallbladder CLINICAL HISTORY: abd pain TECHNIQUE: Limited ultrasound of the liver and gallbladder was performed in grayscale and Doppler. Multiple images were obtained in the transverse and longitudinal planes. COMPARISON: No prior studies are available for comparison. FINDINGS: Liver: Liver size: The liver measures 17.6 cm in length. The liver appears enlarged in size, with echogenic texture and geographic hypoechoic areas of fat sparing observed. There is no evidence of focal lesions, cysts, or masses. The hepatic vasculature appears normal. Gallbladder: Gallbladder size: The gallbladder is visualized and appears mildly distended (measures 10 x 4 cm, longitudinal x transverse). A cluster of small echogenic foci is seen in the neck and dependent portions, which is suggestive of small calculi with sludge present. The wall measures 1.6 mm according to the provided measurements, with measurement in other images reaching 3.6 mm. No pericholecystic fluid is noted. There is no evidence of gallbladder wall edema or signs of acute cholecystitis. Negative sonographic Nicholson sign Biliary Tree: Common bile duct diameter: 3.8 mm. The common bile duct is within normal limits in caliber and is not dilated. There is no evidence of choledocholithiasis or biliary obstruction. Right kidney: No hydronephrosis is present. The sonographic features are unremarkable. IMPRESSION: The gallbladder appears mildly distended with possible wall thickening and layering sludge/calculi seen. There is no Nicholson sign, wall edema, or pericholecystic fluid. The possibility of early cholecystitis cannot be entirely ruled out. Clinical correlation and, if needed, follow-up are advised. Enlarged liver with moderate steatosis and an area of fat sparing seen adjacent to the gallbladder. Electronically signed by Ezra Jha 09-03-2025 04:13 AM Code Status & VTE Plan VTE Prophylaxis Plan VTE Prophylaxis will be ordered: Yes
[2025-09-03] MEDS ORDERED: POLYETHYLENE (MIRALAX) 17 GM PACK PO PRN (06:12)
[2025-09-03] MEDS ORDERED: ONDANSETRON INJ 2 MG/ML 2 ML VIAL IV PRN (06:12)
[2025-09-03] MEDS ORDERED: ACETAMINOPHEN 1,000 MG/100 ML VIAL IV PRN (06:12)
--- NOTE | 2025-09-03 06:39 | CT Scan Report ---
EXAM: CT chest diagnostic wo con CLINICAL HISTORY: opacities in lung bases? on ct abd/pelvis TECHNIQUE: Contiguous axial images were obtained from the base of the neck through the upper abdomen without contrast. In addition, sagittal and coronal reconstructions were performed to potentially increase the sensitivity for the detection of disease. CT scan was performed according to ALARA (as low as reasonably achievable). 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 FINDINGS: Multiple patchy, ill-defined ground-glass opacities with adjacent atelectatic bands are noted in the bilateral lower lobes, with nodular ground glass opacities seen in left lingula. The remainder of both lungs is clear. The central airways are patent. There are no pleural effusions. No pneumothorax is seen. Evaluation of the mediastinum and analilia is limited due to the lack of intravenous contrast. No axillary or mediastinal adenopathy is identified. The thyroid is unremarkable. The heart, aorta, and pulmonary arteries are of normal size and configuration. There are coronary artery and aortic atherosclerotic calcifications. No pericardial effusion is identified. Imaged portions of the upper abdomen are unremarkable. No aggressive appearing osseous lesions are identified. IMPRESSION: Multiple patchy, ill-defined ground-glass opacities with adjacent atelectatic bands are noted in the bilateral lower lobes, with nodular ground glass opacities seen in left lingula. These findings are possibly sequelae of a recent infection and represent a new finding. No other new interval abnormality is noted since the prior study. Electronically signed by Jeronimo Roy 09-03-2025 06:39 AM
[2025-09-03] MEDS: SODIUM CHLORIDE 0.9% 1,000 ML IV SCH (06:41)
[2025-09-03] MEDS: BACLOFEN 10 MG TAB PO SCH (08:45)
[2025-09-03] MEDS: AMANTADINE HCL 100 MG CAPSULE PO SCH (08:45)
[2025-09-03] MEDS: busPIRone 5 MG TAB PO SCH (08:46)
[2025-09-03] MEDS: DIVALPROEX DELAY RELEASE 250 MG TABEC PO SCH (08:47)
[2025-09-03] MEDS: DIVALPROEX DELAY RELEASE 500 MG TAB PO SCH (08:48)
[2025-09-03] MEDS: GABAPENTIN 300 MG CAP PO SCH (08:50)
[2025-09-03] MEDS: levETIRAcetam 250 MG TAB PO SCH (08:50)
[2025-09-03] MEDS: FUROSEMIDE 20 MG TAB PO SCH (08:50)
[2025-09-03] MEDS: PROPRANOLOL HCL 20 MG TAB PO SCH (08:52)
[2025-09-03] MEDS: MIRTAZAPINE TAB 15 MG TAB PO SCH (08:52)
[2025-09-03] MEDS: SENNA 8.6 MG TAB PO SCH (08:57)
[2025-09-03] MEDS: PIPERACILLIN/TAZOBACTAM 4.5 GM/100 ML BAG IV SCH (09:53)
--- NOTE | 2025-09-03 11:32 | Communication Note ---
Date of Service: September 03, 2025 Patient presented to the hospital due to abdominal pain which was associated with nausea. He underwent HIDA scan and is sitting up on the side of the bed comfortably. Reports has pain in epigastric and RUQ region intermittently. No fever/chills On Physical examination: Constitutional: WD/WN, vitals as above, NAD, sitting up in bed, pleasant, conve rsing easily Respiratory: normal respiratory effort, lungs clear to auscultation, no wheeze, rales, rhonchi. Normal insp/exp effort, no accessory muscle use Cardiovascular: RRR, systlic murmur, no edema Vessels: no JVD or carotid bruit Chest: normal inspection of chest Abdomen: mild tenderness in epigastric/RUQ Skin: no rashes, warm and dry normal turgor Neurologic: PERRL, EOMI, accommodation nl. right hemiparesis +nt Psychiatric: A+Ox3, euthymic affect Assessment/Plan Acute cholecystitis Hx of mechanical aortic valve on coumadin Hx of CVA with right sided weakness HIDA scan positive for Acute cholecystitis Plan for surgery on 09/05. will obtain echocardiogram. PT/INR daily; heparin bridge if INR is less than 2.5; for surgery- will need INR below 1.5 appreciate cardiology input for further optimization for surgery. Continue other meds Full progress note to follow tomorrow.
[2025-09-03] MEDS: MoRPHine SULFATE 4 MG/ML 1 ML CARP\\VIAL ONE (12:03)
--- NOTE | 2025-09-03 12:57 | Nuclear Medicine Report ---
NUCLEAR MEDICINE HEPATOBILIARY SCAN CLINICAL HISTORY: Biliary colic. Distended gallbladder. COMPARISON: CT scan dated 09/03/2025 TECHNIQUE: 5 mCi of technetium 99m Choletec IV was injected at 10:45 AM. Immediately following inje ction, imaging of the abdomen was carried out for 60 minutes in the anterior projection. FINDINGS: Hepatic uptake of radiotracer is prompt and homogeneous. Radiotracer activity is identifie d within the common bile duct at 10 minutes, and small bowel at 20 minutes. There is normal distribut ion of radiotracer. The gallbladder was not visualized on images out to 60 minutes. At this point tin y patient was administered 2 mg of intravenous morphine. Images from an additional 30 minutes were ob tained. The gallbladder was never visualized. IMPRESSION: 1. Nonvisualization of the gallbladder. This is indirect evidence of cystic duct obstruction. 2. It should be noted that false positive HIDA scans can occur in severe liver disease, pancreatitis, and gallbladder motility abnormalities. ACT 112: Negative or not required by law. Electronically signed by: Tomi Tyler M.D. 09/03/2025 12:56 PM
[2025-09-03] MEDS: HYDROmorphone INJ 0.5 MG/0.5 ML SYR IV PRN (15:08)
--- NOTE | 2025-09-03 15:19 | Cardiology Consultation ---
Date of Consultation September 03, 2025 Assessment & Plan (1) Biliary colic: (2) Preoperative cardiovascular examination: (3) History of mechanical aortic valve replacement: (4) Anticoagulated on Coumadin: Plan 34-year-old male referred for preoperative cardiology evaluation prior to cholecystectomy after presenting to the [facility] ER with acute abdominal pain, biliary colic. Patient without recent cardiac evaluation, without new or worsening cardiac symptoms, and without recent cardiac intervention. Estimated risk of major adverse cardiac events is moderate. Functional capacity is less than 4 METS. EKG requested. Resting echocardiography requested, to evaluate valve status and function. Further cardiac testing will not likely influence management. As long as the EKG and resting echocardiography are acceptable, I see no overt cardiac contraindications to a necessary procedure. Patient is high risk for thromboembolism noting the mechanical valve and history of CVA. Limit time off of proper anticoagulation. Recommend weight based heparin bridging when INR falls below 2.5. Recommend resumption of heparin postoperatively as soon as determined to be safe, transitioning back to prior Coumadin anticoagualation. INR goal is 2.5 to 3.5. A DOAC should not be used. Continue beta-mary therapy without perioperative interruption. Hold diuretic morning of procedure. Supervising Physician Co-Signing Physician Notes Patient seen and examined. Past medical history, surgical history, social history and family history have been reviewed. The medical record and all the above studies have been reviewed. Case DW IMER including management. Preop Cardiology evaluation Biliary Colic h/o Mechanical AVR ECHO - 09/03/25 - LVEF -60-65%, mechanical AVR well seated patient is cleared with no absolute contraindication from cardiac standpoint for for possible cholecystectomy Hold Coumadin -> start IV Heparin when INR is less than 2.5 -> hold IV heparin 4 hrs prior to surgery and restart as soon as ok from surgeon post-op and transition to Coumadin for a therapeutic INR of 2.5 to 3.5; DC Heparin when INR is 2.5 or above f/u with surgery History of Present Illness Reason for Consultation: Mechanical aortic valve, cardiology optimization for surgery. Requesting Physician: [facility], Dr. Paddy Hdz MD Attending Physician: [facility], Dr. Paddy Hdz MD History of Present Illness Isaias Sylvester is a 34-year-old male who presented to the [facility] ER on September 03, 2025 with abdominal pain. Findings/imaging felt to be consistent with acute cholecystitis. Patient evaluated by General Surgery with plans for cholecystectomy on September 05, 2025. Cardiology consultation requested by hospitalist service for input regarding optimization prior to surgery. Patient last evaluated by [facility] in 2017. Patient transiently living in [place], [place]. History notable for a congenitally bicuspid aortic valve with severe aortic valve insufficiency status post aortic valve replacement by Dr. Sung at [facility], receiving a #23 SJM [employer] prosthesis on October 01, 2014. Patient prescribed chronic Coumadin anticoagulation with an INR goal of 2.5-3.5. 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 Patient denies chest pain or discomfort. Denies palpitations. Denies shortness of breath, orthopnea, or PND. Chronic stable mild lower extremity peripheral edema noted. No dizziness or syncope. No recent colds, fevers, or chills. Problem List: Congenitally bicuspid aortic valve, with severe aortic valve insufficiency, status post aortic valve replacement by Dr. Sung at [facility], receiving a #23 SJM mechanical prosthesis on October 01, 2014 Chronic Coumadin anticoagulation with an INR goal of 2.5-3.5 Noncompliance Embolic CVA, June 2017 Hospitalization in 2018 following syncopal episode with resultant orbital fract ure and subdural hematoma History of cranioplasty status post craniectomy History of seizures Migraine headaches Anxiety and depression Family History: Maternal grandmother with ischemic heart disease. Grandfather with history of aortic aneurysm per chart review. Social History: Chronic smokeless tobacco user. Prior cigarette reformed cigarette user having quit in July 2014. Social alcohol only, when out to [employer]. No illegal/illicit drug use. Resident of [facility]. Wheelchair. Allergies Allergy/AdvReac Type Severity Reaction Status Date / Time cephalexin Allergy Intermediate RASH-ITCHY Verified 01/20/19 00:47 fish derived Allergy Intermediate RASH-ITCHY Verified 01/20/19 00:47 indomethacin AdvReac Intermediate GI SYMPTOMS Verified 01/20/19 00:47 tramadol AdvReac Unknown UPSET Verified 01/20/19 00:47 STOMACH Home Medications Medication Instructions Recorded Confirmed Type amantadine HCl 100 mg capsule 100 mg PO DAILY 09/03/25 09/03/25 History baclofen 5 mg tablet 5 mg PO TID 09/03/25 09/03/25 History bisacodyl 10 mg rectal suppository 10 mg GA DAILY PRN Constipation 09/03/25 09/03/25 History (Dulcolax (bisacodyl)) buspirone 5 mg tablet 5 mg PO TID 09/03/25 09/03/25 History divalproex 250 mg tablet,delayed 250 mg PO TID 09/03/25 09/03/25 History release divalproex 500 mg tablet,delayed 500 mg PO DAILY 09/03/25 09/03/25 History release fluoxetine 40 mg capsule 80 mg PO DAILY 09/03/25 09/03/25 History furosemide 20 mg tablet 20 mg PO DAILY 09/03/25 09/03/25 History gabapentin 300 mg capsule 600 mg PO TID 09/03/25 09/03/25 History levetiracetam 750 mg tablet 750 mg PO BID 09/03/25 09/03/25 History mirtazapine 30 mg tablet 30 mg PO DAILY 09/03/25 09/03/25 History olanzapine 2.5 mg tablet 2.5 mg PO HS 09/03/25 09/03/25 History oxycodone 5 mg tablet 5 mg PO BID PRN Pain 09/03/25 09/03/25 History propranolol 40 mg tablet 40 mg PO BID 09/03/25 09/03/25 History sennosides 8.6 mg tablet (senna) 17.2 mg PO DAILY 09/03/25 09/03/25 History warfarin 5 mg tablet 5 mg PO DAILY 09/03/25 09/03/25 History Patient History Social History Smoking Status: Former smoker Tobacco Type: Smokeless Tobacco (Dip or Chew) Do You Dip or Chew Tobacco: Yes; Hx Alcohol Use: No Hx Substance Use: Yes Last Used Substance Other:: many years Preferred Language: Lithuanian Communication Ability: Effective Communication Ability Comment: unable to get thoughts out at times Ground Host/Hostess Required: No Beliefs That Will Affect Care: None Current Living Situation: Personal Care Facility Feels Safe at Home: Yes Assistive Devices: Glasses, Walker and Wheelchair Review of Systems Review of Systems: Complete Review of Systems is as stated above, negative, or noncontributory. Physical Exam Physical Exam: General: No acute distress. Pleasant. Comfortable. Cooperative. HENT: Normocephalic. Atraumatic. Eyes: PER. Conjunctiva pink, sclera clear. Neck: No carotid bruits. No JVD. Heart: Regular, 80 bpm. [place] mechanical valve sounds heard best at the lower left sternal border. No murmur appreciated. Lungs: Clear to auscultation. Abdomen: +BS. Soft. No organomegaly. Extremities: Mild pretibial edema. No cyanosis Neuro: Delayed verbal response. Pulses: Posterior tibial=1/4. Results & Data Vital Signs (Past 12 Hours) Vital Signs Temp Pulse Resp BP Pulse Ox O2 Del Method 09/03/25 14:50 77 18 128/92 95 Room Air 09/03/25 09:38 77 18 142/97 H 93 Room Air 09/03/25 08:12 80 18 149/103 H 96 Room Air 09/03/25 06:21 69 20 137/89 93 Room Air 09/03/25 04:00 36.6 C 63 20 130/76 95 Room Air Laboratory Results Cardiac Enzymes 09/02/25 Range/Units 23:21 AST 25 (13-39) U/L Coagulation 09/03/25 Range/Units 04:46 PT 33.3 H (9.0-12.0) Seconds APTT 43 H (21-31) Seconds CBC 09/02/25 Range/Units 23:21 WBC 6.51 (4.8-10.8) K/ul RBC 5.16 (4.70-6.10) M/uL Hgb 14.5 (14.0-18.0) g/dl Hct 43.0 (42.0-52.0) % Plt Count 231 (130-400) K/uL Neut # (Auto) 3.48 (1.40-6.50) K/uL Lymph # (Auto) 1.66 (1.20-3.40) K/uL [place] # (Auto) 0.64 H (0.11-0.59) K/uL Eos # (Auto) 0.64 H (0.00-0.50) K/uL Baso # (Auto) 0.05 (0.00-0.20) K/uL Comprehensive Metabolic Panel 10/23/25 Range/Units 23:21 Sodium 137 (136-145) mmol/L Potassium 4.2 (3.5-5.1) mmol/L Chloride 103 (98-107) mmol/L Carbon Dioxide 26 (21-32) mmol/L BUN 12 (6-23) mg/dl Creatinine 0.83 (0.6-1.4) mg/dl Glucose 191 H (70-99(Fasting)) mg/dl Calcium 9.3 (8.6-10.3) mg/dl AST 25 (13-39) U/L ALT 27 (7-52) U/L Alkaline Phosphatase 70 (34-104) U/L Total Protein 7.2 (6.0-8.3) gm/dl Albumin 3.9 (3.4-5.0) gm/dl Intake and Output 09/03/25 09/03/25 09/03/25 06:59 14:59 22:59 Intake Total 1200 / 1200 100 / 100 Balance 1200 / 1200 100 / 100 Intake: IV 1200 / 1200 100 / 100 Acetaminophen 1,000 mg In 100 100 / 100 ml @ 400 mls/hr IV NOW STA Rx#: [id number] Piperacillin/Tazobactam 4.5 gm 100 / 100 100 / 100 In 100 ml @ 25 mls/hr IV Q8H [facility] Rx#:[id number] Sodium Chloride 0.9% 1,000 ml @ 1000 / 1000 999 mls/hr IV .Q1H1M STA Rx#: [id number] Other: Weight 105.4 kg Weight Measurement Method Built in [facility] Diagnostic Findings Chest x-ray, chest CT, gallbladder ultrasound, and hepatobiliary scan reviewed ER Telemetry: Sinus throughout, currently 86 bpm. Medications Administered Home Medications Medication Instructions Recorded Confirmed Last Taken amantadine HCl 100 mg capsule 100 mg PO DAILY 09/03/25 09/03/25 Unknown baclofen 5 mg tablet 5 mg PO TID 09/03/25 09/03/25 Unknown bisacodyl 10 mg rectal suppository 10 mg GA DAILY PRN Constipation 09/03/25 09/03/25 Unknown (Dulcolax (bisacodyl)) buspirone 5 mg tablet 5 mg PO TID 09/03/25 09/03/25 Unknown divalproex 250 mg tablet,delayed 250 mg PO TID 09/03/25 09/03/25 Unknown release divalproex 500 mg tablet,delayed 500 mg PO DAILY 09/03/25 09/03/25 Unknown release fluoxetine 40 mg capsule 80 mg PO DAILY 09/03/25 09/03/25 Unknown furosemide 20 mg tablet 20 mg PO DAILY 09/03/25 09/03/25 Unknown gabapentin 300 mg capsule 600 mg PO TID 09/03/25 09/03/25 Unknown levetiracetam 750 mg tablet 750 mg PO BID 09/03/25 09/03/25 Unknown mirtazapine 30 mg tablet 30 mg PO DAILY 09/03/25 09/03/25 Unknown olanzapine 2.5 mg tablet 2.5 mg PO HS 09/03/25 09/03/25 Unknown oxycodone 5 mg tablet 5 mg PO BID PRN Pain 09/03/25 09/03/25 Unknown propranolol 40 mg tablet 40 mg PO BID 09/03/25 09/03/25 Unknown sennosides 8.6 mg tablet (senna) 17.2 mg PO DAILY 09/03/25 09/03/25 Unknown warfarin 5 mg tablet 5 mg PO DAILY 09/03/25 09/03/25 Unknown Active Medications Generic Name Dose Route Start Last Admin Trade Name Freq PRN Reason Stop Dose Admin Amantadine HCl 100 mg 09/03/25 09:00 09/03/25 08:45 Amantadine Hcl 100 Mg Capsule PO 10/03/25 08:59 100 mg DAILY BETTY Administration Baclofen 5 mg 09/03/25 09:00 09/03/25 14:57 Baclofen 10 Mg Tab PO 10/03/25 08:59 5 mg TID BETTY Administration Buspirone HCl 5 mg 09/03/25 09:00 09/03/25 14:58 Buspirone 5 Mg Tab PO 10/03/25 08:59 5 mg TID BETTY Administration Divalproex Sodium 250 mg 09/03/25 09:00 09/03/25 14:58 Divalproex Delay Release 250 Mg Tabec PO 10/03/25 08:59 250 mg TID BETTY Administration Divalproex Sodium 500 mg 09/03/25 09:00 09/03/25 08:48 Divalproex Delay Release 500 Mg Tab PO 10/03/25 08:59 500 mg DAILY BETTY Administration Fluoxetine HCl 80 mg 09/03/25 09:00 09/03/25 08:49 Fluoxetine Hcl 20 Mg Cap PO 10/03/25 08:59 80 mg DAILY BETTY Administration Furosemide 20 mg 09/03/25 09:00 09/03/25 08:50 Furosemide 20 Mg Tab PO 10/03/25 08:59 20 mg DAILY BETTY Administration Gabapentin 600 mg 09/03/25 09:00 09/03/25 14:58 Gabapentin 300 Mg Cap PO 10/03/25 08:59 600 mg TID BETTY Administration Hydromorphone HCl 0.25 mg 09/03/25 06:12 09/03/25 15:08 Hydromorphone Inj 0.5 Mg/0.5 Ml Syr IV 09/17/25 06:11 0.25 mg Q4H PRN Administration Moderate Pain (Scale 4, 5, 6) Piperacillin Sod/Tazobactam Sod 4.5 gm in 100 mls @ 25 mls/hr 09/03/25 10:00 09/03/25 18:21 Zosyn IV 09/13/25 09:59 25 mls/hr Q8H BETTY Administration Protocol Levetiracetam 750 mg 09/03/25 09:00 09/03/25 08:50 Levetiracetam 250 Mg Tab PO 10/03/25 08:59 750 mg BID BETTY Administration Mirtazapine 30 mg 09/03/25 09:00 09/03/25 08:52 Mirtazapine Tab 15 Mg Tab PO 10/03/25 08:59 30 mg DAILY BETTY Administration Propranolol HCl 40 mg 09/03/25 09:00 09/03/25 08:52 Propranolol Hcl 20 Mg Tab PO 10/03/25 08:59 40 mg BID BETTY Administration Sennosides 17.2 mg 09/03/25 09:00 09/03/25 08:57 Senna 8.6 Mg Tab PO 10/03/25 08:59 Not Given DAILY BETTY PG Care Time/CCT Total # of Minutes Spent Total Time Spent with Patient: Total time spent is greater than 50% in coordination of care (as documented) at patient's floor/unit and/or counseling patient. I spent a total of 57 minutes on the date of service in preparation, delivery, and documentation of the care provided to this patient excluding any time spent in the performance of separately billed services. This visit was a split-shared visit with the substantive portion of the medical decision making performed by the supervising rocket assembly operator/billing provider, Dr. Lazo Coding Level of Care Code 10594 IN/OBS CONSULT LVL 4,60M Diagnoses Biliary colic K80.50 Preoperative cardiovascular examination Z01.810 History of mechanical aortic valve replacement Z95.2 Anticoagulated on Coumadin Z79.01
--- NOTE | 2025-09-03 17:21 | XCELERA ---
[id number]
[2025-09-03] MEDS: OLANZAPINE 2.5 MG TAB PO SCH (20:54)
[2025-09-04 05:54] LABS: Hematocrit (blood only) 41.3 % (42.0-52.0); Hemoglobin 14.0 g/dl (14.0-18.0); Immature Granulocytes # (auto) 0.03 K/uL (0.01-0.20); Immature Granulocytes % (auto) 0.4 %; Mean Corpuscular Hemoglobin 27.9 pg (25.0-34.0); Mean Corpuscular Volume 82.4 fL (80.0-100.0); Platelet Count 201 K/uL (130-400); RDW Standard Deviation 47.7 fL (36.4-46.3); Red Blood Count 5.01 M/uL (4.70-6.10); White Blood Count 7.03 K/ul (4.8-10.8)
[2025-09-04 06:17] LABS: Anion Gap 8.0 (3-11); Blood Urea Nitrogen 10.0 mg/dl (6-23); Calcium 8.5 mg/dl (8.6-10.3); Carbon Dioxide 27.0 mmol/L (21-32); Chloride 102.0 mmol/L (98-107); Creatinine Clr Calc Pharmacy 136.9 ml/min; Glucose 159.0 mg/dl (70-99(Fasting)); Magnesium 2.0 mg/dl (1.7-2.4); Potassium 3.7 mmol/L (3.5-5.1); Sodium 137.0 mmol/L (136-145)
[2025-09-04 06:48] LABS: INR 3.0 (0.9-1.1); Prothrombin Time 29.5 Seconds (9.0-12.0)
--- NOTE | 2025-09-04 10:33 | Surgery Progress Note ---
Date of Service September 04, 2025 Assessment & Plan (1) Biliary colic: Plan: Cardiology and medicine notes were reviewed Discussed with medicine as for his elevated INR They like to have this drift down and bridge to heparin drip prior to surgery It does not look as though this will happen by tomorrow, we will plan tentatively on a laparoscopic cholecystectomy, possible open on Saturday pending his INR He can have a diet from our standpoint, low-fat Will follow (2) Anticoagulated on Coumadin: Admission and Anticipated Discharge Date Admission Date: September 03, 2025 Subjective Patient seen and examined. Still with abdominal pain in the upper abdomen. Afebrile. He is tolerating diet. No nausea or vomiting. Review of Systems Constitutional: no fever and no chills Respiratory: no cough and no dyspnea Cardiovascular: no chest pain and no dyspnea on exertion Gastrointestinal: + abdominal pain; no nausea and no vomit ing Genitourinary: no dysuria or no nocturia Integumentary: no acne, no sores and no dry skin Psychiatric: no behavioral changes and no depression Hematologic / Lymphatic: no easy bleeding and no easy bruising Physical Exam Constitutional: WD/WN, vitals as above Respiratory: normal respiratory effort, lungs clear to auscultation Cardiovascular: RRR, no murmur, no edema Gastrointestinal (Abdomen): Inspection/Auscultation: abdomen normal to inspection; abdomen not distended Percussion/Palpation: + abdomen tender (Right upper quadrant) and abdomen soft; no guarding and no hernia Musculoskeletal: no cyanosis or clubbing, extremities motor strength 5/5 Skin: no rashes, warm and dry Psychiatric: A+Ox3, euthymic affect Results & Data Vital Signs (Past 12 Hours) Vital Signs Temp Pulse Resp BP Pulse Ox O2 Del Method 09/04/25 07:35 36.6 C 71 16 100/65 92 Room Air PG Care Time/CCT Total # of Minutes Spent Total Time Spent with Patient: Total time spent is greater than 50% in coordination of care (as documented) at patient's floor/unit and/or counseling patient: Coding Level of Care Code 36265 SUB INP/OBS CARE 12/05MIN Diagnoses Biliary colic K80.50 Anticoagulated on Coumadin Z79.01
--- NOTE | 2025-09-04 11:19 | Hospitalist Progress Note ---
Date of Service September 04, 2025 Assessment & Plan (1) Abdominal pain, acute: Plan: 34-year-old male with history of aortic valve stenosis, mechanical aortic valve replacement on warfarin, history of embolic stroke about 8-9 years ago and wheelchair-bound and history of cranioplasty status post craniectomy, history of seizures, history of migraine, anxiety, depression, neuropathy coming from [facility] for [facility]. Assessment/Plan Acute cholecystitis Hx of mechanical aortic valve on coumadin Hx of CVA with right sided weakness Patient presented with abdominal pain, nausea HIDA scan positive for Acute cholecystitis Echocardiogram shows normal EF; prosthetic aortic valve is well-seated. Patient's INR is 3.0 today; discussed with cardiologybest to avoid vitamin K if nonurgent given risks of thrombosis. Will continue to hold Coumadin; plan to start heparin drip if INR is less than 2.5. Possibly surgery on Saturday/Saturday depending on INR. Continue on low-fat diet and IV antibiotics Possible Pneumonia Chest CT shows multiple patchy ill-defined ground glass opacities with adjacent atelectatic bands in bilateral lower lobe, nodular glass/opacities in the left lingula. Patient denies any fever, cough, shortness of breath to suggest pneumonia Currently on Zosyn; will need follow-up CT chest in 4 to 6 weeks to ensure resolution. History of seizures on Divalproex and Keppra-continue Depression On fluoxetine, Remeron and olanzapine-continue Migraines Propranolol-continue Anxiety On buspirone-continue Chronic pain On oxycodone as needed Polyneuropathy On gabapentin-continue History of trigeminal neuralgia On baclofen-continue Lower extremity edema On Lasix-continue DVT prophylaxis-Coumadin Disposition-Medical floor CODE STATUS DNR/DNI Time spent evaluating patient, direct bedside care, chart review, placing orders, interpretation of diagnostic studies, discussion with consultants, patient, and family members, as well as other required patient management activities is 50 minutes Please note the above document was generated using voice recognition software. It may contain grammatical, syntax or spelling errors. Any formal questions or concerns about the content, text or information contained within the body of this dictation should be directly addressed to the provider for clarification Admission and Anticipated Discharge Date Admission Date: September 03, 2025 Subjective Patient seen and examined at bedside. He is comfortable; denies any discomfort. Reports pain intermittently. Afebrile overnight Review of Systems Review of Systems: All systems reviewed & are unremarkable except as noted in Subjective Physical Exam Physical Exam: Constitutional: WD/WN, vitals as above, NAD, sitting up in bed, pleasant, conversing easily Respiratory: normal respiratory effort, lungs clear to auscultation, no wheeze, rales, rhonchi. Normal insp/exp effort, no accessory muscle use Cardiovascular: RRR, systlic murmur, no edema Vessels: no JVD or carotid bruit Chest: normal inspection of chest Abdomen: mild tenderness in epigastric/RUQ Skin: no rashes, warm and dry normal turgor Neurologic: PERRL, EOMI, accommodation nl. right hemiparesis +nt Psychiatric: A+Ox3, euthymic affect Results & Data Results & Data Vital Signs (Past 12 Hours) Vital Signs Temp Pulse Resp BP Pulse Ox O2 Del Method 09/04/25 07:35 36.6 C 71 16 100/65 92 Room Air
--- NOTE | 2025-09-04 16:56 | Electrocardiogram Report ---
Test Reason : Blood Pressure : */* mmHG Vent. Rate : 81 BPM Atrial Rate : 81 BPM P-R Int : 194 ms QRS Dur : 88 ms QT Int : 378 ms P-R-T Axes : 31 -22 78 degrees QTcB Int : 439 ms Normal sinus rhythm Possible Left atrial enlargement Abnormal ECG When compared with ECG of 04-Jun-2018 13:19, Questionable change in QRS axis Nonspecific T wave abnormality now evident in Anterior leads Confirmed by Mahad Santana ([id number]) on 09/04/2025 4:56:26 PM Referred By: Maddison Devries Confirmed By: Mahad Santana
--- NOTE | 2025-09-04 17:36 | Cardiology Progress Note ---
Date of Service September 04, 2025 Assessment & Plan (1) Biliary colic: (2) Preoperative cardiovascular examination: (3) History of mechanical aortic valve replacement: (4) Anticoagulated on Coumadin: Plan 34-year-old male referred for preoperative cardiology evaluation prior to cholecystectomy after presenting to the [facility] ER with acute abdominal pain, biliary colic. Patient without recent cardiac evaluation, without new or worsening cardiac symptoms, and without recent cardiac intervention. Estimated risk of major adverse cardiac events is moderate. Functional capacity is less than 4 METS. EKG requested. Resting echocardiography requested, to evaluate valve status and function. Further cardiac testing will not likely influence management. As long as the EKG and resting echocardiography are acceptable, I see no overt cardiac contraindications to a necessary procedure. Patient is high risk for thromboembolism noting the mechanical valve and history of CVA. Limit time off of proper anticoagulation. Recommend weight based heparin bridging when INR falls below 2.5. Recommend resumption of heparin postoperatively as soon as determined to be safe, transitioning back to prior Coumadin anticoagualation. INR goal is 2.5 to 3.5. A DOAC should not be used. Continue beta-mary therapy without perioperative interruption. Hold diuretic morning of procedure. 09/03/25 ECHO Interpretation Summary Left ventricular systolic function is normal. Left Ventricular Ejection Fraction = 60-65%. There is a mechanical aortic valve. The prosthetic aortic valve is well-seated. Mild pulmonic valvular regurgitation. There is trace mitral regurgitation. There is mild tricuspid regurgitation. Preop Cardiology evaluation Biliary Colic h/o Mechanical AVR patient is cleared with no absolute contraindication from cardiac standpoint for possible cholecystectomy Hold Coumadin -> start IV Heparin when INR is less than 2.5 -> hold IV heparin 4 hrs prior to surgery and restart as soon as ok from surgeon post-op and transition to Coumadin for a therapeutic INR of 2.5 to 3.5; DC Heparin when INR is 2.5 or above f/u with surgery Admission and Anticipated Discharge Date Admission Date: September 03, 2025 Subjective Patient on exam is lying in bed in NAD; no c/o cp, sob, palpitations, dizziness, LOC, cough, fever, nausea, vomiting, abdominal pain, urinary or bowel problem problems Review of Systems Review of Systems: Complete Review of Systems is as stated above, negative, or noncontributory. Physical Exam Physical Exam: General: No acute distress. Pleasant. Comfortable. Cooperative. HENT: Normocephalic. Atraumatic. Eyes: Conjunctiva pink, sclera clear. Neck: No carotid bruits. No JVD. Heart: Regular, [place] mechanical valve sounds heard best at the lower left sternal border. No murmur appreciated. Lungs: Clear to auscultation. Abdomen: +BS. Soft. No organomegaly. Extremities: Mild pretibial edema. No cyanosis Neuro: Delayed verbal response. Results & Data Vital Signs (Past 12 Hours) Vital Signs Temp Pulse Resp BP Pulse Ox O2 Del Method 09/04/25 15:53 36.7 C 87 16 122/77 91 Room Air 09/04/25 07:35 36.6 C 71 16 100/65 92 Room Air Laboratory Results Laboratory Results - last 48 hr 09/02/25 09/03/25 09/03/25 23:21 01:14 04:46 WBC 6.51 RBC 5.16 Hgb 14.5 Hct 43.0 MCV 83.3 MCH 28.1 MCHC 33.7 RDW Std Deviation 47.1 H RDW Coeff of Brittney 15.6 H Plt Count 231 MPV 9.6 Immature Gran % (Auto) 0.6 Neut % (Auto) 53.5 Lymph % (Auto) 25.5 [place] % (Auto) 9.8 Eos % (Auto) 9.8 Baso % (Auto) 0.8 Neut # (Auto) 3.48 Lymph # (Auto) 1.66 [place] # (Auto) 0.64 H Eos # (Auto) 0.64 H Baso # (Auto) 0.05 Immature Gran # (Auto) 0.04 PT 33.3 H INR 3.4 H APTT 43 H PTT Ratio 1.6 Sodium 137 Potassium 4.2 Chloride 103 Carbon Dioxide 26 Anion Gap 8 BUN 12 Creatinine 0.83 Est Cr Clr Drug Dosing 140.2 eGFR 117.78 BUN/Creatinine Ratio 14.5 Glucose 191 H Calcium 9.3 Magnesium Total Bilirubin 0.4 AST 25 ALT 27 Alkaline Phosphatase 70 Total Protein 7.2 Albumin 3.9 Globulin 3.3 Albumin/Globulin Ratio 1.2 Lipase 53 Urine Color Yellow Urine Appearance Clear Urine pH 6.5 Ur Specific [place] 1.016 Urine Protein Negative Urine Glucose (UA) Negative Urine Ketones Negative Urine Blood Negative Urine Nitrite Negative Urine Bilirubin Negative Urine Urobilinogen Negative Ur Leukocyte Esterase Negative Urine Comment 10/25/25 05:28 WBC 7.03 RBC 5.01 Hgb 14.0 Hct 41.3 L MCV 82.4 MCH 27.9 MCHC 33.9 RDW Std Deviation 47.7 H RDW Coeff of Brittney 15.9 H Plt Count 201 MPV 9.7 Immature Gran % (Auto) 0.4 Neut % (Auto) 55.8 Lymph % (Auto) 24.5 [place] % (Auto) 12.5 Eos % (Auto) 6.7 Baso % (Auto) 0.1 Neut # (Auto) 3.92 Lymph # (Auto) 1.72 [place] # (Auto) 0.88 H Eos # (Auto) 0.47 Baso # (Auto) 0.01 Immature Gran # (Auto) 0.03 PT 29.5 H INR 3.0 H APTT PTT Ratio Sodium 137 Potassium 3.7 Chloride 102 Carbon Dioxide 27 Anion Gap 8 BUN 10 Creatinine 0.85 Est Cr Clr Drug Dosing 136.9 eGFR 116.94 BUN/Creatinine Ratio 11.8 Glucose 159 H Calcium 8.5 L Magnesium 2.0 Total Bilirubin AST ALT Alkaline Phosphatase Total Protein Albumin Globulin Albumin/Globulin Ratio Lipase Urine Color Urine Appearance Urine pH Ur Specific [place] Urine Protein Urine Glucose (UA) Urine Ketones Urine Blood Urine Nitrite Urine Bilirubin Urine Urobilinogen Ur Leukocyte Esterase Urine Comment Diagnostic Findings Laboratory Results WBC 7.03 K/ul (4.8-10.8) 09/04/25 05:28 RBC 5.01 M/uL (4.70-6.10) 09/04/25 05:28 Hgb 14.0 g/dl (14.0-18.0) 09/04/25 05:28 Hct 41.3 % (42.0-52.0) L 09/04/25 05:28 MCV 82.4 fL (80.0-100.0) 09/04/25 05:28 MCH 27.9 pg (25.0-34.0) 09/04/25 05:28 MCHC 33.9 g/dL (32.0-36.0) 09/04/25 05:28 RDW Std Deviation 47.7 fL (36.4-46.3) H 09/04/25 05:28 RDW Coeff of Brittney 15.9 % (11.5-14.5) H 09/04/25 05:28 Plt Count 201 K/uL (130-400) 09/04/25 05:28 MPV 9.7 fL (9.4-12.4) 09/04/25 05:28 Immature Gran % (Auto) 0.4 % 09/04/25 05:28 Neut % (Auto) 55.8 % 09/04/25 05:28 Lymph % (Auto) 24.5 % 09/04/25 05:28 [place] % (Auto) 12.5 % 09/04/25 05:28 Eos % (Auto) 6.7 % 09/04/25 05:28 Baso % (Auto) 0.1 % 09/04/25 05:28 Neut # (Auto) 3.92 K/uL (1.40-6.50) 09/04/25 05:28 Lymph # (Auto) 1.72 K/uL (1.20-3.40) 09/04/25 05:28 [place] # (Auto) 0.88 K/uL (0.11-0.59) H 09/04/25 05:28 Eos # (Auto) 0.47 K/uL (0.00-0.50) 09/04/25 05:28 Baso # (Auto) 0.01 K/uL (0.00-0.20) 09/04/25 05:28 Immature Gran # (Auto) 0.03 K/uL (0.01-0.20) 09/04/25 05:28 PT 29.5 Seconds (9.0-12.0) H 09/04/25 05:28 INR 3.0 (0.9-1.1) H 09/04/25 05:28 APTT 43 Seconds (21-31) H 09/03/25 04:46 PTT Ratio 1.6 09/03/25 04:46 Sodium 137 mmol/L (136-145) 09/04/25 05:28 Potassium 3.7 mmol/L (3.5-5.1) 09/04/25 05:28 Chloride 102 mmol/L (98-107) 09/04/25 05:28 Carbon Dioxide 27 mmol/L (21-32) 09/04/25 05:28 Anion Gap 8 (3-11) 09/04/25 05:28 BUN 10 mg/dl (6-23) 09/04/25 05:28 Creatinine 0.85 mg/dl (0.6-1.4) 09/04/25 05:28 Est Cr Clr Drug Dosing 136.9 ml/min 09/04/25 05:28 eGFR 116.94 09/04/25 05:28 BUN/Creatinine Ratio 11.8 (10-20) 09/04/25 05:28 Glucose 159 mg/dl (70-99(Fasting)) H 09/04/25 05:28 Calcium 8.5 mg/dl (8.6-10.3) L 09/04/25 05:28 Magnesium 2.0 mg/dl (1.7-2.4) 09/04/25 05:28 Total Bilirubin 0.4 mg/dl (0.2-1.0) 09/02/25 23:21 AST 25 U/L (13-39) 09/02/25 23:21 ALT 27 U/L (7-52) 09/02/25 23:21 Alkaline Phosphatase 70 U/L (34-104) 09/02/25 23:21 Total Protein 7.2 gm/dl (6.0-8.3) 09/02/25 23:21 Albumin 3.9 gm/dl (3.4-5.0) 09/02/25 23:21 Globulin 3.3 gm/dl (2.5-4.0) 09/02/25 23:21 Albumin/Globulin Ratio 1.2 (0.9-2) 09/02/25 23:21 Lipase 53 U/L (11-82) 09/02/25 23:21 Urine Color Yellow 09/03/25 01:14 Urine Appearance Clear (Clear) 09/03/25 01:14 Urine pH 6.5 (4.5-7.5) 09/03/25 01:14 Ur Specific [place] 1.016 (1.000-1.030) 09/03/25 01:14 Urine Protein Negative (Negative) 09/03/25 01:14 Urine Glucose (UA) Negative (Negative) 09/03/25 01:14 Urine Ketones Negative (Negative) 09/03/25 01:14 Urine Blood Negative (Negative) 09/03/25 01:14 Urine Nitrite Negative (Negative) 09/03/25 01:14 Urine Bilirubin Negative (Negative) 09/03/25 01:14 Urine Urobilinogen Negative (Negative) 09/03/25 01:14 Ur Leukocyte Esterase Negative (Negative) 09/03/25 01:14 Urine Comment 09/03/25 01:14 Impressions Abdomen/Pelvis CT 09/02/25 23:38 EXAM: CT abd pelvis IV con only CLINICAL HISTORY: mid abd pain, hx cva TECHNIQUE: Contrast-enhanced CT of the abdomen and pelvis was performed with the following protocol: axial images with, and reconstructed coronal and sagittal images. Intravenous contrast was administered. One of the following dose reduction techniques was utilized for this exam: automated exposure control, adjustment of the mA and/or kV according to patient size, and use of iterative reconstruction. COMPARISON: No prior studies for comparison. FINDINGS: Abdomen: Liver: The liver is normal in size, shape, and density. No focal lesions, cysts, or masses are identified. The hepatic vasculature and biliary ducts are unremarkable. Gallbladder and Biliary System: The gallbladder is mildly dilated, measuring 10.5 x 3.8 cm. Ultrasound assessment is recommended. No wall thickening, pericholecystic fluid, or calcific gallstones are identified. The common bile duct is normal in caliber without dilation. Pancreas: The pancreatic head, body, and tail are visualized and appear normal in size and density. No pancreatic masses or calcifications are noted. The pancreatic duct is not dilated. Spleen: The spleen is normal in size, shape, and density. No splenic lesions or masses are identified. A small splenule is seen, measuring 15 mm. Appendix: The appendix is normal in size, without ronn-appendiceal fat stranding and without an appendicolith. There is no evidence of appendiceal abscess or perforation. Kidneys and Adrenal Glands: Both kidneys are normal in size, shape, and position. Cortical thickness is within normal limits. There are no renal calculi or hydronephrosis. The adrenal glands are unremarkable, with no evidence of masses or hyperplasia. Pelvis: Urinary Bladder: The urinary bladder appears partially contracted at the time of the study, with mild wall thickening, raising the possibility of cystitis. Clinical and laboratory correlation is recommended. No intraluminal lesions are identified. Prostate: The prostate is normal in size and contour. No focal lesions or masses are identified. Seminal Vesicles: The seminal vesicles are normal in size and appearance. No abnormalities are noted. Peritoneal and Retroperitoneal Structures: No free fluid or abnormal fluid collections are identified within the abdomen or pelvis. No lymphadenopathy is noted. Bowel: The visualized bowel loops are normal in caliber and appearance. There is no evidence of bowel obstruction or wall thickening. Bones and Soft Tissues: The pelvic bones and soft tissues are unremarkable. No fractures or abnormal masses are identified. A Schmorl's node is seen at the superior endplate of L4. Basal chest scans: Patchy ground-glass densities are noted in the basal lung regions, more prominent on the left side. These findings may represent pulmonary congestion; however, an associated infective process cannot be excluded. Clinical correlation and, if clinically indicated, a dedicated CT chest evaluation are recommended. Sternotomy sutures and an artificial aortic valve are seen. IMPRESSION: Patchy ground-glass densities are noted in the basal lung regions, more prominent on the left side. These findings may represent pulmonary congestion; however, an associated infective process cannot be excluded. Clinical correlation and, if clinically indicated, a dedicated CT chest evaluation are recommended. The gallbladder is mildly dilated, measuring 10.5 x 3.8 cm; however, there is no pericholecystic fluid or fat stranding. Ultrasound assessment is recommended. The urinary bladder appears partially contracted at the time of the study, with mild wall thickening, raising the possibility of cystitis. Clinical and laboratory correlation is recommended. No definite or obvious acute abnormality is identified within the abdomen. Electronically signed by Ezra Jha 09-03-2025 02:13 AM Chest X-Ray 09/03/25 02:46 EXAM: XR chest 1V portable CLINICAL HISTORY: cough TECHNIQUE: Radiograph of the chest was acquired. 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 Cardiomegaly is present. Ill-defined ground-glass haze is noted in the left lower zone, which appears to be due to projectional changes. The remainder of both lungs is clear, with no pulmonary infiltrate or pleural effusion. No acute osseous abnormality is identified. Cardiac valve-stable. IMPRESSION: Sternal suture is noted. Cardiomegaly, increased in size as compared to prior. Ill-defined ground-glass haze is noted in the left lower zone, which appears to be due to projectional changes. Advised follow up. Electronically signed by Jeronimo Roy 09-03-2025 05:22 AM Gallbladder Ultrasound 09/03/25 02:46 EXAM: US gallbladder CLINICAL HISTORY: abd pain TECHNIQUE: Limited ultrasound of the liver and gallbladder was performed in grayscale and Doppler. Multiple images were obtained in the transverse and longitudinal planes. COMPARISON: No prior studies are available for comparison. FINDINGS: Liver: Liver size: The liver measures 17.6 cm in length. The liver appears enlarged in size, with echogenic texture and geographic hypoechoic areas of fat sparing observed. There is no evidence of focal lesions, cysts, or masses. The hepatic vasculature appears normal. Gallbladder: Gallbladder size: The gallbladder is visualized and appears mildly distended (measures 10 x 4 cm, longitudinal x transverse). A cluster of small echogenic foci is seen in the neck and dependent portions, which is suggestive of small calculi with sludge present. The wall measures 1.6 mm according to the provided measurements, with measurement in other images reaching 3.6 mm. No pericholecystic fluid is noted. There is no evidence of gallbladder wall edema or signs of acute cholecystitis. Negative sonographic Nicholson sign Biliary Tree: Common bile duct diameter: 3.8 mm. The common bile duct is within normal limits in caliber and is not dilated. There is no evidence of choledocholithiasis or biliary obstruction. Right kidney: No hydronephrosis is present. The sonographic features are unremarkable. IMPRESSION: The gallbladder appears mildly distended with possible wall thickening and layering sludge/calculi seen. There is no Nicholson sign, wall edema, or pericholecystic fluid. The possibility of early cholecystitis cannot be entirely ruled out. Clinical correlation and, if needed, follow-up are advised. Enlarged liver with moderate steatosis and an area of fat sparing seen adjacent to the gallbladder. Electronically signed by Ezra Jha 09-03-2025 04:[address] 09/03/25 05:50 EXAM: CT chest diagnostic wo con CLINICAL HISTORY: opacities in lung bases? on ct abd/pelvis TECHNIQUE: Contiguous axial images were obtained from the base of the neck through the upper abdomen without contrast. In addition, sagittal and coronal reconstructions were performed to potentially increase the sensitivity for the detection of disease. CT scan was performed according to ALARA (as low as reasonably achievable). COMPARISON: 23:45:44 CON[employer]ENCE AND EVENT [employer]GANISER. FINDINGS: Multiple patchy, ill-defined ground-glass opacities with adjacent atelectatic bands are noted in the bilateral lower lobes, with nodular ground glass opacities seen in left lingula. The remainder of both lungs is clear. The central airways are patent. There are no pleural effusions. No pneumothorax is seen. Evaluation of the mediastinum and analilia is limited due to the lack of intravenous contrast. No axillary or mediastinal adenopathy is identified. The thyroid is unremarkable. The heart, aorta, and pulmonary arteries are of normal size and configuration. There are coronary artery and aortic atherosclerotic calcifications. No pericardial effusion is identified. Imaged portions of the upper abdomen are unremarkable. No aggressive appearing osseous lesions are identified. IMPRESSION: Multiple patchy, ill-defined ground-glass opacities with adjacent atelectatic bands are noted in the bilateral lower lobes, with nodular ground glass opacities seen in left lingula. These findings are possibly sequelae of a recent infection and represent a new finding. No other new interval abnormality is noted since the prior study. Electronically signed by Jeronimo Roy 09-03-2025 06:39 AM Hepatobiliary Scan Nuclear Medicine 09/03/25 07:18 NUCLEAR MEDICINE HEPATOBILIARY SCAN CLINICAL HISTORY: Biliary colic. Distended gallbladder. COMPARISON: CT scan dated 09/03/2025 TECHNIQUE: 5 mCi of technetium 99m Choletec IV was injected at 10:45 AM. Immediately following injection, imaging of the abdomen was carried out for 60 minutes in the anterior projection. FINDINGS: Hepatic uptake of radiotracer is prompt and homogeneous. Radiotracer activity is identified within the common bile duct at 10 minutes, and small bowel at 20 minutes. There is normal distribution of radiotracer. The gallbladder was not visualized on images out to 60 minutes. At this point tiny patient was administered 2 mg of intravenous morphine. Images from an additional 30 minutes were obtained. The gallbladder was never visualized. IMPRESSION: 1. Nonvisualization of the gallbladder. This is indirect evidence of cystic duct obstruction. 2. It should be noted that false positive HIDA scans can occur in severe liver disease, pancreatitis, and gallbladder motility abnormalities. ACT 112: Negative or not required by law. Electronically signed by: Tomi Tyler M.D. 09/03/2025 12:56 PM Medications Administered Home Medications Medication Instructions Recorded Confirmed Last Taken amantadine HCl 100 mg capsule 100 mg PO DAILY 09/03/25 09/03/25 Unknown baclofen 5 mg tablet 5 mg PO TID 09/03/25 09/03/25 Unknown bisacodyl 10 mg rectal suppository 10 mg IA DAILY PRN Constipation 09/03/25 09/03/25 Unknown (Dulcolax (bisacodyl)) buspirone 5 mg tablet 5 mg PO TID 09/03/25 09/03/25 Unknown divalproex 250 mg tablet,delayed 250 mg PO TID 09/03/25 09/03/25 Unknown release divalproex 500 mg tablet,delayed 500 mg PO DAILY 09/03/25 09/03/25 Unknown release fluoxetine 40 mg capsule 80 mg PO DAILY 09/03/25 09/03/25 Unknown furosemide 20 mg tablet 20 mg PO DAILY 09/03/25 09/03/25 Unknown gabapentin 300 mg capsule 600 mg PO TID 09/03/25 09/03/25 Unknown levetiracetam 750 mg tablet 750 mg PO BID 09/03/25 09/03/25 Unknown mirtazapine 30 mg tablet 30 mg PO DAILY 09/03/25 09/03/25 Unknown olanzapine 2.5 mg tablet 2.5 mg PO HS 09/03/25 09/03/25 Unknown oxycodone 5 mg tablet 5 mg PO BID PRN Pain 09/03/25 09/03/25 Unknown propranolol 40 mg tablet 40 mg PO BID 09/03/25 09/03/25 Unknown sennosides 8.6 mg tablet (senna) 17.2 mg PO DAILY 09/03/25 09/03/25 Unknown warfarin 5 mg tablet 5 mg PO DAILY 09/03/25 09/03/25 Unknown Active Medications Generic Name Dose Route Start Last Admin Trade Name Joseq PRN Reason Stop Dose Admin Amantadine HCl 100 mg 09/03/25 09:00 09/04/25 07:49 Amantadine Hcl 100 Mg Capsule PO 10/03/25 08:59 100 mg DAILY BETTY Administration Baclofen 5 mg 09/03/25 09:00 09/04/25 14:06 Baclofen 10 Mg Tab PO 10/03/25 08:59 5 mg TID BETTY Administration Buspirone HCl 5 mg 09/03/25 09:00 09/04/25 14:06 Buspirone 5 Mg Tab PO 10/03/25 08:59 5 mg TID BETTY Administration Divalproex Sodium 250 mg 09/03/25 09:00 09/04/25 14:06 Divalproex Delay Release 250 Mg Tabec PO 10/03/25 08:59 250 mg TID BETTY Administration Divalproex Sodium 500 mg 09/03/25 09:00 09/04/25 07:50 Divalproex Delay Release 500 Mg Tab PO 10/03/25 08:59 500 mg DAILY BETTY Administration Fluoxetine HCl 80 mg 09/03/25 09:00 09/04/25 07:46 Fluoxetine Hcl 20 Mg Cap PO 10/03/25 08:59 80 mg DAILY BETTY Administration Furosemide 20 mg 09/03/25 09:00 09/04/25 07:47 Furosemide 20 Mg Tab PO 10/03/25 08:59 20 mg DAILY BETTY Administration Gabapentin 600 mg 09/03/25 09:00 09/04/25 14:06 Gabapentin 300 Mg Cap PO 10/03/25 08:59 600 mg TID BETTY Administration Hydromorphone HCl 0.25 mg 09/03/25 06:12 09/04/25 15:17 Hydromorphone Inj 0.5 Mg/0.5 Ml Syr IV 09/17/25 06:11 0.25 mg Q4H PRN Administration Moderate Pain (Scale 4, 5, 6) Piperacillin Sod/Tazobactam Sod 4.5 gm in 100 mls @ 25 mls/hr 09/03/25 10:00 09/04/25 12:53 Zosyn IV 09/13/25 09:59 Infused Q8H BETTY Infusion Protocol Levetiracetam 750 mg 09/03/25 09:00 09/04/25 07:47 Levetiracetam 250 Mg Tab PO 10/03/25 08:59 750 mg BID BETTY Administration Mirtazapine 30 mg 09/03/25 09:00 09/04/25 07:48 Mirtazapine Tab 15 Mg Tab PO 10/03/25 08:59 30 mg DAILY BETTY Administration Olanzapine 2.5 mg 09/03/25 21:00 09/03/25 20:54 Olanzapine 2.5 Mg Tab PO 10/03/25 20:59 2.5 mg HS BETTY Administration Oxycodone HCl 5 mg 09/03/25 06:12 09/04/25 08:48 Oxycodone Hcl Ir 5 Mg Tab (Immediate Release) PO 09/17/25 06:11 5 mg BID PRN Administration Pain Propranolol HCl 40 mg 09/03/25 09:00 09/04/25 07:46 Propranolol Hcl 20 Mg Tab PO 10/03/25 08:59 40 mg BID BETTY Administration Sennosides 17.2 mg 09/03/25 09:00 09/04/25 07:48 Senna 8.6 Mg Tab PO 10/03/25 08:59 17.2 mg DAILY BETTY Administration PG Care Time/CCT Total # of Minutes Spent Total Time Spent with Patient: Total time spent is greater than 50% in coordination of care (as documented) at patient's floor/unit and/or counseling patient: Coding Level of Care Code 24866 SUB INP/OBS CARE 3/50MIN Diagnoses Biliary colic K80.50 Preoperative cardiovascular examination Z01.810 History of mechanical aortic valve replacement Z95.2 Anticoagulated on Coumadin Z79.01
[2025-09-05 06:44] LABS: Hematocrit (blood only) 40.6 % (42.0-52.0); Hemoglobin 14.2 g/dl (14.0-18.0); Immature Granulocytes # (auto) 0.05 K/uL (0.01-0.20); Immature Granulocytes % (auto) 0.7 %; Mean Corpuscular Hemoglobin 29.1 pg (25.0-34.0); Mean Corpuscular Volume 83.2 fL (80.0-100.0); Platelet Count 211 K/uL (130-400); RDW Standard Deviation 48.6 fL (36.4-46.3); Red Blood Count 4.88 M/uL (4.70-6.10); White Blood Count 7.29 K/ul (4.8-10.8)
[2025-09-05 07:04] LABS: Alanine Aminotransferase 23.0 U/L (7-52); Albumin Globulin Ratio 1.1 (0.9-2); Albumin Level 3.4 gm/dl (3.4-5.0); Alkaline Phosphatase 59.0 U/L (34-104); Anion Gap 9.0 (3-11); Bilirubin,Total 0.6 mg/dl (0.2-1.0); Blood Urea Nitrogen 13.0 mg/dl (6-23); Calcium 9.1 mg/dl (8.6-10.3); Carbon Dioxide 27.0 mmol/L (21-32); Chloride 104.0 mmol/L (98-107); Creatinine Clr Calc Pharmacy 132.3 ml/min; Globulin 3.0 gm/dl (2.5-4.0); Glucose 149.0 mg/dl (70-99(Fasting)); Potassium 3.9 mmol/L (3.5-5.1); Sodium 140.0 mmol/L (136-145); Total Protein 6.4 gm/dl (6.0-8.3)
[2025-09-05 07:19] LABS: INR 1.6 (0.9-1.1); Prothrombin Time 16.4 Seconds (9.0-12.0)
[2025-09-05] MEDS ORDERED: Heparin IV Adult Wt-Based Standard w/ INITIAL Bolus Protocol IV STA (07:42)
[2025-09-05] MEDS: HEPARIN SOD (PORCINE) 1000 UNIT/ML IV ONE (09:26)
[2025-09-05] MEDS: HEPARIN 25000 UNIT/500 ML D5W 25,000 UNITS/500 ML BAG IV SCH (09:36)
--- NOTE | 2025-09-05 10:17 | Surgery Progress Note ---
Date of Service September 05, 2025 Assessment & Plan (1) Biliary colic: Plan: His INR is down to 1.6 and they are starting a heparin drip bridge Stop the heparin drip at 4 AM in anticipation of surgery tomorrow He can have a clear liquid diet today and then n.p.o. after midnight Will follow (2) Anticoagulated on Coumadin: Admission and Anticipated Discharge Date Admission Date: September 03, 2025 Subjective Patient seen and examined. Still tolerating a diet but continues to have abdominal pain. Afebrile. Review of Systems Constitutional: no fever and no chills Respiratory: no cough and no dyspnea Cardiovascular: no chest pain and no dyspnea on exertion Gastrointestinal: + abdominal pain; no nausea and no vomit ing Genitourinary: no dysuria or no nocturia Integumentary: no acne, no sores and no dry skin Psychiatric: no behavioral changes and no depression Hematologic / Lymphatic: no easy bleeding and no easy bruising Physical Exam Constitutional: WD/WN, vitals as above Respiratory: normal respiratory effort, lungs clear to auscultation Cardiovascular: RRR, no murmur, no edema Gastrointestinal (Abdomen): Inspection/Auscultation: abdomen normal to inspection; abdomen not distended Percussion/Palpation: + abdomen tender (Right upper quadrant) and abdomen soft; no guarding and no hernia Musculoskeletal: no cyanosis or clubbing, extremities motor strength 5/5 Skin: no rashes, warm and dry Psychiatric: A+Ox3, euthymic affect Results & Data Vital Signs (Past 12 Hours) Vital Signs Temp Pulse Resp BP Pulse Ox O2 Del Method 09/05/25 07:18 36.5 C 69 16 115/77 93 Room Air 09/04/25 22:30 36.3 C L 78 19 113/72 92 Room Air PG Care Time/CCT Total # of Minutes Spent Total Time Spent with Patient: Total time spent is greater than 50% in coordination of care (as documented) at patient's floor/unit and/or counseling patient: Coding Level of Care Code 45085 SUB INP/OBS CARE 12/05MIN Diagnoses Biliary colic K80.50 Anticoagulated on Coumadin Z79.01
--- NOTE | 2025-09-05 11:37 | Hospitalist Progress Note ---
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 Assessment/Plan Acute cholecystitis Hx of mechanical aortic valve on coumadin Hx of CVA with right sided weakness Patient presented with abdominal pain, nausea HIDA scan positive for Acute cholecystitis Echocardiogram shows normal EF; prosthetic aortic valve is well-seated. INR is 1.6 today; started on heparin drip; plan to hold it at 4 AM tomorrow morning for anticipation of the surgery. Continue on IV Zosyn Clear liquid diet, n.p.o. from midnight Possible Pneumonia Chest CT shows multiple patchy ill-defined ground glass opacities with adjacent atelectatic bands in bilateral lower lobe, nodular glass/opacities in the left lingula. Patient denies any fever, cough, shortness of breath to suggest pneumonia Currently on Zosyn; will need follow-up CT chest in 4 to 6 weeks to ensure resolution. History of seizures on Divalproex and Keppra-switch over to iv as patient will be NPO Depression On fluoxetine, Remeron and olanzapine-continue Migraines Propranolol-continue Anxiety On buspirone-continue Chronic pain On oxycodone as needed Polyneuropathy On gabapentin-continue History of trigeminal neuralgia On baclofen-continue Lower extremity edema On Lasix-on hold for tomorrow DVT prophylaxis-Coumadin Disposition-Medical floor CODE STATUS DNR/DNI Time spent evaluating patient, direct bedside care, chart review, placing orders, interpretation of diagnostic studies, discussion with consultants, patient, and family members, as well as other required patient management activities is 50 minutes Please note the above document was generated using voice recognition software. It may contain grammatical, syntax or spelling errors. Any formal questions or concerns about the content, text or information contained within the body of this dictation should be directly addressed to the provider for clarification Admission and Anticipated Discharge Date Admission Date: September 03, 2025 Subjective Patient seen and examined at bedside. He is comfortable; not in distress. Reports some epigastric/right upper quadrant pain. No significant events overnight Review of Systems Review of Systems: All systems reviewed & are unremarkable except as noted in Subjective Physical Exam Physical Exam: Constitutional: WD/WN, vitals as above, NAD, sitting up in bed, pleasant, conversing easily Respiratory: normal respiratory effort, lungs clear to auscultation, no wheeze, rales, rhonchi. Normal insp/exp effort, no accessory muscle use Cardiovascular: RRR, systlic murmur, no edema Vessels: no JVD or carotid bruit Chest: normal inspection of chest Abdomen: mild tenderness in epigastric/RUQ Skin: no rashes, warm and dry normal turgor Neurologic: PERRL, EOMI, accommodation nl. right hemiparesis +nt Psychiatric: A+Ox3, euthymic affect Results & Data Results & Data Vital Signs (Past 12 Hours) Vital Signs Temp Pulse Resp BP Pulse Ox O2 Del Method 09/05/25 07:18 36.5 C 69 16 115/77 93 Room Air
[2025-09-05] MEDS: HYDROmorphone INJ 0.5 MG/0.5 ML SYR IV PRN (13:01)
[2025-09-05] MEDS: VALPROATE SOD 250 MG in DEXTROSE 5% 50 ML IV SCH (14:09)
--- NOTE | 2025-09-05 14:49 | Cardiology Progress Note ---
Date of Service September 05, 2025 Assessment & Plan (1) Biliary colic: (2) Preoperative cardiovascular examination: (3) History of mechanical aortic valve replacement: (4) Anticoagulated on Coumadin: Plan 34-year-old male referred for preoperative cardiology evaluation prior to cholecystectomy after presenting to the [facility] ER with acute abdominal pain, biliary colic. Patient without recent cardiac evaluation, without new or worsening cardiac symptoms, and without recent cardiac intervention. Estimated risk of major adverse cardiac events is moderate. Functional capacity is less than 4 METS. EKG requested. Resting echocardiography requested, to evaluate valve status and function. Further cardiac testing will not likely influence management. As long as the EKG and resting echocardiography are acceptable, I see no overt cardiac contraindications to a necessary procedure. Patient is high risk for thromboembolism noting the mechanical valve and history of CVA. Limit time off of proper anticoagulation. Recommend weight based heparin bridging when INR falls below 2.5. Recommend resumption of heparin postoperatively as soon as determined to be safe, transitioning back to prior Coumadin anticoagualation. INR goal is 2.5 to 3.5. A DOAC should not be used. Continue beta-mary therapy without perioperative interruption. Hold diuretic morning of procedure. 09/03/25 ECHO Interpretation Summary Left ventricular systolic function is normal. Left Ventricular Ejection Fraction = 60-65%. There is a mechanical aortic valve. The prosthetic aortic valve is well-seated. Mild pulmonic valvular regurgitation. There is trace mitral regurgitation. There is mild tricuspid regurgitation. Preop Cardiology evaluation Biliary Colic h/o Mechanical AVR patient is cleared with no absolute contraindication from cardiac standpoint for possible cholecystectomy coumadin has been held' INR is subtherapeutic today -> on IV Heparin --> hold IV heparin 4 hrs prior to surgery and restart as soon as ok from surgeon post-op and transition to Coumadin for a therapeutic INR of 2.5 to 3.5; DC Heparin when INR is 2.5 or above f/u with surgery Admission and Anticipated Discharge Date Admission Date: September 03, 2025 Subjective Patient on exam is lying in bed in NAD; no c/o cp, sob, palpitations, dizziness, LOC, cough, fever, nausea, vomiting; c/o RUQ, epigastric areas on and off discomfort Review of Systems Review of Systems: as per HPI Physical Exam Physical Exam: General: No acute distress. Pleasant. Comfortable. Cooperative. HENT: Normocephalic. Atraumatic. Eyes: Conjunctiva pink, sclera clear. Neck: No carotid bruits. No JVD. Heart: Regular, [place] mechanical valve sounds heard best at the lower left sternal border. No murmur appreciated. Lungs: Clear to auscultation. Abdomen: +BS. Soft. No organomegaly. NT at the time of exam Extremities: no edema. No cyanosis Neuro: Delayed verbal response. Results & Data Vital Signs (Past 12 Hours) Vital Signs Vital Signs Temp 36.5 C 09/05/25 07:18 Pulse 69 09/05/25 07:18 Resp 16 09/05/25 07:18 BP 115/77 09/05/25 07:18 Pulse Ox 93 09/05/25 07:18 O2 Del Method Room Air 09/05/25 07:18 Intake & Output 09/04/25 09/05/25 09/05/25 18:59 06:59 18:59 Intake Total 100 / 300 200 / 300 100 / 100 Output Total 375 / 375 Balance 100 / 300 200 / 300 -275 / -275 Intake: IV 100 / 300 200 / 300 100 / 100 Piperacillin/Tazobactam 4.5 gm 100 / 300 200 / 300 100 / 100 In 100 ml @ 25 mls/hr IV Q8H [facility] Rx#:[id number] Output: Urine 375 / 375 Temp Pulse Resp BP Pulse Ox O2 Del Method 09/05/25 07:18 36.5 C 69 16 115/77 93 Room Air Laboratory Results Laboratory Results - last 48 hr 09/04/25 09/05/25 05:28 06:19 WBC 7.03 7.29 RBC 5.01 4.88 Hgb 14.0 14.2 Hct 41.3 L 40.6 L MCV 82.4 83.2 MCH 27.9 29.1 MCHC 33.9 35.0 RDW Std Deviation 47.7 H 48.6 H RDW Coeff of Brittney 15.9 H 15.9 H Plt Count 201 211 MPV 9.7 9.6 Immature Gran % (Auto) 0.4 0.7 Neut % (Auto) 55.8 40.8 Lymph % (Auto) 24.5 36.4 [place] % (Auto) 12.5 11.1 Eos % (Auto) 6.7 10.7 Baso % (Auto) 0.1 0.3 Neut # (Auto) 3.92 2.98 Lymph # (Auto) 1.72 2.65 [place] # (Auto) 0.88 H 0.81 H Eos # (Auto) 0.47 0.78 H Baso # (Auto) 0.01 0.02 Immature Gran # (Auto) 0.03 0.05 PT 29.5 H 16.4 H INR 3.0 H 1.6 H Sodium 137 140 Potassium 3.7 3.9 Chloride 102 104 Carbon Dioxide 27 27 Anion Gap 8 9 BUN 10 13 Creatinine 0.85 0.88 Est Cr Clr Drug Dosing 136.9 132.3 eGFR 116.94 115.72 BUN/Creatinine Ratio 11.8 14.8 Glucose 159 H 149 H Calcium 8.5 L 9.1 Magnesium 2.0 Total Bilirubin 0.6 AST 20 ALT 23 Alkaline Phosphatase 59 Total Protein 6.4 Albumin 3.4 Globulin 3.0 Albumin/Globulin Ratio 1.1 Diagnostic Findings Laboratory Results WBC 7.29 K/ul (4.8-10.8) 09/05/25 06:19 RBC 4.88 M/uL (4.70-6.10) 09/05/25 06:19 Hgb 14.2 g/dl (14.0-18.0) 09/05/25 06:19 Hct 40.6 % (42.0-52.0) L 09/05/25 06:19 MCV 83.2 fL (80.0-100.0) 09/05/25 06:19 MCH 29.1 pg (25.0-34.0) 09/05/25 06:19 MCHC 35.0 g/dL (32.0-36.0) 09/05/25 06:19 RDW Std Deviation 48.6 fL (36.4-46.3) H 09/05/25 06:19 RDW Coeff of Brittney 15.9 % (11.5-14.5) H 09/05/25 06:19 Plt Count 211 K/uL (130-400) 09/05/25 06:19 MPV 9.6 fL (9.4-12.4) 09/05/25 06:19 Immature Gran % (Auto) 0.7 % 09/05/25 06:19 Neut % (Auto) 40.8 % 09/05/25 06:19 Lymph % (Auto) 36.4 % 09/05/25 06:19 [place] % (Auto) 11.1 % 09/05/25 06:19 Eos % (Auto) 10.7 % 09/05/25 06:19 Baso % (Auto) 0.3 % 09/05/25 06:19 Neut # (Auto) 2.98 K/uL (1.40-6.50) 09/05/25 06:19 Lymph # (Auto) 2.65 K/uL (1.20-3.40) 09/05/25 06:19 [place] # (Auto) 0.81 K/uL (0.11-0.59) H 09/05/25 06:19 Eos # (Auto) 0.78 K/uL (0.00-0.50) H 09/05/25 06:19 Baso # (Auto) 0.02 K/uL (0.00-0.20) 09/05/25 06:19 Immature Gran # (Auto) 0.05 K/uL (0.01-0.20) 09/05/25 06:19 PT 16.4 Seconds (9.0-12.0) H 09/05/25 06:19 INR 1.6 (0.9-1.1) H 09/05/25 06:19 APTT 43 Seconds (21-31) H 09/03/25 04:46 PTT Ratio 1.6 09/03/25 04:46 Sodium 140 mmol/L (136-145) 09/05/25 06:19 Potassium 3.9 mmol/L (3.5-5.1) 09/05/25 06:19 Chloride 104 mmol/L (98-107) 09/05/25 06:19 Carbon Dioxide 27 mmol/L (21-32) 09/05/25 06:19 Anion Gap 9 (3-11) 09/05/25 06:19 BUN 13 mg/dl (6-23) 09/05/25 06:19 Creatinine 0.88 mg/dl (0.6-1.4) 09/05/25 06:19 Est Cr Clr Drug Dosing 132.3 ml/min 09/05/25 06:19 eGFR 115.72 09/05/25 06:19 BUN/Creatinine Ratio 14.8 (10-20) 09/05/25 06:19 Glucose 149 mg/dl (70-99(Fasting)) H 09/05/25 06:19 Calcium 9.1 mg/dl (8.6-10.3) 09/05/25 06:19 Magnesium 2.0 mg/dl (1.7-2.4) 09/04/25 05:28 Total Bilirubin 0.6 mg/dl (0.2-1.0) 09/05/25 06:19 AST 20 U/L (13-39) 09/05/25 06:19 ALT 23 U/L (7-52) 09/05/25 06:19 Alkaline Phosphatase 59 U/L (34-104) 09/05/25 06:19 Total Protein 6.4 gm/dl (6.0-8.3) 09/05/25 06:19 Albumin 3.4 gm/dl (3.4-5.0) 09/05/25 06:19 Globulin 3.0 gm/dl (2.5-4.0) 09/05/25 06:19 Albumin/Globulin Ratio 1.1 (0.9-2) 09/05/25 06:19 Lipase 53 U/L (11-82) 09/02/25 23:21 Urine Color Yellow 09/03/25 01:14 Urine Appearance Clear (Clear) 09/03/25 01:14 Urine pH 6.5 (4.5-7.5) 09/03/25 01:14 Ur Specific Gratis 1.016 (1.000-1.030) 09/03/25 01:14 Urine Protein Negative (Negative) 09/03/25 01:14 Urine Glucose (UA) Negative (Negative) 09/03/25 01:14 Urine Ketones Negative (Negative) 09/03/25 01:14 Urine Blood Negative (Negative) 09/03/25 01:14 Urine Nitrite Negative (Negative) 09/03/25 01:14 Urine Bilirubin Negative (Negative) 09/03/25 01:14 Urine Urobilinogen Negative (Negative) 09/03/25 01:14 Ur Leukocyte Esterase Negative (Negative) 09/03/25 01:14 Urine Comment 09/03/25 01:14 Impressions Abdomen/Pelvis CT 09/02/25 23:38 EXAM: CT abd pelvis IV con only CLINICAL HISTORY: mid abd pain, hx cva TECHNIQUE: Contrast-enhanced CT of the abdomen and pelvis was performed with the following protocol: axial images with, and reconstructed coronal and sagittal images. Intravenous contrast was administered. One of the following dose reduction techniques was utilized for this exam: automated exposure control, adjustment of the mA and/or kV according to patient size, and use of iterative reconstruction. COMPARISON: No prior studies for comparison. FINDINGS: Abdomen: Liver: The liver is normal in size, shape, and density. No focal lesions, cysts, or masses are identified. The hepatic vasculature and biliary ducts are unremarkable. Gallbladder and Biliary System: The gallbladder is mildly dilated, measuring 10.5 x 3.8 cm. Ultrasound assessment is recommended. No wall thickening, pericholecystic fluid, or calcific gallstones are identified. The common bile duct is normal in caliber without dilation. Pancreas: The pancreatic head, body, and tail are visualized and appear normal in size and density. No pancreatic masses or calcifications are noted. The pancreatic duct is not dilated. Spleen: The spleen is normal in size, shape, and density. No splenic lesions or masses are identified. A small splenule is seen, measuring 15 mm. Appendix: The appendix is normal in size, without ronn-appendiceal fat stranding and without an appendicolith. There is no evidence of appendiceal abscess or perforation. Kidneys and Adrenal Glands: Both kidneys are normal in size, shape, and position. Cortical thickness is within normal limits. There are no renal calculi or hydronephrosis. The adrenal glands are unremarkable, with no evidence of masses or hyperplasia. Pelvis: Urinary Bladder: The urinary bladder appears partially contracted at the time of the study, with mild wall thickening, raising the possibility of cystitis. Clinical and laboratory correlation is recommended. No intraluminal lesions are identified. Prostate: The prostate is normal in size and contour. No focal lesions or masses are identified. Seminal Vesicles: The seminal vesicles are normal in size and appearance. No abnormalities are noted. Peritoneal and Retroperitoneal Structures: No free fluid or abnormal fluid collections are identified within the abdomen or pelvis. No lymphadenopathy is noted. Bowel: The visualized bowel loops are normal in caliber and appearance. There is no evidence of bowel obstruction or wall thickening. Bones and Soft Tissues: The pelvic bones and soft tissues are unremarkable. No fractures or abnormal masses are identified. A Schmorl's node is seen at the superior endplate of L4. Basal chest scans: Patchy ground-glass densities are noted in the basal lung regions, more prominent on the left side. These findings may represent pulmonary congestion; however, an associated infective process cannot be excluded. Clinical correlation and, if clinically indicated, a dedicated CT chest evaluation are recommended. Sternotomy sutures and an artificial aortic valve are seen. IMPRESSION: Patchy ground-glass densities are noted in the basal lung regions, more prominent on the left side. These findings may represent pulmonary congestion; however, an associated infective process cannot be excluded. Clinical correlation and, if clinically indicated, a dedicated CT chest evaluation are recommended. The gallbladder is mildly dilated, measuring 10.5 x 3.8 cm; however, there is no pericholecystic fluid or fat stranding. Ultrasound assessment is recommended. The urinary bladder appears partially contracted at the time of the study, with mild wall thickening, raising the possibility of cystitis. Clinical and laboratory correlation is recommended. No definite or obvious acute abnormality is identified within the abdomen. Electronically signed by Ezra Jha 09-03-2025 02:13 AM Chest X-Ray 09/03/25 02:46 EXAM: XR chest 1V portable CLINICAL HISTORY: cough TECHNIQUE: Radiograph of the chest was acquired. COMPARISON: 12/25/2017 16:04:52 BLUE LINE TRIMMER FINDINGS: Sternal suture is noted. Cardiomegaly is present. Ill-defined ground-glass haze is noted in the left lower zone, which appears to be due to projectional changes. The remainder of both lungs is clear, with no pulmonary infiltrate or pleural effusion. No acute osseous abnormality is identified. Cardiac valve-stable. IMPRESSION: Sternal suture is noted. Cardiomegaly, increased in size as compared to prior. Ill-defined ground-glass haze is noted in the left lower zone, which appears to be due to projectional changes. Advised follow up. Electronically signed by Jeronimo Roy 09-03-2025 05:22 AM Gallbladder Ultrasound 09/03/25 02:46 EXAM: US gallbladder CLINICAL HISTORY: abd pain TECHNIQUE: Limited ultrasound of the liver and gallbladder was performed in grayscale and Doppler. Multiple images were obtained in the transverse and longitudinal planes. COMPARISON: No prior studies are available for comparison. FINDINGS: Liver: Liver size: The liver measures 17.6 cm in length. The liver appears enlarged in size, with echogenic texture and geographic hypoechoic areas of fat sparing observed. There is no evidence of focal lesions, cysts, or masses. The hepatic vasculature appears normal. Gallbladder: Gallbladder size: The gallbladder is visualized and appears mildly distended (measures 10 x 4 cm, longitudinal x transverse). A cluster of small echogenic foci is seen in the neck and dependent portions, which is suggestive of small calculi with sludge present. The wall measures 1.6 mm according to the provided measurements, with measurement in other images reaching 3.6 mm. No pericholecystic fluid is noted. There is no evidence of gallbladder wall edema or signs of acute cholecystitis. Negative sonographic Nicholson sign Biliary Tree: Common bile duct diameter: 3.8 mm. The common bile duct is within normal limits in caliber and is not dilated. There is no evidence of choledocholithiasis or biliary obstruction. Right kidney: No hydronephrosis is present. The sonographic features are unremarkable. IMPRESSION: The gallbladder appears mildly distended with possible wall thickening and layering sludge/calculi seen. There is no Nicholson sign, wall edema, or pericholecystic fluid. The possibility of early cholecystitis cannot be entirely ruled out. Clinical correlation and, if needed, follow-up are advised. Enlarged liver with moderate steatosis and an area of fat sparing seen adjacent to the gallbladder. Electronically signed by Ezra Jha 09-03-2025 04:[address] 09/03/25 05:50 EXAM: CT chest diagnostic wo con CLINICAL HISTORY: opacities in lung bases? on ct abd/pelvis TECHNIQUE: Contiguous axial images were obtained from the base of the neck through the upper abdomen without contrast. In addition, sagittal and coronal reconstructions were performed to potentially increase the sensitivity for the detection of disease. CT scan was performed according to ALARA (as low as reasonably achievable). COMPARISON: 23:45:44 BLUE LINE TRIMMER. FINDINGS: Multiple patchy, ill-defined ground-glass opacities with adjacent atelectatic bands are noted in the bilateral lower lobes, with nodular ground glass opacities seen in left lingula. The remainder of both lungs is clear. The central airways are patent. There are no pleural effusions. No pneumothorax is seen. Evaluation of the mediastinum and analilia is limited due to the lack of intravenous contrast. No axillary or mediastinal adenopathy is identified. The thyroid is unremarkable. The heart, aorta, and pulmonary arteries are of normal size and configuration. There are coronary artery and aortic atherosclerotic calcifications. No pericardial effusion is identified. Imaged portions of the upper abdomen are unremarkable. No aggressive appearing osseous lesions are identified. IMPRESSION: Multiple patchy, ill-defined ground-glass opacities with adjacent atelectatic bands are noted in the bilateral lower lobes, with nodular ground glass opacities seen in left lingula. These findings are possibly sequelae of a recent infection and represent a new finding. No other new interval abnormality is noted since the prior study. Electronically signed by Jeronimo Roy 09-03-2025 06:39 AM Hepatobiliary Scan Nuclear Medicine 09/03/25 07:18 NUCLEAR MEDICINE HEPATOBILIARY SCAN CLINICAL HISTORY: Biliary colic. Distended gallbladder. COMPARISON: CT scan dated 09/03/2025 TECHNIQUE: 5 mCi of technetium 99m Choletec IV was injected at 10:45 AM. Immediately following injection, imaging of the abdomen was carried out for 60 minutes in the anterior projection. FINDINGS: Hepatic uptake of radiotracer is prompt and homogeneous. Radiotracer activity is identified within the common bile duct at 10 minutes, and small bowel at 20 minutes. There is normal distribution of radiotracer. The gallbladder was not visualized on images out to 60 minutes. At this point tiny patient was administered 2 mg of intravenous morphine. Images from an additional 30 minutes were obtained. The gallbladder was never visualized. IMPRESSION: 1. Nonvisualization of the gallbladder. This is indirect evidence of cystic duct obstruction. 2. It should be noted that false positive HIDA scans can occur in severe liver disease, pancreatitis, and gallbladder motility abnormalities. ACT 112: Negative or not required by law. Electronically signed by: Tomi Tyler M.D. 09/03/2025 12:56 PM Medications Administered Home Medications Medication Instructions Recorded Confirmed Last Taken amantadine HCl 100 mg capsule 100 mg PO DAILY 09/03/25 09/03/25 Unknown baclofen 5 mg tablet 5 mg PO TID 09/03/25 09/03/25 Unknown bisacodyl 10 mg rectal suppository 10 mg PA DAILY PRN Constipation 09/03/25 09/03/25 Unknown (Dulcolax (bisacodyl)) buspirone 5 mg tablet 5 mg PO TID 09/03/25 09/03/25 Unknown divalproex 250 mg tablet,delayed 250 mg PO TID 09/03/25 09/03/25 Unknown release divalproex 500 mg tablet,delayed 500 mg PO DAILY 09/03/25 09/03/25 Unknown release fluoxetine 40 mg capsule 80 mg PO DAILY 09/03/25 09/03/25 Unknown furosemide 20 mg tablet 20 mg PO DAILY 09/03/25 09/03/25 Unknown gabapentin 300 mg capsule 600 mg PO TID 09/03/25 09/03/25 Unknown levetiracetam 750 mg tablet 750 mg PO BID 09/03/25 09/03/25 Unknown mirtazapine 30 mg tablet 30 mg PO DAILY 09/03/25 09/03/25 Unknown olanzapine 2.5 mg tablet 2.5 mg PO HS 09/03/25 09/03/25 Unknown oxycodone 5 mg tablet 5 mg PO BID PRN Pain 09/03/25 09/03/25 Unknown propranolol 40 mg tablet 40 mg PO BID 09/03/25 09/03/25 Unknown sennosides 8.6 mg tablet (senna) 17.2 mg PO DAILY 09/03/25 09/03/25 Unknown warfarin 5 mg tablet 5 mg PO DAILY 09/03/25 09/03/25 Unknown Active Medications Generic Name Dose Route Start Last Admin Trade Name Freq PRN Reason Stop Dose Admin Amantadine HCl 100 mg 09/03/25 09:00 09/05/25 08:10 Amantadine Hcl 100 Mg Capsule PO 10/03/25 08:59 100 mg DAILY BETTY Administration Baclofen 5 mg 09/03/25 09:00 09/05/25 14:09 Baclofen 10 Mg Tab PO 10/03/25 08:59 5 mg TID BETTY Administration Buspirone HCl 5 mg 09/03/25 09:00 09/05/25 14:09 Buspirone 5 Mg Tab PO 10/03/25 08:59 5 mg TID BETTY Administration Fluoxetine HCl 80 mg 09/03/25 09:00 09/05/25 08:09 Fluoxetine Hcl 20 Mg Cap PO 10/03/25 08:59 80 mg DAILY BETTY Administration Furosemide 20 mg 09/03/25 09:00 09/05/25 08:07 Furosemide 20 Mg Tab PO 10/03/25 08:59 20 mg DAILY BETTY Administration Gabapentin 600 mg 09/03/25 09:00 09/05/25 14:09 Gabapentin 300 Mg Cap PO 10/03/25 08:59 600 mg TID BETTY Administration Hydromorphone HCl 0.25 mg 09/03/25 06:12 09/05/25 08:28 Hydromorphone Inj 0.5 Mg/0.5 Ml Syr IV 09/17/25 06:11 0.25 mg Q4H PRN Administration Moderate Pain (Scale 4, 5, 6) Hydromorphone HCl 0.5 mg 09/03/25 06:12 09/05/25 13:01 Hydromorphone Inj 0.5 Mg/0.5 Ml Syr IV 09/17/25 06:11 0.5 mg Q4H PRN Administration Severe Pain (Scale 7, 8, 9,10) Piperacillin Sod/Tazobactam Sod 4.5 gm in 100 mls @ 25 mls/hr 09/03/25 10:00 09/05/25 14:15 Zosyn IV 09/13/25 09:59 Infused Q8H BETTY Infusion Protocol Heparin Sodium/Dextrose 25,000 units in 500 mls @ 28 mls/hr 09/05/25 08:00 09/05/25 09:36 Heparin 91250 Unit/500 Ml D5w IV 09/06/25 04:00 1,400 units/hr .[id number] BETTY 28 mls/hr Administration Protocol 1,400 UNITS/HR Valproic Acid 250 mg/ Dextrose 52.5 mls @ 55 mls/hr 09/05/25 14:00 09/05/25 14:09 IV 10/05/25 13:59 55 mls/hr BID@1400,2100 BETTY Administration Levetiracetam 750 mg 09/03/25 09:00 09/05/25 08:09 Levetiracetam 250 Mg Tab PO 09/05/25 22:00 750 mg BID BETTY Administration Mirtazapine 30 mg 09/03/25 09:00 09/05/25 08:09 Mirtazapine Tab 15 Mg Tab PO 10/03/25 08:59 30 mg DAILY BETTY Administration Olanzapine 2.5 mg 09/03/25 21:00 09/04/25 20:28 Olanzapine 2.5 Mg Tab PO 10/03/25 20:59 2.5 mg HS BETTY Administration Oxycodone HCl 5 mg 09/03/25 06:12 09/04/25 20:23 Oxycodone Hcl Ir 5 Mg Tab (Immediate Release) PO 09/17/25 06:11 5 mg BID PRN Administration Pain Propranolol HCl 40 mg 09/03/25 09:00 09/05/25 08:10 Propranolol Hcl 20 Mg Tab PO 10/03/25 08:59 40 mg BID BETTY Administration Sennosides 17.2 mg 09/03/25 09:00 09/05/25 08:16 Senna 8.6 Mg Tab PO 10/03/25 08:59 17.2 mg DAILY BETTY Administration PG Care Time/CCT Total # of Minutes Spent Total Time Spent with Patient: Total time spent is greater than 50% in coordination of care (as documented) at patient's floor/unit and/or counseling patient: Coding Level of Care Code 18854 SUB INP/OBS CARE 3/50MIN Diagnoses Biliary colic K80.50 Preoperative cardiovascular examination Z01.810 History of mechanical aortic valve replacement Z95.2 Anticoagulated on Coumadin Z79.01
[2025-09-05 16:59] LABS: ANTI-Xa, UFH(UnfractionatedHep 0.32 IU/ml (0.3-0.7)
[2025-09-06 08:05] LABS: ANTI-Xa, UFH(UnfractionatedHep < 0.10 IU/ml (0.3-0.7)
[2025-09-06 08:09] LABS: INR 1.2 (0.9-1.1); Prothrombin Time 12.7 Seconds (9.0-12.0)
[2025-09-06] MEDS: VALPROATE SOD 750 MG in DEXTROSE 5% 50 ML IV SCH (08:39)
[2025-09-06] MEDS ORDERED: ONDANSETRON INJ 2 MG/ML 2 ML VIAL ONE (08:53)
[2025-09-06] MEDS ORDERED: LIDOCAINE 2% 2 ML VIAL/AMP(20MG/ML) INFIL ONE (08:53)
[2025-09-06] MEDS ORDERED: DEXAMETHASONE SOD INJ 4 MG/ML VIAL ONE (08:53)
[2025-09-06] MEDS ORDERED: MIDAZOLAM HCL 1 MG/ML 2ML VIAL ONE (08:54)
[2025-09-06] MEDS ORDERED: DexMEDEtomidine HCL IV 100 MCG/ML VIAL IV ONE (08:54)
[2025-09-06] MEDS ORDERED: PROPOFOL IV EMULSION 10 MG/ML 20 ML VIAL IV ONE (08:54)
[2025-09-06] MEDS ORDERED: ROCURONIUM BROMIDE 10 MG/ML 5 ML VIAL IV ONE (08:54)
[2025-09-06] MEDS ORDERED: diphenhydrAMINE 50 MG/ML VIAL ONE (08:54)
[2025-09-06] MEDS ORDERED: VALPROATE SOD 250 MG in DEXTROSE 5% 50 ML IV SCH (09:00)
--- NOTE | 2025-09-06 09:03 | Anesthesiology Consultation ---
Date of Service September 06, 2025 Assessment & Plan Chart Review Chart Review: Acceptable Risk for Surgery Consults Requested none History Surgery Operation Date: 09/06/25 07:00 Proposed Procedures p Laparoscopic Cholecystectomy - Jack Lowe DO Height/Weight Height: 5 ft 5 in Weight: 105.4 kg Allergies Allergy/AdvReac Type Severity Reaction Status Date / Time cephalexin Allergy Intermediate RASH-ITCHY Verified 01/20/19 00:47 fish derived Allergy Intermediate RASH-ITCHY Verified 01/20/19 00:47 indomethacin AdvReac Intermediate GI SYMPTOMS Verified 01/20/19 00:47 tramadol AdvReac Unknown UPSET Verified 01/20/19 00:47 STOMACH Medications Home Medications Medication Instructions Recorded Confirmed Last Taken amantadine HCl 100 mg capsule 100 mg PO DAILY 09/03/25 09/03/25 Unknown baclofen 5 mg tablet 5 mg PO TID 09/03/25 09/03/25 Unknown bisacodyl 10 mg rectal suppository 10 mg CO DAILY PRN Constipation 09/03/25 09/03/25 Unknown (Dulcolax (bisacodyl)) buspirone 5 mg tablet 5 mg PO TID 09/03/25 09/03/25 Unknown divalproex 250 mg tablet,delayed 250 mg PO TID 09/03/25 09/03/25 Unknown release divalproex 500 mg tablet,delayed 500 mg PO DAILY 09/03/25 09/03/25 Unknown release fluoxetine 40 mg capsule 80 mg PO DAILY 09/03/25 09/03/25 Unknown furosemide 20 mg tablet 20 mg PO DAILY 09/03/25 09/03/25 Unknown gabapentin 300 mg capsule 600 mg PO TID 09/03/25 09/03/25 Unknown levetiracetam 750 mg tablet 750 mg PO BID 09/03/25 09/03/25 Unknown mirtazapine 30 mg tablet 30 mg PO DAILY 09/03/25 09/03/25 Unknown olanzapine 2.5 mg tablet 2.5 mg PO HS 09/03/25 09/03/25 Unknown oxycodone 5 mg tablet 5 mg PO BID PRN Pain 09/03/25 09/03/25 Unknown propranolol 40 mg tablet 40 mg PO BID 09/03/25 09/03/25 Unknown sennosides 8.6 mg tablet (senna) 17.2 mg PO DAILY 09/03/25 09/03/25 Unknown warfarin 5 mg tablet 5 mg PO DAILY 09/03/25 09/03/25 Unknown Active Medications Generic Name Dose Route Start Last Admin Trade Name Judit PRN Reason Stop Dose Admin Amantadine HCl 100 mg 09/03/25 09:00 09/05/25 08:10 Amantadine Hcl 100 Mg Capsule PO 10/03/25 08:59 100 mg DAILY BETTY Administration Baclofen 5 mg 09/03/25 09:00 09/06/25 08:28 Baclofen 10 Mg Tab PO 10/03/25 08:59 Not Given TID BETTY Buspirone HCl 5 mg 09/03/25 09:00 09/06/25 08:28 Buspirone 5 Mg Tab PO 10/03/25 08:59 Not Given TID BETTY Fluoxetine HCl 80 mg 09/03/25 09:00 09/05/25 08:09 Fluoxetine Hcl 20 Mg Cap PO 10/03/25 08:59 80 mg DAILY BETTY Administration Furosemide 20 mg 09/03/25 09:00 09/05/25 08:07 Furosemide 20 Mg Tab PO 10/03/25 08:59 20 mg DAILY BETTY Administration Gabapentin 600 mg 09/03/25 09:00 09/06/25 08:28 Gabapentin 300 Mg Cap PO 10/03/25 08:59 Not Given TID BETTY Hydromorphone HCl 0.25 mg 09/03/25 06:12 09/06/25 06:06 Hydromorphone Inj 0.5 Mg/0.5 Ml Syr IV 09/17/25 06:11 0.25 mg Q4H PRN Administration Moderate Pain (Scale 4, 5, 6) Hydromorphone HCl 0.5 mg 09/03/25 06:12 09/06/25 00:16 Hydromorphone Inj 0.5 Mg/0.5 Ml Syr IV 09/17/25 06:11 0.5 mg Q4H PRN Administration Severe Pain (Scale 7, 8, 9,10) Piperacillin Sod/Tazobactam Sod 4.5 gm in 100 mls @ 25 mls/hr 09/03/25 10:00 09/06/25 07:00 Zosyn IV 09/13/25 09:59 Infused Q8H BETTY Infusion Protocol Valproic Acid 750 mg/ Dextrose 57.5 mls @ 55 mls/hr 09/06/25 09:00 09/06/25 08:39 IV 10/06/25 08:59 55 mls/hr DAILY BETTY Administration Valproic Acid 250 mg/ Dextrose 52.5 mls @ 55 mls/hr 09/05/25 14:00 09/05/25 23:41 IV 10/05/25 13:59 Infused BID@1400,2100 BETTY Infusion Levetiracetam 750 mg 09/06/25 09:00 09/06/25 08:38 Levetiracetam 500 Mg/5 Ml Vial IV 10/06/25 08:59 750 mg Q12H BETTY Administration Mirtazapine 30 mg 09/03/25 09:00 09/05/25 08:09 Mirtazapine Tab 15 Mg Tab PO 10/03/25 08:59 30 mg DAILY BETTY Administration Olanzapine 2.5 mg 09/03/25 21:00 09/05/25 20:00 Olanzapine 2.5 Mg Tab PO 10/03/25 20:59 2.5 mg HS BETTY Administration Oxycodone HCl 5 mg 09/03/25 06:12 09/05/25 21:21 Oxycodone Hcl Ir 5 Mg Tab (Immediate Release) PO 09/17/25 06:11 5 mg BID PRN Administration Pain Propranolol HCl 40 mg 09/03/25 09:00 09/05/25 20:00 Propranolol Hcl 20 Mg Tab PO 10/03/25 08:59 40 mg BID BETTY Administration Sennosides 17.2 mg 09/03/25 09:00 09/05/25 08:16 Senna 8.6 Mg Tab PO 10/03/25 08:59 17.2 mg DAILY BETTY Administration NPO Date Last Intake of Fluids: 09/05/25 Time Last Intake of Fluids: 23:59 Date Last Intake of Solids: 09/05/25 Time Last Intake of Solids: 23:59 Social History Smoking Status: Former smoker Do You Dip or Chew Tobacco: Yes Hx Alcohol Use: No alcohol intake frequency: holidays/special occasions only Hx Substance Use: Yes substance use type: methamphetamine Last Used Substance Other:: many years Physical Exam Vital Signs Last Vital Signs Temp 36.6 C 09/06/25 07:39 Pulse 65 09/06/25 07:39 Resp 16 09/06/25 07:39 BP 110/73 09/06/25 07:39 Pulse Ox 92 09/06/25 07:39 O2 Del Method Room Air 09/06/25 07:39 Testing Laboratory Results 09/05/25 06:19 09/05/25 06:19 PT 12.7 Seconds (9.0-12.0) H 09/06/25 07:12 INR 1.2 (0.9-1.1) H 09/06/25 07:12 APTT 43 Seconds (21-31) H 09/03/25 04:46 Urine Color Yellow 09/03/25 01:14 Urine Appearance Clear (Clear) 09/03/25 01:14 Urine pH 6.5 (4.5-7.5) 09/03/25 01:14 Ur Specific [place] 1.016 (1.000-1.030) 09/03/25 01:14 Urine Protein Negative (Negative) 09/03/25 01:14 Urine Glucose (UA) Negative (Negative) 09/03/25 01:14 Urine Ketones Negative (Negative) 09/03/25 01:14 Urine Nitrite Negative (Negative) 09/03/25 01:14 Ur Leukocyte Esterase Negative (Negative) 09/03/25 01:14
[2025-09-06] MEDS: LACTATED RINGER'S 1,000 ML IV SCH ×2 (09:15→13:13)
--- NOTE | 2025-09-06 09:24 | Surgery Progress Note ---
Date of Service September 06, 2025 Assessment & Plan (1) Biliary colic: Plan: Heparin drip has been stopped since 4 AM Will plan on a laparoscopic cholecystectomy, possible open, possible intraoperative cholangiogram Consent was obtained, risks cussed including bleeding, infection, bile leak, ductal injury (2) Anticoagulated on Coumadin: Admission and Anticipated Discharge Date Admission Date: September 03, 2025 Subjective Patient seen and examined. Still with some upper abdominal pain. Denies any nausea or vomiting. Afebrile. Review of Systems Constitutional: no fever and no chills Respiratory: no cough and no dyspnea Cardiovascular: no chest pain and no dyspnea on exertion Gastrointestinal: + abdominal pain; no nausea and no vomit ing Genitourinary: no dysuria or no nocturia Integumentary: no acne, no sores and no dry skin Psychiatric: no behavioral changes and no depression Hematologic / Lymphatic: no easy bleeding and no easy bruising Physical Exam Constitutional: WD/WN, vitals as above Respiratory: normal respiratory effort, lungs clear to auscultation Cardiovascular: RRR, no murmur, no edema Gastrointestinal (Abdomen): Inspection/Auscultation: abdomen normal to inspection; abdomen not distended Percussion/Palpation: + abdomen tender (Right upper quadrant) and abdomen soft; no guarding and no hernia Musculoskeletal: no cyanosis or clubbing, extremities motor strength 5/5 Skin: no rashes, warm and dry Psychiatric: A+Ox3, euthymic affect Results & Data Vital Signs (Past 12 Hours) Vital Signs Temp Pulse Pulse Resp BP Pulse Ox O2 Del Method 09/06/25 09:06 36.5 C 62 20 117/76 94 Room Air 09/06/25 07:39 36.6 C 65 16 110/73 92 Room Air 09/06/25 00:16 69 120/83 09/05/25 22:55 36.8 C 68 16 118/79 92 Room Air PG Care Time/CCT Total # of Minutes Spent Total Time Spent with Patient: Total time spent is greater than 50% in coordination of care (as documented) at patient's floor/unit and/or counseling patient: Coding Level of Care Code 79467 SUB INP/OBS CARE 2/35MIN Diagnoses Biliary colic K80.50 Anticoagulated on Coumadin Z79.01
[2025-09-06] MEDS ORDERED: HYDROmorphone INJ 2 MG/ML SYR/VIAL IV PRN (09:42)
[2025-09-06] MEDS ORDERED: PROMETHAZINE HCL 6.25 MG in SODIUM CHLORIDE 0.9% 50 ML IV PRN (09:42)
[2025-09-06] MEDS ORDERED: ONDANSETRON INJ 2 MG/ML 2 ML VIAL IV PRN (09:42)
[2025-09-06] MEDS ORDERED: ATROPINE SULFATE 0.1 MG/ML 10ML SYR IV PRN (09:42)
[2025-09-06] MEDS ORDERED: PHENYLEPHRINE 100MCG/ML 5ML SYR ONE (10:03)
[2025-09-06] MEDS ORDERED: ePHEDrine sulfate 50 MG/5 ML SYR ONE (10:04)
[2025-09-06] MEDS: BUPIVACAINE/EPINEPHRINE 0.25% 1:200,000 30 ML VIAL ONE (10:08)
[2025-09-06] MEDS: FLOSEAL HEMOSTATIC MATRIX 10ML TOP ONE (10:36)
[2025-09-06] MEDS ORDERED: SUGAMMADEX SODIUM 200 MG/2 ML VIAL IV ONE ×2 (10:42→10:59)
--- NOTE | 2025-09-06 11:00 | Post Operative Brief Note ---
PG Immediate Post Op with CF Date of Surgery September 06, 2025 Pre & Post Diagnosis Operation Date: 09/06/25 07:00 Pre-Op Diagnosis: Biliary colic Post-Op Diagnosis: Acute cholecystitis I identified the patient and participated in the time-out.: Yes Procedure Operation Date: 09/06/25 07:00 Actual Procedures p Laparoscopic Cholecystectomy(Not Applicable) - Jack Lowe DO Surgeon Jack Lowe DO Scrap Worker None Estimated Blood Loss 10 Findings See Below Dilated gallbladder with edema consistent with acute cholecystitis Specimens Specimen Description: permanent specimen: A) Gallbladder Anesthesia Type General Complications none Disposition Disposition: Recovery Room
--- NOTE | 2025-09-06 11:06 | Operative Report ---
PG Post Operative Report Pre & Post Diagnosis Operation Date: 09/06/25 07:00 Pre-Op Diagnosis: Biliary colic Post-Op Diagnosis: Acute cholecystitis I identified the patient and participated in the time-out.: Yes Procedure Operation Date: 09/06/25 07:00 Actual Procedures p Laparoscopic Cholecystectomy(Not Applicable) - Jack Lowe DO Surgeon Jack Lowe DO Banking Pin Adjuster None Estimated Blood Loss 10 Findings See Below Dilated gallbladder with edema consistent with acute cholecystitis Fluids see anesthesia record Specimens Gallbladder to pathology Drains None Anesthesia Type General Complications none Disposition Disposition: Recovery Room Indications 34-year-old male consistent with acute cholecystitis Description of Procedure The patient was brought to the operating room and placed in the supine position with both arms extended. At this time he underwent general endotracheal anesthesia without any problems. He was given appropriate pre-operative antibiotics. His abdomen prepped and draped in the usual sterile fashion. A timeout was called, the procedure was verified as Laparoscopic cholecystectomy, possible open, possible intra-operative cholangiogram. Surgical, nursing and anesthesia teams agreed and the procedure was begun. After injection of 0.25% Marcaine with epinephrine, a supraumbilical vertical incision was made and carried down to the fascia using S-retractors. The abdominal wall was then elevated with towel clamps and abdomen entered using the Veress needle confirming position using the saline drop test. Pneumoperitoneum was established. 5mm trocar was placed. Laparoscope was introduced. No injury from entry into the abdomen was visualized after inspection of the abdomen. Three further ports were placed under direct visualization. One 11mm in the subxiphoid region and two 5mm in the RUQ. At this time the abdomen was inspected and the gallbladder identified. The gallbladder fundus was grasped and retracted cephalad. The gallbladder infundibulum was then grasped and retracted laterally. The cystic duct and cystic artery were then identified and skeletonized. The critical view of safety was obtained. They were both then clipped twice proximally and once distally and then divided using scissors. The gallbladder was then taken off of the liver bed using electrocautery and placed in an endocatch bag and removed from the subxiphoid port. The liver bed was then inspected and no bile leak or bleeding was evident. 10 mL of Floseal hemostatic agent was placed in the gallbladder fossa. The subxiphoid port was then closed using 0-Vicryl using the suture passer. The trocars were then re moved under direct visualization and no bleeding was present. Abdomen was desufflated. The skin was then closed using 4-0 Monocryl in a subcuticular fashion. Surgical glue was applied. Needle and sponge counts were correct x 2. At this time the patient was awoken from anesthesia and extubated having remained stable throughout the entire case. The patient was then transported to PACU in stable condition. I attest to the content of the Intraoperative Record and any orders documented therein. Any exceptions are noted below.
--- NOTE | 2025-09-06 11:18 | Hospitalist Progress Note ---
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 Assessment/Plan Acute cholecystitis Hx of mechanical aortic valve on coumadin Hx of CVA with right sided weakness Patient presented with abdominal pain, nausea HIDA scan positive for Acute cholecystitis Echocardiogram shows normal EF; prosthetic aortic valve is well-seated. Status post laparoscopic cholecystectomy on 09/06 Continue on Zosyn for 1 more day; then stop. Plan to resume anticoagulation when okay with general surgery along with Coumadin. Goal INR is between 2.5-3.5 Diet advance as per surgery Possible Pneumonia Chest CT shows multiple patchy ill-defined ground glass opacities with adjacent atelectatic bands in bilateral lower lobe, nodular glass/opacities in the left lingula. Patient denies any fever, cough, shortness of breath to suggest pneumonia Currently on Zosyn; will need follow-up CT chest in 4 to 6 weeks to ensure resolution. History of seizures Currently switched over to IV as patient is n.p.o. Depression On fluoxetine, Remeron and olanzapine-continue Migraines Propranolol-continue Anxiety On buspirone-continue Chronic pain On oxycodone as needed Polyneuropathy On gabapentin-continue History of trigeminal neuralgia On baclofen-continue Lower extremity edema On Lasix-on hold DVT prophylaxis-Coumadin/heparin Disposition-Medical floor CODE STATUS DNR/DNI Time spent evaluating patient, direct bedside care, chart review, placing orders, interpretation of diagnostic studies, discussion with consultants, patient, and family members, as well as other required patient management activities is 50 minutes Please note the above document was generated using voice recognition software. It may contain grammatical, syntax or spelling errors. Any formal questions or concerns about the content, text or information contained within the body of this dictation should be directly addressed to the provider for clarification Admission and Anticipated Discharge Date Admission Date: September 03, 2025 Subjective Patient underwent laparoscopic cholecystectomy today. No significant perioperative events Review of Systems Review of Systems: All systems reviewed & are unremarkable except as noted in Subjective Physical Exam Physical Exam: Constitutional: WD/WN, vitals as above, NAD, sitting up in bed, pleasant, conversing easily Respiratory: normal respiratory effort, lungs clear to auscultation, no wheeze, rales, rhonchi. Normal insp/exp effort, no accessory muscle use Cardiovascular: RRR, systlic murmur, no edema Vessels: no JVD or carotid bruit Chest: normal inspection of chest Abdomen: incision intact; appropriately tender. soft Skin: no rashes, warm and dry normal turgor Neurologic: PERRL, EOMI, accommodation nl. right hemiparesis +nt Psychiatric: A+Ox3, euthymic affect Results & Data Results & Data Vital Signs (Past 12 Hours) Vital Signs Temp Pulse Pulse Resp BP Pulse Ox O2 Del Method 09/06/25 09:06 36.5 C 62 20 117/76 94 Room Air 09/06/25 07:39 36.6 C 65 16 110/73 92 Room Air 09/06/25 00:16 69 120/83
--- NOTE | 2025-09-06 11:48 | Anesthesiology Progress Note ---
Date of Service September 06, 2025 Anesthesia Post Procedure Vital Signs Vital Signs: Temp Pulse Pulse Resp BP Pulse Ox O2 Del Method 09/06/25 11:35 70 23 116/75 94 Room Air 09/06/25 11:25 69 15 110/70 94 Oxymask 09/06/25 11:15 67 24 120/80 98 Oxymask 09/06/25 11:09 36.0 C L 65 22 136/86 96 Oxymask 09/06/25 09:06 36.5 C 62 20 117/76 94 Room Air 09/06/25 07:39 36.6 C 65 16 110/73 92 Room Air 09/06/25 00:16 69 120/83 09/05/25 22:55 36.8 C 68 16 118/79 92 Room Air 09/05/25 20:00 Room Air 09/05/25 19:56 76 126/80 09/05/25 15:14 36.5 C 72 16 116/80 92 Room Air O2 Flow Rate 09/06/25 11:35 0 09/06/25 11:25 4 09/06/25 11:15 8 09/06/25 11:09 8 09/06/25 09:06 09/06/25 07:39 09/06/25 00:16 09/05/25 22:55 09/05/25 20:00 09/05/25 19:56 09/05/25 15:14 Pain Intensity Abdomen: Pain Intensity: 4 Transfer of Care Handoff Completed per policy Notes Mental Status: alert / awake / arousable and participated in evaluation Patient Amnestic to Procedure: Yes Nausea / Vomiting: adequately controlled Pain: adequately controlled Airway Patency, RR, SpO2: stable & adequate BP & HR: stable & adequate Hydration State: stable & adequate Anesthetic Complications: no major complications apparent
[2025-09-06] MEDS: INFLUENZA VACC TS2025-26(6m+)/PF (IIV3) 0.5mL Syr IM ONE (13:31)
[2025-09-06] MEDS: Nursing to Pharmacy Communication SCH (15:14)
[2025-09-06] MEDS: WARFARIN SOD 5 MG TAB PO SCH (17:49)
[2025-09-06] MEDS ORDERED: Heparin IV Adult Wt-Based Standard *NO* INITIAL Bolus Protocol IV SCH (20:00)
[2025-09-06] MEDS: HEPARIN 25000 UNIT/500 ML D5W 25,000 UNITS/500 ML BAG IV SCH (20:17)
[2025-09-07 02:30] LABS: ANTI-Xa, UFH(UnfractionatedHep 0.19 IU/ml (0.3-0.7)
[2025-09-07] MEDS: HEPARIN SOD (PORCINE) 1000 UNIT/ML IV STA (03:12)
--- NOTE | 2025-09-07 08:45 | Surgery Progress Note ---
Date of Service September 07, 2025 Assessment & Plan (1) Acute cholecystitis: Plan: Postoperative day #1 laparoscopic cholecystectomy He does not need antibiotics from a surgical standpoint Advance his diet as tolerated Will follow-up his morning labs, his heparin drip and Coumadin has been resumed He can follow-up with me around 2 to 3 weeks after surgery Admission and Anticipated Discharge Date Admission Date: September 03, 2025 Subjective Patient seen and examined. Tolerated clear liquids. Afebrile. Vital signs stable. Physical Exam Constitutional: WD/WN, vitals as above Gastrointestinal (Abdomen): Incisions healing well without erythema or drainage Results & Data Vital Signs (Past 12 Hours) Vital Signs Temp Pulse Resp BP Pulse Ox O2 Del Method 09/07/25 07:04 36.4 C L 65 18 106/72 93 Room Air 09/07/25 03:13 36.3 C L 74 16 110/66 94 Room Air 09/06/25 23:25 36.9 C 86 16 115/67 92 Room Air PG Care Time/CCT Total # of Minutes Spent Total Time Spent with Patient: Total time spent is greater than 50% in coordination of care (as documented) at patient's floor/unit and/or counseling patient: Coding Level of Care Code 06414 Post Operative Follow-Up Diagnoses Acute cholecystitis K81.0
[2025-09-07 10:14] LABS: Alanine Aminotransferase 42.0 U/L (7-52); Albumin Globulin Ratio 1.3 (0.9-2); Albumin Level 3.8 gm/dl (3.4-5.0); Alkaline Phosphatase 63.0 U/L (34-104); Anion Gap 12.0 (3-11); Bilirubin,Total 0.7 mg/dl (0.2-1.0); Blood Urea Nitrogen 7.0 mg/dl (6-23); Calcium 9.0 mg/dl (8.6-10.3); Carbon Dioxide 27.0 mmol/L (21-32); Chloride 102.0 mmol/L (98-107); Creatinine Clr Calc Pharmacy 138.6 ml/min; Globulin 3.0 gm/dl (2.5-4.0); Glucose 217.0 mg/dl (70-99(Fasting)); Potassium 3.8 mmol/L (3.5-5.1); Sodium 141.0 mmol/L (136-145); Total Protein 6.8 gm/dl (6.0-8.3)
[2025-09-07 10:22] LABS: ANTI-Xa, UFH(UnfractionatedHep 0.46 IU/ml (0.3-0.7)
[2025-09-07 10:25] LABS: INR 1.2 (0.9-1.1); Prothrombin Time 12.3 Seconds (9.0-12.0)
[2025-09-07 10:46] LABS: Hematocrit (blood only) 39.4 % (42.0-52.0); Hemoglobin 13.7 g/dl (14.0-18.0); Immature Granulocytes # (auto) 0.11 K/uL (0.01-0.20); Immature Granulocytes % (auto) 1.0 %; Mean Corpuscular Hemoglobin 29.6 pg (25.0-34.0); Mean Corpuscular Volume 85.1 fL (80.0-100.0); Platelet Count 254 K/uL (130-400); RDW Standard Deviation 49.7 fL (36.4-46.3); Red Blood Count 4.63 M/uL (4.70-6.10); White Blood Count 10.62 K/ul (4.8-10.8)
--- NOTE | 2025-09-07 11:50 | Hospitalist Progress Note ---
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 Assessment/Plan Acute cholecystitis Hx of mechanical aortic valve on coumadin Hx of CVA with right sided weakness Patient presented with abdominal pain, nausea HIDA scan positive for Acute cholecystitis Echocardiogram shows normal EF; prosthetic aortic valve is well-seated. Status post laparoscopic cholecystectomy on 09/06 Diet advanced to general; tolerating well Continue on heparin drip with Coumadin. Goal INR is between 2.5-3.5.PT/INR Daily May switch over to Lovenox at the time of the discharge. Possible Pneumonia Chest CT shows multiple patchy ill-defined ground glass opacities with adjacent atelectatic bands in bilateral lower lobe, nodular glass/opacities in the left lingula. Patient denies any fever, cough, shortness of breath to suggest pneumonia Treated with Zosyn during the hospitalization;; will need follow-up CT chest in 4 to 6 weeks to ensure resolution. History of seizures Continue on Keppra and Depakote Seizure precautions Depression On fluoxetine, Remeron and olanzapine-continue Migraines Propranolol-continue Anxiety On buspirone-continue Chronic pain On oxycodone as needed Polyneuropathy On gabapentin-continue History of trigeminal neuralgia On baclofen-continue Lower extremity edema On Lasix-continue DVT prophylaxis-Coumadin/heparin Disposition-Medical floor CODE STATUS DNR/DNI Time spent evaluating patient, direct bedside care, chart review, placing order s, interpretation of diagnostic studies, discussion with consultants, patient, and family members, as well as other required patient management activities is 50 minutes Please note the above document was generated using voice recognition software. It may contain grammatical, syntax or spelling errors. Any formal questions or concerns about the content, text or information contained within the body of this dictation should be directly addressed to the provider for clarification Admission and Anticipated Discharge Date Admission Date: September 03, 2025 Subjective Patient seen and examined at bedside. Comfortable; not in distress. Denies fever, chills, chest pain, shortness of breath, abdominal pain or urinary symptoms. No significant overnight events Review of Systems Review of Systems: All systems reviewed & are unremarkable except as noted in Subjective Physical Exam Physical Exam: Constitutional: WD/WN, vitals as above, NAD, sitting up in bed, pleasant, conversing easily Respiratory: normal respiratory effort, lungs clear to auscultation, no wheeze, rales, rhonchi. Normal insp/exp effort, no accessory muscle use Cardiovascular: RRR, systlic murmur, no edema Vessels: no JVD or carotid bruit Chest: normal inspection of chest Abdomen: incision intact; appropriately tender. soft Skin: no rashes, warm and dry normal turgor Neurologic: PERRL, EOMI, accommodation nl. right hemiparesis +nt Psychiatric: A+Ox3, euthymic affect Results & Data Results & Data Vital Signs (Past 12 Hours) Vital Signs Temp Pulse Resp BP Pulse Ox O2 Del Method 09/07/25 11:00 36.4 C L 74 16 124/75 93 Room Air 09/07/25 07:04 36.4 C L 65 18 106/72 93 Room Air 09/07/25 03:13 36.3 C L 74 16 110/66 94 Room Air
[2025-09-07] MEDS: VALPROIC ACID SOLN 250 MG/5 ML UDC PO SCH (13:59)
[2025-09-07] MEDS: ACETAMINOPHEN 325 MG TAB PO PRN (14:28)
[2025-09-07] MEDS: WARFARIN SOD 5 MG TAB PO SCH (15:35)
[2025-09-08 07:08] LABS: Hematocrit (blood only) 37.3 % (42.0-52.0); Hemoglobin 12.7 g/dl (14.0-18.0); Immature Granulocytes # (auto) 0.13 K/uL (0.01-0.20); Immature Granulocytes % (auto) 1.5 %; Mean Corpuscular Hemoglobin 28.9 pg (25.0-34.0); Mean Corpuscular Volume 85.0 fL (80.0-100.0); Platelet Count 240 K/uL (130-400); RDW Standard Deviation 50.2 fL (36.4-46.3); Red Blood Count 4.39 M/uL (4.70-6.10); White Blood Count 8.73 K/ul (4.8-10.8)
[2025-09-08 08:10] LABS: ANTI-Xa, UFH(UnfractionatedHep 0.35 IU/ml (0.3-0.7)
[2025-09-08 08:31] LABS: INR 1.3 (0.9-1.1); Prothrombin Time 13.1 Seconds (9.0-12.0)
[2025-09-08] MEDS: VALPROIC ACID SOLN 500 MG/10 ML UDC PO SCH (09:31)
--- NOTE | 2025-09-08 15:33 | Hospitalist Progress Note ---
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 Acute cholecystitis Hx of mechanical aortic valve on coumadin Hx of CVA with right sided weakness --Gall Bladder USD:The gallbladder appears mildly distended with possible wall thickening and layering sludge/calculi seen. There is no Nicholson sign, wall edema, or pericholecystic fluid. The possibility of early cholecystitis cannot be entirely ruled out. Clinical correlation and, if needed, follow-up are advised. Enlarged liver with moderate steatosis and an area of fat sparing seen adjacent to the gallbladder. --HIDA:Nonvisualization of the gallbladder. This is indirect evidence of cystic duct obstruction. It should be noted that false positive HIDA scans can occur in severe liver disease, pancreatitis, and gallbladder motility abnormalities. -- S/P Laparoscopic cholecystectomy on 09/06 Tolerating regular diet Appreciate surgery input Continue IV heparin and Coumadin until INR therapeutic between 2.5-3.5 INR 1.3 today Will give 7.5 mg Coumadin today Possible Pneumonia --Chest CT shows multiple patchy ill-defined ground glass opacities with adjacent atelectatic bands in bilateral lower lobe, nodular glass/opacities in the left lingula. Patient denies any fever, cough, shortness of breath to suggest pneumonia Treated with Zosyn during the hospitalization;; will need follow-up CT chest in 4 to 6 weeks to ensure resolution. History of seizures Continue on Keppra and Depakote Seizure precautions Depression On fluoxetine, Remeron and olanzapine-continue Migraines Propranolol-continue Anxiety On buspirone-continue Chronic pain On oxycodone as needed Polyneuropathy On gabapentin-continue History of trigeminal neuralgia On baclofen-continue Lower extremity edema On Lasix-continue DVT prophylaxis Coumadin/heparin CODE STATUS DNR/DNI Admission and Anticipated Discharge Date Admission Date: September 03, 2025 Subjective Patient is seen and examined at bedside States having some abdominal discomfort Tolerating diet Denies any chest pain, dyspnea, nausea, vomiting Review of Systems Review of Systems: All systems reviewed & are unremarkable except as noted in Subjective Physical Exam 2 Physical Exam: Physical Exam: Vitals signs as noted above General Appearance:Obese, no apparent distress Head: normocephalic, Atraumatic Eyes: normal inspection, EOMI Neck: supple, Trachea midline Respiratory/Chest: Normal breath sounds, CTA, No accessory muscle use Cardiovascular: Mechanical heart sounds, no murmur Abdomen/GI:Soft, mild tender, +mildly distended, +Laproscopic scars, Bowel sounds present Extremities/Musculoskeletal:normal inspection, no edema Neurologic/Psych:AAOX3, grossly no focal neurological deficits Skin: normal color, warm Results & Data Results & Data Vital Signs (Past 12 Hours) Vital Signs Temp Pulse Resp BP Pulse Ox O2 Del Method 09/08/25 07:18 36.2 C L 66 18 119/80 92 Room Air Laboratory Results Short CBC 09/08/25 Range/Units 06:33 WBC 8.73 (4.8-10.8) K/ul Hgb 12.7 L (14.0-18.0) g/dl Hct 37.3 L (42.0-52.0) % Plt Count 240 (130-400) K/uL
[2025-09-08] MEDS: WARFARIN SOD 7.5 MG TAB PO SCH (16:02)
[2025-09-09 00:23] VITALS: RESP 16
[2025-09-09 07:33] LABS: INR 1.3 (0.9-1.1); Prothrombin Time 14.0 Seconds (9.0-12.0)
[2025-09-09 07:34] LABS: Anion Gap 12.0 (3-11); Calcium 9.2 mg/dl (8.6-10.3); Carbon Dioxide 27.0 mmol/L (21-32); Chloride 100.0 mmol/L (98-107); Potassium 3.7 mmol/L (3.5-5.1); Sodium 139.0 mmol/L (136-145)
[2025-09-09] MEDS ORDERED: LOVENOX TEACHING KIT PRN (07:34)
[2025-09-09 07:36] VITALS: BP 128/86; PULSE 61; TEMP 98.2; O2SAT 95
[2025-09-09 07:37] LABS: ANTI-Xa, UFH(UnfractionatedHep 0.39 IU/ml (0.3-0.7)
[2025-09-09 07:39] LABS: Blood Urea Nitrogen 5.0 mg/dl (6-23); Creatinine Clr Calc Pharmacy 140.2 ml/min; Glucose 218.0 mg/dl (70-99(Fasting))
[2025-09-09] MEDS ORDERED: ENOXAPARIN 1 MG/KG SQ SCH (07:45)
[2025-09-09] MEDS: ENOXAPARIN INJ 120 MG/0.8 ML SYR SQ SCH (09:28)
--- NOTE | 2025-09-09 11:07 | Hospitalist Progress Note ---
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 Acute cholecystitis Hx of mechanical aortic valve on coumadin Hx of CVA with right sided weakness --Gall Bladder USD:The gallbladder appears mildly distended with possible wall thickening and layering sludge/calculi seen. There is no Nicholson sign, wall edema, or pericholecystic fluid. The possibility of early cholecystitis cannot be entirely ruled out. Clinical correlation and, if needed, follow-up are advised. Enlarged liver with moderate steatosis and an area of fat sparing seen adjacent to the gallbladder. --HIDA:Nonvisualization of the gallbladder. This is indirect evidence of cystic duct obstruction. It should be noted that false positive HIDA scans can occur in severe liver disease, pancreatitis, and gallbladder motility abnormalities. -- S/P Laparoscopic cholecystectomy on 09/06 Tolerating regular diet Appreciate surgery input Continue IV heparin>> transition to therapeutic Lovenox Plan to continue Lovenox until INR is therapeutic between 2.5-3.5 INR 1.3 today Will give 7.5 mg Coumadin today Recommended to follow-up with surgery, Coumadin clinic on discharge Possible Pneumonia --Chest CT shows multiple patchy ill-defined ground glass opacities with adjacent atelectatic bands in bilateral lower lobe, nodular glass/opacities in the left lingula. Patient denies any fever, cough, shortness of breath to suggest pneumonia Treated with Zosyn during the hospitalization;; will need follow-up CT chest in 4 to 6 weeks to ensure resolution. Asymptomatic History of seizures Continue on Keppra and Depakote Seizure precautions Depression On fluoxetine, Remeron and olanzapine-continue Migraines Propranolol-continue Anxiety On buspirone-continue Chronic pain On oxycodone as needed Polyneuropathy On gabapentin-continue History of trigeminal neuralgia On baclofen-continue Lower extremity edema On Lasix-continue DVT prophylaxis Coumadin/Lovenox CODE STATUS DNR/DNI Disposition Personal care facility Admission and Anticipated Discharge Date Admission Date: September 03, 2025 Subjective Patient is seen and examined at bedside No new complaints Still has some abdominal discomfort at surgical site Tolerating diet with no issues Denies any chest pain, dyspnea, nausea, vomiting Plan to discharge home today Review of Systems Review of Systems: All systems reviewed & are unremarkable except as noted in Subjective Physical Exam Physical Exam: Physical Exam: Vitals signs as noted above General Appearance:Obese, no apparent distress Head: normocephalic, Atraumatic Eyes: normal inspection, EOMI Neck: supple, Trachea midline Respiratory/Chest: Normal breath sounds, CTA, No accessory muscle use Cardiovascular: Mechanical heart sounds, no murmur Abdomen/GI:Soft, non tender, +mildly distended, +Laparoscopic scars, Bowel sounds present Extremities/Musculoskeletal:normal inspection, no edema Neurologic/Psych:AAOX3, grossly no focal neurological deficits Skin: normal color, warm Results & Data Results & Data Vital Signs (Past 12 Hours) Vital Signs Temp Pulse Resp BP Pulse Ox O2 Del Method 09/09/25 07:35 36.8 C 61 16 128/86 95 Room Air 09/09/25 00:22 36.5 C 85 16 146/81 H 92 Room Air Laboratory Results [facility] 09/09/25 06:45 Sodium 139 Potassium 3.7 Chloride 100 Carbon Dioxide 27 BUN 5 L Creatinine 0.83 Glucose 218 H Calcium 9.2
--- NOTE | 2025-09-09 11:34 | Discharge Summary ---
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 Patient states abdominal pain started tonight. Pain is 7/10 in severity associated with nausea. Has some headache. Vision is okay. No runny nose or sore throat. No cough. No fevers. Denies any chest pain. Has chronic shortness of breath. Normal bowel and bladder movements. Patient states he cannot walk but can transfer to the wheelchairs. Hemodynamics okay. Past medical history. As mentioned above Past surgical history. Repair of skull and brain status post CVA status post mechanical thrombectomy [facility] 2018. Replacement of aortic valve bypass with mechanical valve in 2013. Social history. Currently residing in senior care. Quit smoking 2013. Smoked 0.1 pack in about 10 years. Chews tobacco. Alcohol beer occasionally as well as epic. No drug use currently. Family history father has asthma. Mother has heart disease. Daughter has heart murmur. Maternal grandfather had CABG. Admission Exam Per Admitting Provider General- Not in distress Head- atraumatic Eyes- PERRL. ENT- oropharynx clear Neck- supple, no JVD. Lungs- clear to auscultation no wheezing or crackles Heart- regular rhythm; no murmur, no gallop. Abdomen- normal bowel sounds, soft, tenderness in epigastric and RUQ region, No distension Extremities- mild pretibial edema, no calf tenderness Neuro- alert, oriented PERRL, no facial palsy; speech somewhat pressured, obeys simple commands Principal Diagnosis Acute cholecystitis S/P Laparoscopic cholecystectomy Abnormal CT chest Mechanical aortic valve Discharge Data Allergies Allergy/AdvReac Type Severity Reaction Status Date / Time cephalexin Allergy Intermediate RASH-ITCHY Verified 01/20/19 00:47 fish derived Allergy Intermediate RASH-ITCHY Verified 01/20/19 00:47 indomethacin AdvReac Intermediate GI SYMPTOMS Verified 01/20/19 00:47 tramadol AdvReac Unknown UPSET Verified 01/20/19 00:47 STOMACH Consultations 09/03/25 04:25 ED Decision to Admit Stat 09/03/25 08:00 Consult General Surgery Routine 10/24/25 13:14 Consult Cardiology Routine Procedures Performed Operation Date: 09/06/25 07:00 Actual Procedures p Laparoscopic Cholecystectomy(Not Applicable) - Jack Lowe DO Ordered Studies Laboratory Results WBC 8.73 K/ul (4.8-10.8) 09/08/25 06:33 RBC 4.39 M/uL (4.70-6.10) L 09/08/25 06:33 Hgb 12.7 g/dl (14.0-18.0) L 09/08/25 06:33 Hct 37.3 % (42.0-52.0) L 09/08/25 06:33 MCV 85.0 fL (80.0-100.0) 09/08/25 06:33 MCH 28.9 pg (25.0-34.0) 09/08/25 06:33 MCHC 34.0 g/dL (32.0-36.0) 09/08/25 06:33 RDW Std Deviation 50.2 fL (36.4-46.3) H 09/08/25 06:33 RDW Coeff of Brittney 16.4 % (11.5-14.5) H 09/08/25 06:33 Plt Count 240 K/uL (130-400) 09/08/25 06:33 MPV 9.9 fL (9.4-12.4) 09/08/25 06:33 Immature Gran % (Auto) 1.5 % 09/08/25 06:33 Neut % (Auto) 46.5 % 09/08/25 06:33 Lymph % (Auto) 34.2 % 09/08/25 06:33 [place] % (Auto) 9.2 % 09/08/25 06:33 Eos % (Auto) 8.1 % 09/08/25 06:33 Baso % (Auto) 0.5 % 09/08/25 06:33 Neut # (Auto) 4.06 K/uL (1.40-6.50) 09/08/25 06:33 Lymph # (Auto) 2.99 K/uL (1.20-3.40) 09/08/25 06:33 [place] # (Auto) 0.80 K/uL (0.11-0.59) H 09/08/25 06:33 Eos # (Auto) 0.71 K/uL (0.00-0.50) H 09/08/25 06:33 Baso # (Auto) 0.04 K/uL (0.00-0.20) 09/08/25 06:33 Immature Gran # (Auto) 0.13 K/uL (0.01-0.20) 09/08/25 06:33 PT 14.0 Seconds (9.0-12.0) H 09/09/25 06:45 INR 1.3 (0.9-1.1) H 09/09/25 06:45 APTT 43 Seconds (21-31) H 09/03/25 04:46 PTT Ratio 1.6 09/03/25 04:46 Heparin Anti-Xa, Unfract 0.39 IU/ml (0.3-0.7) 09/09/25 06:45 Sodium 139 mmol/L (136-145) 09/09/25 06:45 Potassium 3.7 mmol/L (3.5-5.1) 09/09/25 06:45 Chloride 100 mmol/L (98-107) 09/09/25 06:45 Carbon Dioxide 27 mmol/L (21-32) 09/09/25 06:45 Anion Gap 12 (3-11) H 09/09/25 06:45 BUN 5 mg/dl (6-23) L 09/09/25 06:45 Creatinine 0.83 mg/dl (0.6-1.4) 09/09/25 06:45 Est Cr Clr Drug Dosing 140.2 ml/min 09/09/25 06:45 eGFR 117.78 09/09/25 06:45 BUN/Creatinine Ratio 6.0 (10-20) L 09/09/25 06:45 Glucose 218 mg/dl (70-99(Fasting)) H 09/09/25 06:45 Calcium 9.2 mg/dl (8.6-10.3) 09/09/25 06:45 Magnesium 2.0 mg/dl (1.7-2.4) 09/04/25 05:28 Total Bilirubin 0.7 mg/dl (0.2-1.0) 09/07/25 09:04 AST 39 U/L (13-39) 09/07/25 09:04 ALT 42 U/L (7-52) 09/07/25 09:04 Alkaline Phosphatase 63 U/L (34-104) 09/07/25 09:04 Total Protein 6.8 gm/dl (6.0-8.3) 09/07/25 09:04 Albumin 3.8 gm/dl (3.4-5.0) 09/07/25 09:04 Globulin 3.0 gm/dl (2.5-4.0) 09/07/25 09:04 Albumin/Globulin Ratio 1.3 (0.9-2) 09/07/25 09:04 Lipase 53 U/L (11-82) 09/02/25 23:21 Urine Color Yellow 09/03/25 01:14 Urine Appearance Clear (Clear) 09/03/25 01:14 Urine pH 6.5 (4.5-7.5) 09/03/25 01:14 Ur Specific [place] 1.016 (1.000-1.030) 09/03/25 01:14 Urine Protein Negative (Negative) 09/03/25 01:14 Urine Glucose (UA) Negative (Negative) 09/03/25 01:14 Urine Ketones Negative (Negative) 09/03/25 01:14 Urine Blood Negative (Negative) 09/03/25 01:14 Urine Nitrite Negative (Negative) 09/03/25 01:14 Urine Bilirubin Negative (Negative) 09/03/25 01:14 Urine Urobilinogen Negative (Negative) 09/03/25 01:14 Ur Leukocyte Esterase Negative (Negative) 09/03/25 01:14 Urine Comment 09/03/25 01:14 Impressions Abdomen/Pelvis CT 09/02/25 23:38 EXAM: CT abd pelvis IV con only CLINICAL HISTORY: mid abd pain, hx cva TECHNIQUE: Contrast-enhanced CT of the abdomen and pelvis was performed with the following protocol: axial images with, and reconstructed coronal and sagittal images. Intravenous contrast was administered. One of the following dose reduction techniques was utilized for this exam: automated exposure control, adjustment of the mA and/or kV according to patient size, and use of iterative reconstruction. COMPARISON: No prior studies for comparison. FINDINGS: Abdomen: Liver: The liver is normal in size, shape, and density. No focal lesions, cysts, or masses are identified. The hepatic vasculature and biliary ducts are unremarkable. Gallbladder and Biliary System: The gallbladder is mildly dilated, measuring 10.5 x 3.8 cm. Ultrasound assessment is recommended. No wall thickening, pericholecystic fluid, or calcific gallstones are identified. The common bile duct is normal in caliber without dilation. Pancreas: The pancreatic head, body, and tail are visualized and appear normal in size and density. No pancreatic masses or calcifications are noted. The pancreatic duct is not dilated. Spleen: The spleen is normal in size, shape, and density. No splenic lesions or masses are identified. A small splenule is seen, measuring 15 mm. Appendix: The appendix is normal in size, without ronn-appendiceal fat stranding and without an appendicolith. There is no evidence of appendiceal abscess or perforation. Kidneys and Adrenal Glands: Both kidneys are normal in size, shape, and position. Cortical thickness is within normal limits. There are no renal calculi or hydronephrosis. The adrenal glands are unremarkable, with no evidence of masses or hyperplasia. Pelvis: Urinary Bladder: The urinary bladder appears partially contracted at the time of the study, with mild wall thickening, raising the possibility of cystitis. Clinical and laboratory correlation is recommended. No intraluminal lesions are identified. Prostate: The prostate is normal in size and contour. No focal lesions or masses are identified. Seminal Vesicles: The seminal vesicles are normal in size and appearance. No abnormalities are noted. Peritoneal and Retroperitoneal Structures: No free fluid or abnormal fluid collections are identified within the abdomen or pelvis. No lymphadenopathy is noted. Bowel: The visualized bowel loops are normal in caliber and appearance. There is no evidence of bowel obstruction or wall thickening. Bones and Soft Tissues: The pelvic bones and soft tissues are unremarkable. No fractures or abnormal masses are identified. A Schmorl's node is seen at the superior endplate of L4. Basal chest scans: Patchy ground-glass densities are noted in the basal lung regions, more prominent on the left side. These findings may represent pulmonary congestion; however, an associated infective process cannot be excluded. Clinical correlation and, if clinically indicated, a dedicated CT chest evaluation are recommended. Sternotomy sutures and an artificial aortic valve are seen. IMPRESSION: Patchy ground-glass densities are noted in the basal lung regions, more prominent on the left side. These findings may represent pulmonary congestion; however, an associated infective process cannot be excluded. Clinical correlation and, if clinically indicated, a dedicated CT chest evaluation are recommended. The gallbladder is mildly dilated, measuring 10.5 x 3.8 cm; however, there is no pericholecystic fluid or fat stranding. Ultrasound assessment is recommended. The urinary bladder appears partially contracted at the time of the study, with mild wall thickening, raising the possibility of cystitis. Clinical and laboratory correlation is recommended. No definite or obvious acute abnormality is identified within the abdomen. Electronically signed by Ezra Jha 09-03-2025 02:13 AM Chest X-Ray 09/03/25 02:46 EXAM: XR chest 1V portable CLINICAL HISTORY: cough TECHNIQUE: Radiograph of the chest was acquired. 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 Cardiomegaly is present. Ill-defined ground-glass haze is noted in the left lower zone, which appears to be due to projectional changes. The remainder of both lungs is clear, with no pulmonary infiltrate or pleural effusion. No acute osseous abnormality is identified. Cardiac valve-stable. IMPRESSION: Sternal suture is noted. Cardiomegaly, increased in size as compared to prior. Ill-defined ground-glass haze is noted in the left lower zone, which appears to be due to projectional changes. Advised follow up. Electronically signed by Jeronimo Roy 09-03-2025 05:22 AM Gallbladder Ultrasound 09/03/25 02:46 EXAM: US gallbladder CLINICAL HISTORY: abd pain TECHNIQUE: Limited ultrasound of the liver and gallbladder was performed in grayscale and Doppler. Multiple images were obtained in the transverse and longitudinal planes. COMPARISON: No prior studies are available for comparison. FINDINGS: Liver: Liver size: The liver measures 17.6 cm in length. The liver appears enlarged in size, with echogenic texture and geographic hypoechoic areas of fat sparing observed. There is no evidence of focal lesions, cysts, or masses. The hepatic vasculature appears normal. Gallbladder: Gallbladder size: The gallbladder is visualized and appears mildly distended (measures 10 x 4 cm, longitudinal x transverse). A cluster of small echogenic foci is seen in the neck and dependent portions, which is suggestive of small calculi with sludge present. The wall measures 1.6 mm according to the provided measurements, with measurement in other images reaching 3.6 mm. No pericholecystic fluid is noted. There is no evidence of gallbladder wall edema or signs of acute cholecystitis. Negative sonographic Nicholson sign Biliary Tree: Common bile duct diameter: 3.8 mm. The common bile duct is within normal limits in caliber and is not dilated. There is no evidence of choledocholithiasis or biliary obstruction. Right kidney: No hydronephrosis is present. The sonographic features are unremarkable. IMPRESSION: The gallbladder appears mildly distended with possible wall thickening and layering sludge/calculi seen. There is no Nicholson sign, wall edema, or pericholecystic fluid. The possibility of early cholecystitis cannot be entirely ruled out. Clinical correlation and, if needed, follow-up are advised. Enlarged liver with moderate steatosis and an area of fat sparing seen adjacent to the gallbladder. Electronically signed by Ezra Jha 09-03-2025 04:[address] 09/03/25 05:50 EXAM: CT chest diagnostic wo con CLINICAL HISTORY: opacities in lung bases? on ct abd/pelvis TECHNIQUE: Contiguous axial images were obtained from the base of the neck through the upper abdomen without contrast. In addition, sagittal and coronal reconstructions were performed to potentially increase the sensitivity for the detection of disease. CT scan was performed according to ALARA (as low as reasonably achievable). 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 FINDINGS: Multiple patchy, ill-defined ground-glass opacities with adjacent atelectatic bands are noted in the bilateral lower lobes, with nodular ground glass opacities seen in left lingula. The remainder of both lungs is clear. The central airways are patent. There are no pleural effusions. No pneumothorax is seen. Evaluation of the mediastinum and analilia is limited due to the lack of intravenous contrast. No axillary or mediastinal adenopathy is identified. The thyroid is unremarkable. The heart, aorta, and pulmonary arteries are of normal size and configuration. There are coronary artery and aortic atherosclerotic calcifications. No pericardial effusion is identified. Imaged portions of the upper abdomen are unremarkable. No aggressive appearing osseous lesions are identified. IMPRESSION: Multiple patchy, ill-defined ground-glass opacities with adjacent atelectatic bands are noted in the bilateral lower lobes, with nodular ground glass opacities seen in left lingula. These findings are possibly sequelae of a recent infection and represent a new finding. No other new interval abnormality is noted since the prior study. Electronically signed by Jeronimo Roy 09-03-2025 06:39 AM Hepatobiliary Scan Nuclear Medicine 09/03/25 07:18 NUCLEAR MEDICINE HEPATOBILIARY SCAN CLINICAL HISTORY: Biliary colic. Distended gallbladder. COMPARISON: CT scan dated 09/03/2025 TECHNIQUE: 5 mCi of technetium 99m Choletec IV was injected at 10:45 AM. Immediately following injection, imaging of the abdomen was carried out for 60 minutes in the anterior projection. FINDINGS: Hepatic uptake of radiotracer is prompt and homogeneous. Radiotracer activity is identified within the common bile duct at 10 minutes, and small bowel at 20 minutes. There is normal distribution of radiotracer. The gallbladder was not visualized on images out to 60 minutes. At this point tiny patient was administered 2 mg of intravenous morphine. Images from an additional 30 minutes were obtained. The gallbladder was never visualized. IMPRESSION: 1. Nonvisualization of the gallbladder. This is indirect evidence of cystic duct obstruction. 2. It should be noted that false positive HIDA scans can occur in severe liver disease, pancreatitis, and gallbladder motility abnormalities. ACT 112: Negative or not required by law. Electronically signed by: Tomi Tyler M.D. 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 Acute cholecystitis Hx of mechanical aortic valve on coumadin Hx of CVA with right sided weakness --Gall Bladder USD:The gallbladder appears mildly distended with possible wall thickening and layering sludge/calculi seen. There is no Nicholson sign, wall edema, or pericholecystic fluid. The possibility of early cholecystitis cannot be entirely ruled out. Clinical correlation and, if needed, follow-up are advised. Enlarged liver with moderate steatosis and an area of fat sparing seen adjacent to the gallbladder. --HIDA:Nonvisualization of the gallbladder. This is indirect evidence of cystic duct obstruction. It should be noted that false positive HIDA scans can occur in severe liver disease, pancreatitis, and gallbladder motility abnormalities. -- S/P Laparoscopic cholecystectomy on 09/06 Tolerating regular diet Appreciate surgery input Continue IV heparin>> transition to therapeutic Lovenox Plan to continue Lovenox until INR is therapeutic between 2.5-3.5 INR 1.3 today Will give 7.5 mg Coumadin today Recommended to follow-up with surgery, Coumadin clinic on discharge Possible Pneumonia --Chest CT shows multiple patchy ill-defined ground glass opacities with adjacent atelectatic bands in bilateral lower lobe, nodular glass/opacities in the left lingula. Patient denies any fever, cough, shortness of breath to suggest pneumonia Treated with Zosyn during the hospitalization;; will need follow-up CT chest in 4 to 6 weeks to ensure resolution. Asymptomatic History of seizures Continue on Keppra and Depakote Seizure precautions Depression On fluoxetine, Remeron and olanzapine-continue Migraines Propranolol-continue Anxiety On buspirone-continue Chronic pain On oxycodone as needed Polyneuropathy On gabapentin-continue History of trigeminal neuralgia On baclofen-continue Lower extremity edema On Lasix-continue DVT prophylaxis Coumadin/Lovenox CODE STATUS DNR/DNI Disposition Personal care facility Total Time Total Time Spent Total Time Spent (In Minutes): 52 minutes Discharge Plan Discharge Items Patient Disposition: Personal [facility] Reason For Visit: ABD PAIN, GALL BLADDER STONE DISEASE Discharge Diagnosis: Acute cholecystitis S/P Laparoscopic cholecystectomy Abnormal CT chest Mechanical aortic valve Condition on Discharge: Good Activity: Per Instructions section Lifting: No more than 10 pounds Bathing Comment: may shower; no soaking in tubs/pools x 2 weeks Exercise/Sports: Wait until after follow-up appointment Driving/Machine Use: no driving while taking narcotics for pain Non-emergency contact: Primary Care Provider, Surgeon and Specialist Call non-emergency contact if: you have any medication questions, your pain is not controlled, you have a fever, your temperature is above 101.5, your wound raines s increased redness, your wound has increased drainage and your wound pain has increased Follow-up/Referrals: Jack Lowe DO [Physician] - (please call to schedule follow up in the office in 2 weeks) Avtar Myles M.D. [Primary Care Provider] - Diet: Heart Healthy Addtl Attending Provider Instructions: SPECIAL CARE INSTRUCTIONS: * You have skin glue over your incisions called dermabond. you may shower with this on. It will tend to dissolve and fall off within a couple weeks. Do not pick at the skin glue * You may shower. NO soaking in pools or baths for 2 weeks * No lifting greater than 10lbs. No strenuous exercise until cleared by surgeon. Light walking is accepted. * No driving while taking narcotic pain medication; wait at least 3 days * No drinking alcohol while taking narcotic pain medication * May use Tylenol over the counter for pain as tolerated. Do not exceed 3grams of Tylenol per 24 hours * Expect some swelling and bruising. * Diet- you may resume your regular diet Call your doctor if: * Temperature above 101 degrees, nausea/vomiting, fever/chills * Pain not relieved by pain medicine ordered * There is increased drainage or redness from any incision * You have any unanswered questions or concerns [phone]. FOLLOW UP VISIT: If not already scheduled, please call the office for a follow-up visit. Office Addtl Knitting Inspector Provider Instructions: -- Follow-up with your primary care physician in 1 week --Follow-up with your surgeon Dr. Jack Lowe in 2 weeks as recommended -- Follow-up with Coumadin clinic in 1-2 days with repeat blood work --Get blood work PT/INR tomorrow (09/10/25) and follow-up with Coumadin clinic for further recommendations on dosing of Coumadin based on your INR -- Continue Lovenox SQ 111mg subcutaneous twice a day until your INR is therapeutic between 2.5 to 3.5. -- Your PT/INR is 1.3 on 09/09/25. Take Coumadin 7.5 mg today. Further recommendations on Coumadin doses to be determined by Coumadin clinic. -- You are incidentally noted to have multiple patchy opacities on chest CT scan. Obtain repeat chest CT in 4 to 6 weeks to ensure resolution Seek immediate medical attention if your symptoms reoccur or worsen Please review medication list provided on discharge for any medication changes as instructed. Please call if you have any questions or problems. You can reach a [facility] hospitalist on duty at [facility] 24 hours a day by calling [phone] Pending Studies at Discharge: Yes Studies:: surgical pathology Stand-Alone Forms: [facility] [employer], Smoking Cessation Skilled Items Patient informed of condition?: Yes DNR: No Discharge Level of Care: Other Communicable Disease: No Discharge Prognosis: Stable Lines: None Urinary Catheter: No Medications and DC Order Prescriptions: New enoxaparin [Lovenox] 120 mg/0.8 mL Syringe 111 mg subcut Q12H 5 Days Qty: 7.4 0RF Continued fluoxetine 40 mg capsule 80 mg PO DAILY buspirone 5 mg tablet 5 mg PO TID sennosides [senna] 8.6 mg tablet 17.2 mg PO DAILY divalproex 250 mg tablet,delayed release (DR/EC) 250 mg PO TID divalproex 500 mg tablet,delayed release (DR/EC) 500 mg PO DAILY olanzapine 2.5 mg tablet 2.5 mg PO HS amantadine HCl 100 mg capsule 100 mg PO DAILY propranolol 40 mg tablet 40 mg PO BID mirtazapine 30 mg tablet 30 mg PO DAILY warfarin 5 mg tablet 5 mg PO DAILY gabapentin 300 mg capsule 600 mg PO TID levetiracetam 750 mg tablet 750 mg PO BID furosemide 20 mg tablet 20 mg PO DAILY oxycodone 5 mg tablet 5 mg PO BID PRN (Reason: Pain) baclofen 5 mg tablet 5 mg PO TID bisacodyl [Dulcolax (bisacodyl)] 10 mg Suppository 10 mg [place] DAILY PRN (Reason: Constipation) Discharge Orders: Discharge Order (Routine); Ordered 09/09/25 Ordered By: Aldo Salas Admission Data Admit Date/Time: 09/03/25 05:11 Attending Provider: Aldo Salas Admit Provider: Chong Hartley Primary Care Provider: Avtar Myles Other Providers: Chong Hartley; Ananda Corbett; Mack Lazo; [facility],
== END 2025-09-09 13:45 | DRG 417 ==
LOC: ED 23:11 → EDINP 09-03 05:11 → SUATTDRO 09-03 05:11 → 3N 09-03 06:12